=== PATIENT | female | born 1970 | race Caucasian/White ===

== ENCOUNTER 2017-07-13 17:56 | Emergency (ER) | payer OTHER ==
[2017-07-13] MEDS ORDERED: HYDROcodone/APAP 5-325MG 1 EACH TAB PO STA (18:03)
[2017-07-13 18:07] VITALS: BP 154/104; PULSE 115; RESP 20; TEMP 98
--- NOTE | 2017-07-13 18:12 | ED ---
General Adult HPI - General Stated complaint: RT WRIST INJURY FROM FALL Time Seen by Provider: 07/13/17 17:58 Source: patient, RN notes reviewed Mode of arrival: ambulatory Limitations: no limitations - History of Present Illness Initial comments: 47-year-old female presents emergency department with chief complaint of right wrist injury. Patient tripped and fell onto her right wrist. Now she has right wrist pain. Patient states that she does have range of motion of the fingers however it does cause her wrist hurts. He should not. There is no other injury. Patient denies any recent fever, chills, shortness of breath, chest pain, back pain, abdominal pain, nausea vomiting, numbness or tingling, dysuria or hematuria, constipation or diarrhea, headaches or visual changes, or any other current symptoms. - Related Data Home Medications Medication Instructions Recorded Confirmed Dicyclomine [Bentyl] 20 mg PO QID PRN 09/29/14 09/30/14 Ibuprofen [Motrin] 600 mg PO Q8HR PRN 09/29/14 09/29/14 Previous Rx's Medication Instructions Recorded Hydrocodone/Acetaminophen [[place] 1 each PO Q6HR PRN #10 tab 07/13/17 5-325] Allergies Allergy/AdvReac Type Severity Reaction Status Date / Time amoxicillin Allergy Rash/Hives Verified 07/13/17 18:02 Penicillins Allergy Rash/Hives Verified 07/13/17 18:02 Review of Systems ROS Statement: Those systems with pertinent positive or pertinent negative responses have been documented in the HPI. ROS Other: All systems not noted in ROS Statement are negative. Past Medical History Past Medical History: Hypertension Additional Past Medical History / Comment(s): pas hx. kidney stones, RUQ pain History of Any Multi-Drug Resistant Organisms: None Reported Past Surgical History: Cholecystectomy, Orthopedic Surgery, Tubal Ligation Additional Past Surgical History / Comment(s): wrist surg. Past Anesthesia/Blood Transfusion Reactions: Motion Sickness, Postoperative Nausea & Vomiting (PONV) Additional Past Anesthesia/Blood Transfusion Reaction / Comment(s): severe PONV Past Psychological History: No Psychological Hx Reported Smoking Status: Current some day smoker Past Alcohol Use History: None Reported Past Drug Use History: None Reported - Past Family History Mother Family Medical History: No Reported History General Exam - General Exam Comments Initial Comments: General: The patient is awake and alert, in no distress, and does not appear acutely ill. Neck: The neck is supple, there is no tenderness. Cardiovascular: There is a regular rate and rhythm. No murmur, rub or gallop is appreciated. Respiratory: Lungs are clear to auscultation, respirations are non-labored, breath sounds are equal. No wheezes, stridor, rales, or rhonchi. Musculoskeletal: Sensation intact with 2+ pulses. Right upper extremity. Patient's frontal motion of the right elbow. Patient has limited range of motion right hand due to pain in the right wrist patient does have swelling around the right wrist with tenderness patient of the radial aspect. Neurological: CN II-XII intact, There are no obvious motor or sensory deficits. Coordination appears grossly intact. Speech is normal. Skin: Skin is warm and dry and no rashes or lesions are noted. Psychiatric: Normal mood and affect. Limitations: no limitations Course Vital Signs 07/13/17 18:02 Temperature 98 F Pulse Rate 115 H Respiratory 20 Rate Blood Pressure 154/104 O2 Sat by Pulse 96 Oximetry Procedures - Orthopedic Splinting/Casting Injury #1 Side: right Upper Extremity Injury Location: wrist Upper Extremity Immobilizer: volar splint (short arm) Medical Decision Making - Medical Decision Making 47-year-old female presents for right wrist injury. At this time patient underwent an x-ray that does show a right wrist fracture. This time patient was placed in splint. We discussed follow-up with orthopedic we discussed return parameters all questions. Patient stated she understood and she is given plan. All questions have been answered. She will be discharged. - Radiology Data Radiology results: report reviewed, image reviewed Disposition Clinical Impression: Fracture of radius with ulna, right, closed Disposition: HOME SELF-CARE Condition: Stable Instructions: Wrist Fracture in Adults (ED) Additional Instructions: Please use medication as discussed. Please follow up with family doctor if symptoms have not improved over the next two days. Please return to the emergency room if your symptoms increase or worsen or for any other concerns. Prescriptions: Hydrocodone/Acetaminophen [[place] 5-325] 1 each PO Q6HR PRN #10 tab PRN Reason: Pain Referrals: Cheng Momin DO [Primary Care Provider] - 1-2 days Vishal Mcginnis MD [Medical Doctor] - 1-2 days Time of Disposition: 18:18
--- NOTE | 2017-07-13 18:17 | XR ---
EXAMINATION TYPE: XR wrist complete RT , 4 VIEWS DATE OF EXAM ORDERED: 07/13/2017 HISTORY: Pain. COMPARISON: None. FINDINGS: There is a mildly displaced, intra-articular fracture of the distal radius. There is an as sociated mildly displaced ulnar styloid fracture. There is mild posterior angulation. IMPRESSION: MILDLY DISPLACED CHOLECYSTITIS TYPE FRACTURE OF THE DISTAL RIGHT RADIUS AND ULNA. CODE A: INITIAL ENCOUNTER FOR CLOSED FRACTURE.
== END 2017-07-13 18:27 | disposition home or self-care (01) ==
LOC: EC 17:56
DX: S52.91XA Unspecified fracture of right forearm, initial encounter for closed fracture (principal); S52.201A Unspecified fracture of shaft of right ulna, initial encounter for closed fracture; F17.200 Nicotine dependence, unspecified, uncomplicated; Z98.890 Other specified postprocedural states; Z88.0 Allergy status to penicillin; W19.XXXA Unspecified fall, initial encounter
CPT/HCPCS: 29125; 99283

== ENCOUNTER 2020-11-16 15:03 | Inpatient (IN) | payer OTHER ==
[2020-11-16] MEDS ORDERED: NITROGLYCERIN SL TABS 0.4 MG TAB SUBLINGUAL STA (15:29)
[2020-11-16] MEDS ORDERED: ASPIRIN 81 MG PO STA (15:29)
[2020-11-16] MEDS ORDERED: SODIUM CHLORIDE 0.9% 500 ML 500 ML IV STA (15:29)
--- NOTE | 2020-11-16 15:34 | ED ---
Chest Pain HPI - General Chief Complaint: Chest Pain Stated Complaint: chest pain Time Seen by Provider: 11/16/20 15:13 Source: patient Mode of arrival: wheelchair Limitations: no limitations - History of Present Illness Initial Comments: Patient is a 50-year-old female with history of hypertension, presenting to the emergency Department with complaints of intermittent chest pain that started yesterday. Patient states it started yesterday afternoon, and she describes it as pressure in the middle of her chest with some mild radiation to the left lisa ast area. She states the pain has not gone away but has been decreasing in intensity at times. She denies any alleviating or aggravating factors. He denies any falls or trauma. She states currently the pain is about a 5/10, describes as pressure in the center of her chest. She states that she also feels a little short of breath, feels like her heart has been racing. She states she normally runs a little bit high and her heart rate, normally in the 100s but states it's been in the 120s. She denies history of heart disease, has not had a stress test. She isn't every day smoker, hypertension history. She denies history of blood clots but she states she did have Covid in May, she states she recovered fairly well. She has no further complaints at this time. Upon arrival to the ER, she has tachycardia at 114, and he 4% on room air. - Related Data Home Medications Medication Instructions Recorded Confirmed Ascorbic Acid [Vitamin C] 1,000 mg PO DAILY 11/16/20 11/16/20 Cholecalciferol [Vitamin D3 (25 25 mcg PO DAILY 11/16/20 11/16/20 Mcg = 1000 Iu)] Fioricet (Unknown Dose) 1 dose PO DIRECTED PRN 11/16/20 11/16/20 Lisinopril-Hctz 10-12.5 mg 1 tab PO DAILY 11/16/20 11/16/20 [Zestoretic 10-12.5] Multivitamins, Thera [Multivitamin 1 tab PO DAILY 11/16/20 11/16/20 (formulary)] Ubidecarenone [Co Q-10] 100 mg PO DAILY 11/16/20 11/16/20 Zinc 50 mg PO DAILY 11/16/20 11/16/20 diphenhydrAMINE [Benadryl] 25 mg PO Q8H PRN 11/16/20 11/16/20 Allergies Allergy/AdvReac Type Severity Reaction Status Date / Time amoxicillin Allergy Rash/Hives Verified 11/16/20 16:09 azithromycin Allergy Rash/Hives Verified 11/16/20 16:09 cephalexin [From Keflex] Allergy Rash/Hives Verified 11/16/20 16:09 Penicillins Allergy Rash/Hives Verified 11/16/20 16:09 Review of Systems ROS Statement: Those systems with pertinent positive or pertinent negative responses have been documented in the HPI. ROS Other: All systems not noted in ROS Statement are negative. EKG Findings - EKG Comments: EKG Findings:: Sinus tach with premature supraventricular complexes, cannot rule out inferior infarct, age undetermined, no signs of an acute ischemia process. Ventricular rate 117, LA interval 140, QT 344. Past Medical History Past Medical History: Hypertension Additional Past Medical History / Comment(s): pas hx. kidney stones, RUQ pain History of Any Multi-Drug Resistant Organisms: None Reported Past Surgical History: Orthopedic Surgery, Tubal Ligation Additional Past Surgical History / Comment(s): wrist surg. Past Anesthesia/Blood Transfusion Reactions: Motion Sickness, Postoperative Nausea & Vomiting (PONV) Additional Past Anesthesia/Blood Transfusion Reaction / Comment(s): severe PONV Past Psychological History: No Psychological Hx Reported Smoking Status: Current every day smoker Past Alcohol Use History: None Reported Past Drug Use History: None Reported - Past Family History Mother Family Medical History: No Reported History General Exam - General Exam Comments Initial Comments: GENERAL: Patient is well-developed and well-nourished. Patient is nontoxic and in no acute distress. HEAD: Atraumatic, normocephalic. EYES: Pupils equal round and reactive to light, extraocular movements intact, sclera anicteric, conjunctiva are normal. Eyelids were unremarkable. ENT: TMs normal, nares patent, oropharynx clear without exudates. Moist mucous membranes. NECK: Normal range of motion, supple without lymphadenopathy or JVD. LUNGS: Unlabored respirations. Breath sounds clear to auscultation bilaterally and equal. No wheezes rales or rhonchi. HEART: Tachycardia rate and rhythm without murmurs, rubs or gallops. ABDOMEN: Soft, nontender, normoactive bowel sounds. No guarding, no rebound. No masses appreciated. : Deferred MUSCULOSKELETAL: Normal extremities with adequate strength and normal range of motion, no pitting or edema. No clubbing or cyanosis. NEUROLOGICAL: Patient is alert and oriented x 3. Motor and sensory are also intact. Cranial nerves II through XII grossly intact. Symmetrical smile. Normal speech, normal gait. PSYCH: Normal mood, normal affect. SKIN: Warm, Dry, normal turgor, no rashes or lesions noted. Limitations: no limitations Course Vital Signs 11/16/20 11/16/20 11/16/20 15:08 15:37 15:55 Temperature 97.6 F Pulse Rate 114 H 116 H Pulse Rate [ 115 H Apical] Respiratory 20 18 Rate Blood Pressure 156/99 131/88 O2 Sat by Pulse 94 L 94 L Oximetry 11/16/20 11/16/20 17:10 18:31 Temperature 98 F Pulse Rate 109 H 100 Pulse Rate [ Apical] Respiratory 18 18 Rate Blood Pressure 147/89 122/73 O2 Sat by Pulse 94 L 95 [place] Patient is a 50-year-old female here with chest pain that started yesterday. She does admit to some mild radiation to the left breast area, intensity has been in varying. Patient is tachycardia upon arrival, 94% on room air. She has a history of hypertension, and every day smoker. No history of known heart disease. She did have Covid in May, recovered fairly well. No history of blood clots. Labs show normal white count, d-dimer is 0.47, troponin is normal, CK-MB is 0.6. Rapid Covid is negative. Given high probability of PE, we did do a CT angio of the chest, impression reads suboptimal study without central saddle PE. Cannot exclude smaller segmental and subsegmental PE on this exam. No suspicious focal consolidation. Patient continues to have intermittent chest pain, we did give full-strength aspirin and 1 nitro. She states it did seem to help initially. Her heart rate has been increasing up into the 160s. Patient will be admitted for serial troponins, cardiac and pulmonology consult. We will start high-dose heparin at this time. Patient is in agreement with this plan of care. Case discussed in detail with Dr. Gonzalez. Patient accepted by Dr. Kwon. Critical Care Time Critical Care Time: Yes Total Critical Care Time: 35 (Patient presented with chest pain, tachycardia, cold with a back in May. CT chest reveals suspected small PE. High-dose heparin was started. Patient was admitted.) Disposition Clinical Impression: Chest pain, Pulmonary embolism, Tachycardia Disposition: ADMITTED IP TO THIS HOSP Condition: Stable Decision Date: 11/16/20 Decision Time: 16:38
[2020-11-16 15:37] LABS: Basophils % (A) 0 %; Eosinophils # (A) 0.3 k/uL (0-0.7); Eosinophils % (A) 3 %; HCT 48.8 % (34.0-46.0); HGB 16.3 gm/dL (11.4-16.0); Lymphocytes # (A) 2.4 k/uL (1.0-4.8); Lymphocytes % (A) 24 %; MCH 32.3 pg (25.0-35.0); MCHC 33.4 g/dL (31.0-37.0); MCV 96.6 fL (80.0-100.0); Mean Platelet Volume 8.4; Monocytes # (A) 0.4 k/uL (0-1.0); Monocytes % (A) 4 %; Neutrophils # (A) 6.9 k/uL (1.3-7.7); Neutrophils % (A) 68 %; Platelet Count 310 k/uL (150-450); RBC 5.05 m/uL (3.80-5.40); RDW 14.5 % (11.5-15.5); WBC 10.1 k/uL (3.8-10.6)
[2020-11-16 15:50] LABS: ALT 34 U/L (4-34); AST 62 U/L (14-36); African American GFR (CKD) >90 (>60 ml/min/1.73 sqM); Albumin 4.6 g/dL (3.5-5.0); Alkaline Phosphatase 163 U/L (38-126); Anion Gap 9 mmol/L; Blood Urea Nitrogen 12 mg/dL (7-17); Calcium 9.9 mg/dL (8.4-10.2); Carbon Dioxide 26 mmol/L (22-30); Chloride 103 mmol/L (98-107); Glucose 91 mg/dL (74-99); Non-African American GFR(CKD) >90 (>60 ml/min/1.73 sqM); Sodium 138 mmol/L (137-145); Total Bilirubin 0.9 mg/dL (0.2-1.3); Total Protein 8.2 g/dL (6.3-8.2)
[2020-11-16 16:01] LABS: Creatine Kinase MB 0.6 ng/mL (0.0-2.4); Troponin I <0.012 ng/mL (0.000-0.034)
--- NOTE | 2020-11-16 16:18 | CT ---
EXAMINATION TYPE: CT chest angio for PE DATE OF EXAM: 11/16/2020 COMPARISON: None. HISTORY: Chest pain CT DLP: 852.3 mGycm Automated exposure control for dose reduction was used. CONTRAST: CT Chest for pulmonary embolism performed with with IV Contrast, patient injected with 100 mL of Isov ue 370. FINDINGS: Suboptimal due to large body habitus. LUNGS: Overall mosaic attenuation. No suspicious focal consolidation. Low lung volumes. No suspicious nodules or masses. MEDIASTINUM: There is more dense contrast in the aorta and pulmonary arteries without aneurysm or dis section. Heterogeneity in the pulmonary arteries without large saddle central pulmonary embolism . Sm aller segmental and subsegmental PE cannot be excluded on this study. There are no greater than 1 cm hilar or mediastinal lymph nodes. No cardiomegaly or pericardial effusion is seen. OTHER: Cholecystectomy clips. IMPRESSION: Suboptimal study without central saddle pulmonary embolism. Cannot exclude smaller segmen rika and subsegmental PE on this exam. Mosaic attenuation may reflect diffuse atelectatic change and/o r mild alveolar edema. No suspicious focal consolidation.
[2020-11-16 16:27] LABS: INR 0.9 (<1.2); Partial Thromboplastin Time 27.1 sec (22.0-30.0); Prothrombin Time 9.9 sec (9.0-12.0)
[2020-11-16] MEDS ORDERED: HEPARIN SODIUM 1,000 UN/ML (10ML VL) IV ONE (16:32)
[2020-11-16] MEDS ORDERED: HEPARIN SODIUM 1,000 UN/ML (10ML VL) IV PRN (16:32)
[2020-11-16] MEDS ORDERED: NITROGLYCERIN SL TABS 0.4 MG TAB SUBLINGUAL PRN (16:33)
[2020-11-16] MEDS: HEPARIN SOD,PORK IN 0.45% NACL 25,000 UNIT in 0.45% NACL 1 250ML.BAG IV SCH ×2 (16:58→22:00)
--- NOTE | 2020-11-16 18:16 | US ---
EXAMINATION TYPE: US venous doppler duplex LE BI DATE OF EXAM: 11/16/2020 5:50 PM COMPARISON: NONE CLINICAL HISTORY: dvt?. SIDE PERFORMED: Bilateral TECHNIQUE: The lower extremity deep venous system is examined utilizing real time linear array sonog brittny with graded compression, doppler sonography and color-flow sonography. VESSELS IMAGED: Common Femoral Vein Deep Femoral Vein Greater Saphenous Vein * Femoral Vein Popliteal Vein Small Saphenous Vein * Proximal Calf Veins (* superficial vessels) Difficult study due to patient body habitus Right Leg: Visualized portions appear negative for DVT, unable to visualize distal femoral vein for compression image Left Leg: Appears negative for DVT IMPRESSION: Exam is somewhat limited. No evident deep venous thrombosis within the limitations of the exam
--- NOTE | 2020-11-16 19:41 | P.HPIM ---
History of Present Illness H&P Date: 11/16/20 Chief Complaint: Chest pain History of presenting complaint: This is a pleasant 50-year-old patient of Dr. Momin. Patient yesterday noticed having intermittent precordial chest pressure. Present on and off the whole day. It then settled down. This morning became more intense. She was also short of breath breaking out in a sweat. The heart racing notice her heart rate tubular 125. No dizziness nor lightheadedness. The pain did not radiate anywhere. Not necessarily related to exertion. Decided to come in. No prior history of heart disease. Review of systems: GEN.: Tired EYES: None HEENT: None NECK: None RESPIRATORY: As above CARDIOVASCULAR: As above GASTROINTESTINAL: None GENITOURINARY: None MUSCULOSKELETAL: None LYMPHATICS: None HEMATOLOGICAL: None PSYCHIATRY: None NEUROLOGICAL: None Past medical history to include: Migraines, hypertension, obesity Social history: Smokes about half a bag a day. Son lives with her. 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 EYES: Pupils equal. Conjunctiva normal. HEENT: External appearance of nose and ears normal, oral cavity grossly normal. NECK: JVD not raised; masses not palpable. HEART: First and second heart sounds are normal; no edema. LUNGS: Respiratory rate increased; decreased breath sounds. ABDOMEN: Soft, nontender, liver spleen not palpable, no masses palpable. PSYCH: Alert and oriented x3; mood and affect normal. NEUROLOGICAL: Cranial nerves grossly intact; no facial asymmetry, power and sensation grossly intact. LYMPHATICS: No lymph nodes palpable in the axilla and neck INVESTIGATIONS, reviewed in the clinical context: WBC 10.1 hemoglobin 16.3 platelets 310 potassium bun 12 creatinine 0.73 Troponin I less than 0.0122 D-dimer 0.47 Coronavirus [PCL]-not detected EKG tracing personally reviewed by me-normal sinus rhythm CT chest and U for PE: Suboptimal study. No obvious PE reported. Ultrasound venous Doppler bilateral lower extremity: Somewhat limited exam. Negative for DVT Assessment and plan: -Anterior chest wall pain, possibly unstable angina and a patient's cardiac risk factors include obesity, smoker. Serial cardiac enzymes and place. Aspirin. IV heparin. Cardiology consulted -Morbid obesity BMI 56.7 Weight loss measures, follow-up with PCP -IV heparin monitoring -Essential hypertension Continue Zestoretic -Chronic nicotine dependence, cigarette smoker Nicotine patch Care was discussed with the patient. Cardiology consulted. Serial cardiac enzymes and place. Smoke cessation counseling: This was done with the patient. Nicotine patch is being given. More than 3 minutes was spent for this Past Medical History Past Medical History: Hypertension Additional Past Medical History / Comment(s): pas hx. kidney stones, RUQ pain History of Any Multi-Drug Resistant Organisms: None Reported Past Surgical History: Orthopedic Surgery, Tubal Ligation Additional Past Surgical History / Comment(s): wrist surg. Past Anesthesia/Blood Transfusion Reactions: Motion Sickness, Postoperative Nausea & Vomiting (PONV) Additional Past Anesthesia/Blood Transfusion Reaction / Comment(s): severe PONV Past Psychological History: No Psychological Hx Reported Smoking Status: Current every day smoker Past Alcohol Use History: None Reported Past Drug Use History: None Reported - Past Family History Mother Family Medical History: No Reported History Medications and Allergies Home Medications Medication Instructions Recorded Confirmed Type Ascorbic Acid [Vitamin C] 1,000 mg PO DAILY 11/16/20 11/16/20 History Cholecalciferol [Vitamin D3 (25 25 mcg PO DAILY 11/16/20 11/16/20 History Mcg = 1000 Iu)] Fioricet (Unknown Dose) 1 dose PO DIRECTED PRN 11/16/20 11/16/20 History Lisinopril-Hctz 10-12.5 mg 1 tab PO DAILY 11/16/20 11/16/20 History [Zestoretic 10-12.5] Multivitamins, Thera [Multivitamin 1 tab PO DAILY 11/16/20 11/16/20 History (formulary)] Ubidecarenone [Co Q-10] 100 mg PO DAILY 11/16/20 11/16/20 History Zinc 50 mg PO DAILY 11/16/20 11/16/20 History diphenhydrAMINE [Benadryl] 25 mg PO Q8H PRN 11/16/20 11/16/20 History Allergies Allergy/AdvReac Type Severity Reaction Status Date / Time amoxicillin Allergy Rash/Hives Verified 11/16/20 16:09 azithromycin Allergy Rash/Hives Verified 11/16/20 16:09 cephalexin [From Keflex] Allergy Rash/Hives Verified 11/16/20 16:09 Penicillins Allergy Rash/Hives Verified 11/16/20 16:09 Physical Exam Vitals: Vital Signs Temp Pulse Pulse Resp BP Pulse Ox 11/16/20 18:31 98 F 100 18 122/73 95 11/16/20 17:10 109 H 18 147/89 94 L 11/16/20 15:55 116 H 18 131/88 94 L 11/16/20 15:37 115 H 11/16/20 15:08 97.6 F 114 H 20 156/99 94 L Intake and Output 11/16/20 11/16/20 11/16/20 06:59 14:59 22:59 Other: Weight 145.15 kg Results CBC & Chem 7: 11/16/20 15:31 11/16/20 15:31 Labs: Abnormal Lab Results - Last 24 Hours (Table) 11/16/20 11/16/20 Range/Units 15:31 15:31 Hgb 16.3 H (11.4-16.0) gm/dL Hct 48.8 H (34.0-46.0) % AST 62 H (14-36) U/L Alkaline Phosphatase 163 H (38-126) U/L
[2020-11-16] MEDS: NICOTINE 14MG/24HR PATCH TRANSDERM SCH (23:03)
[2020-11-17 04:50] LABS: Basophils % (A) 0 %; Eosinophils # (A) 0.2 k/uL (0-0.7); Eosinophils % (A) 3 %; HCT 47.3 % (34.0-46.0); HGB 15.4 gm/dL (11.4-16.0); Lymphocytes # (A) 2.6 k/uL (1.0-4.8); Lymphocytes % (A) 32 %; MCH 32.1 pg (25.0-35.0); MCHC 32.5 g/dL (31.0-37.0); MCV 98.8 fL (80.0-100.0); Mean Platelet Volume 8.2; Monocytes # (A) 0.3 k/uL (0-1.0); Monocytes % (A) 4 %; Neutrophils # (A) 4.7 k/uL (1.3-7.7); Neutrophils % (A) 59 %; Platelet Count 319 k/uL (150-450); RBC 4.79 m/uL (3.80-5.40); RDW 14.6 % (11.5-15.5)
[2020-11-17 04:59] LABS: Cholesterol 196 mg/dL (<200); HDL Cholesterol 35 mg/dL (40-60); LDL Cholesterol,Calculated 113 mg/dL (0-99); Triglycerides 238 mg/dL (<150)
[2020-11-17 08:20] VITALS: RESP 16
[2020-11-17] MEDS: NICOTINE 14MG/24HR PATCH TRANSDERM SCH (08:30)
[2020-11-17] MEDS ORDERED: DOBUTamine DRIP for NUC MED 500 MG in DEXTROSE/WATER 1 250ML.BAG IV PRN (08:54)
[2020-11-17] MEDS ORDERED: MULTIVITAMINS, THERA 1 EACH TAB PO SCH (09:00)
[2020-11-17] MEDS ORDERED: CHOLECALCIFEROL 25 MCG (1000 IU) TABLET PO SCH (09:00)
[2020-11-17] MEDS ORDERED: LISINOPRIL-HCTZ 10-12.5 MG 1 EACH TAB PO SCH (09:00)
[2020-11-17] MEDS ORDERED: ASPIRIN 325 MG TAB PO SCH (09:00)
[2020-11-17] MEDS ORDERED: ASCORBIC ACID 500 MG TAB PO SCH (09:00)
--- NOTE | 2020-11-17 10:45 | P.CRDCN ---
History of Present Illness History of present illness: HISTORY OF PRESENTING ILLNESS This is a pleasant 50-year-old female past medical history significant for hypertension, chronic nicotine dependence and morbid obesity. We have been asked to see in consultation for chest pain. She states starting on Monday she noticed a pulling tight sensation in the midsternal region. The pain was exacerbated by movement of her arms and upper body. 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 Associated with some tachycardia. She states she had been checking her blood pressure and heart rate over the weekend and her blood pressure was normal however her heart rate was up in the 120s. She noticed some mild shortness of breath. She had no nausea, vomiting, diaphoresis or palpitations. DIAGNOSTICS EKG reveals sinus tachycardia heart rate of 117. Telemetry tracings indicate sinus tachycardia. CTA suboptimal study with no evidence of central saddle PE, cannot exclude smaller segmental or subsegmental PE. Lower extremity Doppler negative for DVT. Laboratory reviewed, CBC unremarkable, d-dimer 0.47, sodium 138, potassium not calculated, creatinine 0.73, magnesium 2.0, cardiac enzymes negative 3, proBNP 106, LDL 113 and HDL 35. Current cardiac medications include lisinopril/hydrochlorothiazide 10/0.5 mg daily. REVIEW OF SYSTEMS At the time of my exam: CONSTITUTIONAL: Denies fever or chills. CARDIOVASCULAR: Denies chest pain, shortness of breath, orthopnea, PND or palpitations. RESPIRATORY: Denies cough. GASTROINTESTINAL: Denies abdominal pain, diarrhea, constipation, nausea or vomiting. MUSCULOSKELETAL: Denies myalgias. NEUROLOGIC: Denies numbness, tingling, headacbe or weakness. ENDOCRINE: Denies fatigue, weight change, polydipsia or polyurina. GENITOURINARY: Denies burning, hematuria or urgency with micturation. HEMATOLOGIC: Denies history of anemia or bleeding. PHYSICAL EXAMINATION Blood pressure 158/98 heart rate 96 afebrile and maintaining oxygen saturation on room air. CONSTITUTIONAL: No apparent distress. Morbidly obese. HEENT: Head is normocephalic. Pupils are equal, round. Sclerae anicteric. Mucous membranes of the mouth are moist. No JVD. No carotid bruit. CHEST EXAMINATION: Lungs are clear to auscultation. No chest wall tenderness is noted on palpation or with deep breathing. HEART EXAMINATION: Regular rate and rhythm. S1, S2 heard. No murmurs, gallops or rub. ABDOMEN: Soft, nontender. Positive bowel sounds. EXTREMITIES: 2+ peripheral pulses, no lower extremity edema and no calf ten derness. NEUROLOGIC EXAMINATION: Patient is awake, alert and oriented x3. ASSESSMENT Chest pain, atypical Hypertension Sinus tachycardia Chronic nicotine dependence Morbid obesity, BMI 56 PLAN An acute coronary event has been ruled out. Pain is atypical for angina, possibly related to musculoskeletal strain. Obtain 2-D echocardiogram and Doppler study to assess cardiac structure and function. Perform dobutamine stress echocardiogram to assess for stress-induced cardiac ischemia. Thank you kindly for this consultation. Nurse Practitioner note has been reviewed, I agree with a documented findings and plan of care. Patient was seen and examined. Past Medical History Past Medical History: Hypertension Additional Past Medical History / Comment(s): pas hx. kidney stones, RUQ pain, MIGRANES History of Any Multi-Drug Resistant Organisms: None Reported Past Surgical History: Cholecystectomy, Orthopedic Surgery, Tubal Ligation Additional Past Surgical History / Comment(s): wrist surg. Past Anesthesia/Blood Transfusion Reactions: Motion Sickness, Postoperative Nausea & Vomiting (PONV) Additional Past Anesthesia/Blood Transfusion Reaction / Comment(s): severe PONV Past Psychological History: No Psychological Hx Reported Smoking Status: Current every day smoker Past Alcohol Use History: None Reported Past Drug Use History: None Reported - Past Family History Mother Family Medical History: No Reported History Medications and Allergies Home Medications Medication Instructions Recorded Confirmed Type Ascorbic Acid [Vitamin C] 1,000 mg PO DAILY 11/16/20 11/16/20 History Cholecalciferol [Vitamin D3 (25 25 mcg PO DAILY 11/16/20 11/16/20 History Mcg = 1000 Iu)] Fioricet (Unknown Dose) 1 dose PO DIRECTED PRN 11/16/20 11/16/20 History Lisinopril-Hctz 10-12.5 mg 1 tab PO DAILY 11/16/20 11/16/20 History [Zestoretic 10-12.5] Multivitamins, Thera [Multivitamin 1 tab PO DAILY 11/16/20 11/16/20 History (formulary)] Ubidecarenone [Co Q-10] 100 mg PO DAILY 11/16/20 11/16/20 History Zinc 50 mg PO DAILY 11/16/20 11/16/20 History diphenhydrAMINE [Benadryl] 25 mg PO Q8H PRN 11/16/20 11/16/20 History Allergies Allergy/AdvReac Type Severity Reaction Status Date / Time amoxicillin Allergy Rash/Hives Verified 11/16/20 16:09 azithromycin Allergy Rash/Hives Verified 11/16/20 16:09 cephalexin [From Keflex] Allergy Rash/Hives Verified 11/16/20 16:09 Penicillins Allergy Rash/Hives Verified 11/16/20 16:09 Physical Exam Vitals: Vital Signs Temp Pulse Pulse Pulse Resp BP BP 11/17/20 08:00 97.4 F L 96 16 158/98 11/17/20 07:52 11/17/20 04:00 96.5 F L 94 18 137/92 11/17/20 02:00 115 H 96 18 11/17/20 00:00 96.0 F L 96 18 115/55 11/16/20 21:12 96.4 F L 103 H 18 138/101 11/16/20 21:06 98.4 F 103 H 18 138/101 11/16/20 18:31 98 F 100 18 122/73 11/16/20 17:10 109 H 18 147/89 11/16/20 15:55 116 H 18 131/88 11/16/20 15:37 115 H 11/16/20 15:08 97.6 F 114 H 20 156/99 Pulse Ox 11/17/20 08:00 94 L 11/17/20 07:52 97 11/17/20 04:00 95 11/17/20 02:00 11/17/20 00:00 94 L 11/16/20 21:12 96 11/16/20 21:06 96 11/16/20 18:31 95 11/16/20 17:10 94 L 11/16/20 15:55 94 L 11/16/20 15:37 11/16/20 15:08 94 L Intake and Output 11/16/20 11/17/20 11/17/20 22:59 06:59 14:59 Intake Total 114.471 Output Total 210 Balance 114.471 -210 Intake: Intake, IV Titration 114.471 Amount Heparin Sod,Pork in 0.45% 114.471 NaCl 25,000 unit In 0.45 % NaCl 1 250ml.bag @ 15.9 UNITS/KG/HR 23.079 mls/ hr IV .[id number] [facility] Rx#: [id number] Output: Urine 210 Other: Voiding Method Bedside Commode Bedside Commode # Voids 1 Weight 145.15 kg 145.3 kg Results 11/17/20 04:34 11/16/20 15:31 Cardiac Enzymes 11/16/20 11/16/20 11/16/20 Range/Units 15:31 15:31 18:06 AST 62 H (14-36) U/L CK-MB (CK-2) 0.6 (0.0-2.4) ng/mL Troponin I <0.012 <0.012 (0.000-0.034) ng/mL 11/16/20 Range/Units 21:56 AST (14-36) U/L CK-MB (CK-2) (0.0-2.4) ng/mL Troponin I <0.012 (0.000-0.034) ng/mL Coagulation 11/16/20 11/16/20 11/17/20 Range/Units 15:31 21:56 04:34 PT 9.9 (9.0-12.0) sec APTT 27.1 85.8 H 61.4 H (22.0-30.0) sec Lipids 11/17/20 Range/Units 04:34 Triglycerides 238 H (<150) mg/dL Cholesterol 196 (<200) mg/dL HDL Cholesterol 35 L (40-60) mg/dL CBC 11/16/20 11/17/20 Range/Units 15:31 04:34 WBC 10.1 8.0 (3.8-10.6) k/uL RBC 5.05 4.79 (3.80-5.40) m/uL Hgb 16.3 H 15.4 (11.4-16.0) gm/dL Hct 48.8 H 47.3 H (34.0-46.0) % Plt Count 310 319 (150-450) k/uL Comprehensive Metabolic Panel 11/16/20 Range/Units 15:31 Sodium 138 (137-145) mmol/L Potassium (3.5-5.1) mmol/L Chloride 103 (98-107) mmol/L Carbon Dioxide 26 (22-30) mmol/L BUN 12 (7-17) mg/dL Creatinine 0.73 (0.52-1.04) mg/dL Glucose 91 (74-99) mg/dL Calcium 9.9 (8.4-10.2) mg/dL AST 62 H (14-36) U/L ALT 34 (4-34) U/L Alkaline Phosphatase 163 H (38-126) U/L Total Protein 8.2 (6.3-8.2) g/dL Albumin 4.6 (3.5-5.0) g/dL Current Medications Generic Name Dose Route Start Last Admin Trade Name Freq PRN Reason Stop Dose Admin Ascorbic Acid 1,000 mg 11/17/20 09:00 Ascorbic Acid 500 Mg Tab PO DAILY [facility] Aspirin 325 mg 11/17/20 09:00 Aspirin 325 Mg Tab PO DAILY [facility] Cholecalciferol 25 mcg 11/17/20 09:00 Cholecalciferol 25 Mcg (1000 Iu) Tablet PO DAILY [facility] Lisinopril/HCTZ 1 each 11/17/20 09:00 Lisinopril-Hctz 10-12.5 Mg 1 Each Tab PO DAILY [facility] Heparin Sodium (Porcine) 0 unit 11/16/20 16:32 Heparin Sodium 1,000 Un/Ml (10ml Vl) IV PER PROTOCOL PRN Low PTT Protocol Heparin Sodium/Sodium Chloride 250 mls @ 23.079 mls/hr 11/16/20 16:45 11/16/20 22:00 25,000 unit/ Sodium Chloride IV 13.9 units/kg/hr .[id number] JESSICA 20.176 mls/hr Administration Protocol 15.9 UNITS/KG/HR Multivitamins 1 each 11/17/20 09:00 Multivitamins, Thera 1 Each Tab PO DAILY [facility] Nicotine 1 patch 11/16/20 19:45 11/16/20 23:03 Nicotine 14mg/24hr Patch TRANSDERM 1 patch DAILY [facility] Administration Nitroglycerin 0.4 mg 11/16/20 16:33 Nitroglycerin Sl Tabs 0.4 Mg Tab SUBLINGUAL Q5M PRN Chest Pain Intake and Output 11/16/20 11/17/20 11/17/20 22:59 06:59 14:59 Intake Total 114.471 Output Total 210 Balance 114.471 -210 Intake: Intake, IV Titration 114.471 Amount Heparin Sod,Pork in 0.45% 114.471 NaCl 25,000 unit In 0.45 % NaCl 1 250ml.bag @ 15.9 UNITS/KG/HR 23.079 mls/ hr IV .[id number] [facility] Rx#: [id number] Output: Urine 210 Other: Voiding Method Bedside Commode Bedside Commode # Voids 1 Weight 145.15 kg 145.3 kg 11/17/20 04:34 11/16/20 15:31
--- NOTE | 2020-11-17 11:58 | ECHOF ---
Referral Reason:chest pain MEASUREMENTS -------- HEIGHT: 160.0 cm WEIGHT: 145.1 kg BP: RVIDd: 2.9 cm (< 3.3) IVSd: 1.2 cm (0.6 - 1.1) LVIDd: 5.0 cm (3.9 - 5.3) LVPWd: 1.4 cm (0.6 - 1.1) IVSs: 1.9 cm LVIDs: 3.2 cm LVPWs: 1.7 cm Ao Diam: 3.2 cm (2.0 - 3.7) AV Cusp: 2.2 cm (1.5 - 2.6) LA Diam: 2.9 cm (2.7 - 3.8) MV EXCURSION: 13.189 mm (> 18.000) MV EF SLOPE: 157 mm/s (70 - 150) EPSS: 0.8 cm MV E Abdirahman: 0.77 m/s MV DecT: 149 ms MV A Abdirahman: 0.87 m/s MV E/A Ratio: 0.89 RAP: 5.00 mmHg RVSP: 9.64 mmHg FINDINGS -------- This was a technically difficult study with suboptimal views. The left ventricular size is normal. There is mild concentric left ventricular hypertrophy. Overa ll left ventricular systolic function is low-normal with, an EF between 50 - 55 %. The RV was not well visualized. The left atrial size is normal. The right atrial size is normal. Lumason used The aortic valve is trileaflet and appears structurally normal. The mitral valve is normal. There is trace mitral regurgitation. The tricuspid valve appears structurally normal. Trace tricuspid regurgitation present. Right gayathri tricular systolic pressure is normal at < 35 mmHg. There is no pulmonic regurgitation present. The aortic root size is normal. IVC Not well visulized. There is no pericardial effusion. CONCLUSIONS -------- 1. The left ventricular size is normal. 2. There is mild concentric left ventricular hypertrophy. 3. Overall left ventricular systolic function is low-normal with, an EF between 50 - 55 %. 4. The RV was not well visualized. 5. There is trace mitral regurgitation. 6. Trace tricuspid regurgitation present. 7. There is no pericardial effusion. [employer]KER: Ana Maria Costello RDCS
--- NOTE | 2020-11-17 12:35 | ECHOS ---
STRESS ECHOCARDIOGRAM LUMASON: @@ Vial INDICATIONS: MEDICATIONS: BASELINE HEART RATE: 91 BASELINE BLOOD PRESSURE: 108/83 MAXIMUM HEART RATE: 156 MAXIMUM BLOOD PRESSURE: 131/100 85% MPHR: 146 100% MPHR: 172 METS: N/A MAXIMUM STAGE REACHED: N/A TOTAL EXERCISE TIME: N/A CLINICAL INFORMATION: Baseline EKG revealed normal sinus rhythm without significant ST-T changes. With dobutamine administration as per protocol, heart rate went from 90 to 152 beats per minute and the blood pressure changed from 108/83 to 155/80. There were rare isolated PVCs noted to begin with. No significant arrhythmia otherwise. There were no ST- segment changes to indicate ischemia. By EKG criteria, this is considered an unremarkable dobutamine stress test. Baseline echo images revealed normal wall motion and wall thickening of all segments. As per protocol with dobutamine administration, there was progressive increase in contractility noted of all segments. There is no evidence to suggest any stress- induced ischemia on this study. FINAL IMPRESSION: 1. By EKG criteria, this is an unremarkable dobutamine stress test. 2. Normal dobutamine stress echocardiogram without evidence of ischemia. MMODL / IJN: [id number] /
--- NOTE | 2020-11-17 14:21 | P.CNPUL ---
History of Present Illness Consult date: 11/17/20 Requesting physician: Philip Kwon Reason for consult: dyspnea, chest pain Chief complaint: Racing heart rate, chest pain, and mild shortness of breath. History of present illness: Pulmonary Consult Dated 11/17/2020. 50-year-old female, seen in the emergency room on 11/16/2020. The patient came in with complaints of racing heartbeat, chest pressure, and some mild shortness of breath. Apparently symptoms began the day before. The patient states that she was most concerned about the racing heartbeat. She tried a number different maneuvers to slow down the heart rate, but nothing really seems to help. In addition, she has some mild chest pressure, which is at the distal portion of her sternum, and seemed to radiate into the left breast area. In addition, she had some mild shortness of breath, which was the least significant symptom. The patient has a history of hypertension and migraine cephalgia. The patient does smoke about half a pack and has been smoking that way for the last 20 or so years. She apparently denies a prior history of pulmonary embolism, or significant heart disease, but apparently had coronavirus infection May but recovered very well. Currently, she is asymptomatic. She recently did have some heartburn. She had Dopplers of the lower semis which were negative. Her d-dimer was normal. Her CT angiogram did not show any central pulmonary emboli, a smaller subsegmental clots cannot be ruled out, likely related to the timing of the injection of dye. A stress echo was negative. And a EKG was showing evidence of sinus tachycardia with a heart rate of 117. White count 8.0, hemoglobin 15.4, and platelet count was normal. The patient's d-dimer was 0.47. Sodium 138, potassium 4.8, chlorides 103, CO2 26, anion gap 9, BUN and creatinine were normal. N-terminal proBNP was 106. Troponin was less than 0.012. TSH was normal. Coronavirus testing was negative. Review of Systems REVIEW OF SYSTEMS: CONSTITUTIONAL: [Negative.] NEUROLOGIC: [ Negative.] HEENT: [ Negative.] CARDIAC: Tachycardia, palpitations, and chest pressure PULMONARY: Mild shortness of breath. GI: Occasional heartburn. : [Negative.] RHEUMATOLOGIC: [ Negative.] IMMUNOLOGIC: [ Negative.] ENDOCRINE: [Negative. ] DERMATOLOGIC: [Negative.] Past Medical History Past Medical History: Hypertension Additional Past Medical History / Comment(s): pas hx. kidney stones, RUQ pain, MIGRANES History of Any Multi-Drug Resistant Organisms: None Reported Past Surgical History: Cholecystectomy, Orthopedic Surgery, Tubal Ligation Additional Past Surgical History / Comment(s): wrist surg. Past Anesthesia/Blood Transfusion Reactions: Motion Sickness, Postoperative Nausea & Vomiting (PONV) Additional Past Anesthesia/Blood Transfusion Reaction / Comment(s): severe PONV Past Psychological History: No Psychological Hx Reported Smoking Status: Current every day smoker Past Alcohol Use History: None Reported Past Drug Use History: None Reported - Past Family History Mother Family Medical History: No Reported History Medications and Allergies Home Medications Medication Instructions Recorded Confirmed Type Ascorbic Acid [Vitamin C] 1,000 mg PO DAILY 11/16/20 11/16/20 History Cholecalciferol [Vitamin D3 (25 25 mcg PO DAILY 11/16/20 11/16/20 History Mcg = 1000 Iu)] Fioricet (Unknown Dose) 1 dose PO DIRECTED PRN 11/16/20 11/16/20 History Lisinopril-Hctz 10-12.5 mg 1 tab PO DAILY 11/16/20 11/16/20 History [Zestoretic 10-12.5] Multivitamins, Thera [Multivitamin 1 tab PO DAILY 11/16/20 11/16/20 History (formulary)] Ubidecarenone [Co Q-10] 100 mg PO DAILY 11/16/20 11/16/20 History Zinc 50 mg PO DAILY 11/16/20 11/16/20 History diphenhydrAMINE [Benadryl] 25 mg PO Q8H PRN 11/16/20 11/16/20 History Allergies Allergy/AdvReac Type Severity Reaction Status Date / Time amoxicillin Allergy Rash/Hives Verified 11/16/20 16:09 azithromycin Allergy Rash/Hives Verified 11/16/20 16:09 cephalexin [From Keflex] Allergy Rash/Hives Verified 11/16/20 16:09 Penicillins Allergy Rash/Hives Verified 11/16/20 16:09 Physical Exam Osteopathic Statement: *. No significant issues noted on an osteopathic struct ural exam other than those noted in the History and Physical/Consult. Vitals: Vital Signs Temp Pulse Pulse Pulse Resp BP BP 11/17/20 12:00 97.8 F 98 16 128/95 11/17/20 08:00 97.4 F L 96 16 158/98 11/17/20 07:52 11/17/20 04:00 96.5 F L 94 18 137/92 11/17/20 02:00 115 H 96 18 11/17/20 00:00 96.0 F L 96 18 115/55 11/16/20 21:12 96.4 F L 103 H 18 138/101 11/16/20 21:06 98.4 F 103 H 18 138/101 11/16/20 18:31 98 F 100 18 122/73 11/16/20 17:10 109 H 18 147/89 11/16/20 15:55 116 H 18 131/88 11/16/20 15:37 115 H 11/16/20 15:08 97.6 F 114 H 20 156/99 Pulse Ox 11/17/20 12:00 95 11/17/20 08:00 94 L 11/17/20 07:52 97 11/17/20 04:00 95 11/17/20 02:00 11/17/20 00:00 94 L 11/16/20 21:12 96 11/16/20 21:06 96 11/16/20 18:31 95 11/16/20 17:10 94 L 11/16/20 15:55 94 L 11/16/20 15:37 11/16/20 15:08 94 L Intake and Output 11/16/20 11/17/20 11/17/20 22:59 06:59 14:59 Intake Total 114.471 480 Output Total 210 Balance 114.471 -210 480 Intake: Intake, IV Titration 114.471 Amount Heparin Sod,Pork in 0.45% 114.471 NaCl 25,000 unit In 0.45 % NaCl 1 250ml.bag @ 15.9 UNITS/KG/HR 23.079 mls/ hr IV .[id number] [facility] Rx#: [id number] Oral 480 Output: Urine 210 Other: Voiding Method Bedside Commode Bedside Commode Bedside Commode # Voids 1 3 Weight 145.15 kg 145.3 kg 145.3 kg No acute distress, oriented 3. Currently on room air with saturations 95%. HEENT examination is grossly unremarkable. Neck supple. Full range of motion. No adenopathy thyromegaly or neck vein distention. Cardiovascular examination reveals regular rhythm rate. S1-S2 normal. No S3 or S4. No discernible murmur noted. Heart rate 98 bpm. Lungs reveal clear breath sounds. Breath sounds are equal bilaterally. No adventitious lung sounds including wheezes rhonchi or crackles. Abdomen soft bowel sounds are heard. No masses or tenderness. Extremities are intact. No cyanosis clubbing or edema. Skin is without rash or lesion. Neurologic examination is brief but nonfocal. Results - Laboratory Findings CBC and BMP: 11/17/20 04:34 11/17/20 10:47 PT/INR, D-dimer PT 9.9 sec (9.0-12.0) 11/16/20 15:31 INR 0.9 (<1.2) 11/16/20 15:31 D-Dimer 0.47 mg/L FEU (<0.60) 11/16/20 15:31 Abnormal lab findings: Abnormal Labs 11/16/20 11/16/20 11/16/20 15:31 15:31 21:56 Hgb 16.3 H Hct 48.8 H APTT 85.8 H AST 62 H Alkaline Phosphatase 163 H Triglycerides LDL Cholesterol, Calc HDL Cholesterol 11/17/20 11/17/20 11/17/20 04:34 04:34 04:34 Hgb Hct 47.3 H APTT 61.4 H AST Alkaline Phosphatase Triglycerides 238 H LDL Cholesterol, Calc 113 H HDL Cholesterol 35 L - Diagnostic Findings Chest x-ray: image reviewed CT scan - chest: image reviewed U/S of Legs: image reviewed Assessment and Plan Assessment: No convincing evidence of pulmonary embolism at this time, based on the patient's CT angiogram, negative lower extremity Dopplers, and normal D-dimer test. Negative cardiac evaluation. Obesity. History of hypertension. History of migraine cephalgia. Ongoing tobacco use and nicotine addiction. Recent prior history of coronavirus infection, fully recovered. Plan: Plan dated 11/17/2020. The pulmonary standpoint, it's very unlikely that the patient had a pulmonary embolism. If she did have a PE, it would be rather small, and there is currently significant controversy as to whether or not those blood clot even need to be treated. The fact that her Dopplers were negative, her d-dimer was normal, and her CT angiogram was essentially normal, in my opinion, makes pulmonary embolism extremely unlikely. Apparently, the cardiac evaluation thus far has been negative. Additional recommendations and suggestions are forthcoming. Time with Patient: Greater than 30
[2020-11-17 16:30] VITALS: BP 146/90; PULSE 87; TEMP 97.2
--- NOTE | 2020-11-17 18:35 | P.DS ---
Providers Date of admission: 11/16/20 16:28 Expected date of discharge: 11/17/20 Attending physician: Philip Kwon Consults: 11/16/20 16:33 Consult Physician Urgent Consulting Provider: Juan Miguel Epperson Consult Reason/Comments: Chest pain, tachycardia, possible PE Do you want consulting provider notified?: Yes Consult Physician Urgent Consulting Provider: [facility] Consult Reason/Comments: chest pain, tachycardia, possible PE Do you want consulting provider notified?: Yes [facility] Chief Complaint: Chest pain History of presenting complaint: This is a pleasant 50-year-old patient of Dr. Momin. Patient yesterday noticed having intermittent precordial chest pressure. Present on and off the whole day. It then settled down. This morning became more intense. She was also short of breath breaking out in a sweat. The heart racing notice her heart rate - 125. No dizziness nor lightheadedness. The pain did not radiate anywhere. Not necessarily related to exertion. Decided to come in. No prior history of heart disease. Pulmonary embolism was ruled out. Doppler ultrasound lower extremity was negative. Dobutamine stress echocardiogram was negative for ischemia. 2-D echocardiogram was unremarkable for any wall motion abnormality. Patient was seen both by pulmonary and oncology clinic. Blood pressures running on the higher side hence current medication dose was increased to twice a day. Counseled about smoking. Weight loss measures were discussed. Discussion and discharge planning more than 35 minutes Consultation: Dr. Epperson from pulmonary Dr. Cathy Lawrence from cardiology Past medical history to include: Migraines, hypertension, obesity Social history: Smokes about half a bag a day. Son lives with her. 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 Conjunctiva normal. NECK: JVD not raised; masses not palpable. HEART: First and second heart sounds are normal; no edema. LUNGS: Respiratory rate increased; decreased breath sounds. ABDOMEN: Soft, nontender, liver spleen not palpable, no masses palpable. PSYCH: Alert and oriented x3; mood and affect normal. INVESTIGATIONS, reviewed in the clinical context: November 17: WBC 8 hemoglobin 15.4 LDL 113 TSH 1.6 Dobutamine stress echocardiogram: Negative for ischemia 2-D echocardiogram: EF 50-55% WBC 10.1 hemoglobin 16.3 platelets 310 potassium bun 12 creatinine 0.73 Troponin I less than 0.0122 D-dimer 0.47 Coronavirus [PCL]-not detected EKG tracing personally reviewed by me-normal sinus rhythm CT chest angiogram for PE: Suboptimal study. No obvious PE reported. Ultrasound venous Doppler bilateral lower extremity: Somewhat limited exam. Negative for DVT Assessment and plan: -Anterior chest wall pain, - patient's cardiac risk factors include obesity, smoker. Hypertension Negative dobutamine stress echocardiogram. Aspirin added. Counseled about risk factor modification. -Morbid obesity BMI 56.7 Weight loss measures, follow-up with PCP -IV heparin monitoring -Essential hypertension Increased dose of Zestoretic to twice daily -Chronic nicotine dependence, cigarette smoker Nicotine patch Disposition: Home Patient Condition at Discharge: Stable Plan - Discharge Summary Discharge Rx Participant: No New Discharge Prescriptions: New Nicotine 14Mg/24Hr Patch [Habitrol] 1 patch TRANSDERM DAILY #14 patch Aspirin 81 mg PO DAILY #30 chewable Continue Ascorbic Acid [Vitamin C] 1,000 mg PO DAILY Zinc 50 mg PO DAILY Cholecalciferol [Vitamin D3 (25 Mcg = 1000 Iu)] 25 mcg PO DAILY Fioricet (Unknown Dose) 1 dose PO DIRECTED PRN PRN Reason: Migraine Headache Ubidecarenone [Co Q-10] 100 mg PO DAILY Multivitamins, Thera [Multivitamin (formulary)] 1 tab PO DAILY Changed Lisinopril-Hctz 10-12.5 mg [Zestoretic 10-12.5] 1 tab PO BID #60 tab Discontinued diphenhydrAMINE [Benadryl] 25 mg PO Q8H PRN PRN Reason: Migraine Headache Discharge Medication List Ascorbic Acid [Vitamin C] 1,000 mg PO DAILY 11/16/20 [History] Cholecalciferol [Vitamin D3 (25 Mcg = 1000 Iu)] 25 mcg PO DAILY 11/16/20 [History] Fioricet (Unknown Dose) 1 dose PO DIRECTED PRN 11/16/20 [History] Multivitamins, Thera [Multivitamin (formulary)] 1 tab PO DAILY 11/16/20 [History] Ubidecarenone [Co Q-10] 100 mg PO DAILY 11/16/20 [History] Zinc 50 mg PO DAILY 11/16/20 [History] Aspirin 81 mg PO DAILY #30 chewable 11/17/20 [Rx] Lisinopril-Hctz 10-12.5 mg [Zestoretic 10-12.5] 1 tab PO BID #60 tab 11/17/20 [Rx] Nicotine 14Mg/24Hr Patch [Habitrol] 1 patch TRANSDERM DAILY #14 patch 11/17/20 [Rx] Follow up Appointment(s)/Referral(s): cardiology, [Other] - 1 Week Cheng Momin DO [Primary Care Provider] - 1-2 days Patient Instructions/Handouts: Chest Pain (DC), Tachycardia (GEN) Activity/Diet/Wound Care/Special Instructions: Pulmonary and cardio cleared.
== END 2020-11-17 18:25 | disposition home or self-care (01) | DRG 313 ==
LOC: EC 15:03 → 3SCARD 16:28
PROVIDERS: ADMIT Hospitalist; ATTEND Hospitalist
DX: R07.89 Other chest pain (principal); Z68.43 Body mass index [BMI] 50.0-59.9, adult; E66.01 Morbid (severe) obesity due to excess calories; Z20.822 Contact with and (suspected) exposure to COVID-19; I10 Essential (primary) hypertension; G43.909 Migraine, unspecified, not intractable, without status migrainosus; F17.210 Nicotine dependence, cigarettes, uncomplicated; Z71.6 Tobacco abuse counseling; Z86.16 Personal history of COVID-19; Z87.442 Personal history of urinary calculi; Z87.39 Personal history of other diseases of the musculoskeletal system and connective tissue; Z98.51 Tubal ligation status; Z98.890 Other specified postprocedural states; Z88.1 Allergy status to other antibiotic agents; Z88.0 Allergy status to penicillin
CPT/HCPCS: 36415; 71275; 80053; 80061; 82553; 83735; 83880; 84132; 84443; 84484; 85025; 85379; 85610; 85730; 87635; 93005; 93306; 93351; 93970; 94760; 99291

== ENCOUNTER 2021-05-18 15:33 | Emergency (ER) | payer OTHER ==
[2021-05-18 17:05] VITALS: BP 146/80; PULSE 104; RESP 18; TEMP 97.9
[2021-05-18] MEDS ORDERED: ACET/COD 300 MG/30 MG STARTER PACK 6 TAB BTL PO STA (18:50)
[2021-05-18] MEDS ORDERED: SULFAMETH-TMP DS STARTER PACK 2 TAB BTL PO STA (18:50)
[2021-05-18] MEDS ORDERED: CLINDAMYCIN 150 MG CAP PO STA (18:53)
--- NOTE | 2021-05-18 18:57 | ED ---
General Adult HPI - General Chief complaint: Skin/Abscess/Foreign Body Stated complaint: foot pain Time Seen by Provider: 05/18/21 18:19 Source: patient, RN notes reviewed Mode of arrival: ambulatory Limitations: no limitations - History of Present Illness Initial comments: Patient is a pleasant 51-year-old female presenting to the emergency department with concerns for lesions the left foot. Onset of symptoms was several days ago. Patient originally questioned if she dropped a cigarette on her foot. Patient has discomfort with touch and somewhat with movement. Patient has been keeping a Band-Aid over it. No drainage. No redness or fever. No history of similar symptoms previously. - Related Data Home Medications Medication Instructions Recorded Confirmed Ascorbic Acid [Vitamin C] 1,000 mg PO DAILY 11/16/20 11/16/20 Cholecalciferol [Vitamin D3 (25 25 mcg PO DAILY 11/16/20 11/16/20 Mcg = 1000 Iu)] Fioricet (Unknown Dose) 1 dose PO DIRECTED PRN 11/16/20 11/16/20 Multivitamins, Thera [Multivitamin 1 tab PO DAILY 11/16/20 11/16/20 (formulary)] Ubidecarenone [Co Q-10] 100 mg PO DAILY 11/16/20 11/16/20 Zinc 50 mg PO DAILY 11/16/20 11/16/20 Previous Rx's Medication Instructions Recorded Aspirin 81 mg PO DAILY #30 chewable 11/17/20 Lisinopril-Hctz 10-12.5 mg 1 tab PO BID #60 tab 11/17/20 [Zestoretic 10-12.5] Nicotine 14Mg/24Hr Patch [Habitrol] 1 patch TRANSDERM DAILY #14 patch 11/17/20 Clindamycin [Cleocin] 2 cap PO Q8H #60 cap 05/18/21 Lisinopril-Hctz 10-12.5 mg 1 tab PO BID #14 tab 05/18/21 [Zestoretic 10-12.5] Allergies Allergy/AdvReac Type Severity Reaction Status Date / Time amoxicillin Allergy Rash/Hives Verified 05/18/21 17:01 azithromycin Allergy Rash/Hives Verified 05/18/21 17:01 cephalexin [From Keflex] Allergy Rash/Hives Verified 05/18/21 17:01 Penicillins Allergy Rash/Hives Verified 05/18/21 17:01 strawberry Allergy Rash/Hives Verified 05/18/21 17:01 Review of Systems ROS Statement: Those systems with pertinent positive or pertinent negative responses have been documented in the HPI. ROS Other: All systems not noted in ROS Statement are negative. Constitutional: Denies: fever Eyes: Denies: eye pain ENT: Denies: ear pain Respiratory: Denies: cough Cardiovascular: Denies: chest pain Endocrine: Denies: fatigue Gastrointestinal: Denies: abdominal pain Genitourinary: Denies: dysuria Musculoskeletal: Denies: back pain Skin: Reports: as per HPI, lesions Neurological: Denies: headache Past Medical History Past Medical History: Hypertension Additional Past Medical History / Comment(s): pas hx. kidney stones, RUQ pain, MIGRANES History of Any Multi-Drug Resistant Organisms: None Reported Past Surgical History: Cholecystectomy, Orthopedic Surgery, Tubal Ligation Additional Past Surgical History / Comment(s): wrist surg. Past Anesthesia/Blood Transfusion Reactions: Motion Sickness, Postoperative Nausea & Vomiting (PONV) Additional Past Anesthesia/Blood Transfusion Reaction / Comment(s): severe PONV Past Psychological History: No Psychological Hx Reported Smoking Status: Current every day smoker Past Alcohol Use History: None Reported Past Drug Use History: None Reported - Past Family History Mother Family Medical History: No Reported History General Exam Limitations: no limitations General appearance: alert, in no apparent distress Head exam: Present: normocephalic Eye exam: Present: normal appearance Neck exam: Present: normal inspection Respiratory exam: Present: normal lung sounds bilaterally Cardiovascular Exam: Present: regular rate, normal rhythm Extremities exam: Present: other (Left dorsal distal foot lesion) Neurological exam: Present: alert Psychiatric exam: Present: normal affect, normal mood Skin exam: Present: other (Small, less than 8mm lesion left dorsal distal foot between the first and second metatarsals. Mild erythema and raised. Small pustule) Course Vital Signs 05/18/21 17:01 Temperature 97.9 F Pulse Rate 104 H Respiratory 18 Rate Blood Pressure 146/80 O2 Sat by Pulse 98 Oximetry Procedures - Incision & Drainage Consent Obtained: verbal consent Site: foot I&D Cleaning Method: Betadine Needle Aspiration Performed?: Yes I&D Drainage Obtained: Pus Culture Obtained?: Yes Patient Tolerated Procedure: well, no complications Disposition Clinical Impression: Pustule Disposition: HOME SELF-CARE Condition: Stable Instructions (If sedation given, give patient instructions): Abscess (ED) Additional Instructions: Please follow-up with primary care physician in the next couple days for recheck. Return for increased pain, size of lesion, swelling, redness, fevers, worsening symptoms or other concerns. Have primary care physician check culture results. Refill for your blood pressure medication has been written for a few days, have your primary care physician also rewrite this. Prescriptions: Clindamycin [Cleocin] 2 cap PO Q8H #60 cap Lisinopril-Hctz 10-12.5 mg [Zestoretic 10-12.5] 1 tab PO BID #14 tab Is patient prescribed a controlled substance at d/c from ED?: No Referrals: Cheng Momin DO [Primary Care Provider] - 1-2 days Time of Disposition: 18:56
== END 2021-05-18 19:14 | disposition home or self-care (01) ==
LOC: EC 15:33
DX: L08.9 Local infection of the skin and subcutaneous tissue, unspecified (principal); I10 Essential (primary) hypertension; F17.200 Nicotine dependence, unspecified, uncomplicated; Z79.82 Long term (current) use of aspirin; Z88.0 Allergy status to penicillin; Z88.1 Allergy status to other antibiotic agents; Z87.442 Personal history of urinary calculi; Z90.49 Acquired absence of other specified parts of digestive tract; Z98.51 Tubal ligation status
CPT/HCPCS: 10060; 87070; 87205; 99283

== ENCOUNTER 2022-01-14 09:06 | Emergency (ER) | payer OTHER ==
[2022-01-14 09:13] VITALS: RESP 20; TEMP 98
[2022-01-14] MEDS ORDERED: KETOROLAC 15 MG/ML 1 ML VIAL IM STA (09:19)
--- NOTE | 2022-01-14 09:46 | ED ---
Lower Extremity Injury HPI - General Chief Complaint: Extremity Injury, Lower Stated Complaint: Left foot pain,IHS Time Seen by Provider: 01/14/22 09:14 Source: patient Mode of arrival: wheelchair Limitations: no limitations - History of Present Illness Initial Comments: Patient is a 51-year-old female presenting with chief complaint of left foot pain. Patient states that yesterday she hit her foot against a hospital bed at work. She states that throughout today the pain increased. Pain is mainly located at the fifth digit and near the base of the fifth digit. She admits to pain with ambulation, redness, swelling. She has been taking Motrin at home for pain relief. She denies any numbness, tingling, weakness, loss of range of motion. - Related Data Home Medications Medication Instructions Recorded Confirmed Ascorbic Acid [Vitamin C] 1,000 mg PO DAILY 11/16/20 11/16/20 Cholecalciferol [Vitamin D3 (25 25 mcg PO DAILY 11/16/20 11/16/20 Mcg = 1000 Iu)] Fioricet (Unknown Dose) 1 dose PO DIRECTED PRN 11/16/20 11/16/20 Multivitamins, Thera [Multivitamin 1 tab PO DAILY 11/16/20 11/16/20 (formulary)] Ubidecarenone [Co Q-10] 100 mg PO DAILY 11/16/20 11/16/20 Zinc 50 mg PO DAILY 11/16/20 11/16/20 Previous Rx's Medication Instructions Recorded Aspirin 81 mg PO DAILY #30 chewable 11/17/20 Lisinopril-Hctz 10-12.5 mg 1 tab PO BID #60 tab 11/17/20 [Zestoretic 10-12.5] Nicotine 14Mg/24Hr Patch [Habitrol] 1 patch TRANSDERM DAILY #14 patch 11/17/20 Clindamycin [Cleocin] 2 cap PO Q8H #60 cap 05/18/21 Lisinopril-Hctz 10-12.5 mg 1 tab PO BID #14 tab 05/18/21 [Zestoretic 10-12.5] Allergies Allergy/AdvReac Type Severity Reaction Status Date / Time amoxicillin Allergy Rash/Hives Verified 01/14/22 09:13 azithromycin Allergy Rash/Hives Verified 01/14/22 09:13 cephalexin [From Keflex] Allergy Rash/Hives Verified 01/14/22 09:13 Penicillins Allergy Rash/Hives Verified 01/14/22 09:13 strawberry Allergy Rash/Hives Verified 01/14/22 09:13 Review of Systems ROS Statement: Those systems with pertinent positive or pertinent negative responses have been documented in the HPI. ROS Other: All systems not noted in ROS Statement are negative. Past Medical History Past Medical History: Hypertension Additional Past Medical History / Comment(s): pas hx. kidney stones, RUQ pain, MIGRANES History of Any Multi-Drug Resistant Organisms: None Reported Past Surgical History: Cholecystectomy, Orthopedic Surgery, Tubal Ligation Additional Past Surgical History / Comment(s): wrist surg. Past Anesthesia/Blood Transfusion Reactions: Motion Sickness, Postoperative Nausea & Vomiting (PONV) Additional Past Anesthesia/Blood Transfusion Reaction / Comment(s): severe PONV Past Psychological History: No Psychological Hx Reported Smoking Status: Current every day smoker Past Alcohol Use History: None Reported Past Drug Use History: None Reported - Past Family History Mother Family Medical History: No Reported History General Exam Limitations: no limitations General appearance: alert, in no apparent distress Head exam: Present: atraumatic, normocephalic, normal inspection Eye exam: Present: normal appearance, EOMI. Absent: scleral icterus, periorbital swelling Neck exam: Present: normal inspection Left Foot/Toe exam: Present: tenderness (Fifth toe and surrounding area), swelling (Fifth toe and surrounding area), erythema (Fifth toe and surrounding area). Absent: full ROM (Limited secondary to pain) Neurovascular tendon exam: Absent: motor deficit, sensory deficit Neurological exam: Present: alert, oriented X3, CN II-XII intact Psychiatric exam: Present: normal affect, normal mood Skin exam: Present: warm, dry, intact, normal color. Absent: rash Course Vital Signs 01/14/22 01/14/22 09:11 10:41 Temperature 98 F Pulse Rate 93 110 H Respiratory 20 20 Rate Blood Pressure 168/92 153/118 O2 Sat by Pulse 96 95 Oximetry Medical Decision Making - Medical Decision Making Patient is a 51-year-old female complaining of left foot pain. Patient injured at work yesterday after eating it against a hospital bed. She is complaining of pain near the base of the fifth toe. On examination there is redness and swelling, and is tender to palpation and there is limited range of motion second shakira to pain. X-ray confirms acute fracture through the fifth digit proximal phalanx shaft without significant displacement. The toe was ninfa taped and patient was provided with a postop walking shoe. She is provided with a note for work for modified activity. Utilize Motrin and Tylenol as needed. Rest, ice, elevate. Report back to ER if any new or worsening symptoms. Follow-up with PCP on Monday, follow up with orthopedics if needed. Discussed return parameters and answered all questions. Patient conveyed verbal understanding and agreed to the plan. I discussed this case with my attending Dr. Velazquez. Disposition Clinical Impression: Fracture of proximal phalanx of lesser toe of left foot Disposition: HOME SELF-CARE Condition: Good Instructions (If sedation given, give patient instructions): Toe Fracture (ED) Additional Instructions: Follow-up with PCP on Monday. Follow-up with orthopedics if needed. Take Motrin and Tylenol as needed for pain control. Rest, ice, elevate for pain control. Report back to ER if any new or worsening symptoms. Is patient prescribed a controlled substance at d/c from ED?: No Referrals: Cheng Momin DO [Primary Care Provider] - 1-2 days Bridgette Leonard DO [Doctor of Osteopathic Medicine] - 1-2 days Time of Disposition: 10:25
--- NOTE | 2022-01-14 09:57 | XR ---
EXAMINATION TYPE: XR foot complete LT DATE OF EXAM: 01/14/2022 9:41 AM INDICATION: Patient age:Female; 51 years old; Reason for study: pain at base of 5th toe; COMPARISON: None TECHNIQUE: The left foot was examined in the AP, oblique, and lateral projections. FINDINGS: Acute fracture through the shaft of the fifth digit proximal phalanx. No additional fractures. No sig nificant is present. Mild soft tissue swelling. IMPRESSION: Acute fracture through the fifth digit proximal phalanx shaft without significant displacement.
[2022-01-14 10:42] VITALS: BP 153/118; PULSE 110
== END 2022-01-14 10:43 | disposition home or self-care (01) ==
LOC: EC 09:06
DX: S92.515A Nondisplaced fracture of proximal phalanx of left lesser toe(s), initial encounter for closed fracture (principal); I10 Essential (primary) hypertension; F17.200 Nicotine dependence, unspecified, uncomplicated; Z91.018 Allergy to other foods; Z88.0 Allergy status to penicillin; Z88.1 Allergy status to other antibiotic agents; W22.09XA Striking against other stationary object, initial encounter
CPT/HCPCS: 73630; 99284; 96372; J1885

== ENCOUNTER 2022-12-19 06:09 | Inpatient (IN) | payer OTHER ==
[2022-12-19] MEDS ORDERED: IPRATROPIUM-ALBUTEROL 3 ML NEB INHALATION STA (06:27)
--- NOTE | 2022-12-19 06:44 | ED ---
SOB HPI - General Chief Complaint: Shortness of Breath Stated Complaint: SOB Time Seen by Provider: 12/19/22 06:17 Source: patient, RN notes reviewed Mode of arrival: wheelchair Limitations: no limitations - History of Present Illness Initial Comments: This is a 52-year-old female who presents to the emergency department for shortness of breath. States that she's had problems with long Covid over the last couple of years, causing residual shortness of breath. However, she has had severe increasing shortness of breath over the last 3 days. Unsure if this is worse with laying down, as she states that she does not often lay flat and has not done so in several years. Reports associated coughing. Denies any associated chest pain. Denies any fevers or sick contacts. She last had Covid about a year ago. She has noticed increasing swelling to the right lower extremity. She states that she always has swelling to the left lower extremity. Denies any pain in the extremities. She does not wear oxygen at home. Denies any fevers, chills, sore throat, chest pain, palpitations, abdominal pain, nausea, vomiting, diarrhea, back pain, or headaches. MD Complaint: shortness of breath, cough Onset/Timin -: days(s) - Related Data Home Medications Medication Instructions Recorded Confirmed Ascorbic Acid [Vitamin C] 1,000 mg PO W/SUPPER 11/16/20 12/19/22 Cholecalciferol [Vitamin D3 (25 25 mcg PO W/SUPPER 11/16/20 12/19/22 Mcg = 1000 Iu)] Multivitamins, Thera [Multivitamin 1 tab PO W/SUPPER 11/16/20 12/19/22 (formulary)] Zinc 50 mg PO W/SUPPER 11/16/20 12/19/22 Aspirin 81 mg PO W/SUPPER 12/19/22 12/19/22 Elderberry Fruit [Elderberry] 350 mg PO W/SUPPER 12/19/22 12/19/22 L.acidoph,Paracasei, B.lactis 1 cap PO W/SUPPER 12/19/22 12/19/22 [Probiotic] Turmeric Root Extract [Turmeric] 500 mg PO W/SUPPER 12/19/22 12/19/22 Allergies Allergy/AdvReac Type Severity Reaction Status Date / Time amoxicillin Allergy Rash/Hives Verified 12/19/22 09:21 azithromycin Allergy Rash/Hives Verified 12/19/22 09:21 cephalexin [From Keflex] Allergy Rash/Hives Verified 12/19/22 09:21 peanut Allergy Unknown Verified 12/19/22 09:21 Penicillins Allergy Rash/Hives Verified 12/19/22 09:21 strawberry Allergy Rash/Hives Verified 12/19/22 09:21 Sulfa (Sulfonamide Allergy Rash/Hives Verified 12/19/22 09:21 Antibiotics) nitroglycerin AdvReac Rapid Verified 12/19/22 09:21 Heart Rate Review of Systems ROS Statement: Those systems with pertinent positive or pertinent negative responses have been documented in the HPI. ROS Other: All systems not noted in ROS Statement are negative. Past Medical History Past Medical History: Hypertension Additional Past Medical History / Comment(s): pas hx. kidney stones, RUQ pain, MIGRANES, covid X3 History of Any Multi-Drug Resistant Organisms: None Reported Past Surgical History: Cholecystectomy, Orthopedic Surgery, Tubal Ligation Additional Past Surgical History / Comment(s): wrist surg. Past Anesthesia/Blood Transfusion Reactions: Motion Sickness, Postoperative Nausea & Vomiting (PONV) Additional Past Anesthesia/Blood Transfusion Reaction / Comment(s): severe PONV Past Psychological History: No Psychological Hx Reported Smoking Status: Current some day smoker Past Alcohol Use History: None Reported Past Drug Use History: None Reported - Past Family History Mother Family Medical History: No Reported History General Exam Limitations: no limitations General appearance: alert, other (respiratory distress) Head exam: Present: atraumatic, normocephalic, normal inspection Respiratory exam: Present: respiratory distress, wheezes, rhonchi, accessory muscle use, decreased breath sounds, prolonged expiratory Cardiovascular Exam: Present: normal rhythm, tachycardia Extremities exam: Present: other (2+ pitting edema to the bilateral LEs.) Neurological exam: Present: alert, oriented X3, CN II-XII intact Psychiatric exam: Present: normal affect, normal mood Skin exam: Present: warm, dry, intact, normal color. Absent: rash Course Vital Signs 12/19/22 12/19/22 12/19/22 06:13 06:44 06:52 Temperature 97.7 F Pulse Rate 125 H 105 H 101 H Respiratory 30 H Rate Blood Pressure 169/126 O2 Sat by Pulse 87 L Oximetry 12/19/22 12/19/22 12/19/22 08:52 09:00 09:48 Temperature 97.7 F Pulse Rate 148 H 93 93 Respiratory 22 13 22 Rate Blood Pressure 187/109 167/94 O2 Sat by Pulse 90 L 90 L 94 L Oximetry 12/19/22 10:00 Temperature Pulse Rate 90 Respiratory 12 Rate Blood Pressure 167/94 O2 Sat by Pulse 92 L Oximetry Medical Decision Making - Medical Decision Making This is a 52-year-old female who presents to the emergency department for shortness of breath. Was pt. sent in by a medical professional or institution? @ -No Did you speak to anyone other than the patient for history? @ -No Did you review nursing and triage notes? @ -Yes, and I agree, it is accurate with regards to the patient's symptoms. Were old charts reviewed? @ -No Differential Diagnosis? @ -Differential Dyspnea: Coronary syndrome, arrhythmia, tamponade, asthma, COPD, pulmonary embolism, pneumonia, pneumothorax, pulmonary effusion, anaphylaxis, diabetic ketoacidosis, flailed chest, pulmonary contusion, diaphragmatic rupture, anemia, neuromuscular, this is not meant to be an all-inclusive list. EKG interpreted by me (3pts min.)? @ -EKG interpreted by me demonstrating the following: Sinus tachycardia. Ventricular rate 111 beats per minute, NH interval 162 ms, QRS duration 89 ms, QTC 410 ms. X-rays interpreted by me (1pt min.)? @ -Chest x-ray obtained, my interpretation identifies no localized consolidations or infiltrates. CT interpreted by me (1pt min.)? @ -Computed tomography angiogram of the chest obtained. My interpretation identifies bilateral groundglass opacities. U/S interpreted by me (1pt. min.)? @ -Not obtained What testing was considered but not performed? (CT, X-rays, U/S, labs)? Why? @ -None What meds were considered but not given? Why? @ -None Did you discuss the management of the patient with other professionals? @ -Yes, Daphney Edmonds with [facility], who accepts the patient for admission. Did you reconcile home meds? @ -No Was smoking cessation discussed for >3mins.? @ -No Was critical care preformed (if so, how long)? @ -No Were there social determinants of health that impacted care today? How? (Homelessness, low income, unemployed, alcoholism, drug addiction, transportation, low edu. Level, literacy, decrease access to med. care, assisted, rehab)? @ -No Was there de-escalation of care discussed even if they declined? (Discuss DNR or withdrawal of care, Hospice)? @ -No What co-morbidities impacted this encounter? (DM, HTN, Smoking, COPD, CAD, Cancer, CVA, Hep., AIDS, mental health diagnosis, sleep apnea, morbid obesity)? @ -Morbid obesity, HTN, Hx of PE Was patient admitted / discharged? @ -Admitted. On arrival, the patient had an oxygen saturation of 87% on room air with a respiratory rate of 30 and heart rate of 125 beats per minute. She was subsequently placed on 3 L via nasal cannula. Duoneb breathing treatment administered, which she states was somewhat helpful. COVID, influenza, and RSV testing were negative. Chest x-ray revealed no localized consolidations or infiltrates. It did reveal low lung volumes with a hazy appearance suggestive of atelectasis versus pulmonary edema and advised correlation with BNP. BNP is 352, which is not suggestive of CHF. D-dimer was elevated at 1.52 and a CTA of the chest was subsequently obtained. Lab work was otherwise nonactionable. CTA could not rule out segmental and subsegmental pulmonary embolus, however there was nothing grossly evident. There were also bilateral groundglass infiltrates suspected to be related to an acute inflammatory response. The cause of her hypoxia is not entirely clear. Patient was started on Levaquin for possible pneumonia. Levaquin was chosen due to allergies to both penicillins and cephalosporins. Patient admitted to medicine for hypoxia. She continued to remain on 3 L of oxygen via nasal cannula. CRP and pro-calcitonin ordered with results pending at the time of admission. Consult placed for pulmonology. Undiagnosed new problem with uncertain prognosis? @ -None Drug Therapy requiring intensive monitoring for toxicity (Heparin, Nitro, Insuli n, Cardizem)? @ -None Were any procedures done? @ -None Diagnosis/symptom? @ -Hypoxia Acute, or Chronic, or Acute on Chronic? @ -Acute Uncomplicated (without systemic symptoms) or Complicated (systemic symptoms)? @ -Complicated Side effects of treatment? @ -None Exacerbation, Progression, or Severe Exacerbation] @ -Not applicable Poses a threat to life or bodily function? @ -No This case was discussed in detail with the attending ED physician, Dr. Gonzalez. Presentation, findings, and treatment plan discussed in detail as well. - Lab Data Result diagrams: 12/19/22 06:36 12/19/22 06:36 Lab Results 12/19/22 12/19/22 12/19/22 Range/Units 06:36 06:36 06:36 WBC 6.7 (3.8-10.6) k/uL RBC 5.34 (3.80-5.40) m/uL Hgb 16.3 H (11.4-16.0) gm/dL Hct 51.0 H (34.0-46.0) % MCV 95.5 (80.0-100.0) fL MCH 30.5 (25.0-35.0) pg MCHC 32.0 (31.0-37.0) g/dL RDW 16.9 H (11.5-15.5) % Plt Count 235 (150-450) k/uL MPV 8.5 Neutrophils % 72 % Lymphocytes % 19 % Monocytes % 4 % Eosinophils % 3 % Basophils % 1 % Neutrophils # 4.9 (1.3-7.7) k/uL Lymphocytes # 1.3 (1.0-4.8) k/uL Monocytes # 0.3 (0-1.0) k/uL Eosinophils # 0.2 (0-0.7) k/uL Basophils # 0.0 (0-0.2) k/uL Hypochromasia Slight Anisocytosis Slight PT 9.9 (9.0-12.0) sec INR 0.9 (<1.2) APTT 26.1 (22.0-30.0) sec D-Dimer 1.52 H (<0.60) mg/L FEU Sodium 140 (137-145) mmol/L Potassium 3.8 (3.5-5.1) mmol/L Chloride 100 (98-107) mmol/L Carbon Dioxide 32 H (22-30) mmol/L Anion Gap 8 mmol/L BUN 8 (7-17) mg/dL Creatinine 0.70 (0.52-1.04) mg/dL Est GFR (CKD-EPI)AfAm >90 (>60 ml/min/1.73 sqM) Est GFR (CKD-EPI)NonAf >90 (>60 ml/min/1.73 sqM) Glucose 124 H (74-99) mg/dL Plasma Lactic Acid Shyam (0.7-2.0) mmol/L Calcium 8.9 (8.4-10.2) mg/dL Total Bilirubin 0.5 (0.2-1.3) mg/dL AST 26 (14-36) U/L ALT 24 (4-34) U/L Alkaline Phosphatase 173 H (38-126) U/L Troponin I (0.000-0.034) ng/mL C-Reactive Protein (<1.0) mg/dL NT-Pro-B Natriuret Pep pg/mL Total Protein 7.4 (6.3-8.2) g/dL Albumin 4.1 (3.5-5.0) g/dL Influenza Type A (PCR) (Not Detectd) Influenza Type B (PCR) (Not Detectd) RSV (PCR) (Not Detectd) SARS-CoV-2 (PCR) (Not Detectd) 12/19/22 12/19/22 12/19/22 Range/Units 06:36 06:36 06:36 WBC (3.8-10.6) k/uL RBC (3.80-5.40) m/uL Hgb (11.4-16.0) gm/dL Hct (34.0-46.0) % MCV (80.0-100.0) fL MCH (25.0-35.0) pg MCHC (31.0-37.0) g/dL RDW (11.5-15.5) % Plt Count (150-450) k/uL MPV Neutrophils % % Lymphocytes % % Monocytes % % Eosinophils % % Basophils % % Neutrophils # (1.3-7.7) k/uL Lymphocytes # (1.0-4.8) k/uL Monocytes # (0-1.0) k/uL Eosinophils # (0-0.7) k/uL Basophils # (0-0.2) k/uL Hypochromasia Anisocytosis PT (9.0-12.0) sec INR (<1.2) APTT (22.0-30.0) sec D-Dimer (<0.60) mg/L FEU Sodium (137-145) mmol/L Potassium (3.5-5.1) mmol/L Chloride (98-107) mmol/L Carbon Dioxide (22-30) mmol/L Anion Gap mmol/L BUN (7-17) mg/dL Creatinine (0.52-1.04) mg/dL Est GFR (CKD-EPI)AfAm (>60 ml/min/1.73 sqM) Est GFR (CKD-EPI)NonAf (>60 ml/min/1.73 sqM) Glucose (74-99) mg/dL Plasma Lactic Acid Shyam 1.0 (0.7-2.0) mmol/L Calcium (8.4-10.2) mg/dL Total Bilirubin (0.2-1.3) mg/dL AST (14-36) U/L ALT (4-34) U/L Alkaline Phosphatase (38-126) U/L Troponin I <0.012 (0.000-0.034) ng/mL C-Reactive Protein (<1.0) mg/dL NT-Pro-B Natriuret Pep 352 pg/mL Total Protein (6.3-8.2) g/dL Albumin (3.5-5.0) g/dL Influenza Type A (PCR) (Not Detectd) Influenza Type B (PCR) (Not Detectd) RSV (PCR) (Not Detectd) SARS-CoV-2 (PCR) (Not Detectd) 12/19/22 12/19/22 Range/Units 06:36 06:36 WBC (3.8-10.6) k/uL RBC (3.80-5.40) m/uL Hgb (11.4-16.0) gm/dL Hct (34.0-46.0) % MCV (80.0-100.0) fL MCH (25.0-35.0) pg MCHC (31.0-37.0) g/dL RDW (11.5-15.5) % Plt Count (150-450) k/uL MPV Neutrophils % % Lymphocytes % % Monocytes % % Eosinophils % % Basophils % % Neutrophils # (1.3-7.7) k/uL Lymphocytes # (1.0-4.8) k/uL Monocytes # (0-1.0) k/uL Eosinophils # (0-0.7) k/uL Basophils # (0-0.2) k/uL Hypochromasia Anisocytosis PT (9.0-12.0) sec INR (<1.2) APTT (22.0-30.0) sec D-Dimer (<0.60) mg/L FEU Sodium (137-145) mmol/L Potassium (3.5-5.1) mmol/L Chloride (98-107) mmol/L Carbon Dioxide (22-30) mmol/L Anion Gap mmol/L BUN (7-17) mg/dL Creatinine (0.52-1.04) mg/dL Est GFR (CKD-EPI)AfAm (>60 ml/min/1.73 sqM) Est GFR (CKD-EPI)NonAf (>60 ml/min/1.73 sqM) Glucose (74-99) mg/dL Plasma Lactic Acid Shyam (0.7-2.0) mmol/L Calcium (8.4-10.2) mg/dL Total Bilirubin (0.2-1.3) mg/dL AST (14-36) U/L ALT (4-34) U/L Alkaline Phosphatase (38-126) U/L Troponin I (0.000-0.034) ng/mL C-Reactive Protein 5.4 H (<1.0) mg/dL NT-Pro-B Natriuret Pep pg/mL Total Protein (6.3-8.2) g/dL Albumin (3.5-5.0) g/dL Influenza Type A (PCR) Not Detected (Not Detectd) Influenza Type B (PCR) Not Detected (Not Detectd) RSV (PCR) Not Detected (Not Detectd) SARS-CoV-2 (PCR) Not Detected (Not Detectd) - Radiology Data Radiology results: report reviewed, image reviewed Disposition Clinical Impression: Hypoxia Disposition: ADMITTED IP TO THIS HOSP
[2022-12-19 07:03] LABS: Anisocytosis Slight; Basophils % (A) 1 %; Eosinophils # (A) 0.2 k/uL (0-0.7); Eosinophils % (A) 3 %; HGB 16.3 gm/dL (11.4-16.0); Hypochromasia Slight; Lymphocytes # (A) 1.3 k/uL (1.0-4.8); Lymphocytes % (A) 19 %; MCH 30.5 pg (25.0-35.0); MCV 95.5 fL (80.0-100.0); Mean Platelet Volume 8.5; Monocytes # (A) 0.3 k/uL (0-1.0); Monocytes % (A) 4 %; Neutrophils # (A) 4.9 k/uL (1.3-7.7); Neutrophils % (A) 72 %; Platelet Count 235 k/uL (150-450); RBC 5.34 m/uL (3.80-5.40); RDW 16.9 % (11.5-15.5); WBC 6.7 k/uL (3.8-10.6)
--- NOTE | 2022-12-19 07:04 | XR ---
EXAMINATION TYPE: XR chest 2V DATE OF EXAM: 12/19/2022 6:59 AM COMPARISON: Chest radiographs from 06/13/2011 TECHNIQUE: XR chest 2V Frontal and lateral views of the chest. CLINICAL INDICATION:Female, 52 years old with history of difficulty breathing; FINDINGS: Lungs/Pleura: There is no evidence of pleural effusion, focal consolidation, or pneumothorax. Pulmonary vascularity: Unremarkable. Heart/mediastinum: Cardiomediastinal silhouette is prominent in size. Musculoskeletal: No acute osseous pathology. IMPRESSION: Low lung volumes with a generalized hazy appearance which could represent atelectasis versus pulmonar y edema correlate with serum BNP.
[2022-12-19 07:21] LABS: ALT 24 U/L (4-34); AST 26 U/L (14-36); African American GFR (CKD) >90 (>60 ml/min/1.73 sqM); Albumin 4.1 g/dL (3.5-5.0); Alkaline Phosphatase 173 U/L (38-126); Anion Gap 8 mmol/L; Blood Urea Nitrogen 8 mg/dL (7-17); Calcium 8.9 mg/dL (8.4-10.2); Carbon Dioxide 32 mmol/L (22-30); Chloride 100 mmol/L (98-107); Glucose 124 mg/dL (74-99); Non-African American GFR(CKD) >90 (>60 ml/min/1.73 sqM); Potassium 3.8 mmol/L (3.5-5.1); Sodium 140 mmol/L (137-145); Total Bilirubin 0.5 mg/dL (0.2-1.3); Total Protein 7.4 g/dL (6.3-8.2)
[2022-12-19 07:22] LABS: INR 0.9 (<1.2); Partial Thromboplastin Time 26.1 sec (22.0-30.0); Prothrombin Time 9.9 sec (9.0-12.0)
--- NOTE | 2022-12-19 08:35 | CT ---
EXAMINATION TYPE: CT chest angio for PE DATE OF EXAM: 12/19/2022 COMPARISON: 11/16/2020 HISTORY: JAYDON, tachycardic, elevated d-dimer CT DLP: 951.8 mGycm CONTRAST: CT chest with contrast and 3D reconstruction with MIP imaging is performed with IV Contrast, patient injected with 100 mL of Isovue 370. Contrast-enhanced CT of the chest was performed through the course of the pulmonary arteries with darrian g and mediastinal window settings submitted. 3D reconstruction with MIP imaging was also performed. PULMONARY ARTERIES: There is heterogeneity within the pulmonary arteries bilaterally and I cannot exc lude small pulmonary segmental and subsegmental pulmonary embolism. No evidence for large saddle comp onent. LUNGS: Noted are scattered groundglass infiltrates bilaterally may reflect acute inflammatory process . No evidence for atelectasis. No pulmonary nodule or mass is detected. No pleural effusion. MEDIASTINUM: Thoracic aorta is of normal caliber. The heart is mildly enlarged. No evidence for med iastinal mass. No mediastinal lymph nodes greater than 1cm. HILAR STRUCTURES: No evidence for mass. No hilar lymph nodes greater than 1 cm. UPPER ABDOMEN: No significant abnormality is seen. Left thyroid nodularity redemonstrated. IMPRESSION: 1. There is heterogeneity within the pulmonary arteries bilaterally and I cannot exclude small pulmo nary segmental and subsegmental pulmonary embolism. No evidence for large saddle component. 2. Noted are scattered groundglass infiltrates bilaterally may reflect acute inflammatory process.
[2022-12-19] MEDS ORDERED: FUROSEMIDE 10 MG/ML 4 ML VIAL IV STA (08:57)
[2022-12-19] MEDS ORDERED: ACETAMINOPHEN TAB 325 MG TAB PO PRN (09:01)
[2022-12-19] MEDS ORDERED: HYDROcodone/APAP 5-325MG 1 EACH TAB PO PRN (09:01)
[2022-12-19] MEDS ORDERED: NALOXONE 0.4 MG/ML 1 ML VIAL IV PRN (09:01)
[2022-12-19] MEDS ORDERED: ONDANSETRON 4 MG/2 ML VIAL IVP PRN (09:01)
[2022-12-19] MEDS ORDERED: PNEUMONIA PROTOCOL UTILIZED 1 EACH MISC PO PRN (09:04)
[2022-12-19] MEDS ORDERED: LEVOFLOXACIN 750MG-D5W PMX 750 MG in DEXTROSE/WATER 1 150ML.BAG IVPB STA (09:04)
[2022-12-19 10:09] LABS: VBG PH 7.36 (7.31-7.41)
[2022-12-19] MEDS ORDERED: IPRATROPIUM-ALBUTEROL 3 ML NEB INHALATION PRN (12:34)
[2022-12-19] MEDS ORDERED: DEXTROSE 50% SYRINGE 50 ML IVP PRN ×2 (12:38)
--- NOTE | 2022-12-19 13:37 | HP ---
HISTORY AND PHYSICAL CHIEF COMPLAINT: Shortness of breath. HISTORY OF PRESENT ILLNESS: This 52-year-old woman with a past history of multiple medical problems was admitted with shortness of breath since Monday. The patient was taken to [facility]. CT angio of the chest did not show any definite pulmonary embolism, bilateral ground- glass opacity with possibly pneumonia, possibly fluid overload was suspected. The patient also smoking, cutting down to half pack a day at this time. The patient also had multiple episodes of COVID infection in the prior years despite taking vaccine according to her. Lung COVID is also a possibility. Dr. Mathur is following the patient closely. There is no history any fever, rigors, or chills at this time. The patient is started on Levaquin. PAST MEDICAL HISTORY: Reviewed, includes COVID infections. Rest of the chart is also reviewed. HOME MEDICATIONS: Reviewed and zinc; rest of medication noted. ALLERGIES: Reviewed. Multiple allergies include cephalexin. Rest of the allergies noted. FAMILY HISTORY: No history of heart disease or strokes in the family. SOCIAL HISTORY: Smoking as mentioned earlier. REVIEW OF SYSTEMS: Fourteen-point review of systems negative except as mentioned earlier. PHYSICAL EXAMINATION: VITAL SIGNS: Pulse 93, blood pressure 160/95, respiratory rate 22. HEENT: Conjunctivae normal. NECK: No jugular venous distention. CARDIOVASCULAR: S1, S2. RESPIRATORY: Bilaterally scattered rhonchi with expiratory wheezing and crackles. ABDOMEN: Soft, nontender. LEGS: No edema. NERVOUS SYSTEM: No focal deficits. SKIN: No ulcer, rash, bleeding. JOINTS: No active deforming arthropathy. LABS: D-dimer is 1.52. ASSESSMENT: 1. Bilateral pneumonia with possible chronic obstructive pulmonary disease with acute exacerbation. 2. History of multiple episodes of COVID infection. 3. Hypertension. 4. History of kidney stones. 5. Cholecystectomy. 6. Obesity with a BMI of 59.4. RECOMMENDATIONS: This is a 52-year-old woman, who presented with multiple complex medical issues. We will monitor the patient closely. Continue the current medication. Initiate intensive bronchodilator treatment, empiric antibiotics. Obtain the cultures, and I would also recommend DVT prophylaxis, Infectious Disease and Pulmonary consultations, mycoplasma and Legionella antibody testing. Resume the home medications once they are confirmed. The current COVID and viral testing is negative. Prognosis guarded. See orders for details. Further recommendations discussed with the patient at length. MMODL / IJN: [id number] /
--- NOTE | 2022-12-19 13:44 | P.CNPUL ---
History of Present Illness Consult date: 12/19/22 Reason for consult: dyspnea History of present illness: 52-year-old female patient, a chronic smoker, morbidly obese with a body mass index of 59.4, presenting to the hospital because of worsening shortness of breath. She states that since she had a cold with infections in the past, the patient has become more short of breath than her usual. The last Covid 19 infection was back in 2021. She is expressing increased shortness of breath and over the past 1 week her breathing got worse. She has since developed significant amount of edema lower extremity is bilaterally. No fever. No chills. No chest pain. No calf pain or tenderness. The patient has typical features of obstructive sleep apnea including loud snoring and witnessed apneas and sleep fragmentation and chronic hypersomnolence sleepiness. 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 For all diseases, she came into the emergency. She was hemodynamically stable. She was given blood work that showed edematous count of 6.7 with a hemoglobin of 16.3 and a platelet count of 235. BUN is at 80 with a creatinine of 0.7 and a sodium level is at 140 with a glucose of 124. Troponin was negative. Lactic acid level was 1.0. ProBNP level is at 352. The vital screening including influenza A and influenza B, RSV and Covid 19 testing were all negative. The patient was hospitalized and currently she is on oxygen at 50 L/m nasal cannula. She is afebrile. Review of Systems Constitutional: Reports daytime sleepiness, Reports fatigue, Reports weakness, Reports weight gain Eyes: denies as per HPI, denies blurred vision, denies bulging eye, denies decreased vision, denies diplopia, denies discharge, denies dry eye, denies irritation, denies itching, denies pain, denies photophobia, denies loss of peripheral vision, denies loss of vision, denies tunnel vision/blind spots Ears: deny: decreased hearing, ear discharge, earache, tinnitus Ears, nose, mouth and throat: Reports as per HPI Breasts: absent: as per HPI, change in shape, gynecomastia, masses, nipple discharge, pain, skin changes, swelling Cardiovascular: Reports as per HPI, Reports decreased exercise tolerance, Reports dyspnea on exertion, Reports leg edema, Reports shortness of breath Respiratory: Reports dyspnea, Reports sleep apnea, Reports snoring Gastrointestinal: Reports as per HPI Genitourinary: Reports as per HPI Menstruation: Reports as per HPI Musculoskeletal: Reports as per HPI Musculoskeletal: bilateral: ankle swelling, absent: ankle pain, ankle stiffness Integumentary: Reports as per HPI Neurological: Reports as per HPI Psychiatric: Reports as per HPI Endocrine: Reports as per HPI, Reports fatigue, Reports flushing Past Medical History Past Medical History: Hypertension Additional Past Medical History / Comment(s): pas hx. kidney stones, RUQ pain, MIGRANES, covid X3 infection and the last infection was in 2021 and this was associated with questionable PE and she was given ASA.Morbid obesity. Chronic leg edema, hypertension. History of Any Multi-Drug Resistant Organisms: None Reported Past Surgical History: Cholecystectomy, Orthopedic Surgery, Tubal Ligation Additional Past Surgical History / Comment(s): wrist surg. Past Anesthesia/Blood Transfusion Reactions: Motion Sickness, Postoperative Nausea & Vomiting (PONV) Additional Past Anesthesia/Blood Transfusion Reaction / Comment(s): severe PONV Past Psychological History: No Psychological Hx Reported Smoking Status: Current some day smoker (1.5 PPD and she is cutting down on her smoking) Past Alcohol Use History: None Reported Past Drug Use History: None Reported - Past Family History Mother Family Medical History: No Reported History Medications and Allergies Home Medications Medication Instructions Recorded Confirmed Type Ascorbic Acid [Vitamin C] 1,000 mg PO W/SUPPER 11/16/20 12/19/22 History Cholecalciferol [Vitamin D3 (25 25 mcg PO W/SUPPER 11/16/20 12/19/22 History Mcg = 1000 Iu)] Multivitamins, Thera [Multivitamin 1 tab PO W/SUPPER 11/16/20 12/19/22 History (formulary)] Zinc 50 mg PO W/SUPPER 11/16/20 12/19/22 History Aspirin 81 mg PO W/SUPPER 12/19/22 12/19/22 History Elderberry Fruit [Elderberry] 350 mg PO W/SUPPER 12/19/22 12/19/22 History L.acidoph,Paracasei, B.lactis 1 cap PO W/SUPPER 12/19/22 12/19/22 History [Probiotic] Turmeric Root Extract [Turmeric] 500 mg PO W/SUPPER 12/19/22 12/19/22 History Allergies Allergy/AdvReac Type Severity Reaction Status Date / Time amoxicillin Allergy Rash/Hives Verified 12/19/22 09:21 azithromycin Allergy Rash/Hives Verified 12/19/22 09:21 cephalexin [From Keflex] Allergy Rash/Hives Verified 12/19/22 09:21 peanut Allergy Unknown Verified 12/19/22 09:21 Penicillins Allergy Rash/Hives Verified 12/19/22 09:21 strawberry Allergy Rash/Hives Verified 12/19/22 09:21 Sulfa (Sulfonamide Allergy Rash/Hives Verified 12/19/22 09:21 Antibiotics) nitroglycerin AdvReac Rapid Verified 12/19/22 09:21 Heart Rate Physical Exam Vitals: Vital Signs Temp Pulse Resp BP Pulse Ox 12/19/22 10:00 90 12 167/94 92 L 12/19/22 09:48 97.7 F 93 22 167/94 94 L 12/19/22 09:00 93 13 187/109 90 L 12/19/22 08:52 148 H 22 90 L 12/19/22 06:52 101 H 12/19/22 06:44 105 H 12/19/22 06:13 97.7 F 125 H 30 H 169/126 87 L Intake and Output 12/18/22 12/19/22 12/19/22 22:59 06:59 14:59 Other: Weight 147.418 kg No acute distress, oriented 3. Currently on room air with saturations 95% and she is on 2 liters 02 HEENT examination is grossly unremarkable. Neck supple. Full range of motion. No adenopathy thyromegaly or neck vein distention. Cardiovascular examination reveals regular rhythm rate. S1-S2 normal. No S3 or S4. No discernible murmur noted. Heart rate 98 bpm. Lungs reveal clear breath sounds. Breath sounds are equal bilaterally. No adventitious lung sounds including wheezes rhonchi or crackles. Abdomen soft bowel sounds are heard. No masses or tenderness. Extremities are intact. No cyanosis clubbing or edema. Skin is without rash or lesion. Neurologic examination is brief but nonfocal. Results - Laboratory Findings CBC and BMP: 12/19/22 06:36 12/19/22 06:36 ABG WBC 6.7 k/uL (3.8-10.6) 12/19/22 06:36 RBC 5.34 m/uL (3.80-5.40) 12/19/22 06:36 Hgb 16.3 gm/dL (11.4-16.0) H 12/19/22 06:36 Hct 51.0 % (34.0-46.0) H 12/19/22 06:36 MCV 95.5 fL (80.0-100.0) 12/19/22 06:36 MCH 30.5 pg (25.0-35.0) 12/19/22 06:36 MCHC 32.0 g/dL (31.0-37.0) 12/19/22 06:36 RDW 16.9 % (11.5-15.5) H 12/19/22 06:36 Plt Count 235 k/uL (150-450) 12/19/22 06:36 MPV 8.5 12/19/22 06:36 Neutrophils % 72 % 12/19/22 06:36 Lymphocytes % 19 % 12/19/22 06:36 Monocytes % 4 % 12/19/22 06:36 Eosinophils % 3 % 12/19/22 06:36 Basophils % 1 % 12/19/22 06:36 Neutrophils # 4.9 k/uL (1.3-7.7) 12/19/22 06:36 Lymphocytes # 1.3 k/uL (1.0-4.8) 12/19/22 06:36 Monocytes # 0.3 k/uL (0-1.0) 12/19/22 06:36 Eosinophils # 0.2 k/uL (0-0.7) 12/19/22 06:36 Basophils # 0.0 k/uL (0-0.2) 12/19/22 06:36 Hypochromasia Slight 12/19/22 06:36 Anisocytosis Slight 12/19/22 06:36 PT 9.9 sec (9.0-12.0) 12/19/22 06:36 INR 0.9 (<1.2) 12/19/22 06:36 APTT 26.1 sec (22.0-30.0) 12/19/22 06:36 D-Dimer 1.52 mg/L FEU (<0.60) H 12/19/22 06:36 VBG pH 7.36 (7.31-7.41) 12/19/22 09:23 VBG pCO2 57 mmHg (37-51) H 12/19/22 09:23 VBG HCO3 32 mmol/L (24-28) H 12/19/22 09:23 Sodium 140 mmol/L (137-145) 12/19/22 06:36 Potassium 3.8 mmol/L (3.5-5.1) 12/19/22 06:36 Chloride 100 mmol/L (98-107) 12/19/22 06:36 Carbon Dioxide 32 mmol/L (22-30) H 12/19/22 06:36 Anion Gap 8 mmol/L 12/19/22 06:36 BUN 8 mg/dL (7-17) 12/19/22 06:36 Creatinine 0.70 mg/dL (0.52-1.04) 12/19/22 06:36 Est GFR (CKD-EPI)AfAm >90 (>60 ml/min/1.73 sqM) 12/19/22 06:36 Est GFR (CKD-EPI)NonAf >90 (>60 ml/min/1.73 sqM) 12/19/22 06:36 Glucose 124 mg/dL (74-99) H 12/19/22 06:36 Plasma Lactic Acid Shyam 1.0 mmol/L (0.7-2.0) 12/19/22 06:36 Calcium 8.9 mg/dL (8.4-10.2) 12/19/22 06:36 Total Bilirubin 0.5 mg/dL (0.2-1.3) 12/19/22 06:36 AST 26 U/L (14-36) 12/19/22 06:36 ALT 24 U/L (4-34) 12/19/22 06:36 Alkaline Phosphatase 173 U/L (38-126) H 12/19/22 06:36 Troponin I <0.012 ng/mL (0.000-0.034) 12/19/22 06:36 NT-Pro-B Natriuret Pep 352 pg/mL 12/19/22 06:36 Total Protein 7.4 g/dL (6.3-8.2) 12/19/22 06:36 Albumin 4.1 g/dL (3.5-5.0) 12/19/22 06:36 Influenza Type A (PCR) Not Detected (Not Detectd) 12/19/22 06:36 Influenza Type B (PCR) Not Detected (Not Detectd) 12/19/22 06:36 RSV (PCR) Not Detected (Not Detectd) 12/19/22 06:36 SARS-CoV-2 (PCR) Not Detected (Not Detectd) 12/19/22 06:36 PT/INR, D-dimer PT 9.9 sec (9.0-12.0) 12/19/22 06:36 INR 0.9 (<1.2) 12/19/22 06:36 D-Dimer 1.52 mg/L FEU (<0.60) H 12/19/22 06:36 Abnormal lab findings: Abnormal Labs 12/19/22 12/19/22 12/19/22 06:36 06:36 06:36 Hgb 16.3 H Hct 51.0 H RDW 16.9 H D-Dimer 1.52 H VBG pCO2 VBG HCO3 Carbon Dioxide 32 H Glucose 124 H Alkaline Phosphatase 173 H 12/19/22 09:23 Hgb Hct RDW D-Dimer VBG pCO2 57 H VBG HCO3 32 H Carbon Dioxide Glucose Alkaline Phosphatase - Diagnostic Findings Chest x-ray: image reviewed CT scan - chest: image reviewed Assessment and Plan Plan: Acute hypoxic respiratory failure, currently on O2 at 3 L nasal cannula, likely on the basis of fluid overload/right-sided heart failure. Progressive dyspnea, multifactorial. The patient has signs of massive fluid overload with extensive edema lower extremities. Her presentation is also consistent with right-sided heart failure, rule out cor pulmonale especially with her morbid obesity and undiagnosed features of obstructive sleep apnea. She may be also getting a component of obesity hypoventilation syndrome. Chronic lower extremity edema with interval worsening second 2 massive fluid overload Morbid obesity with a BMI of 59.4 Hypertension Previous history of Covid 19 infection 3, last infection was in 2021 and the patient a questionable pulmonary embolism at that point and she was not committed to long-term anticoagulants. 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 Outpatient sleep study with possibly the need for a CPAP/BiPAP unit at the later stage
[2022-12-19] MEDS: IPRATROPIUM-ALBUTEROL 3 ML NEB INHALATION SCH ×2 (14:38→21:14)
--- NOTE | 2022-12-19 15:34 | US ---
EXAMINATION TYPE: US venous doppler duplex LE BI DATE OF EXAM: 12/19/2022 3:22 PM COMPARISON: NONE CLINICAL INDICATION: Female, 52 years old with history of swelling legs; Bilateral lower leg redness and swelling. SOB. Elevated DDimer. SIDE PERFORMED: Bilateral TECHNIQUE: The lower extremity deep venous system is examined utilizing real time linear array sonog brittny with graded compression, doppler sonography and color-flow sonography. VESSELS IMAGED: Common Femoral Vein Deep Femoral Vein Greater Saphenous Vein * Femoral Vein Popliteal Vein Small Saphenous Vein * Proximal Calf Veins (* superficial vessels) Suboptimal due to patient body habitus Right Leg: Negative for DVT Left Leg: Negative for DVT IMPRESSION: Grayscale, color doppler, spectral doppler imaging performed of the deep veins of the lo wer extremities. There is normal flow, compressibility, vascular waveforms.
[2022-12-19] MEDS: methylPREDNISolone SOD SUCCI 125 MG/2 ML VIAL IV SCH ×3 (15:50→23:33)
[2022-12-19 16:34] LABS: Glucose,Whole Blood 132 mg/dL (70-110)
[2022-12-19] MEDS: INSULIN ASPART (NovoLOG) 100 UNIT/ML VIAL SQ SCH ×2 (18:26→20:10)
[2022-12-19] MEDS: LACTOBACILLUS ACIDOPHILUS/PECT 1 EACH CAPSULE PO SCH (18:27)
[2022-12-19] MEDS: ASCORBIC ACID 500 MG TAB PO SCH (18:27)
[2022-12-19] MEDS: ZINC SULFATE 220 MG CAP PO SCH (18:27)
[2022-12-19] MEDS: MULTIVITAMINS, THERA 1 EACH TAB PO SCH (18:27)
[2022-12-19] MEDS: ASPIRIN 81 MG PO SCH (18:27)
[2022-12-19] MEDS: CHOLECALCIFEROL 25 MCG (1000 IU) TABLET PO SCH (18:28)
[2022-12-19] MEDS: FUROSEMIDE 10 MG/ML 4 ML VIAL IV SCH ×2 (18:29→23:30)
[2022-12-19 20:04] LABS: Glucose,Whole Blood 131 mg/dL (70-110)
[2022-12-19] MEDS: HEPARIN SODIUM,PORCINE/PF 5,000 UNIT/0.5 ML SYRINGE SQ SCH (20:28)
[2022-12-19] MEDS: BUDESONIDE 1 MG/2 ML NEBU INHALATION SCH (21:14)
[2022-12-19] MEDS: FORMOTEROL FUMARATE 20 MCG/2 ML NEBU INHALATION SCH (21:14)
--- NOTE | 2022-12-19 22:34 | P.CONS ---
History of Present Illness - Reason for Consult Consult date: 12/19/22 Pneumonia Requesting physician: De Jackson - Chief Complaint Increasing shortness of breath and cough x few days - History of Present Illness Patient is a 52-year-old female with a past medical history significant for morbid obesity COVID-19 infection hypertension and apparently history of PE for the patient has been treated with aspirin presenting to the ER for evaluation of increasing shortness of breath patient mention last Monday she was out for her granddaughter's graduation and they get soaked in the rain after which she did have developed some respiratory symptoms mostly with the initial URI and then cough which has been moderate in intensity but not bringing up any sputum patient did have some chills denies high-grade fever denies having any pleuritic chest pain however did mention unable to take a deep breath some nausea but no vomiting no abdominal pain or diarrhea patient on presentation to the hospital was afebrile and no fever have been ordered subsequently patient was tachycardic hypoxic with O2 sats of 87% on room air patient did have a normal white count kidney function has been normal liver enzymes are normal influenza RSV and COVID testing was negative patient did have a chest x-ray followed by CT angiogram of the chest which shows a small segmental PE there was a question of scattered groundglass infiltrate bilaterally concern for acute inflammatory process patient did have multiple antibiotic allergies she was started on Levaquin infectious disease was consulted for further management of antibiotic therapy Review of Systems Positive point and negatives has been mentioned in the HPI, complete review of systems was performed and all other systems are negative Past Medical History Past Medical History: Hypertension Additional Past Medical History / Comment(s): pas hx. kidney stones, RUQ pain, MIGRANES, covid X3 infection and the last infection was in 2021 and this was associated with questionable PE and she was given ASA.Morbid obesity. Chronic leg edema, hypertension. History of Any Multi-Drug Resistant Organisms: None Reported Past Surgical History: Cholecystectomy, Orthopedic Surgery, Tubal Ligation Additional Past Surgical History / Comment(s): wrist surg. Past Anesthesia/Blood Transfusion Reactions: Motion Sickness, Postoperative Nausea & Vomiting (PONV) Additional Past Anesthesia/Blood Transfusion Reaction / Comm: severe PONV Past Psychological History: No Psychological Hx Reported Smoking Status: Current some day smoker (1.5 PPD and she is cutting down on her smoking) Past Alcohol Use History: None Reported Past Drug Use History: None Reported - Past Family History Mother Family Medical History: No Reported History Medications and Allergies Home Medications Medication Instructions Recorded Confirmed Type Ascorbic Acid [Vitamin C] 1,000 mg PO W/SUPPER 11/16/20 12/19/22 History Cholecalciferol [Vitamin D3 (25 25 mcg PO W/SUPPER 11/16/20 12/19/22 History Mcg = 1000 Iu)] Multivitamins, Thera [Multivitamin 1 tab PO W/SUPPER 11/16/20 12/19/22 History (formulary)] Zinc 50 mg PO W/SUPPER 11/16/20 12/19/22 History Aspirin 81 mg PO W/SUPPER 12/19/22 12/19/22 History Elderberry Fruit [Elderberry] 350 mg PO W/SUPPER 12/19/22 12/19/22 History L.acidoph,Paracasei, B.lactis 1 cap PO W/SUPPER 12/19/22 12/19/22 History [Probiotic] Turmeric Root Extract [Turmeric] 500 mg PO W/SUPPER 12/19/22 12/19/22 History Acetaminophen Tab [Tylenol] 650 mg PO Q6HR PRN tab 12/21/22 Rx Albuterol Inhaler [Ventolin Hfa 1 puff INHALATION QID #8 gm 12/21/22 Rx Inhaler] Furosemide [Lasix] 40 mg PO BID@0900,1600 #60 tab 12/21/22 Rx Ipratropium-Albuterol Nebulize 3 ml INHALATION RT-QID 30 Days 12/21/22 Rx [Duoneb 0.5 mg-3 mg/3 ml Soln] #120 each Ipratropium-Albuterol Nebulize 3 ml INHALATION RT-QID PRN each 12/21/22 Rx [Duoneb 0.5 mg-3 mg/3 ml Soln] Levofloxacin [Levaquin] 750 mg PO DAILY 5 Days #5 tab 12/21/22 Rx predniSONE 10 mg PO DIRECTED #30 tab 12/21/22 Rx Allergies Allergy/AdvReac Type Severity Reaction Status Date / Time amoxicillin Allergy Rash/Hives Verified 12/19/22 09:21 azithromycin Allergy Rash/Hives Verified 12/19/22 09:21 cephalexin [From Keflex] Allergy Rash/Hives Verified 12/19/22 09:21 peanut Allergy Unknown Verified 12/19/22 09:21 Penicillins Allergy Rash/Hives Verified 12/19/22 09:21 strawberry Allergy Rash/Hives Verified 12/19/22 09:21 Sulfa (Sulfonamide Allergy Rash/Hives Verified 12/19/22 09:21 Antibiotics) nitroglycerin AdvReac Rapid Verified 12/19/22 09:21 Heart Rate Physical Exam Vitals: Vital Signs Temp Pulse Resp BP Pulse Ox 12/19/22 10:00 90 12 167/94 92 L 12/19/22 09:48 97.7 F 93 22 167/94 94 L 12/19/22 09:00 93 13 187/109 90 L 12/19/22 08:52 148 H 22 90 L 12/19/22 06:52 101 H 12/19/22 06:44 105 H 12/19/22 06:13 97.7 F 125 H 30 H 169/126 87 L Intake and Output 12/18/22 12/19/22 12/19/22 22:59 06:59 14:59 Other: Weight 147.418 kg GENERAL DESCRIPTION: Middle-aged female lying in bed, no distress. No tachypnea or accessory muscle of respiration use. HEENT: Shows Pallor , no scleral icterus. Oral mucous membrane is dry. NECK: Trachea central, no thyromegaly. LUNGS: Unlabored breathing. Coarse breath sounds bilaterally HEART: S1, S2, regular rate and rhythm. No loud murmur ABDOMEN: Soft, no tenderness , guarding or rigidity, no organomegaly EXTREMITIES: No edema of feet. SKIN: No rash, no masses palpable. NEUROLOGICAL: The patient is awake, alert, oriented x3, mood and affect normal. Results CBC & Chem 7: 12/20/22 08:12 12/20/22 08:12 Labs: Abnormal Lab Results - Last 24 Hours (Table) 12/19/22 12/19/22 12/19/22 Range/Units 06:36 06:36 06:36 Hgb 16.3 H (11.4-16.0) gm/dL Hct 51.0 H (34.0-46.0) % RDW 16.9 H (11.5-15.5) % D-Dimer 1.52 H (<0.60) mg/L FEU VBG pCO2 (37-51) mmHg VBG HCO3 (24-28) mmol/L Carbon Dioxide 32 H (22-30) mmol/L Glucose 124 H (74-99) mg/dL Alkaline Phosphatase 173 H (38-126) U/L 12/19/22 Range/Units 09:23 Hgb (11.4-16.0) gm/dL Hct (34.0-46.0) % RDW (11.5-15.5) % D-Dimer (<0.60) mg/L FEU VBG pCO2 57 H (37-51) mmHg VBG HCO3 32 H (24-28) mmol/L Carbon Dioxide (22-30) mmol/L Glucose (74-99) mg/dL Alkaline Phosphatase (38-126) U/L Assessment and Plan (1) Allergy to multiple antibiotics Status: Acute Code(s): Z88.1 - ALLERGY STATUS TO OTHER ANTIBIOTIC AGENTS SNOMED Code(s): 437888529 (2) Pneumonia Status: Acute Code(s): J18.9 - PNEUMONIA, UNSPECIFIED ORGANISM SNOMED Code(s): 112078954 Plan: 1patient was in the hospital with increasing shortness of breath which is multifactorial in this patient concern for possible segmental PE on the CT angiogram also shows groundglass opacity concerning for possible pneumonia as the patient did have some URI symptoms followed by cough and some chills however no high-grade fever or elevated white count was noticed. 2patient with multiple antibiotic allergies that would limit the number of antibiotics safe to use. 3we will check a CRP and a procalcitonin level to try to obtain a sputum for Gram stain culture and check urine for Legionella antigen 4-continue with the Levaquin while waiting for the work-up to be completed We will follow on clinical condition and cultures to further adjust medication if needed Thank you for this consultation we will follow the patient along with you Time with Patient: Greater than 30
[2022-12-20 06:12] LABS: Glucose,Whole Blood 176 mg/dL (70-110)
[2022-12-20] MEDS: methylPREDNISolone SOD SUCCI 125 MG/2 ML VIAL IV SCH ×3 (06:25→16:10)
[2022-12-20] MEDS: INSULIN ASPART (NovoLOG) 100 UNIT/ML VIAL SQ SCH ×4 (06:26→20:20)
[2022-12-20] MEDS: PANTOPRAZOLE 40 MG TABLET PO SCH (06:27)
[2022-12-20] MEDS: IPRATROPIUM-ALBUTEROL 3 ML NEB INHALATION SCH ×4 (08:46→20:42)
[2022-12-20] MEDS: FORMOTEROL FUMARATE 20 MCG/2 ML NEBU INHALATION SCH ×2 (08:46→20:41)
[2022-12-20] MEDS: BUDESONIDE 1 MG/2 ML NEBU INHALATION SCH ×2 (08:46→20:41)
[2022-12-20] MEDS: HEPARIN SODIUM,PORCINE/PF 5,000 UNIT/0.5 ML SYRINGE SQ SCH ×2 (08:49→20:20)
[2022-12-20] MEDS: LEVOFLOXACIN 750 MG TAB PO SCH (08:49)
[2022-12-20] MEDS: FUROSEMIDE 10 MG/ML 4 ML VIAL IV SCH ×2 (08:49→16:10)
[2022-12-20 08:50] LABS: Anisocytosis Slight; Basophils % (A) 0 %; Eosinophils % (A) 1 %; HCT 51.9 % (34.0-46.0); HGB 16.2 gm/dL (11.4-16.0); Hypochromasia Slight; Lymphocytes # (A) 0.5 k/uL (1.0-4.8); Lymphocytes % (A) 8 %; MCH 29.9 pg (25.0-35.0); MCHC 31.1 g/dL (31.0-37.0); Mean Platelet Volume 8.6; Monocytes # (A) 0.1 k/uL (0-1.0); Monocytes % (A) 2 %; Neutrophils # (A) 6.2 k/uL (1.3-7.7); Neutrophils % (A) 90 %; Platelet Count 239 k/uL (150-450); RBC 5.41 m/uL (3.80-5.40); RDW 16.5 % (11.5-15.5); WBC 6.9 k/uL (3.8-10.6)
[2022-12-20 09:20] LABS: African American GFR (CKD) >90 (>60 ml/min/1.73 sqM); Anion Gap 8 mmol/L; Blood Urea Nitrogen 10 mg/dL (7-17); Calcium 9.3 mg/dL (8.4-10.2); Carbon Dioxide 32 mmol/L (22-30); Chloride 100 mmol/L (98-107); Glucose 166 mg/dL (74-99); Non-African American GFR(CKD) >90 (>60 ml/min/1.73 sqM); Potassium 4.4 mmol/L (3.5-5.1); Sodium 140 mmol/L (137-145)
[2022-12-20 11:49] LABS: Glucose,Whole Blood 147 mg/dL (70-110)
--- NOTE | 2022-12-20 12:14 | P.PN ---
Subjective Progress Note Date: 12/20/22 52-year-old female patient, a chronic smoker, morbidly obese with a body mass index of 59.4, presenting to the hospital because of worsening shortness of breath. She states that since she had a cold with infections in the past, the patient has become more short of breath than her usual. The last Covid 19 infection was back in 2021. She is expressing increased shortness of breath and over the past 1 week her breathing got worse. She has since developed significant amount of edema lower extremity is bilaterally. No fever. No chills. No chest pain. No calf pain or tenderness. The patient has typical features of obstructive sleep apnea including loud snoring and witnessed apneas and sleep fragmentation and chronic hypersomnolence sleepiness. 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 For all diseases, she came into the emergency. She was hemodynamically stable. She was given blood work that showed edematous count of 6.7 with a hemoglobin of 16.3 and a platelet count of 235. BUN is at 80 with a creatinine of 0.7 and a sodium level is at 140 with a glucose of 124. Troponin was negative. Lactic acid level was 1.0. ProBNP level is at 352. The vital screening including influenza A and influenza B, RSV and Covid 19 testing were all negative. The patient was hospitalized and currently she is on oxygen at 15 L/m nasal cannula. She is afebrile. On today's evaluation of 12/20/2022, the patient is on enough to the diuretics. She reports improvement in lower extremity edema. She is diuresing well. She is less short of breath. She has been weaned down to 3 L of oxygen by nasal cannula. The patient is a negative fluid balance. echoes at 6.9 with a hemoglobin of 16.2. BUN is at 10 with a creatinine of 0.4. Bicarb is at 32. Doppler of the lower extremity has been negative. Awaiting repeat echocardiogram. Objective - Vital Signs Vital signs: Vital Signs Temp 97.8 F 12/20/22 08:00 Pulse 96 12/20/22 09:12 Resp 18 12/20/22 08:00 BP 148/85 12/20/22 08:00 Pulse Ox 92 L 12/20/22 08:00 FiO2 Intake & Output 12/19/22 12/20/22 12/20/22 18:59 06:59 18:59 Intake Total 658 240 Output Total 800 700 Balance -142 -700 240 Weight 147.418 kg 155 kg Intake: Oral 658 240 Output: Urine 800 700 Other: Voiding Method Toilet Toilet # Voids 2 - Exam No acute distress, oriented 3. Currently on room air with saturations 95% and she is on 2 liters 02 HEENT examination is grossly unremarkable. Neck supple. Full range of motion. No adenopathy thyromegaly or neck vein distention. Cardiovascular examination reveals regular rhythm rate. S1-S2 normal. No S3 or S4. No discernible murmur noted. Heart rate 98 bpm. Lungs reveal clear breath sounds. Breath sounds are equal bilaterally. No adventitious lung sounds including wheezes rhonchi or crackles. Abdomen soft bowel sounds are heard. No masses or tenderness. Extremities are intact. No cyanosis clubbing or edema. Skin is without rash or lesion. Neurologic examination is brief but nonfocal. - Labs CBC & Chem 7: 12/20/22 08:12 12/20/22 08:12 Labs: Abnormal Lab Results - Last 24 Hours (Table) 12/19/22 12/19/22 12/19/22 Range/Units 06:36 16:32 20:03 RBC (3.80-5.40) m/uL Hgb (11.4-16.0) gm/dL Hct (34.0-46.0) % RDW (11.5-15.5) % Lymphocytes # (1.0-4.8) k/uL Carbon Dioxide (22-30) mmol/L Creatinine (0.52-1.04) mg/dL Glucose (74-99) mg/dL POC Glucose (mg/dL) 132 H 131 H (70-110) mg/dL C-Reactive Protein 5.4 H (<1.0) mg/dL 12/20/22 12/20/22 12/20/22 Range/Units 06:09 08:12 08:12 RBC 5.41 H (3.80-5.40) m/uL Hgb 16.2 H (11.4-16.0) gm/dL Hct 51.9 H (34.0-46.0) % RDW 16.5 H (11.5-15.5) % Lymphocytes # 0.5 L (1.0-4.8) k/uL Carbon Dioxide 32 H (22-30) mmol/L Creatinine 0.46 L (0.52-1.04) mg/dL Glucose 166 H (74-99) mg/dL POC Glucose (mg/dL) 176 H (70-110) mg/dL C-Reactive Protein (<1.0) mg/dL Assessment and Plan Plan: Acute hypoxic respiratory failure, currently on O2 at 3 L nasal cannula, likely on the basis of fluid overload/right-sided heart failure. Progressive dyspnea, multifactorial. The patient has signs of massive fluid overload with extensive edema lower extremities. Her presentation is also consistent with right-sided heart failure, rule out cor pulmonale especially with her morbid obesity and undiagnosed features of obstructive sleep apnea. She may be also getting a component of obesity hypoventilation syndrome. Chronic lower extremity edema with interval worsening second 2 massive fluid overload Morbid obesity with a BMI of 59.4 Hypertension Previous history of Covid 19 infection 3, last infection was in 2021 and the patient a questionable pulmonary embolism at that point and she was not committed to long-term anticoagulants. 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 Outpatient sleep study with possibly the need for a CPAP/BiPAP unit at the later stage
--- NOTE | 2022-12-20 12:31 | CA ---
Transthoracic Echo Report Name: Candice Huston Age: 52 Gender: F : 1970 Exam Date: 12/19/2022 13:33 Exam Location: [facility] Ht (in): 62 Wt (lb): 325 Ordering Physician: Jaimee Mathur MD Attending/Referring Phys: Foundation Coordinator Kristen Macdonald RDCS Procedure CPT: Indications: sob Cardiac Hx: Technical Quality: Technically difficult study Contrast 1: Lumason Total Dose (mL): 3 Contrast 2: Total Dose (mL): MEASUREMENTS (Male / Female) Normal Values 2D ECHO LV Diastolic Diameter PLAX 5.7 cm 4.2 - 5.9 / 3.9 - 5.3 cm LV Systolic Diameter PLAX 2.7 cm IVS Diastolic Thickness 1.6 cm 0.6 - 1.0 / 0.6 - 0.9 cm LVPW Diastolic Thickness 1.5 cm 0.6 - 1.0 / 0.6 - 0.9 cm LV Relative Wall Thickness 0.5 RV Internal Dim ED PLAX 3.0 cm LA Systolic Diameter LX 3.1 cm 3.0 - 4.0 / 2.7 - 3.8 cm M-MODE Aortic Root Diameter MM 3.3 cm MV E Point Septal Separation 0.8 cm AV Cusp Separation MM 1.9 cm DOPPLER AV Peak Velocity 147.3 cm/s AV Peak Gradient 8.7 mmHg MV Area PHT 3.1 cm??? Mitral E Point Velocity 71.0 cm/s Mitral A Point Velocity 42.8 cm/s Mitral E to A Ratio 1.7 MV Deceleration Time 246.5 ms TR Peak Velocity 288.0 cm/s TR Peak Gradient 33.2 mmHg Right Ventricular Systolic Press 38.2 mmHg FINDINGS Left Ventricle Left ventricular ejection fraction is estimated at 50-55 %. Mild left ventricular dilatation. Moderate concentric left ventricular hypertrophy. Right Ventricle Mild to moderately dilated right ventricle. Mild pulmonary hypertension. Right Atrium Normal right atrial size. Left Atrium Normal left atrial size. Mitral Valve Mitral valve not well visualized. No mitral stenosis, regurgitation or prolapse. Aortic Valve Aortic valve not well visualized. No aortic valve stenosis or regurgitation. Tricuspid Valve Structurally normal tricuspid valve. Mild tricuspid regurgitation. Pulmonic Valve Pulmonic valve not well visualized. Pericardium Normal pericardium. No pericardial effusion. Aorta Normal size aortic root and proximal ascending aorta. CONCLUSIONS Technically difficult study Left ventricular ejection fraction 50-55% Mild to moderately dilated right ventricle RVSP 38 Mild tricuspid regurgitation No pericardial effusion Previewed by: Dr. Nahum Trotter DO (Electronically Signed) Final Date: 20 December 2022 12:30
[2022-12-20] MEDS: ASPIRIN 81 MG PO SCH (16:10)
[2022-12-20] MEDS: ASCORBIC ACID 500 MG TAB PO SCH (16:10)
[2022-12-20] MEDS: CHOLECALCIFEROL 25 MCG (1000 IU) TABLET PO SCH (16:10)
[2022-12-20] MEDS: LACTOBACILLUS ACIDOPHILUS/PECT 1 EACH CAPSULE PO SCH (16:10)
[2022-12-20] MEDS: ZINC SULFATE 220 MG CAP PO SCH (16:10)
[2022-12-20] MEDS: MULTIVITAMINS, THERA 1 EACH TAB PO SCH (16:11)
[2022-12-20 17:13] LABS: Glucose,Whole Blood 188 mg/dL (70-110)
--- NOTE | 2022-12-20 19:24 | PN ---
PROGRESS NOTE DATE OF SERVICE: 12/20/2022 SUBJECTIVE: This is a 52-year-old woman, who was admitted with bilateral pneumonia, also had history of multiple COVID infections. 2D echo showed ejection fraction 50% to 55%. The patient is feeling slightly better. The patient predominantly had combination of COPD and CHF. OBJECTIVE: VITAL SIGNS: Pulse is 102, blood pressure 141/86, respirations 18. HEENT: Conjunctivae normal. NECK: No jugular venous distention. CARDIOVASCULAR: S1, S2. RESPIRATIONS: A few scattered rhonchi. ABDOMEN: Soft, obese. LEGS: Bilateral leg edema. NERVOUS SYSTEM: Nonfocal. LABORATORY DATA: Noted. ASSESSMENT: 1. Bilateral pneumonia with possible chronic obstructive pulmonary disease with acute exacerbation. 2. Congestive heart failure acute exacerbation. Acute on chronic diastolic dysfunction. 3. History of multiple episodes of COVID infections. 4. Hypertension. 5. History of kidney stones. 6. Cholecystectomy. 7. Obesity with BMI of 59.4. RECOMMENDATIONS: Recommend to continue current management and symptomatic treatment. Continue with steroids. Continue with Lasix. Closely follow with Cardiology and Pulmonology. Guarded prognosis. Further recommendations to follow. MMODL / IJN: [id number] /
[2022-12-20 20:05] LABS: Glucose,Whole Blood 163 mg/dL (70-110)
--- NOTE | 2022-12-20 22:05 | P.PN ---
Subjective Progress Note Date: 12/20/22 Principal diagnosis: Pneumonia Patient is a 52-year-old female with a past medical history significant for morbid obesity COVID-19 infection hypertension and apparently h istory of PE for the patient has been treated with aspirin presenting to the ER for evaluation of increasing shortness of breath , patient did have a CT of the chest concerning for possible PE and pneumonia. On today's evaluation and that is 12/20/2022, the patient denies having any fever or any chills, the patient is breathing more comfortably patient cough has decreased in intensity is mostly dry in nature no nausea no vomiting no abdominal pain no diarrhea Objective - Vital Signs Vital signs: Vital Signs Temp 98.2 F 12/20/22 12:00 Pulse 102 H 12/20/22 12:00 Resp 18 12/20/22 12:57 BP 141/86 12/20/22 12:00 Pulse Ox 92 L 12/20/22 12:00 FiO2 Intake & Output 12/19/22 12/20/22 12/20/22 18:59 06:59 18:59 Intake Total 658 440 Output Total 800 700 Balance -142 -700 440 Weight 147.418 kg 155 kg Intake: Oral 658 440 Output: Urine 800 700 Other: Voiding Method Toilet Toilet # Voids 2 2 - Exam GENERAL DESCRIPTION: Middle-age female up in bed in no distress RESPIRATORY SYSTEM: Unlabored breathing , occasional wheeze HEART: S1 S2 regular rate and rhythm , ABDOMEN: Soft , no tenderness EXTREMITIES: No edema feet - Labs CBC & Chem 7: 12/20/22 08:12 12/20/22 08:12 Labs: Abnormal Lab Results - Last 24 Hours (Table) 12/19/22 12/19/22 12/20/22 Range/Units 16:32 20:03 06:09 RBC (3.80-5.40) m/uL Hgb (11.4-16.0) gm/dL Hct (34.0-46.0) % RDW (11.5-15.5) % Lymphocytes # (1.0-4.8) k/uL Carbon Dioxide (22-30) mmol/L Creatinine (0.52-1.04) mg/dL Glucose (74-99) mg/dL POC Glucose (mg/dL) 132 H 131 H 176 H (70-110) mg/dL 12/20/22 12/20/22 12/20/22 Range/Units 08:12 08:12 11:47 RBC 5.41 H (3.80-5.40) m/uL Hgb 16.2 H (11.4-16.0) gm/dL Hct 51.9 H (34.0-46.0) % RDW 16.5 H (11.5-15.5) % Lymphocytes # 0.5 L (1.0-4.8) k/uL Carbon Dioxide 32 H (22-30) mmol/L Creatinine 0.46 L (0.52-1.04) mg/dL Glucose 166 H (74-99) mg/dL POC Glucose (mg/dL) 147 H (70-110) mg/dL Assessment and Plan (1) Pneumonia Current Visit: Yes Status: Acute Code(s): J18.9 - PNEUMONIA, UNSPECIFIED ORGANISM SNOMED Code(s): 792745635 (2) Allergy to multiple antibiotics Current Visit: Yes Status: Acute Code(s): Z88.1 - ALLERGY STATUS TO OTHER ANTIBIOTIC AGENTS SNOMED Code(s): 054591923 Plan: 1patient was in the hospital with increasing shortness of breath which is multifactorial in this patient concern for possible segmental PE on the CT angiogram also shows groundglass opacity concerning for possible pneumonia as the patient did have some URI symptoms followed by cough and some chills however no high-grade fever or elevated white count was noticed. 2patient with multiple antibiotic allergies that would limit the number of ant ibiotics safe to use. 3patient did have elevated CRP and procalcitonin level is currently pending, to try to obtain a sputum for Gram stain culture and check urine for Legionella antigen 4-patient continue with the Levaquin in view of clinical improvement and monitor clinical course closely Time with Patient: Less than 30
[2022-12-21] MEDS ORDERED: methylPREDNISolone SOD SUCCI 125 MG/2 ML VIAL ONE
[2022-12-21] MEDS ORDERED: FUROSEMIDE 10 MG/ML 4 ML VIAL ONE
[2022-12-21 05:54] LABS: Mycoplasma IgG Antibody (EIA) 2.98 INDEX (<=0.90); Mycoplasma IgM Antibody 0.24 INDEX (<=0.90)
[2022-12-21 06:00] LABS: Glucose,Whole Blood 146 mg/dL (70-110)
[2022-12-21] MEDS: INSULIN ASPART (NovoLOG) 100 UNIT/ML VIAL SQ SCH ×2 (06:06→12:36)
[2022-12-21] MEDS: PANTOPRAZOLE 40 MG TABLET PO SCH (06:08)
[2022-12-21] MEDS: FORMOTEROL FUMARATE 20 MCG/2 ML NEBU INHALATION SCH (08:35)
[2022-12-21] MEDS: BUDESONIDE 1 MG/2 ML NEBU INHALATION SCH (08:35)
[2022-12-21] MEDS: IPRATROPIUM-ALBUTEROL 3 ML NEB INHALATION SCH ×2 (08:35→11:41)
[2022-12-21] MEDS: methylPREDNISolone SOD SUCCI 125 MG/2 ML VIAL IV SCH (09:02)
[2022-12-21] MEDS: FUROSEMIDE 10 MG/ML 4 ML VIAL IV SCH ×2 (09:02→09:04)
[2022-12-21] MEDS: LEVOFLOXACIN 750 MG TAB PO SCH (09:04)
[2022-12-21] MEDS: HEPARIN SODIUM,PORCINE/PF 5,000 UNIT/0.5 ML SYRINGE SQ SCH (09:04)
[2022-12-21 09:15] VITALS: BP 133/68; RESP 18; TEMP 97.7
[2022-12-21] MEDS ORDERED: FUROSEMIDE 40 MG TAB PO SCH (10:15)
--- NOTE | 2022-12-21 11:04 | P.PN ---
Subjective Progress Note Date: 12/21/22 52-year-old female patient, a chronic smoker, morbidly obese with a body mass index of 59.4, presenting to the hospital because of worsening shortness of breath. She states that since she had a cold with infections in the past, the patient has become more short of breath than her usual. The last Covid 19 infection was back in 2021. She is expressing increased shortness of breath and over the past 1 week her breathing got worse. She has since developed significant amount of edema lower extremity is bilaterally. No fever. No chills. No chest pain. No calf pain or tenderness. The patient has typical features of obstructive sleep apnea including loud snoring and witnessed apneas and sleep fragmentation and chronic hypersomnolence sleepiness. 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 For all diseases, she came into the emergency. She was hemodynamically stable. She was given blood work that showed edematous count of 6.7 with a hemoglobin of 16.3 and a platelet count of 235. BUN is at 80 with a creatinine of 0.7 and a sodium level is at 140 with a glucose of 124. Troponin was negative. Lactic acid level was 1.0. ProBNP level is at 352. The vital screening including influenza A and influenza B, RSV and Covid 19 testing were all negative. The patient was hospitalized and currently she is on oxygen at 15 L/m nasal cannula. She is afebrile. On today's evaluation of 12/20/2022, the patient is on enough to the diuretics. She reports improvement in lower extremity edema. She is diuresing well. She is less short of breath. She has been weaned down to 3 L of oxygen by nasal cannula. The patient is a negative fluid balance. echoes at 6.9 with a hemoglobin of 16.2. BUN is at 10 with a creatinine of 0.4. Bicarb is at 32. Doppler of the lower extremity has been negative. Awaiting repeat echocardiogram. On 12/21/2022, I'm seeing the patient for a follow-up. The patient is doing much better. She is pumped up and she wants to quit smoking. She is currently on oral Lasix 40 mg twice a day. She has diuresed adequately. She feels much better. She is on room air oxygen. She'll be started also on a prednisone burst taper. Echo of the heart showed a preserved LV function, mild pulmonary hypertension based on the most recent echo findings. No valvular heart disease. She will need a sleep evaluation at the later stage. Objective - Vital Signs Vital signs: Vital Signs Temp 97.7 F 12/21/22 09:00 Pulse 96 12/21/22 09:03 Resp 18 12/21/22 09:00 BP 133/68 12/21/22 09:00 Pulse Ox 94 L 12/21/22 09:00 FiO2 21 12/20/22 20:44 Intake & Output 12/20/22 12/21/22 12/21/22 18:59 06:59 18:59 Intake Total 680 180 Output Total 500 2700 Balance 180 -2700 180 Weight 153.8 kg Intake: Oral 680 180 Output: Urine 500 2700 Other: Voiding Method Toilet Toilet # Voids 2 - Exam No acute distress, oriented 3. Currently on room air with saturations 95% and she is on room air oxygen HEENT examination is grossly unremarkable. Neck supple. Full range of motion. No adenopathy thyromegaly or neck vein distention. Cardiovascular examination reveals regular rhythm rate. S1-S2 normal. No S3 or S4. No discernible murmur noted. Lungs reveal clear breath sounds. Breath sounds are equal bilaterally. No adventitious lung sounds including wheezes rhonchi or crackles. Abdomen soft bowel sounds are heard. No masses or tenderness. Extremities are intact. No cyanosis clubbing or edema. Skin is without rash or lesion. Neurologic examination is brief but nonfocal. - Labs CBC & Chem 7: 12/20/22 08:12 12/20/22 08:12 Labs: Abnormal Lab Results - Last 24 Hours (Table) 12/19/22 12/20/22 12/20/22 Range/Units 12:39 11:47 17:07 POC Glucose (mg/dL) 147 H 188 H (70-110) mg/dL Mycoplasma pneumon IgG 2.98 H (<=0.90) INDEX 12/20/22 12/21/22 Range/Units 19:57 05:47 POC Glucose (mg/dL) 163 H 146 H (70-110) mg/dL Mycoplasma pneumon IgG (<=0.90) INDEX Microbiology - Last 24 Hours (Table) 12/19/22 09:50 Blood Culture - Preliminary Blood 12/19/22 09:35 Blood Culture - Preliminary Blood Assessment and Plan Plan: Acute hypoxic respiratory failure, currently on on room air oxygen and the patient is calm and comfortable. Progressive dyspnea, multifactorial. The patient has signs of massive fluid overload with extensive edema lower extremities. Her presentation is also consistent with right-sided heart failure, rule out cor pulmonale especially with her morbid obesity and undiagnosed features of obstructive sleep apnea. She may be also getting a component of obesity hypoventilation syndrome. The patient is clinically improved and his shortness of breath is also improved and currently she is on oral Lasix Chronic lower extremity edema , improved, Doppler of the lower extremity was negative, echo shows a preserved LV function. Morbid obesity with a BMI of 59.4 Hypertension Previous history of Covid 19 infection 3, last infection was in 2021 and the patient a questionable pulmonary embolism at that point and she was not committed to long-term anticoagulants. 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 Outpatient sleep study with possibly the need for a CPAP/BiPAP unit at the later stage Possible discharge today no smoking and smoking cessation counseling was done.
[2022-12-21 11:31] LABS: Glucose,Whole Blood 122 mg/dL (70-110)
[2022-12-21 11:46] VITALS: PULSE 92
[2022-12-21] MEDS ORDERED: predniSONE 20 MG TAB PO SCH (12:00)
--- NOTE | 2022-12-21 12:00 | P.CRDCN ---
History of Present Illness Consult date: 12/21/22 Consult reason: congestive heart failure History of present illness: HISTORY OF PRESENTING ILLNESS This is a 52-year-old female patient with past medical history significant for hypertension, chronic nicotine dependence and morbid obesity. We have been asked to see in consultation for congestive heart failure. Patient was seen in the past in [address] Vidales but no further follow-up. Patient states that at home she was unable to get her pulse ox of 72% and she was having difficulty breathing. She states her breathing is trouble started on Monday after she was out in the rain with her granddaughter. On she thought she had a sinus congestion and started taking some medications for that. She took Monday and off work but then ended up working on Monday and Monday and by the Monday evening had worsening shortness of breath along with dark yellow sputum production. Patient is active smoker of one and half packs per day currently down to 5 cigarettes per day. She states she is Suffering from long-term Covid and has had ongoing troubles or shortness of breath. Patient has been admitted to the cardiac stepdown unit on 12/19 and treated for COPD exacerbation EKG reveals sinus tachycardia heart rate of 111. CTA cannot exclude small pulmonary segmental and subsegmental pulmonary embolism. No evidence of large saddle component. Scattered groundglass infiltrates bilaterally may reflect acute inflammatory process. Echocardiogram performed 12/19/2022 revealed technically difficult study. Left ventricular EF 50-55%. Mild to moderately dilated right ventricle. RVSP 38. Mild tricuspid regurgitation. No pericardial effusion. WBC 6.9, hemoglobin 16.2, platelet count 239. D-dimer 1.52. INR 0.9. Sodium 140, potassium 4.4, BUN 10 and creatinine 0.46. Alkaline phosphatase 173 otherwise liver function tests are normal. Troponin negative 1. C-reactive protein 5.4. ProBNP 352. Albumin 4.1. Influenza A, influenza B, RSV, Covid 19 not detected. Legionella negative. Mycoplasma pneumonia IgG high at 2.98 but IgM is 0.24. Current cardiac medications: Aspirin 81 mg daily, Lasix 40 mg twice daily. REVIEW OF SYSTEMS At the time of my exam: CONSTITUTIONAL: Denies fever or chills. CARDIOVASCULAR: Denies chest pain, shortness of breath, orthopnea, PND or palpitations. RESPIRATORY: Reports shortness of breath, reports cough with sputum production. GASTROINTESTINAL: Denies abdominal pain, diarrhea, constipation, nausea or vomiting. MUSCULOSKELETAL: Denies myalgias. NEUROLOGIC: Denies numbness, tingling, headacbe or weakness. ENDOCRINE: Denies fatigue, weight change, polydipsia or polyurina. GENITOURINARY: Denies burning, hematuria or urgency with micturation. HEMATOLOGIC: Denies history of anemia or bleeding. PHYSICAL EXAMINATION Vital signs reviewed CONSTITUTIONAL: No apparent distress. Morbidly obese. HEENT: Head is normocephalic. Pupils are equal, round. Sclerae anicteric. Mucous membranes of the mouth are moist. No JVD. No carotid bruit. CHEST EXAMINATION: Lungs are clear to auscultation. No chest wall tenderness is noted on palpation or with deep breathing. HEART EXAMINATION: Regular rate and rhythm. S1, S2 heard. No murmurs, gallops or rub. ABDOMEN: Soft, nontender. Positive bowel sounds. EXTREMITIES: 2+ peripheral pulses, no lower extremity edema and no calf tenderness. NEUROLOGIC EXAMINATION: Patient is awake, alert and oriented x3. 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 Cardiology will sign off and follow on an as-needed basis. Please reconsult for any new concerns. Patient may follow-up in the office in 3-[address] Hunt Thank you kindly for this consultation. Nurse Practitioner note has been reviewed, I agree with a documented findings and plan of care. Patient was seen and examined. Past Medical History Past Medical History: Hypertension Additional Past Medical History / Comment(s): pas hx. kidney stones, RUQ pain, MIGRANES, covid X3 infection and the last infection was in 2021 and this was associated with questionable PE and she was given ASA.Morbid obesity. Chronic leg edema, hypertension. History of Any Multi-Drug Resistant Organisms: None Reported Past Surgical History: Cholecystectomy, Orthopedic Surgery, Tubal Ligation Additional Past Surgical History / Comment(s): wrist surg. Past Anesthesia/Blood Transfusion Reactions: Motion Sickness, Postoperative Nausea & Vomiting (PONV) Additional Past Anesthesia/Blood Transfusion Reaction / Comment(s): severe PONV Past Psychological History: No Psychological Hx Reported Smoking Status: Current some day smoker (1.5 PPD and she is cutting down on her smoking) Past Alcohol Use History: None Reported Past Drug Use History: None Reported - Past Family History Mother Family Medical History: No Reported History Medications and Allergies Home Medications Medication Instructions Recorded Confirmed Type Ascorbic Acid [Vitamin C] 1,000 mg PO W/SUPPER 11/16/20 12/19/22 History Cholecalciferol [Vitamin D3 (25 25 mcg PO W/SUPPER 11/16/20 12/19/22 History Mcg = 1000 Iu)] Multivitamins, Thera [Multivitamin 1 tab PO W/SUPPER 11/16/20 12/19/22 History (formulary)] Zinc 50 mg PO W/SUPPER 11/16/20 12/19/22 History Aspirin 81 mg PO W/SUPPER 12/19/22 12/19/22 History Elderberry Fruit [Elderberry] 350 mg PO W/SUPPER 12/19/22 12/19/22 History L.acidoph,Paracasei, B.lactis 1 cap PO W/SUPPER 12/19/22 12/19/22 History [Probiotic] Turmeric Root Extract [Turmeric] 500 mg PO W/SUPPER 12/19/22 12/19/22 History Acetaminophen Tab [Tylenol] 650 mg PO Q6HR PRN tab 12/21/22 Rx Albuterol Inhaler [Ventolin Hfa 1 puff INHALATION QID #8 gm 12/21/22 Rx Inhaler] Furosemide [Lasix] 40 mg PO BID@0900,1600 #60 tab 12/21/22 Rx Ipratropium-Albuterol Nebulize 3 ml INHALATION RT-QID 30 Days 12/21/22 Rx [Duoneb 0.5 mg-3 mg/3 ml Soln] #120 each Ipratropium-Albuterol Nebulize 3 ml INHALATION RT-QID PRN each 12/21/22 Rx [Duoneb 0.5 mg-3 mg/3 ml Soln] Levofloxacin [Levaquin] 750 mg PO DAILY 5 Days #5 tab 12/21/22 Rx predniSONE 10 mg PO DIRECTED #30 tab 12/21/22 Rx Allergies Allergy/AdvReac Type Severity Reaction Status Date / Time amoxicillin Allergy Rash/Hives Verified 12/19/22 09:21 azithromycin Allergy Rash/Hives Verified 12/19/22 09:21 cephalexin [From Keflex] Allergy Rash/Hives Verified 12/19/22 09:21 peanut Allergy Unknown Verified 12/19/22 09:21 Penicillins Allergy Rash/Hives Verified 12/19/22 09:21 strawberry Allergy Rash/Hives Verified 12/19/22 09:21 Sulfa (Sulfonamide Allergy Rash/Hives Verified 12/19/22 09:21 Antibiotics) nitroglycerin AdvReac Rapid Verified 12/19/22 09:21 Heart Rate Physical Exam Vitals: Vital Signs Temp Pulse Pulse Pulse Resp BP Pulse Ox 12/21/22 04:00 98.1 F 87 16 132/86 92 L 12/21/22 03:40 93 12/21/22 03:30 90 12/21/22 00:00 98.1 F 95 14 122/81 92 L 12/20/22 21:03 100 12/20/22 20:55 104 H 12/20/22 20:54 104 H 12/20/22 20:44 96 92 L 12/20/22 20:00 98.6 F 98 14 142/87 92 L 12/20/22 15:19 104 H 12/20/22 15:18 98.4 F 99 18 127/88 93 L 12/20/22 15:07 100 12/20/22 12:57 18 12/20/22 12:00 98.2 F 102 H 18 141/86 92 L 12/20/22 11:42 96 12/20/22 11:32 92 12/20/22 09:12 96 12/20/22 09:02 96 12/20/22 09:00 96 12/20/22 08:46 92 12/20/22 08:00 97.8 F 95 18 148/85 92 L FiO2 12/21/22 04:00 12/21/22 03:40 12/21/22 03:30 12/21/22 00:00 12/20/22 21:03 12/20/22 20:55 12/20/22 20:54 12/20/22 20:44 21 12/20/22 20:00 12/20/22 15:19 12/20/22 15:18 12/20/22 15:07 12/20/22 12:57 12/20/22 12:00 12/20/22 11:42 12/20/22 11:32 12/20/22 09:12 12/20/22 09:02 12/20/22 09:00 12/20/22 08:46 12/20/22 08:00 Intake and Output 12/20/22 12/21/22 12/21/22 22:59 06:59 14:59 Intake Total 240 Output Total 500 2700 Balance -260 -2700 Intake: Oral 240 Output: Urine 500 2700 Other: Voiding Method Toilet Toilet Weight 153.8 kg Results 12/20/22 08:12 12/20/22 08:12 CBC 12/20/22 Range/Units 08:12 WBC 6.9 (3.8-10.6) k/uL RBC 5.41 H (3.80-5.40) m/uL Hgb 16.2 H (11.4-16.0) gm/dL Hct 51.9 H (34.0-46.0) % Plt Count 239 (150-450) k/uL Comprehensive Metabolic Panel 12/20/22 Range/Units 08:12 Sodium 140 (137-145) mmol/L Potassium 4.4 (3.5-5.1) mmol/L Chloride 100 (98-107) mmol/L Carbon Dioxide 32 H (22-30) mmol/L BUN 10 (7-17) mg/dL Creatinine 0.46 L (0.52-1.04) mg/dL Glucose 166 H (74-99) mg/dL Calcium 9.3 (8.4-10.2) mg/dL Current Medications Generic Name Dose Route Start Last Admin Trade Name Freq PRN Reason Stop Dose Admin Acetaminophen 650 mg 12/19/22 09:01 12/20/22 08:52 Acetaminophen Tab 325 Mg Tab PO 650 mg Q6HR PRN Administration Mild Pain or Fever > 100.5 Hydrocodone Bitart/Acetaminophen 1 each 12/19/22 09:01 Hydrocodone/Apap 5-325mg 1 Each Tab PO Q4HR PRN Moderate Pain (Scale 4 to 6) Albuterol/Ipratropium 3 ml 12/19/22 16:00 12/20/22 20:42 Ipratropium-Albuterol 3 Ml Neb INHALATION 3 ml RT-QID JESSICA Administration Albuterol/Ipratropium 3 ml 12/19/22 12:34 12/21/22 03:30 Ipratropium-Albuterol 3 Ml Neb INHALATION 3 ml RT-QID PRN Administration Shortness Of Breath Or Wheezing Ascorbic Acid 1,000 mg 12/19/22 17:30 12/20/22 16:10 Ascorbic Acid 500 Mg Tab PO 1,000 mg W/SUPPER EJSSICA Administration Aspirin 81 mg 12/19/22 17:30 12/20/22 16:10 Aspirin 81 Mg PO 81 mg W/SUPPER JESSICA Administration Budesonide 1 mg 12/19/22 20:00 12/20/22 20:41 Budesonide 1 Mg/2 Ml Nebu INHALATION 1 mg RT-BID JESSICA Administration Cholecalciferol 25 mcg 12/19/22 17:30 12/20/22 16:10 Cholecalciferol 25 Mcg (1000 Iu) Tablet PO 25 mcg W/SUPPER JESSICA Administration Dextrose/Water 25 ml 12/19/22 12:38 Dextrose 50% Syringe 50 Ml IVP PER PROTOCOL PRN Hypoglycemia Protocol Dextrose/Water 50 ml 12/19/22 12:38 Dextrose 50% Syringe 50 Ml IVP PER PROTOCOL PRN Hypoglycemia Protocol Formoterol Fumarate 20 mcg 12/19/22 20:00 12/20/22 20:41 Formoterol Fumarate 20 Mcg/2 Ml Nebu INHALATION 20 mcg RT-BID JESSICA Administration Furosemide 40 mg 12/19/22 16:00 12/20/22 16:10 Furosemide 10 Mg/Ml 4 Ml Vial IV 40 mg Q8HR JESSICA Administration Heparin Sodium (Porcine) 5,000 unit 12/19/22 21:00 12/20/22 20:20 Heparin Sodium,Porcine/Pf 5,000 Unit/0.5 Ml Syringe SQ 5,000 unit Q12HR JESSICA Administration Insulin Aspart 0 unit 12/19/22 17:30 12/21/22 06:06 Insulin Aspart (Novolog) 100 Unit/Ml Vial SQ Not Given ACHS [facility] Protocol Lactobacillus Acidophilus 1 each 12/19/22 17:30 12/20/22 16:10 Lactobacillus Acidophilus/Pect 1 Each Capsule PO 1 each W/SUPPER JESSICA Administration Levofloxacin 750 mg 12/20/22 09:00 12/20/22 08:49 Levofloxacin 750 Mg Tab PO 12/23/22 09:01 750 mg DAILY JESSICA Administration Protocol Methylprednisolone Sodium Succinate 60 mg 12/19/22 12:45 12/20/22 16:10 Methylprednisolone Sod Succi 125 Mg/2 Ml Vial IV 60 mg Q6HR JESSICA Administration Miscellaneous Information 1 each 12/19/22 09:04 Pneumonia Protocol Utilized 1 Each Misc PO ONCE PRN Per Protocol Multivitamins 1 each 12/19/22 17:30 12/20/22 16:11 Multivitamins, Thera 1 Each Tab PO 1 each W/SUPPER JESSICA Administration Naloxone HCl 0.2 mg 12/19/22 09:01 Naloxone 0.4 Mg/Ml 1 Ml Vial IV Q2M PRN Opioid Reversal Ondansetron HCl 4 mg 12/19/22 09:01 Ondansetron 4 Mg/2 Ml Vial IVP Q8HR PRN Nausea And Vomiting Pantoprazole Sodium 40 mg 12/20/22 07:30 12/21/22 06:08 Pantoprazole 40 Mg Tablet PO 40 mg [id number] JESSICA Administration Zinc Sulfate 220 mg 12/19/22 17:30 12/20/22 16:10 Zinc Sulfate 220 Mg Cap PO 220 mg W/SUPPER JESSICA Administration Intake and Output 12/20/22 12/21/22 12/21/22 22:59 06:59 14:59 Intake Total 240 Output Total 500 2700 Balance -260 -2700 Intake: Oral 240 Output: Urine 500 2700 Other: Voiding Method Toilet Toilet Weight 153.8 kg 12/20/22 08:12 12/20/22 08:12
--- NOTE | 2022-12-22 14:39 | P.DS ---
Providers Date of admission: 12/19/22 09:03 Expected date of discharge: 12/21/22 Attending physician: De Jackson Consults: 12/19/22 09:01 Consult Physician Urgent Consulting Provider: Jaimee Mathur Consult Reason/Comments: Hypoxia Do you want consulting provider notified?: Yes 12/19/22 12:40 Consult Physician Routine Consulting Provider: Viv Munroe Consult Reason/Comments: pneumonia Do you want consulting provider notified?: Yes 12/20/22 14:27 Consult Physician Routine Consulting Provider: Nahum Trotter Consult Reason/Comments: CHF Do you want consulting provider notified?: Yes Primary care physician: Cheng Momin Hospital Course: Final diagnosis Bilateral pneumonia with possible chronic obstructive pulmonary disease, acute exacerbation Congestive heart failure acute exacerbation with acute on chronic diastolic dysfunction History of multiple episodes of Covid infections previously and has been vaccinated Hypertension History of kidney stones Morbid obesity with a BMI of 62.0 Continued ongoing nicotine dependence Discharge disposition Patient is being discharged in a stable condition with guarded prognosis to home. Patient will follow-up with Dr. Momin in the outpatient setting upon discharge. Patient is to continue with Levaquin along with a prednisone taper and Lasix along with close outpatient follow-up with cardiology and pulmonary as scheduled. Total time taken is greater than 35 minutes. Hospital course This is a 52-year-old female who was recently admitted with increasing shortness of breath with concerns of CHF and COPD exacerbation. Patient was maintained on IV steroids along with IV Lasix showing some improvement in her respiratory status and has been weaned off oxygen and currently maintaining above 90% on room air. Patient will need outpatient further testing with pulmonary and recommend follow-up with cardiology. Patient will continue on oral Lasix and recommend repeat labs. Please refer to consultation notes for further HPI. Strongly encouraged tobacco cessation as well. Currently no reports of chest pain, shortness of breath, or palpitations. Patient is afebrile. No reports of nausea or vomiting and patient is tolerating diet. Patient will be discharged home today. Physical exam: Gen: This is a 52-year-old female who is awake, alert and oriented 3, well- developed, well-nourished, morbidly obese HEENT: Head is atraumatic, normocephalic. Pupils equal, round. Sclerae is anicteric. NECK: Supple. No JVD. No lymphadenopathy. No thyromegaly. LUNGS: Diminished breath sounds bilaterally with some scattered rhonchi. No intercostal retractions. HEART: Regular rate and rhythm. No murmur. ABDOMEN: Soft. Obese Bowel sounds are present. No masses. No tenderness. EXTREMITIES: No pedal edema. No calf tenderness. NEUROLOGICAL: Patient is awake, alert and oriented x3. Cranial nerves 2 through 12 are grossly intact. Please refer to medication reconciliation sheet for a list of medications. The impression and plan of care has been dictated by Daphney Edmonds, Nurse Practitioner as directed. Dr. Manuel MD I have performed a history and examination and MDM of this patient, discussed the same with the dictator, and agree with the dictator's assessment and plan as written ,documented as a scribe. Based on total visit time, I have performed more than 50% of the visit. Patient Condition at Discharge: Stable Plan - Discharge Summary New Discharge Prescriptions: New Ipratropium-Albuterol Nebulize [Duoneb 0.5 mg-3 mg/3 ml Soln] 3 ml INHALATION RT-QID PRN each PRN Reason: Shortness Of Breath Or Wheezing Levofloxacin [Levaquin] 750 mg PO DAILY 5 Days #5 tab Acetaminophen Tab [Tylenol] 650 mg PO Q6HR PRN tab PRN Reason: Mild Pain Or Fever > 100.5 Ipratropium-Albuterol Nebulize [Duoneb 0.5 mg-3 mg/3 ml Soln] 3 ml INHALATION RT-QID 30 Days #120 each Furosemide [Lasix] 40 mg PO BID@0900,1600 #60 tab predniSONE 10 mg PO DIRECTED #30 tab Albuterol Inhaler [Ventolin Hfa Inhaler] 1 puff INHALATION QID #8 gm Continue Ascorbic Acid [Vitamin C] 1,000 mg PO W/SUPPER Zinc 50 mg PO W/SUPPER Cholecalciferol [Vitamin D3 (25 Mcg = 1000 Iu)] 25 mcg PO W/SUPPER Aspirin 81 mg PO W/SUPPER Turmeric Root Extract [Turmeric] 500 mg PO W/SUPPER Multivitamins, Thera [Multivitamin (formulary)] 1 tab PO W/SUPPER L.acidoph,Paracasei, B.lactis [Probiotic] 1 cap PO W/SUPPER Elderberry Fruit [Elderberry] 350 mg PO W/SUPPER Discharge Medication List Ascorbic Acid [Vitamin C] 1,000 mg PO W/SUPPER 11/16/20 [History] Cholecalciferol [Vitamin D3 (25 Mcg = 1000 Iu)] 25 mcg PO W/SUPPER 11/16/20 [ History] Multivitamins, Thera [Multivitamin (formulary)] 1 tab PO W/SUPPER 11/16/20 [History] Zinc 50 mg PO W/SUPPER 11/16/20 [History] Aspirin 81 mg PO W/SUPPER 12/19/22 [History] Elderberry Fruit [Elderberry] 350 mg PO W/SUPPER 12/19/22 [History] L.acidoph,Paracasei, B.lactis [Probiotic] 1 cap PO W/SUPPER 12/19/22 [History] Turmeric Root Extract [Turmeric] 500 mg PO W/SUPPER 12/19/22 [History] Acetaminophen Tab [Tylenol] 650 mg PO Q6HR PRN tab 12/21/22 [Rx] Albuterol Inhaler [Ventolin Hfa Inhaler] 1 puff INHALATION QID #8 gm 12/21/22 [Rx] Furosemide [Lasix] 40 mg PO BID@0900,1600 #60 tab 12/21/22 [Rx] Ipratropium-Albuterol Nebulize [Duoneb 0.5 mg-3 mg/3 ml Soln] 3 ml INHALATION RT-QID 30 Days #120 each 12/21/22 [Rx] Ipratropium-Albuterol Nebulize [Duoneb 0.5 mg-3 mg/3 ml Soln] 3 ml INHALATION RT-QID PRN each 12/21/22 [Rx] Levofloxacin [Levaquin] 750 mg PO DAILY 5 Days #5 tab 12/21/22 [Rx] predniSONE 10 mg PO DIRECTED #30 tab 12/21/22 [Rx] Follow up Appointment(s)/Referral(s): Cheng Momin DO [Primary Care Provider] - 1-2 days (Pt to make appointment.) Nahum Trotter DO [STAFF PHYSICIAN] - 1 Week (Pt to schedule appointment.) Jaimee Mathur MD [STAFF PHYSICIAN] - 01/16/23 8:30 am Patient Instructions/Handouts: Reactive Airways Disease (DC) Activity/Diet/Wound Care/Special Instructions: Activity Limited until follow-up Follow-up with primary care provider at discharge Follow-up with pulmonary outpatient Follow-up cardiology outpatient Continue taking prednisone taper until finished along with oral antibiotics until finished Continue with breathing inhalational treatments as well as as needed inhalers with you at all times Discharge Disposition: HOME SELF-CARE
--- NOTE | 2022-12-22 14:46 | CDI ---
Documentation Clarification Form Date: 12/22/2022 02:37:11 PM From: Katerina Curtis Admit Date: 12/19/2022 09:03:00 AM Patient Name: Candice Huston Visit Number: [id number] Discharge Date: 12/21/2022 01:33:00 PM ATTENTION: The Clinical Documentation Specialists (CDI) and [facility] Coding Staff appreciate your assistance in clarifying documentation. Please respond to the clarification below the line at the bottom and electronically sign. The CDI & [facility] Coding staff will review the response and follow-up if needed. Please note: Queries are made part of the Legal Health Record. If you have any questions, please contact the author of this message via ITS. Dr. De Jackson Conflicting documentation has been found in the medical record. As attending physician, please provide clarification. Manuel Progress note- 12/20 CHF with acute exacerbation - acute on chronic diastolic dysfunction [facility] Cardiology Note 12/21- no clinical sign of heart failure on examination, CAT scan is negative and normal BNP History/Risk Factors: 52 year old female with a history of long COVID over the last couple years causing residual SOB. This has been increasing over the last 3 days. Patient has a history of HTN, HAZEL, morbid obesity, and cigarette smoking. 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
--- NOTE | 2022-12-22 14:47 | CDI ---
Documentation Clarification Form Date: 12/22/2022 02:02:54 PM From: Katerina Curtis Admit Date: 12/19/2022 09:03:00 AM Patient Name: Candice Huston Visit Number: [id number] Discharge Date: 12/21/2022 01:33:00 PM ATTENTION: The Clinical Documentation Specialists (CDI) and [facility] Coding Staff appreciate your assistance in clarifying documentation. Please respond to the clarification below the line at the bottom and electronically sign. The CDI & [facility] Coding staff will review the response and follow-up if needed. Please note: Queries are made part of the Legal Health Record. If you have any questions, please contact the author of this message via ITS. Dr. De Jackson The patients principal diagnosis the diagnosis that was chiefly responsible for the admission - has not been clearly identified and clarification is requested. The patient presented with the following, shortness of breath and increasing swelling to the right lower extremity. History/Risk factors: 52 year old female with a history of long COVID over the last couple years causing residual SOB. This has been increasing over the last 3 days. Patient has a history of HTN, HAZEL, morbid obesity, and cigarette smoking. H&P 12/19, bilateral pneumonia with possible COPD with acute exacerbation Cardio Consult 12/19 Progressive dyspnea, massive fluid overload, consistent with right sided heart failure, rule out cor pulmonale. 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 Clinical Indicators: hx of long covid, SOB, right leg swelling, hypoxia, fluid overload, URI symptoms followed by cough and chills, no fever or elevated WBC Lab findings: d dimer 1.52, PH7.36, pCO2 57, HC)3 32, carbon dioxide 32, glucose 124, mycoplasma pneumon IgG 2.98, WBC 6.7 BNP 352 Radiology findings: ECHO: left ventricular ejection fraction 50-55 % Chest xray: generalized hazy appearance, could represent atelectasis vs pulmonary edema CTA chest: cannot exclude small pulmonary segmental and sub segmental pulmonary embolism, noted scattered ground glass infiltrates bilaterally, may reflect inflammatory process Venous Doppler, negative for right and left leg DVT Vital Signs: T 97.7, Pulse 125, RR 30 BP 169/126, O2 87 placed on 3L ncasal cannula Treatment: Lasix 40 g every 8 hours, prednisone, started on Levaquin 12/19 and 12/20, 3L O2 nasal cannula, intensive bronchodilator treatment Consults: cardiology and pulmonology In your professional opinion, can you please clarify which diagnosis, after study, was the reason chiefly responsible for the admission? [ ] Pneumonia [ ] Acute COPD Exacerbation [ ] Small pulmonary segmental and subsegmental pulmonary embolism [ ] Acute on chronic Diastolic congestive heart failure [ ] Other, please specify [ ] Unable to determine Acute COPD Exacerbation MTDD
--- NOTE | 2022-12-28 13:12 | P.PN ---
Subjective Progress Note Date: 12/21/22 Principal diagnosis: Pneumonia Patient is a 52-year-old female with a past medical history significant for morbid obesity COVID-19 infection hypertension and apparently h istory of PE for the patient has been treated with aspirin presenting to the ER for evaluation of increasing shortness of breath , patient did have a CT of the chest concerning for possible PE and pneumonia. On today's evaluation and that is 12/21/2022, the patient remains to be febrile, the patient is breathing comfortably on room air, the patient cough has decreased in intensity is mostly dry in nature no nausea no vomiting no abdominal pain no diarrhea Objective - Vital Signs Vital signs: Vital Signs Temp 97.7 F 12/21/22 09:00 Pulse 92 12/21/22 11:52 Resp 18 12/21/22 09:00 BP 133/68 12/21/22 09:00 Pulse Ox 94 L 12/21/22 09:00 FiO2 21 12/20/22 20:44 Intake & Output 12/20/22 12/21/22 12/21/22 18:59 06:59 18:59 Intake Total 680 180 Output Total 500 2700 Balance 180 -2700 180 Weight 153.8 kg Intake: Oral 680 180 Output: Urine 500 2700 Other: Voiding Method Toilet Toilet Toilet # Voids 2 - Exam GENERAL DESCRIPTION: Middle-age female up in bed in no distress RESPIRATORY SYSTEM: Unlabored breathing , occasional wheeze HEART: S1 S2 regular rate and rhythm , ABDOMEN: Soft , no tenderness EXTREMITIES: No edema feet - Labs CBC & Chem 7: 12/20/22 08:12 12/20/22 08:12 Labs: Abnormal Lab Results - Last 24 Hours (Table) 12/19/22 12/20/22 12/20/22 Range/Units 12:39 17:07 19:57 POC Glucose (mg/dL) 188 H 163 H (70-110) mg/dL Mycoplasma pneumon IgG 2.98 H (<=0.90) INDEX 12/21/22 12/21/22 Range/Units 05:47 11:29 POC Glucose (mg/dL) 146 H 122 H (70-110) mg/dL Mycoplasma pneumon IgG (<=0.90) INDEX Microbiology - Last 24 Hours (Table) 12/19/22 09:50 Blood Culture - Preliminary Blood 12/19/22 09:35 Blood Culture - Preliminary Blood Assessment and Plan (1) Pneumonia Status: Acute Code(s): J18.9 - PNEUMONIA, UNSPECIFIED ORGANISM SNOMED Code(s): 519956322 (2) Allergy to multiple antibiotics Status: Acute Code(s): Z88.1 - ALLERGY STATUS TO OTHER ANTIBIOTIC AGENTS SNOMED Code(s): 295751601 Plan: 1patient was in the hospital with increasing shortness of breath which is multifactorial in this patient concern for possible segmental PE on the CT angiogram also shows groundglass opacity concerning for possible pneumonia as the patient did have some URI symptoms followed by cough and some chills however no high-grade fever or elevated white count was noticed. 2patient with multiple antibiotic allergies that would limit the number of antibiotics safe to use. 3patient did have elevated CRP and procalcitonin level is still pending, urine for Legionella antigen is negative 4-patient seemed to have shown clinical improvement with Levaquin and continue to finish a course of therapy Time with Patient: Less than 30
== END 2022-12-21 13:33 | disposition home or self-care (01) | DRG 190 ==
LOC: EC 06:09 → 3SCARD 09:03
PROVIDERS: ADMIT Hospitalist; ATTEND Hospitalist
DX: J44.0 Chronic obstructive pulmonary disease with (acute) lower respiratory infection (principal); I26.93 Single subsegmental thrombotic pulmonary embolism without acute cor pulmonale; J18.9 Pneumonia, unspecified organism; I50.33 Acute on chronic diastolic (congestive) heart failure; J96.01 Acute respiratory failure with hypoxia; Z68.44 Body mass index [BMI] 60.0-69.9, adult; J44.1 Chronic obstructive pulmonary disease with (acute) exacerbation; E66.01 Morbid (severe) obesity due to excess calories; I27.20 Pulmonary hypertension, unspecified; U09.9 Post COVID-19 condition, unspecified; I11.0 Hypertensive heart disease with heart failure; G47.33 Obstructive sleep apnea (adult) (pediatric); G47.10 Hypersomnia, unspecified; F17.210 Nicotine dependence, cigarettes, uncomplicated; Z20.822 Contact with and (suspected) exposure to COVID-19; Z71.3 Dietary counseling and surveillance; Z88.1 Allergy status to other antibiotic agents; Z88.0 Allergy status to penicillin; Z88.2 Allergy status to sulfonamides; Z88.8 Allergy status to other drugs, medicaments and biological substances; Z86.711 Personal history of pulmonary embolism; Z79.899 Other long term (current) drug therapy; Z79.82 Long term (current) use of aspirin; Z71.6 Tobacco abuse counseling
CPT/HCPCS: 36415; 71046; 71275; 80048; 80053; 82803; 83036; 83605; 83880; 84484; 85025; 85379; 85610; 85730; 86140; 86738; 87040; 87449; 87636; 93005; 93306; 93970; 94640; 94760; 96365; 99285

== ENCOUNTER 2023-06-30 18:26 | Emergency (ER) | payer OTHER ==
[2023-06-30 18:34] VITALS: RESP 20; TEMP 99.1
--- NOTE | 2023-06-30 19:04 | XR ---
EXAMINATION TYPE: XR chest 2V DATE OF EXAM: 06/30/2023 6:44 PM CLINICAL INDICATION:Female, 53 years old with history of sob cough; COMPARISON: Chest radiographs from 12/19/2022. TECHNIQUE: XR chest 2V Frontal and lateral views of the chest. FINDINGS: Lungs/Pleura: There is no evidence of pleural effusion, focal consolidation, or pneumothorax. Pulmonary vascularity: Pulmonary vascular congestion. Heart/mediastinum: Cardiomediastinal silhouette is enlarged and stable. Musculoskeletal: No acute osseous pathology. Other findings: None IMPRESSION: Cardiomegaly and mild pulmonary vascular congestion. Correlate with BNP for congestive heart failure.
--- NOTE | 2023-06-30 19:23 | ED ---
General Adult HPI - General Chief complaint: Upper Respiratory Infection Stated complaint: FLU exposure Time Seen by Provider: 06/30/23 19:21 Source: patient Mode of arrival: ambulatory Limitations: no limitations - History of Present Illness Initial comments: 53-year-old female presenting with chief complaint of shortness of breath. Patient has been exposed to influenza A through her job at the [facility]. Patient has history long-haul Covid and states that her oxygen saturation normally lies between 85 and 91% on room air. She admits to cough congestion fever or chills and body aches ongoing for the last 4 days. She states that today her shortness of breath worsened. Denies chest pain, palpitations, nausea, vomiting, diarrhea, abdominal pain, numbness, tingling. - Related Data Home Medications Medication Instructions Recorded Confirmed Ascorbic Acid [Vitamin C] 1,000 mg PO W/SUPPER 11/16/20 12/19/22 Cholecalciferol [Vitamin D3 (25 25 mcg PO W/SUPPER 11/16/20 12/19/22 Mcg = 1000 Iu)] Multivitamins, Thera [Multivitamin 1 tab PO W/SUPPER 11/16/20 12/19/22 (formulary)] Zinc 50 mg PO W/SUPPER 11/16/20 12/19/22 Aspirin 81 mg PO W/SUPPER 12/19/22 12/19/22 Elderberry Fruit [Elderberry] 350 mg PO W/SUPPER 12/19/22 12/19/22 L.acidoph,Paracasei, B.lactis 1 cap PO W/SUPPER 12/19/22 12/19/22 [Probiotic] Turmeric Root Extract [Turmeric] 500 mg PO W/SUPPER 12/19/22 12/19/22 Previous Rx's Medication Instructions Recorded Acetaminophen Tab [Tylenol] 650 mg PO Q6HR PRN tab 12/21/22 Albuterol Inhaler [Ventolin Hfa 1 puff INHALATION QID #8 gm 12/21/22 Inhaler] Furosemide [Lasix] 40 mg PO BID@0900,1600 #60 tab 12/21/22 Ipratropium-Albuterol Nebulize 3 ml INHALATION RT-QID 30 Days 12/21/22 [Duoneb 0.5 mg-3 mg/3 ml Soln] #120 each Ipratropium-Albuterol Nebulize 3 ml INHALATION RT-QID PRN each 12/21/22 [Duoneb 0.5 mg-3 mg/3 ml Soln] Levofloxacin [Levaquin] 750 mg PO DAILY 5 Days #5 tab 12/21/22 predniSONE 10 mg PO DIRECTED #30 tab 12/21/22 Albuterol Nebulized [Ventolin 2.5 mg INHALATION Q4H PRN 8 Days 06/30/23 Nebulized] #150 ml Ondansetron Odt [Zofran Odt] 4 mg PO Q8HR PRN #20 tab 06/30/23 predniSONE [Deltasone] 60 mg PO DAILY 5 Days #15 tab 06/30/23 Allergies Allergy/AdvReac Type Severity Reaction Status Date / Time amoxicillin Allergy Rash/Hives Verified 12/19/22 09:21 azithromycin Allergy Rash/Hives Verified 12/19/22 09:21 cephalexin [From Keflex] Allergy Rash/Hives Verified 12/19/22 09:21 peanut Allergy Unknown Verified 12/19/22 09:21 Penicillins Allergy Rash/Hives Verified 12/19/22 09:21 strawberry Allergy Rash/Hives Verified 12/19/22 09:21 Sulfa (Sulfonamide Allergy Rash/Hives Verified 12/19/22 09:21 Antibiotics) nitroglycerin AdvReac Rapid Verified 12/19/22 09:21 Heart Rate Review of Systems ROS Statement: Those systems with pertinent positive or pertinent negative responses have been documented in the HPI. ROS Other: All systems not noted in ROS Statement are negative. Past Medical History Past Medical History: Hypertension Additional Past Medical History / Comment(s): pas hx. kidney stones, RUQ pain, MIGRANES, covid X3 infection and the last infection was in 2021 and this was associated with questionable PE and she was given ASA.Morbid obesity. Chronic leg edema, hypertension. History of Any Multi-Drug Resistant Organisms: None Reported Past Surgical History: Cholecystectomy, Orthopedic Surgery, Tubal Ligation Additional Past Surgical History / Comment(s): wrist surg. Past Anesthesia/Blood Transfusion Reactions: Motion Sickness, Postoperative Nausea & Vomiting (PONV) Additional Past Anesthesia/Blood Transfusion Reaction / Comment(s): severe PONV Past Psychological History: No Psychological Hx Reported Smoking Status: Current some day smoker Past Alcohol Use History: None Reported Past Drug Use History: None Reported - Past Family History Mother Family Medical History: No Reported History General Exam - General Exam Comments Initial Comments: Visual Physical Exam Vital signs reviewed General: Well-appearing, nontoxic, no acute distress. Head: Normocephalic, atraumatic Eyes: PERRLA, EOMI ENT: Airway patent Chest: Nonlabored breathing Skin: No visual rash, normal skin tone Neuro: Alert and oriented 3 Musculoskeletal: No gross abnormalities Limitations: no limitations General appearance: alert, in no apparent distress Head exam: Present: atraumatic, normocephalic Eye exam: Present: normal appearance Neck exam: Present: normal inspection Respiratory exam: Present: wheezes. Absent: respiratory distress, rales, rhonchi, stridor Cardiovascular Exam: Present: regular rate, normal rhythm, normal heart sounds. Absent: systolic murmur, diastolic murmur, rubs, gallop, clicks Neurological exam: Present: alert, oriented X3 Psychiatric exam: Present: normal affect, normal mood Skin exam: Present: warm, dry Course Vital Signs 06/30/23 06/30/23 06/30/23 18:29 20:55 21:14 Temperature 99.1 F Pulse Rate 108 H 95 96 Respiratory 20 Rate Blood Pressure 158/97 O2 Sat by Pulse 90 L Oximetry 06/30/23 21:43 Temperature Pulse Rate 102 H Respiratory 20 Rate Blood Pressure 143/95 O2 Sat by Pulse 95 Oximetry Medical Decision Making - Medical Decision Making Was pt. sent in by a medical professional or institution (Dr. PA, MENTAL HEALTH CONSULTANT, urgent care, hospital, or penitentiary...) When possible be specific @ -No Did you speak to anyone other than the patient for history (EMS, parent, family, police, friend...)? What history was obtained from this source @ -No Did you review nursing and triage notes (agree or disagree)? Why? @ -I reviewed and agree with nursing and triage notes Were old charts reviewed (outside hosp., previous admission, EMS record, old EKG, old radiological studies, urgent care reports/EKG's, penitentiary records)? Report findings @ -No old charts were reviewed Differential Diagnosis (chest pain, altered mental status, abdominal pain women, abdominal pain men, vaginal bleeding, weakness, fever, dyspnea, syncope, headache, dizziness, GI bleed, back pain, seizure, CVA, palpatations, mental health, musculoskeletal)? @ -Differential includes influenza, Covid, RSV, pneumonia, bronchitis, asthma, COPD, CHF, GA, this is not an all inclusive list EKG interpreted by me (3pts min.). @ -Sinus tachycardia with occasional supraventricular premature complexes. Ventricular rate 108. MI interval 158. QRS 104. QT 352. QTC 415. X-rays interpreted by me (1pt min.). @ -Chest x-ray shows no evidence for focal consolidation. There is cardiomegaly and mild pulmonary vascular congestion, this was seen on her pre vious chest x-rays as well. CT interpreted by me (1pt min.). @ -None done U/S interpreted by me (1pt. min.). @ -None done What testing was considered but not performed or refused? (CT, X-rays, U/S, labs)? Why? @ -None What meds were considered but not given or refused? Why? @ -None Did you discuss the management of the patient with other professionals (professionals i.e. , PA, MENTAL HEALTH CONSULTANT, lab, RT, psych nurse, licensed master social worker, paint spraying machine operator helper, teacher, residential care officer, outsole caser)? Give summary @ -No Was smoking cessation discussed for >3mins.? @ -No Was critical care preformed (if so, how long)? @ -No Were there social determinants of health that impacted care today? How? (Homelessness, low income, unemployed, alcoholism, drug addiction, transportation, low edu. Level, literacy, decrease access to med. care, [facility], rehab)? @ -No Was there de-escalation of care discussed even if they declined (Discuss DNR or withdrawal of care, Hospice)? DNR status @ -No What co-morbidities impacted this encounter? (DM, HTN, Smoking, COPD, CAD, Cancer, CVA, ARF, Chemo, Hep., AIDS, mental health diagnosis, sleep apnea, morbid obesity)? @ -None Was patient admitted / discharged? Hospital course, mention meds given and route, prescriptions, significant lab abnormalities, going to OR and other pertinent info. @ -53-year-old female presenting with URI like symptoms and shortness of breath. Patient has local Covid, states that her oxygen saturation normally lies between 85 and 91%. On physical exam there are wheezes heard on auscultation. Patient is given Solu-Medrol and DuoNeb. No leukocytosis or anemia. She is positive for influenza A. Chest x-ray shows no evidence for focal consolidation, there is some cardiomegaly and pulmonary vascular congestion, however the patient's BNP is 112 which does not correlate with CHF. Her troponin is negative. EKG shows sinus tachycardia. On reassessment patient reports improvement in her symptoms. She is educated on today's findings and treatment plan. She will be treated with prednisone, albuterol, and Zofran at home, prescriptions are sent pharmacy. Follow-up with PCP. Report back to ER with any new or worsening symptoms. Discussed return parameters and answered all questions. Patient conveyed verbal understanding and agreed to the plan. I discussed this case in detail with my attending Dr. Fitzpatrick Undiagnosed new problem with uncertain prognosis? @ -No Drug Therapy requiring intensive monitoring for toxicity (Heparin, Nitro, Insulin, Cardizem)? @ -No Were any procedures done? @ -No Diagnosis/symptom? @ -Influenza A Acute, or Chronic, or Acute on Chronic? @ -Acute Uncomplicated (without systemic symptoms) or Complicated (systemic symptoms)? @ -Complicated Side effects of treatment? @ -No Exacerbation, Progression, or Severe Exacerbation? @ -No Poses a threat to life or bodily function? How? (Chest pain, USA, GA, pneumonia, PE, COPD, DKA, ARF, appy, cholecystitis, CVA, Diverticulitis, Homicidal, Suicidal, threat to staff... and all critical care pts) @ -low likelihood - Lab Data Result diagrams: 06/30/23 19:38 06/30/23 19:32 Lab Results 06/30/23 06/30/23 06/30/23 Range/Units 18:34 19:32 19:38 WBC 4.5 (3.8-10.6) k/uL RBC 4.94 (3.80-5.40) m/uL Hgb 15.2 (11.4-16.0) gm/dL Hct 48.0 H (34.0-46.0) % MCV 97.0 (80.0-100.0) fL MCH 30.8 (25.0-35.0) pg MCHC 31.7 (31.0-37.0) g/dL RDW 15.5 (11.5-15.5) % Plt Count 169 (150-450) k/uL MPV 9.5 Neutrophils % 66 % Lymphocytes % 25 % Monocytes % 6 % Eosinophils % 1 % Basophils % 0 % Neutrophils # 3.0 (1.3-7.7) k/uL Lymphocytes # 1.1 (1.0-4.8) k/uL Monocytes # 0.3 (0-1.0) k/uL Eosinophils # 0.0 (0-0.7) k/uL Basophils # 0.0 (0-0.2) k/uL Hypochromasia Slight Sodium 138 (137-145) mmol/L Potassium 4.1 (3.5-5.1) mmol/L Chloride 101 (98-107) mmol/L Carbon Dioxide 27 (22-30) mmol/L Anion Gap 10 mmol/L BUN 9 (7-17) mg/dL Creatinine 0.48 L (0.52-1.04) mg/dL Est GFR (CKD-EPI)AfAm >90 (>60 ml/min/1.73 sqM) Est GFR (CKD-EPI)NonAf >90 (>60 ml/min/1.73 sqM) Glucose 124 H (74-99) mg/dL Calcium 8.8 (8.4-10.2) mg/dL Total Bilirubin 0.6 (0.2-1.3) mg/dL AST 48 H (14-36) U/L ALT 32 (4-34) U/L Alkaline Phosphatase 151 H (38-126) U/L Troponin I (0.000-0.034) ng/mL NT-Pro-B Natriuret Pep 112 pg/mL Total Protein 7.2 (6.3-8.2) g/dL Albumin 3.9 (3.5-5.0) g/dL Influenza Type A (PCR) Detected A (Not Detectd) Influenza Type B (PCR) Not Detected (Not Detectd) RSV (PCR) Not Detected (Not Detectd) SARS-CoV-2 (PCR) Not Detected (Not Detectd) 06/30/23 Range/Units 19:38 WBC (3.8-10.6) k/uL RBC (3.80-5.40) m/uL Hgb (11.4-16.0) gm/dL Hct (34.0-46.0) % MCV (80.0-100.0) fL MCH (25.0-35.0) pg MCHC (31.0-37.0) g/dL RDW (11.5-15.5) % Plt Count (150-450) k/uL MPV Neutrophils % % Lymphocytes % % Monocytes % % Eosinophils % % Basophils % % Neutrophils # (1.3-7.7) k/uL Lymphocytes # (1.0-4.8) k/uL Monocytes # (0-1.0) k/uL Eosinophils # (0-0.7) k/uL Basophils # (0-0.2) k/uL Hypochromasia Sodium (137-145) mmol/L Potassium (3.5-5.1) mmol/L Chloride (98-107) mmol/L Carbon Dioxide (22-30) mmol/L Anion Gap mmol/L BUN (7-17) mg/dL Creatinine (0.52-1.04) mg/dL Est GFR (CKD-EPI)AfAm (>60 ml/min/1.73 sqM) Est GFR (CKD-EPI)NonAf (>60 ml/min/1.73 sqM) Glucose (74-99) mg/dL Calcium (8.4-10.2) mg/dL Total Bilirubin (0.2-1.3) mg/dL AST (14-36) U/L ALT (4-34) U/L Alkaline Phosphatase (38-126) U/L Troponin I <0.012 (0.000-0.034) ng/mL NT-Pro-B Natriuret Pep pg/mL Total Protein (6.3-8.2) g/dL Albumin (3.5-5.0) g/dL Influenza Type A (PCR) (Not Detectd) Influenza Type B (PCR) (Not Detectd) RSV (PCR) (Not Detectd) SARS-CoV-2 (PCR) (Not Detectd) Disposition Clinical Impression: Influenza Disposition: HOME SELF-CARE Condition: Good Instructions (If sedation given, give patient instructions): Influenza (ED) Additional Instructions: Follow-up with PCP. Report back to ER with any new or worsening symptoms. Take medication as prescribed. Alternate Motrin and Tylenol as needed for fever and pain control. Prescriptions: predniSONE [Deltasone] 60 mg PO DAILY 5 Days #15 tab Albuterol Nebulized [Ventolin Nebulized] 2.5 mg INHALATION Q4H PRN 8 Days #150 ml PRN Reason: Shortness Of Breath Ondansetron Odt [Zofran Odt] 4 mg PO Q8HR PRN #20 tab PRN Reason: Nausea Is patient prescribed a controlled substance at d/c from ED?: No Referrals: Jaimee Mathur MD [Primary Care Provider] - 1-2 days Time of Disposition: 21:34
[2023-06-30] MEDS ORDERED: IPRATROPIUM-ALBUTEROL 3 ML NEB INHALATION STA ×2 (20:20→20:21)
[2023-06-30] MEDS ORDERED: methylPREDNISolone SOD SUCCI 125 MG/2 ML VIAL IV ONE (20:20)
[2023-06-30 20:45] LABS: Basophils % (A) 0 %; Eosinophils % (A) 1 %; HGB 15.2 gm/dL (11.4-16.0); Hypochromasia Slight; Lymphocytes # (A) 1.1 k/uL (1.0-4.8); Lymphocytes % (A) 25 %; MCH 30.8 pg (25.0-35.0); MCHC 31.7 g/dL (31.0-37.0); Mean Platelet Volume 9.5; Monocytes # (A) 0.3 k/uL (0-1.0); Monocytes % (A) 6 %; Neutrophils % (A) 66 %; Platelet Count 169 k/uL (150-450); RBC 4.94 m/uL (3.80-5.40); RDW 15.5 % (11.5-15.5); WBC 4.5 k/uL (3.8-10.6)
[2023-06-30 20:55] LABS: ALT 32 U/L (4-34); African American GFR (CKD) >90 (>60 ml/min/1.73 sqM); Albumin 3.9 g/dL (3.5-5.0); Anion Gap 10 mmol/L; Blood Urea Nitrogen 9 mg/dL (7-17); Calcium 8.8 mg/dL (8.4-10.2); Carbon Dioxide 27 mmol/L (22-30); Chloride 101 mmol/L (98-107); Glucose 124 mg/dL (74-99); Non-African American GFR(CKD) >90 (>60 ml/min/1.73 sqM); Sodium 138 mmol/L (137-145); Total Bilirubin 0.6 mg/dL (0.2-1.3); Total Protein 7.2 g/dL (6.3-8.2)
[2023-06-30 21:03] LABS: NT-Pro-B-Type Natriuretic Pept 112 pg/mL
[2023-06-30 21:12] LABS: AST 48 U/L (14-36); Alkaline Phosphatase 151 U/L (38-126); Potassium 4.1 mmol/L (3.5-5.1)
[2023-06-30 21:56] VITALS: BP 143/95; PULSE 102
== END 2023-06-30 21:47 | disposition home or self-care (01) ==
LOC: EC 18:26
DX: J10.1 Influenza due to other identified influenza virus with other respiratory manifestations (principal); R00.0 Tachycardia, unspecified; I11.9 Hypertensive heart disease without heart failure; E66.01 Morbid (severe) obesity due to excess calories; F17.200 Nicotine dependence, unspecified, uncomplicated; Z20.822 Contact with and (suspected) exposure to COVID-19; Z88.0 Allergy status to penicillin; Z88.1 Allergy status to other antibiotic agents; Z88.2 Allergy status to sulfonamides; Z88.8 Allergy status to other drugs, medicaments and biological substances; Z91.010 Allergy to peanuts; Z91.018 Allergy to other foods; Z79.82 Long term (current) use of aspirin; Z68.44 Body mass index [BMI] 60.0-69.9, adult; Z86.16 Personal history of COVID-19
CPT/HCPCS: 36415; 94640; 93005; 83880; 80053; 84484; 85025; 87636; 71046; 99285; 96374; J2930

== ENCOUNTER 2023-12-08 07:23 | Observation (INO) | payer OTHER ==
--- NOTE | 2023-12-08 07:47 | ED ---
General Adult HPI - General Chief complaint: Recheck/Abnormal Lab/Rx Stated complaint: L Leg Infection Time Seen by Provider: 12/08/23 07:25 Source: patient, RN notes reviewed, old records reviewed Mode of arrival: ambulatory Limitations: no limitations - History of Present Illness Initial comments: This is a 53-year-old female who presents to the emergency department complaining of infection on the left leg. Patient states it has been ongoing for a few months and she has been taking care of herself but now is getting red past her knee and up in the posterior thigh. Patient states is also very painful to touch. Patient states she has issues with hypoxia and has in the past when she had COVID had pulmonary embolisms. Patient states she is not on any blood thinners. Patient denies any chest pain difficulty breathing. Patient denies abdominal pain patient has nausea, diarrhea. - Related Data Home Medications Medication Instructions Recorded Confirmed Ascorbic Acid [Vitamin C] 1,000 mg PO W/SUPPER 11/16/20 12/08/23 Cholecalciferol [Vitamin D3 (25 25 mcg PO W/SUPPER 11/16/20 12/08/23 Mcg = 1000 Iu)] Multivitamins, Thera [Multivitamin 1 tab PO W/SUPPER 11/16/20 12/08/23 (formulary)] Zinc 50 mg PO W/SUPPER 11/16/20 12/08/23 Aspirin 81 mg PO W/SUPPER 12/19/22 12/08/23 Elderberry Fruit [Elderberry] 350 mg PO W/SUPPER 12/19/22 12/08/23 L.acidoph,Paracasei, B.lactis 1 cap PO W/SUPPER 12/19/22 12/08/23 [Probiotic] Turmeric Root Extract [Turmeric] 500 mg PO W/SUPPER 12/19/22 12/08/23 Albuterol Nebulized [Ventolin 2.5 mg INHALATION RT-Q4H PRN 12/08/23 12/08/23 Nebulized] Previous Rx's Medication Instructions Recorded Acetaminophen Tab [Tylenol] 650 mg PO Q6HR PRN tab 12/21/22 Albuterol Inhaler [Ventolin Hfa 1 puff INHALATION QID #8 gm 12/21/22 Inhaler] Furosemide [Lasix] 40 mg PO BID@0900,1600 #60 tab 12/21/22 Allergies Allergy/AdvReac Type Severity Reaction Status Date / Time amoxicillin Allergy Rash/Hives Verified 12/08/23 08:56 azithromycin Allergy Rash/Hives Verified 12/08/23 08:56 cephalexin [From Keflex] Allergy Rash/Hives Verified 12/08/23 08:56 peanut Allergy Unknown Verified 12/08/23 08:56 Penicillins Allergy Rash/Hives Verified 12/08/23 08:56 strawberry Allergy Rash/Hives Verified 12/08/23 08:56 Sulfa (Sulfonamide Allergy Skin Verified 12/08/23 08:56 Antibiotics) peeling nitroglycerin AdvReac Rapid Verified 12/08/23 08:56 Heart Rate Review of Systems ROS Statement: Those systems with pertinent positive or pertinent negative responses have been documented in the HPI. ROS Other: All systems not noted in ROS Statement are negative. Past Medical History Past Medical History: Hypertension Additional Past Medical History / Comment(s): pas hx. kidney stones, RUQ pain, MIGRANES, covid X3 infection and the last infection was in 2021 and this was associated with questionable PE and she was given ASA.Morbid obesity. Chronic leg edema, hypertension. History of Any Multi-Drug Resistant Organisms: None Reported Past Surgical History: Cholecystectomy, Orthopedic Surgery, Tubal Ligation Additional Past Surgical History / Comment(s): wrist surg. Past Anesthesia/Blood Transfusion Reactions: Motion Sickness, Postoperative Nausea & Vomiting (PONV) Additional Past Anesthesia/Blood Transfusion Reaction / Comment(s): severe PONV Past Psychological History: No Psychological Hx Reported Smoking Status: Current every day smoker Past Alcohol Use History: None Reported Past Drug Use History: None Reported - Past Family History Mother Family Medical History: No Reported History General Exam - General Exam Comments Initial Comments: GENERAL: Patient is well-developed and well-nourished. Patient is nontoxic and well- hydrated and is in mild distress. ENT: Neck is soft and supple. No significant lymphadenopathy is noted. Oropharynx is clear. Moist mucous membranes. Neck has full range of motion without eliciting any pain. EYES: The sclera were anicteric and conjunctiva were pink and moist. Extraocular movements were intact and pupils were equal round and reactive to light. Eyelids were unremarkable. PULMONARY: Unlabored respirations. Good breath sounds bilaterally. No audible rales rhonchi or wheezing was noted. CARDIOVASCULAR: There is a regular rate and rhythm without any murmurs gallops or rubs. ABDOMEN: Soft and nontender with normal bowel sounds. SKIN: There is an anterior santillan wound with erythema around the whole lower leg and up in the posterior thigh all those areas are tender to palpation. NEUROLOGIC: Patient is alert and oriented x3. Cranial nerves II through XII are grossly intact. Motor and sensory are also intact. Normal speech, volume and content. Symmetrical smile. MUSCULOSKELETAL: Normal extremities with adequate strength and full range of motion. LYMPHATICS: No significant lymphadenopathy is noted PSYCHIATRIC: Normal psychiatric evaluation. Limitations: no limitations Course Vital Signs 12/08/23 12/08/23 12/08/23 07:25 07:39 10:15 Temperature 98.2 F Pulse Rate 113 H 88 82 Respiratory 24 18 20 Rate Blood Pressure 164/88 173/103 170/102 O2 Sat by Pulse 94 L Oximetry Medical Decision Making - Medical Decision Making EKG is interpreted by myself. EKG shows sinus tachycardia at 111 bpm with an occasional PAC at a rate of 111 bpm MN 156 QRS is 100 QT interval 351 QTc is 417. Patient's EKG shows no ST segment ovation or depression. Was pt. sent in by a medical professional or institution (, PA, DIRECTOR PAYER, urgent care, hospital, or care home...) When possible be specific @ -[No] Did you speak to anyone other than the patient for history (EMS, parent, family, police, friend...)? What history was obtained from this source @ -[No] Did you review nursing and triage notes (agree or disagree)? Why? @ -[I reviewed and agree with nursing and triage notes] Were old charts reviewed (outside hosp., previous admission, EMS record, old EKG, old radiological studies, urgent care reports/EKG's, care home records)? Report findings @ -[No old charts were reviewed] Differential Diagnosis (chest pain, altered mental status, abdominal pain women, abdominal pain men, vaginal bleeding, weakness, fever, dyspnea, syncope, head ache, dizziness, GI bleed, back pain, seizure, CVA, palpatations, mental health, musculoskeletal)? @ -Cellulitis, DVT, chronic cellulitis, this is not an all-inclusive list EKG interpreted by me (3pts min.). @ -[As above] X-rays interpreted by me (1pt min.). @ -[None done] CT interpreted by me (1pt min.). @ -[None done] U/S interpreted by me (1pt. min.). @ -Ultrasound was attempted but was unsuccessful due to the patient's morbid obesity What testing was considered but not performed or refused? (CT, X-rays, U/S, labs)? Why? @ -[None] What meds were considered but not given or refused? Why? @ -[None] Did you discuss the management of the patient with other professionals (professionals i.e. DrRosibel, PA, DIRECTOR PAYER, lab, RT, psych nurse, social science analyst, supervisor drilling and shooting, teacher, customs and immigration officer, shoe parts caser)? Give summary @ -I spoke with Dr. Orozco he agreed the patient will be admitted. Was smoking cessation discussed for >3mins.? @ -[No] Was critical care preformed (if so, how long)? @ -No Were there social determinants of health that impacted care today? How? (Homelessness, low income, unemployed, alcoholism, drug addiction, transportation, low edu. Level, literacy, decrease access to med. care, shelter, rehab)? @ -No Was there de-escalation of care discussed even if they declined (Discuss DNR or withdrawal of care, Hospice)? DNR status @ -No What co-morbidities impacted this encounter? (DM, HTN, Smoking, COPD, CAD, Cancer, CVA, ARF, Chemo, Hep., AIDS, mental health diagnosis, sleep apnea, morbid obesity)? @ -None Was patient admitted / discharged? Hospital course, mention meds given and route, prescriptions, significant lab abnormalities, going to OR and other pertinent info. @ -Patient's ultrasound was nondiagnostic. I spoke with Dr. Orozco he agreed to admit the patient I will be treating the patient for cellulitis Undiagnosed new problem with uncertain prognosis? @ -No Drug Therapy requiring intensive monitoring for toxicity (Heparin, Nitro, Insulin, Cardizem)? @ -No Were any procedures done? @ -No Diagnosis/symptom? @ -Leg cellulitis Acute, or Chronic, or Acute on Chronic? @ -Acute Uncomplicated (without systemic symptoms) or Complicated (systemic symptoms)? @ -Complicated Side effects of treatment? @ -No Exacerbation, Progression, or Severe Exacerbation? @ -No Poses a threat to life or bodily function? How? (Chest pain, USA, VT, pneumonia, PE, COPD, DKA, ARF, appy, cholecystitis, CVA, Diverticulitis, Homicidal, Suicidal, threat to staff... and all critical care pts) @ -Yes this can lead to sepsis and endorgan dysfunction - Lab Data Result diagrams: 12/08/23 09:07 12/08/23 09:07 Lab Results 12/08/23 12/08/23 12/08/23 Range/Units 09:07 09:07 09:07 WBC 9.8 (3.8-10.6) k/uL RBC 5.16 (3.80-5.40) m/uL Hgb 15.1 (11.4-16.0) gm/dL Hct 49.0 H (34.0-46.0) % MCV 94.9 (80.0-100.0) fL MCH 29.2 (25.0-35.0) pg MCHC 30.8 L (31.0-37.0) g/dL RDW 16.6 H (11.5-15.5) % Plt Count 244 (150-450) k/uL MPV 8.8 Neutrophils % 75 % Lymphocytes % 17 % Monocytes % 4 % Eosinophils % 2 % Basophils % 0 % Neutrophils # 7.3 (1.3-7.7) k/uL Lymphocytes # 1.7 (1.0-4.8) k/uL Monocytes # 0.4 (0-1.0) k/uL Eosinophils # 0.2 (0-0.7) k/uL Basophils # 0.0 (0-0.2) k/uL Hypochromasia Slight Anisocytosis Slight PT 9.9 L (10.0-12.5) sec INR 0.9 (<1.2) APTT 23.7 (22.0-30.0) sec Sodium 138 (137-145) mmol/L Potassium 4.6 (3.5-5.1) mmol/L Chloride 103 (98-107) mmol/L Carbon Dioxide 30 (22-30) mmol/L Anion Gap 5 mmol/L BUN 12 (7-17) mg/dL Creatinine 0.47 L (0.52-1.04) mg/dL Est GFR (CKD-EPI)AfAm >90 (>60 ml/min/1.73 sqM) Est GFR (CKD-EPI)NonAf >90 (>60 ml/min/1.73 sqM) Glucose 125 H (74-99) mg/dL Plasma Lactic Acid Shyam (0.7-2.0) mmol/L Calcium 9.1 (8.4-10.2) mg/dL Total Bilirubin 1.2 (0.2-1.3) mg/dL AST 50 H (14-36) U/L ALT 30 (4-34) U/L Alkaline Phosphatase 186 H (38-126) U/L Total Protein 7.3 (6.3-8.2) g/dL Albumin 4.0 (3.5-5.0) g/dL 12/08/23 Range/Units 09:07 WBC (3.8-10.6) k/uL RBC (3.80-5.40) m/uL Hgb (11.4-16.0) gm/dL Hct (34.0-46.0) % MCV (80.0-100.0) fL MCH (25.0-35.0) pg MCHC (31.0-37.0) g/dL RDW (11.5-15.5) % Plt Count (150-450) k/uL MPV Neutrophils % % Lymphocytes % % Monocytes % % Eosinophils % % Basophils % % Neutrophils # (1.3-7.7) k/uL Lymphocytes # (1.0-4.8) k/uL Monocytes # (0-1.0) k/uL Eosinophils # (0-0.7) k/uL Basophils # (0-0.2) k/uL Hypochromasia Anisocytosis PT (10.0-12.5) sec INR (<1.2) APTT (22.0-30.0) sec Sodium (137-145) mmol/L Potassium (3.5-5.1) mmol/L Chloride (98-107) mmol/L Carbon Dioxide (22-30) mmol/L Anion Gap mmol/L BUN (7-17) mg/dL Creatinine (0.52-1.04) mg/dL Est GFR (CKD-EPI)AfAm (>60 ml/min/1.73 sqM) Est GFR (CKD-EPI)NonAf (>60 ml/min/1.73 sqM) Glucose (74-99) mg/dL Plasma Lactic Acid Shyam 1.2 (0.7-2.0) mmol/L Calcium (8.4-10.2) mg/dL Total Bilirubin (0.2-1.3) mg/dL AST (14-36) U/L ALT (4-34) U/L Alkaline Phosphatase (38-126) U/L Total Protein (6.3-8.2) g/dL Albumin (3.5-5.0) g/dL Disposition Clinical Impression: Cellulitis, leg Disposition: ADMITTED IP TO THIS HOSP Referrals: Jaimee Mathur MD [Family Provider] - 1-2 days Time of Disposition: 11:00
[2023-12-08 09:26] LABS: Anisocytosis Slight; Basophils % (A) 0 %; Eosinophils # (A) 0.2 k/uL (0-0.7); Eosinophils % (A) 2 %; HGB 15.1 gm/dL (11.4-16.0); Hypochromasia Slight; Lymphocytes # (A) 1.7 k/uL (1.0-4.8); Lymphocytes % (A) 17 %; MCH 29.2 pg (25.0-35.0); MCHC 30.8 g/dL (31.0-37.0); MCV 94.9 fL (80.0-100.0); Mean Platelet Volume 8.8; Monocytes # (A) 0.4 k/uL (0-1.0); Monocytes % (A) 4 %; Neutrophils # (A) 7.3 k/uL (1.3-7.7); Neutrophils % (A) 75 %; Platelet Count 244 k/uL (150-450); RBC 5.16 m/uL (3.80-5.40); RDW 16.6 % (11.5-15.5); WBC 9.8 k/uL (3.8-10.6)
[2023-12-08 09:37] LABS: ALT 30 U/L (4-34); African American GFR (CKD) >90 (>60 ml/min/1.73 sqM); Anion Gap 5 mmol/L; Blood Urea Nitrogen 12 mg/dL (7-17); Calcium 9.1 mg/dL (8.4-10.2); Carbon Dioxide 30 mmol/L (22-30); Chloride 103 mmol/L (98-107); Glucose 125 mg/dL (74-99); Non-African American GFR(CKD) >90 (>60 ml/min/1.73 sqM); Sodium 138 mmol/L (137-145)
[2023-12-08 09:40] LABS: INR 0.9 (<1.2); Partial Thromboplastin Time 23.7 sec (22.0-30.0); Prothrombin Time 9.9 sec (10.0-12.5)
--- NOTE | 2023-12-08 09:43 | US ---
EXAMINATION TYPE: US venous doppler duplex LE LT DATE OF EXAM: 12/08/2023 9:31 AM COMPARISON: NONE CLINICAL INDICATION: Female, 53 years old with history of Swollen leg; Had PE's during Covid, no h/o dvt in legs, 5'3 360lbs SIDE PERFORMED: Left TECHNIQUE: The lower extremity deep venous system is examined utilizing real time linear array sonog brittny with graded compression, doppler sonography and color-flow sonography. VESSELS IMAGED: Common Femoral Vein Deep Femoral Vein Greater Saphenous Vein * Femoral Vein Popliteal Vein Small Saphenous Vein * Proximal Calf Veins (* superficial vessels) Left Leg: Non Diagnostic test due to extensive swelling and morbid obesity of patient IMPRESSION: Non Diagnostic test due to extensive swelling and morbid obesity of patient
[2023-12-08 09:53] LABS: AST 50 U/L (14-36); Alkaline Phosphatase 186 U/L (38-126); Potassium 4.6 mmol/L (3.5-5.1); Total Bilirubin 1.2 mg/dL (0.2-1.3); Total Protein 7.3 g/dL (6.3-8.2)
[2023-12-08] MEDS: PIPERACILLIN-TAZOBACTAM 3.375 GM in SODIUM CHLORIDE 0.9% 100 ML IVPB STA (10:10)
[2023-12-08] MEDS: SODIUM CHLORIDE 0.9% 500 ML 500 ML IV SCH (10:18)
[2023-12-08] MEDS ORDERED: ALBUTEROL NEBULIZED 2.5 MG/3 ML INHALATION PRN (12:54)
[2023-12-08] MEDS ORDERED: ACETAMINOPHEN TAB 325 MG TAB PO PRN (12:54)
[2023-12-08] MEDS: HYDROcodone/APAP 5-325MG 1 EACH TAB PO PRN (13:22)
--- NOTE | 2023-12-08 14:22 | P.HPIM ---
History of Present Illness H&P Date: 12/08/23 Patient is a 53-year-old female with history of morbid obesity, lower extremity edema, nicotine dependence, diastolic heart failure presenting with left lower extremity swelling and redness. She claims that she has been having lower extremity edema for multiple months, started noticing redness about 1 week ago on the left lower extremity. Normally uses topical antiseptic solutions as well as wraps her wounds before going to work. She started noticing increased pain and edema and has difficulty walking. Also has subjective fevers and chills. Denies any chest pain, shortness of breath, abdominal pain, urinary or bowel complaints. In the ED, temperature was 98.2, pulse 113, blood pressure 164/88, saturating at 94% on room air, respiratory rate 24. WBC 9.8, hemoglobin 15.1, platelet 244, sodium 138, potassium 4.6, creatinine 0.47, glucose 125, lactate 1.2, total bili 1.2, AST 50, ALT 30, ALP 07/06/1985. EKG independently interpreted, shows sinus tachycardia. Lower extremity Doppler on the left was nondiagnostic due to extensive swelling morbid obesity. Patient being admitted for cellulitis, started on IV Zosyn. Pertinent positives and negatives as discussed in HPI, a complete review of systems was performed and all other systems are negative. Patient seen and examined at bedside. Vital signs reviewed General: nontoxic, no distress, appears at stated age, morbidly obese Derm: warm, dry, left lower extremity edematous, erythematous, superficial ulcerations with clear discharge Head: atraumatic, normocephalic, symmetric Eyes: EOMI, no lid lag, anicteric sclera, pupils equal round reactive to light ENT: Nose and ears atraumatic Neck: No thyromegaly, supple Mouth: no lip lesion, mucus membranes moist Cardiovascular: S1S2 reg, no murmur, 2+ edema Lungs: clear to auscultation bilateral, no rhonchi, no rales, no wheeze, no accessory muscle use Abdominal: soft, nontender to palpation, no guarding, no appreciable organomegaly Ext: no gross muscle atrophy, muscle strength muscle strength 5 out of 5 in all 4 extremities, no contractures Neuro: CN II-XII grossly intact Psych: Alert, oriented, appropriate affect Assessment/Plan: Active: Sepsis secondary to left lower extremity cellulitis Lower extremity edema, chronic Chronic diastolic heart failure, not in exacerbation -Past cultures positive for Staph aureus, pansensitive -Continue IV Zosyn 3.375 g every 8 hours -Blood cultures pending -Wound care consult -Pain control with oral Tylenol as needed, oral [place] as needed, monitor for sedation -Continue Lasix 40 twice daily oral, home dose Morbid obesity -Outpatient structured weight loss program Likely undiagnosed obesity hypoventilation syndrome/obstructive sleep apnea -Needs outpatient follow-up Nicotine dependence -Counseled regarding smoking cessation The patient is admitted with an anticipated less than 2 midnight stay as observa tion status for evaluation of lower extremity cellulitis. Surrogate decision-maker: Mother CODE STATUS: Full code DVT prophylaxis: Lovenox Anticipated discharge date: Pending clinical course Anticipated discharge place: Pending clinical course A total of 55 minutes was spent on the care of this complex patient more than 50% of the time was spent in counseling and care coordination. Past Medical History Past Medical History: Hypertension Additional Past Medical History / Comment(s): pas hx. kidney stones, RUQ pain, MIGRANES, covid X3 infection and the last infection was in 2021 and this was associated with questionable PE and she was given ASA.Morbid obesity. Chronic leg edema, hypertension. History of Any Multi-Drug Resistant Organisms: None Reported Past Surgical History: Cholecystectomy, Orthopedic Surgery, Tubal Ligation Additional Past Surgical History / Comment(s): wrist surg. Past Anesthesia/Blood Transfusion Reactions: Motion Sickness, Postoperative Nausea & Vomiting (PONV) Additional Past Anesthesia/Blood Transfusion Reaction / Comment(s): severe PONV Past Psychological History: No Psychological Hx Reported Smoking Status: Current every day smoker Past Alcohol Use History: None Reported Past Drug Use History: None Reported - Past Family History Mother Family Medical History: No Reported History Medications and Allergies Home Medications Medication Instructions Recorded Confirmed Type Ascorbic Acid [Vitamin C] 1,000 mg PO W/SUPPER 11/16/20 12/08/23 History Cholecalciferol [Vitamin D3 (25 25 mcg PO W/SUPPER 11/16/20 12/08/23 History Mcg = 1000 Iu)] Multivitamins, Thera [Multivitamin 1 tab PO W/SUPPER 11/16/20 12/08/23 History (formulary)] Zinc 50 mg PO W/SUPPER 11/16/20 12/08/23 History Aspirin 81 mg PO W/SUPPER 12/19/22 12/08/23 History Elderberry Fruit [Elderberry] 350 mg PO W/SUPPER 12/19/22 12/08/23 History L.acidoph,Paracasei, B.lactis 1 cap PO W/SUPPER 12/19/22 12/08/23 History [Probiotic] Turmeric Root Extract [Turmeric] 500 mg PO W/SUPPER 12/19/22 12/08/23 History Acetaminophen Tab [Tylenol] 650 mg PO Q6HR PRN tab 12/21/22 12/08/23 Rx Albuterol Inhaler [Ventolin Hfa 1 puff INHALATION QID #8 gm 12/21/22 12/08/23 Rx Inhaler] Furosemide [Lasix] 40 mg PO BID@0900,1600 #60 tab 12/21/22 12/08/23 Rx Albuterol Nebulized [Ventolin 2.5 mg INHALATION RT-Q4H PRN 12/08/23 12/08/23 History Nebulized] Allergies Allergy/AdvReac Type Severity Reaction Status Date / Time amoxicillin Allergy Rash/Hives Verified 12/08/23 08:56 azithromycin Allergy Rash/Hives Verified 12/08/23 08:56 cephalexin [From Keflex] Allergy Rash/Hives Verified 12/08/23 08:56 peanut Allergy Unknown Verified 12/08/23 08:56 Penicillins Allergy Rash/Hives Verified 12/08/23 08:56 strawberry Allergy Rash/Hives Verified 12/08/23 08:56 Sulfa (Sulfonamide Allergy Skin Verified 12/08/23 08:56 Antibiotics) peeling nitroglycerin AdvReac Rapid Verified 12/08/23 08:56 Heart Rate Physical Exam Vitals: Vital Signs Temp Pulse Resp BP Pulse Ox 12/08/23 13:25 105 H 18 154/108 12/08/23 10:15 82 20 170/102 12/08/23 07:39 88 18 173/103 12/08/23 07:25 98.2 F 113 H 24 164/88 94 L Intake and Output 12/07/23 12/08/23 12/08/23 22:59 06:59 14:59 Other: Weight 163.293 kg Results CBC & Chem 7: 12/08/23 09:07 12/08/23 09:00 Labs: Abnormal Lab Results - Last 24 Hours (Table) 12/08/23 12/08/23 12/08/23 Range/Units 09:00 09:07 09:07 Hct 49.0 H (34.0-46.0) % MCHC 30.8 L (31.0-37.0) g/dL RDW 16.6 H (11.5-15.5) % PT 9.9 L (10.0-12.5) sec Creatinine 0.47 L (0.52-1.04) mg/dL Glucose 125 H (74-99) mg/dL AST 50 H (14-36) U/L Alkaline Phosphatase 186 H (38-126) U/L
[2023-12-08] MEDS: ALBUTEROL NEBULIZED 2.5 MG/3 ML INHALATION SCH (15:06)
[2023-12-08] MEDS: PIPERACILLIN-TAZOBACTAM 3.375 GM in SODIUM CHLORIDE 0.9% 100 ML IVPB SCH (15:46)
[2023-12-08] MEDS: FUROSEMIDE 40 MG TAB PO SCH (15:48)
[2023-12-08] MEDS: ASCORBIC ACID 500 MG TAB PO SCH (17:15)
[2023-12-08] MEDS: ASPIRIN 81 MG PO SCH (17:15)
[2023-12-08] MEDS: CHOLECALCIFEROL 25 MCG (1000 IU) TABLET PO SCH (17:15)
[2023-12-08] MEDS: LACTOBACILLUS ACIDOPHILUS/PECT 1 EACH CAPSULE PO SCH (17:15)
[2023-12-08] MEDS: MULTIVITAMINS, THERA 1 EACH TAB PO SCH (17:15)
[2023-12-09] MEDS: ENOXAPARIN 40 MG/0.4 ML SYRINGE SQ SCH (08:03)
[2023-12-09 14:18] VITALS: BP 145/94; TEMP 98.4
--- NOTE | 2023-12-09 14:32 | P.DS ---
Providers Date of admission: 12/08/23 11:04 Expected date of discharge: 12/09/23 Attending physician: Radames Orozco MD Primary care physician: Physician Nonstaff Hospital Course: Discharge Diagnosis: Sepsis secondary to left lower extremity cellulitis Lower extremity edema, chronic Chronic diastolic heart failure, not in exacerbation Morbid obesity Likely undiagnosed obesity hypoventilation syndrome/obstructive sleep apnea Nicotine dependence Hospital Course: 53-year-old female with history of morbid obesity, lower extremity edema, nicotine dependence, diastolic heart failure presenting with left lower extremity swelling and redness. In the ED, temperature was 98.2, pulse 113, blood pressure 164/88, saturating at 94% on room air, respiratory rate 24. WBC 9.8, hemoglobin 15.1, platelet 244, sodium 138, potassium 4.6, creatinine 0.47, glucose 125, lactate 1.2, total bili 1.2, AST 50, ALT 30, ALP 07/06/1985. EKG independently interpreted, shows sinus tachycardia. Lower extremity Doppler on the left was nondiagnostic due to extensive swelling morbid obesity. Patient being admitted for cellulitis, started on IV Zosyn. Patient apparently has allergies to amoxicillin, and cephalexin. She also has allergies to sulfa. Started on doxycycline. Stable for discharge home. No wound care available over the weekend. Wound care center information in discharge. Patient seen and examined at bedside. Vital signs reviewed and stable. General: nontoxic, no distress, appears at stated age, morbidly obese Derm: warm, dry, left lower extremity edematous, less erythematous, superficial ulcerations with clear discharge Head: atraumatic, normocephalic, symmetric Eyes: EOMI, no lid lag, anicteric sclera, pupils equal round reactive to light ENT: Nose and ears atraumatic Neck: No thyromegaly, supple Mouth: no lip lesion, mucus membranes moist Cardiovascular: S1S2 reg, no murmur, 2+ edema Lungs: clear to auscultation bilateral, no rhonchi, no rales, no wheeze, no accessory muscle use Abdominal: soft, nontender to palpation, no guarding, no appreciable organomegaly Ext: no gross muscle atrophy, muscle strength muscle strength 5 out of 5 in all 4 extremities, no contractures Neuro: CN II-XII grossly intact Psych: Alert, oriented, appropriate affect A total of 33 minutes of time were spent preparing this complex discharge summary. Patient was discharged on 12/09/2023 at 1429. Patient Condition at Discharge: Stable Plan - Discharge Summary Discharge Rx Participant: No New Discharge Prescriptions: New Doxycycline [Vibramycin] 100 mg PO BID 7 Days #14 capsule Continue Ascorbic Acid [Vitamin C] 1,000 mg PO W/SUPPER Zinc 50 mg PO W/SUPPER Cholecalciferol [Vitamin D3 (25 Mcg = 1000 Iu)] 25 mcg PO W/SUPPER Aspirin 81 mg PO W/SUPPER Turmeric Root Extract [Turmeric] 500 mg PO W/SUPPER Acetaminophen Tab [Tylenol] 650 mg PO Q6HR PRN tab PRN Reason: Mild Pain Or Fever > 100.5 Multivitamins, Thera [Multivitamin (formulary)] 1 tab PO W/SUPPER L.acidoph,Paracasei, B.lactis [Probiotic] 1 cap PO W/SUPPER Elderberry Fruit [Elderberry] 350 mg PO W/SUPPER Furosemide [Lasix] 40 mg PO BID@0900,1600 #60 tab Albuterol Inhaler [Ventolin Hfa Inhaler] 1 puff INHALATION QID #8 gm Albuterol Nebulized [Ventolin Nebulized] 2.5 mg INHALATION RT-Q4H PRN PRN Reason: Shortness Of Breath Discharge Medication List Ascorbic Acid [Vitamin C] 1,000 mg PO W/SUPPER 11/16/20 [History] Cholecalciferol [Vitamin D3 (25 Mcg = 1000 Iu)] 25 mcg PO W/SUPPER 11/16/20 [History] Multivitamins, Thera [Multivitamin (formulary)] 1 tab PO W/SUPPER 11/16/20 [History] Zinc 50 mg PO W/SUPPER 11/16/20 [History] Aspirin 81 mg PO W/SUPPER 12/19/22 [History] Elderberry Fruit [Elderberry] 350 mg PO W/SUPPER 12/19/22 [History] L.acidoph,Paracasei, B.lactis [Probiotic] 1 cap PO W/SUPPER 12/19/22 [History] Turmeric Root Extract [Turmeric] 500 mg PO W/SUPPER 12/19/22 [History] Acetaminophen Tab [Tylenol] 650 mg PO Q6HR PRN tab 12/21/22 [Rx] Albuterol Inhaler [Ventolin Hfa Inhaler] 1 puff INHALATION QID #8 gm 12/21/22 [Rx] Furosemide [Lasix] 40 mg PO BID@0900,1600 #60 tab 12/21/22 [Rx] Albuterol Nebulized [Ventolin Nebulized] 2.5 mg INHALATION RT-Q4H PRN 12/08/23 [History] Doxycycline [Vibramycin] 100 mg PO BID 7 Days #14 capsule 12/09/23 [Rx] Follow up Appointment(s)/Referral(s): [facility] [NON-STAFF] - 1 Week Jaimee Mathur MD [Family Provider] - 1-2 days Patient Instructions/Handouts: Cellulitis (GEN) Activity/Diet/Wound Care/Special Instructions: Please see your PCP. Discharge Disposition: HOME SELF-CARE
[2023-12-09 15:02] VITALS: RESP 24
[2023-12-09 15:22] VITALS: PULSE 86
--- NOTE | 2023-12-13 08:02 | P.PN ---
Progress Note - Text Progress Note Date: 12/13/23 Was notified by pharmacy that pt's blood culture is positive. Attempts made at contacting patient and a voicemail message was left Will make further attempts at contacting patient throughout the day.
== END 2023-12-09 15:27 | disposition home or self-care (01) ==
LOC: EC 07:23 → 6NMEDSUR 11:04
PROVIDERS: ADMIT Student in an Organized Health Care Education/Training Program; ATTEND Student in an Organized Health Care Education/Training Program
DX: A41.9 Sepsis, unspecified organism (principal); R65.20 Severe sepsis without septic shock; L03.116 Cellulitis of left lower limb; I50.32 Chronic diastolic (congestive) heart failure; E66.01 Morbid (severe) obesity due to excess calories; F17.210 Nicotine dependence, cigarettes, uncomplicated; G47.33 Obstructive sleep apnea (adult) (pediatric); I11.0 Hypertensive heart disease with heart failure
CPT/HCPCS: 96365; 96366 ×2; 96372; 99285; 36415; 94640 ×4; 94760; 93005; 80053; 83605; 85025; 85610; 85730; 87040; 93971; G0378 ×2; J2543 ×2; J1650

== ENCOUNTER 2023-12-13 09:46 | Inpatient (IN) | payer OTHER ==
[2023-12-13] MEDS ORDERED: NALOXONE 0.4 MG/ML 1 ML VIAL IV PRN (11:04)
[2023-12-13] MEDS ORDERED: MORPHINE SULFATE 4 MG/ML SYRINGE IV PRN (11:04)
--- NOTE | 2023-12-13 11:04 | ED ---
General Adult HPI - General Chief complaint: Recheck/Abnormal Lab/Rx Stated complaint: sore/infection L leg Time Seen by Provider: 12/13/23 10:07 Source: patient, RN/MD, RN notes reviewed Mode of arrival: ambulatory Limitations: no limitations - History of Present Illness Initial comments: Patient is a 53-year-old female present to the emergency department with concern for cellulitis of her left leg. Patient was admitted to the hospital several days ago. Patient was called today for positive blood cultures. I did discuss the case with practitioner Shaw who is concern for Shigella from cellulitis. Patient has continued discomfort and redness of her leg extending from her left anterior santillan up to the medial thigh. There is discomfort associated with this. No fever. Patient has chronic leg wound left anterior santillan for - Related Data Home Medications Medication Instructions Recorded Confirmed Ascorbic Acid [Vitamin C] 1,000 mg PO W/SUPPER 11/16/20 12/08/23 Cholecalciferol [Vitamin D3 (25 25 mcg PO W/SUPPER 11/16/20 12/08/23 Mcg = 1000 Iu)] Multivitamins, Thera [Multivitamin 1 tab PO W/SUPPER 11/16/20 12/08/23 (formulary)] Zinc 50 mg PO W/SUPPER 11/16/20 12/08/23 Aspirin 81 mg PO W/SUPPER 12/19/22 12/08/23 Elderberry Fruit [Elderberry] 350 mg PO W/SUPPER 12/19/22 12/08/23 L.acidoph,Paracasei, B.lactis 1 cap PO W/SUPPER 12/19/22 12/08/23 [Probiotic] Turmeric Root Extract [Turmeric] 500 mg PO W/SUPPER 12/19/22 12/08/23 Albuterol Nebulized [Ventolin 2.5 mg INHALATION RT-Q4H PRN 12/08/23 12/08/23 Nebulized] Previous Rx's Medication Instructions Recorded Acetaminophen Tab [Tylenol] 650 mg PO Q6HR PRN tab 12/21/22 Albuterol Inhaler [Ventolin Hfa 1 puff INHALATION QID #8 gm 12/21/22 Inhaler] Furosemide [Lasix] 40 mg PO BID@0900,1600 #60 tab 12/21/22 Doxycycline [Vibramycin] 100 mg PO BID 7 Days #14 capsule 12/09/23 Allergies Allergy/AdvReac Type Severity Reaction Status Date / Time amoxicillin Allergy Rash/Hives Verified 12/13/23 09:59 azithromycin Allergy Rash/Hives Verified 12/13/23 09:59 cephalexin [From Keflex] Allergy Rash/Hives Verified 12/13/23 09:59 peanut Allergy Unknown Verified 12/13/23 09:59 Penicillins Allergy Rash/Hives Verified 12/13/23 09:59 strawberry Allergy Rash/Hives Verified 12/13/23 09:59 Sulfa (Sulfonamide Allergy Skin Verified 12/13/23 09:59 Antibiotics) peeling nitroglycerin AdvReac Rapid Verified 12/13/23 09:59 Heart Rate Review of Systems ROS Statement: Those systems with pertinent positive or pertinent negative responses have been documented in the HPI. ROS Other: All systems not noted in ROS Statement are negative. Constitutional: Denies: fever Eyes: Denies: eye pain ENT: Denies: ear pain Respiratory: Denies: cough Cardiovascular: Denies: chest pain Endocrine: Denies: fatigue Gastrointestinal: Denies: abdominal pain Skin: Reports: as per HPI Past Medical History Past Medical History: Hypertension Additional Past Medical History / Comment(s): pas hx. kidney stones, RUQ pain, MIGRANES, covid X3 infection and the last infection was in 2021 and this was associated with questionable PE and she was given ASA.Morbid obesity. Chronic leg edema, hypertension. History of Any Multi-Drug Resistant Organisms: None Reported Past Surgical History: Cholecystectomy, Orthopedic Surgery, Tubal Ligation Additional Past Surgical History / Comment(s): wrist surg. Past Anesthesia/Blood Transfusion Reactions: Motion Sickness, Postoperative Nausea & Vomiting (PONV) Additional Past Anesthesia/Blood Transfusion Reaction / Comment(s): severe PONV Past Psychological History: No Psychological Hx Reported Smoking Status: Current every day smoker Past Alcohol Use History: None Reported Past Drug Use History: None Reported - Past Family History Mother Family Medical History: No Reported History General Exam Limitations: no limitations General appearance: alert, in no apparent distress Head exam: Present: normocephalic Eye exam: Present: normal appearance Neck exam: Present: normal inspection Respiratory exam: Present: normal lung sounds bilaterally Cardiovascular Exam: Present: regular rate, normal rhythm GI/Abdominal exam: Present: soft. Absent: tenderness Extremities exam: Present: pedal edema, other (Left anterior santillan wound with yellowish discharge. There is erythema extending medial to the mid to proximal thigh. Positive tenderness). Absent: calf tenderness Neurological exam: Present: alert Psychiatric exam: Present: normal affect, normal mood Skin exam: Present: erythema Course Vital Signs 12/13/23 09:54 Temperature 98.9 F Pulse Rate 104 H Respiratory 18 Rate Blood Pressure 143/82 O2 Sat by Pulse 90 L Oximetry Medical Decision Making - Medical Decision Making Was pt. sent in by a medical professional or institution (, PA, LAB INTERN, urgent care, hospital, or penitentiary...) When possible be specific @ -Patient was sent in by [facility] Did you speak to anyone other than the patient for history (EMS, parent, family, police, friend...)? What history was obtained from this source @ -Did discuss the case with Shaw practitioner with [facility] who would like patient admitted with IV Levaquin Did you review nursing and triage notes (agree or disagree)? Why? @ -I reviewed and agree with nursing and triage notes Were old charts reviewed (outside hosp., previous admission, EMS record, old EK G, old radiological studies, urgent care reports/EKG's, penitentiary records)? Report findings @ -Previous culture reviewed Differential Diagnosis (chest pain, altered mental status, abdominal pain women, abdominal pain men, vaginal bleeding, weakness, fever, dyspnea, syncope, headache, dizziness, GI bleed, back pain, seizure, CVA, palpatations, mental health, musculoskeletal)? @ -Differential Fever: Pneumonia, viral URI, endocarditis, myocarditis, pericarditis, otitis, sinusitis, peritonsillar Abscess, retropharyngeal Abscess, epiglottitis, peritonitis, appendicitis, Monie cystitis, diverticulitis, hepatitis, colitis, UTI, PID, TOA, pyelonephritis, prostatitis, epididymitis, meningitis, encephalitis, pulmonary embolism, CVA, thyroid storm, pancreatitis, adrenal crisis, cavernous sinus thrombosis, this is not meant to be an all-inclusive list. EKG interpreted by me (3pts min.). @ -As above X-rays interpreted by me (1pt min.). @ -None done CT interpreted by me (1pt min.). @ -None done U/S interpreted by me (1pt. min.). @ -None done What testing was considered but not performed or refused? (CT, X-rays, U/S, labs)? Why? @ -None What meds were considered but not given or refused? Why? @ -None Did you discuss the management of the patient with other professionals (professionals i.e. , PA, LAB INTERN, lab, RT, psych nurse, social insurance analyst, flight radio officer, teacher, collection officer, binder caser)? Give summary @ -Case again discussed with practitioner Shaw who will admit covering the recent admission Was smoking cessation discussed for >3mins.? @ -No Was critical care preformed (if so, how long)? @ -No Were there social determinants of health that impacted care today? How? (Homelessness, low income, unemployed, alcoholism, drug addiction, transportation, low edu. Level, literacy, decrease access to med. care, senior living, rehab)? @ -No Was there de-escalation of care discussed even if they declined (Discuss DNR or withdrawal of care, Hospice)? DNR status @ -No What co-morbidities impacted this encounter? (DM, HTN, Smoking, COPD, CAD, Cancer, CVA, ARF, Chemo, Hep., AIDS, mental health diagnosis, sleep apnea, morbid obesity)? @ -Chronic leg wound, recent cellulitis Was patient admitted / discharged? Hospital course, mention meds given and route, prescriptions, significant lab abnormalities, going to OR and other pertinent info. @ -Patient updated on plan. Patient will be readmitted to the hospital with IV Levaquin with concern for bacteremia and Undiagnosed new problem with uncertain prognosis? @ -No Drug Therapy requiring intensive monitoring for toxicity (Heparin, Nitro, Insulin, Cardizem)? @ -No Were any procedures done? @ -No Diagnosis/symptom? @ -Cellulitis, Bactrim Acute, or Chronic, or Acute on Chronic? @ -Acute, acute Uncomplicated (without systemic symptoms) or Complicated (systemic symptoms)? @ -Default Side effects of treatment? @ -No Exacerbation, Progression, or Severe Exacerbation? @ -No Poses a threat to life or bodily function? How? (Chest pain, USA, VT, pneumonia, PE, COPD, DKA, ARF, appy, cholecystitis, CVA, Diverticulitis, Homicidal, Suicidal, threat to staff... and all critical care pts) @ -No Disposition Clinical Impression: Cellulitis, leg, Bacteremia Disposition: ADMITTED IP TO THIS HOSP Condition: Serious Is patient prescribed a controlled substance at d/c from ED?: No Referrals: None,Stated [Primary Care Provider] - 1-2 days Time of Disposition: 11:04
[2023-12-13] MEDS: SODIUM CHLORIDE 0.9% 1,000 ML IV STA (11:10)
[2023-12-13] MEDS: LEVOFLOXACIN 750MG-D5W PMX 750 MG in DEXTROSE/WATER 1 150ML.BAG IVPB SCH (11:12)
[2023-12-13 11:25] LABS: Anisocytosis Slight; Basophils # (A) 0.1 k/uL (0-0.2); Basophils % (A) 1 %; Eosinophils # (A) 0.2 k/uL (0-0.7); Eosinophils % (A) 3 %; HCT 54.1 % (34.0-46.0); HGB 16.5 gm/dL (11.4-16.0); Hypochromasia Moderate; Lymphocytes # (A) 1.4 k/uL (1.0-4.8); Lymphocytes % (A) 21 %; MCH 29.2 pg (25.0-35.0); MCHC 30.5 g/dL (31.0-37.0); MCV 95.9 fL (80.0-100.0); Mean Platelet Volume 8.7; Monocytes # (A) 0.3 k/uL (0-1.0); Monocytes % (A) 4 %; Neutrophils # (A) 4.7 k/uL (1.3-7.7); Neutrophils % (A) 71 %; Platelet Count 262 k/uL (150-450); RBC 5.64 m/uL (3.80-5.40); RDW 16.4 % (11.5-15.5); WBC 6.7 k/uL (3.8-10.6)
[2023-12-13 11:41] LABS: ALT 22 U/L (4-34); AST 24 U/L (14-36); African American GFR (CKD) >90 (>60 ml/min/1.73 sqM); Albumin 4.2 g/dL (3.5-5.0); Alkaline Phosphatase 202 U/L (38-126); Anion Gap 3 mmol/L; Blood Urea Nitrogen 10 mg/dL (7-17); Calcium 9.5 mg/dL (8.4-10.2); Carbon Dioxide 37 mmol/L (22-30); Chloride 101 mmol/L (98-107); Glucose 100 mg/dL (74-99); Non-African American GFR(CKD) >90 (>60 ml/min/1.73 sqM); Potassium 4.3 mmol/L (3.5-5.1); Sodium 141 mmol/L (137-145); Total Bilirubin 0.8 mg/dL (0.2-1.3); Total Protein 7.6 g/dL (6.3-8.2)
[2023-12-13] MEDS ORDERED: ALBUTEROL NEBULIZED 2.5 MG/3 ML INHALATION PRN (13:23)
[2023-12-13] MEDS ORDERED: VANCOMYCIN IV PER PHARMACY 1 EACH MISC MISCELLANE PRN (13:59)
--- NOTE | 2023-12-13 14:01 | P.DS ---
Providers Date of admission: 12/13/23 11:06 Attending physician: Maurilio Ibarra MD Consults: 12/13/23 11:04 Consult Physician Urgent Consulting Provider: Viv Munroe Consult Reason/Comments: Bacteremia, cellulitis Do you want consulting provider notified?: Yes Primary care physician: Stated None Hospital Course: Patient is a 53-year-old female with a past medical history of morbid obesity, bilateral lower extremity edema, nicotine dependence, diastolic heart failure, COVID-19 complication with interstitial lung disease who was recently admitted to the hospital and treated for left lower extremity cellulitis. She was discharged home. She was told to return back to the ED because she had gram- negative bacilli positive blood cultures. Patient states that after she was discharged she was taking doxycycline for the cellulitis. She states that today she noticed that her cellulitis was worsening and the wounds on her left lower extremity were weeping. Patient otherwise denying any fever or chills. ROS: 10 ROS reviewed and are negative except as noted in HPI Physical exam General: [Alert and oriented, well nourished, no acute distress]. Eye: [PERRL, EOMI, normal conjunctiva]. HENT: [Normocephalic, clear tympanic membranes, normal hearing, moist oral mucosa, no scleral icterus, no sinus tenderness]. Neck: [Supple, non-tender, no carotid bruits, no JVD, no lymphadenopathy]. Lungs: [Clear to auscultation and percussion, non-labored respiration]. Heart: [Normal rate, regular rhythm, no murmur, gallop or edema]. Abdomen: [Soft, non-tender, non-distended, normal bowel sounds, no masses, morbidly obese]. Musculoskeletal: [Normal range of motion and strength, no tenderness, bilateral lower extremity edema that is nonpitting]. Skin: [Multiple wounds in the left lower extremity that is weeping]. Neurologic: [Awake, alert, and oriented X3, CN II-XII intact]. Psychiatric: [Cooperative, appropriate mood and affect]. Assessment and plan Gram-negative bacilli Patient denying any dysuria I suspect the source is from her left lower extremity cellulitis Patient started on IV Levaquin Consult infectious disease Follow-up on repeat blood cultures Left lower extremity cellulitis with weeping wounds likely due to lymphedema History of Staph aureus Will start IV vancomycin Resume IV Levaquin ID consult Wound care consult Obtain wound culture Resume Lasix 40 mg p.o. twice daily Tramadol 50 mg p.o. every 6 hours as needed for pain Morbid obesity Encourage weight loss Suspect HAZEL Patient will need outpatient sleep study Nicotine dependence Patient counseled on smoking cessation CODE STATUS: Full code DVT prophylaxis: Lovenox Patient Condition at Discharge: Serious Plan - Discharge Summary New Discharge Prescriptions: No Action Ascorbic Acid [Vitamin C] 1,000 mg PO W/SUPPER Zinc 50 mg PO W/SUPPER Cholecalciferol [Vitamin D3 (25 Mcg = 1000 Iu)] 25 mcg PO W/SUPPER Aspirin 81 mg PO W/SUPPER Turmeric Root Extract [Turmeric] 500 mg PO W/SUPPER Acetaminophen Tab [Tylenol] 650 mg PO Q6HR PRN tab PRN Reason: Mild Pain Or Fever > 100.5 Albuterol Inhaler [Ventolin Hfa Inhaler] 2 puff INHALATION RT-QID PRN PRN Reason: Shortness Of Breath Multivitamins, Thera [Multivitamin (formulary)] 1 tab PO W/SUPPER L.acidoph,Paracasei, B.lactis [Probiotic] 1 cap PO W/SUPPER Elderberry Fruit [Elderberry] 350 mg PO W/SUPPER Furosemide [Lasix] 40 mg PO BID@0900,1600 #60 tab Albuterol Nebulized [Ventolin Nebulized] 2.5 mg INHALATION RT-Q4H PRN PRN Reason: Shortness Of Breath Doxycycline [Vibramycin] 100 mg PO BID 7 Days #14 capsule Discharge Medication List Ascorbic Acid [Vitamin C] 1,000 mg PO W/SUPPER 11/16/20 [History] Cholecalciferol [Vitamin D3 (25 Mcg = 1000 Iu)] 25 mcg PO W/SUPPER 11/16/20 [History] Multivitamins, Thera [Multivitamin (formulary)] 1 tab PO W/SUPPER 11/16/20 [History] Zinc 50 mg PO W/SUPPER 11/16/20 [History] Aspirin 81 mg PO W/SUPPER 12/19/22 [History] Elderberry Fruit [Elderberry] 350 mg PO W/SUPPER 12/19/22 [History] L.acidoph,Paracasei, B.lactis [Probiotic] 1 cap PO W/SUPPER 12/19/22 [History] Turmeric Root Extract [Turmeric] 500 mg PO W/SUPPER 12/19/22 [History] Acetaminophen Tab [Tylenol] 650 mg PO Q6HR PRN tab 12/21/22 [Rx] Furosemide [Lasix] 40 mg PO BID@0900,1600 #60 tab 12/21/22 [Rx] Albuterol Nebulized [Ventolin Nebulized] 2.5 mg INHALATION RT-Q4H PRN 12/08/23 [History] Doxycycline [Vibramycin] 100 mg PO BID 7 Days #14 capsule 12/09/23 [Rx] Albuterol Inhaler [Ventolin Hfa Inhaler] 2 puff INHALATION RT-QID PRN 12/13/23 [History] Follow up Appointment(s)/Referral(s): None,Stated [Primary Care Provider] - 1-2 days
--- NOTE | 2023-12-13 15:05 | P.HPIM ---
History of Present Illness H&P Date: 12/13/23 Chief Complaint: postive blood culture Patient is a 53-year-old female with a past medical history of morbid obesity, bilateral lower extremity edema, nicotine dependence, diastolic heart failure, COVID-19 complication with interstitial lung disease who was recently admitted to the hospital and treated for left lower extremity cellulitis. She was discharged home. She was told to return back to the ED because she had gram- negative bacilli positive blood cultures. Patient states that after she was discharged she was taking doxycycline for the cellulitis. She states that today she noticed that her cellulitis was worsening and the wounds on her left lower extremity were weeping. Patient otherwise denying any fever or chills. ROS: 10 ROS reviewed and are negative except as noted in HPI Physical exam General: [Alert and oriented, well nourished, no acute distress]. Eye: [PERRL, EOMI, normal conjunctiva]. HENT: [Normocephalic, clear tympanic membranes, normal hearing, moist oral mucosa, no scleral icterus, no sinus tenderness]. Neck: [Supple, non-tender, no carotid bruits, no JVD, no lymphadenopathy]. Lungs: [Clear to auscultation and percussion, non-labored respiration]. Heart: [Normal rate, regular rhythm, no murmur, gallop or edema]. Abdomen: [Soft, non-tender, non-distended, normal bowel sounds, no masses, morbidly obese]. Musculoskeletal: [Normal range of motion and strength, no tenderness, bilateral lower extremity edema that is nonpitting]. Skin: [Multiple wounds in the left lower extremity that is weeping]. Neurologic: [Awake, alert, and oriented X3, CN II-XII intact]. Psychiatric: [Cooperative, appropriate mood and affect]. Assessment and plan Gram-negative bacilli Patient denying any dysuria I suspect the source is from her left lower extremity cellulitis Patient started on IV Levaquin Consult infectious disease Follow-up on repeat blood cultures Left lower extremity cellulitis with weeping wounds likely due to lymphedema History of Staph aureus Will start IV vancomycin Resume IV Levaquin ID consult Wound care consult Obtain wound culture Resume Lasix 40 mg p.o. twice daily Tramadol 50 mg p.o. every 6 hours as needed for pain Morbid obesity Encourage weight loss Suspect HAZEL Patient will need outpatient sleep study Nicotine dependence Patient counseled on smoking cessation CODE STATUS: Full code DVT prophylaxis: Lovenox Past Medical History Past Medical History: Hypertension Additional Past Medical History / Comment(s): pas hx. kidney stones, RUQ pain, MIGRANES, covid X3 infection and the last infection was in 2021 and this was associated with questionable PE and she was given ASA.Morbid obesity. Chronic leg edema, hypertension. History of Any Multi-Drug Resistant Organisms: None Reported Past Surgical History: Cholecystectomy, Orthopedic Surgery, Tubal Ligation Additional Past Surgical History / Comment(s): wrist surg. Past Anesthesia/Blood Transfusion Reactions: Motion Sickness, Postoperative Nausea & Vomiting (PONV) Additional Past Anesthesia/Blood Transfusion Reaction / Comment(s): severe PONV Past Psychological History: No Psychological Hx Reported Smoking Status: Current every day smoker Past Alcohol Use History: None Reported Past Drug Use History: None Reported - Past Family History Mother Family Medical History: No Reported History Medications and Allergies Home Medications Medication Instructions Recorded Confirmed Type Ascorbic Acid [Vitamin C] 1,000 mg PO W/SUPPER 11/16/20 12/13/23 History Cholecalciferol [Vitamin D3 (25 25 mcg PO W/SUPPER 11/16/20 12/13/23 History Mcg = 1000 Iu)] Multivitamins, Thera [Multivitamin 1 tab PO W/SUPPER 11/16/20 12/13/23 History (formulary)] Zinc 50 mg PO W/SUPPER 11/16/20 12/13/23 History Aspirin 81 mg PO W/SUPPER 12/19/22 12/13/23 History Elderberry Fruit [Elderberry] 350 mg PO W/SUPPER 12/19/22 12/13/23 History L.acidoph,Paracasei, B.lactis 1 cap PO W/SUPPER 12/19/22 12/13/23 History [Probiotic] Turmeric Root Extract [Turmeric] 500 mg PO W/SUPPER 12/19/22 12/13/23 History Acetaminophen Tab [Tylenol] 650 mg PO Q6HR PRN tab 12/21/22 12/13/23 Rx Furosemide [Lasix] 40 mg PO BID@0900,1600 #60 tab 12/21/22 12/13/23 Rx Albuterol Nebulized [Ventolin 2.5 mg INHALATION RT-Q4H PRN 12/08/23 12/13/23 History Nebulized] Doxycycline [Vibramycin] 100 mg PO BID 7 Days #14 capsule 12/09/23 12/13/23 Rx Albuterol Inhaler [Ventolin Hfa 2 puff INHALATION RT-QID PRN 12/13/23 12/13/23 History Inhaler] Allergies Allergy/AdvReac Type Severity Reaction Status Date / Time amoxicillin Allergy Rash/Hives Verified 12/13/23 12:28 azithromycin Allergy Rash/Hives Verified 12/13/23 12:28 cephalexin [From Keflex] Allergy Rash/Hives Verified 12/13/23 12:28 Penicillins Allergy Rash/Hives Verified 12/13/23 12:28 strawberry Allergy Rash/Hives Verified 12/13/23 12:28 Sulfa (Sulfonamide Allergy Skin Verified 12/13/23 12:28 Antibiotics) peeling nitroglycerin AdvReac Rapid Verified 12/13/23 12:28 Heart Rate peanut AdvReac headache Verified 12/13/23 12:28 Physical Exam Osteopathic Statement: *. No significant issues noted on an osteopathic structural exam other than those noted in the History and Physical/Consult. Vitals: Vital Signs Temp Pulse Resp BP Pulse Ox 12/13/23 14:07 98.6 F 96 22 136/80 91 L 12/13/23 09:54 98.9 F 104 H 18 143/82 90 L Intake and Output 12/13/23 12/13/23 12/13/23 06:59 14:59 22:59 Other: Weight 163.293 kg Results CBC & Chem 7: 12/13/23 10:48 12/13/23 10:48 Labs: Abnormal Lab Results - Last 24 Hours (Table) 12/13/23 12/13/23 Range/Units 10:48 10:48 RBC 5.64 H (3.80-5.40) m/uL Hgb 16.5 H (11.4-16.0) gm/dL Hct 54.1 H (34.0-46.0) % MCHC 30.5 L (31.0-37.0) g/dL RDW 16.4 H (11.5-15.5) % Carbon Dioxide 37 H (22-30) mmol/L Creatinine 0.49 L (0.52-1.04) mg/dL Glucose 100 H (74-99) mg/dL Alkaline Phosphatase 202 H (38-126) U/L
[2023-12-13] MEDS: traMADol 50 MG TAB PO PRN (15:15)
[2023-12-13] MEDS: SODIUM CHLORIDE 0.9% 1,000 ML IV SCH (15:19)
[2023-12-13] MEDS: VANCOMYCIN 2,250 MG in SODIUM CHLORIDE 0.9% 500 ML 500 ML IVPB SCH (15:27)
[2023-12-13] MEDS: FUROSEMIDE 40 MG TAB PO SCH (16:18)
--- NOTE | 2023-12-13 16:45 | P.CONS ---
History of Present Illness - Reason for Consult Consult date: 12/13/23 - History of Present Illness Patient is a 53-year-old female with a past medical history significant for hypertension COVID-19 infection history of kidney stones, morbid obesity chronic leg edema and PE patient present to the hospital for evaluation of left lower extremity swelling and redness that seem to have been progressively getting worse patient apparently was evaluated and treated for left lower extremity cellulitis on 12/08/2023 and 12/09/2023 and has been treated with oral doxycycline and subsequently discharged home the next day patient blood culture done on 12/08/2023 did come back positive for gram-negative bacilli with the patient was advised to come back to the hospital patient complaining of some chills at home but denies high-grade fever and no fever have been reported on presentation to the hospital. Denies any headache or urinary symptoms denies any chest pain had COVID of some shortness of breath no significant cough or sputum production significant swelling in his left lower extremity describing the pain to be mostly sharp moderate intensity without radiation and did not have any drainage patient of his recent hospital did have white count of 6.7 creatinine is 0.49 patient was started on Levaquin because of her multiple antibiotic allergy infectious disease was consulted for further management of antibiotics Past Medical History Past Medical History: Hypertension Additional Past Medical History / Comment(s): pas hx. kidney stones, RUQ pain, MIGRANES, covid X3 infection and the last infection was in 2021 and this was associated with questionable PE and she was given ASA.Morbid obesity. Chronic leg edema, hypertension. History of Any Multi-Drug Resistant Organisms: None Reported Past Surgical History: Cholecystectomy, Orthopedic Surgery, Tubal Ligation Additional Past Surgical History / Comment(s): wrist surg. Past Anesthesia/Blood Transfusion Reactions: Motion Sickness, Postoperative Nausea & Vomiting (PONV) Additional Past Anesthesia/Blood Transfusion Reaction / Comm: severe PONV Past Psychological History: No Psychological Hx Reported Smoking Status: Current every day smoker Past Alcohol Use History: None Reported Past Drug Use History: None Reported - Past Family History Mother Family Medical History: No Reported History Medications and Allergies Home Medications Medication Instructions Recorded Confirmed Type Ascorbic Acid [Vitamin C] 1,000 mg PO W/SUPPER 11/16/20 12/13/23 History Cholecalciferol [Vitamin D3 (25 25 mcg PO W/SUPPER 11/16/20 12/13/23 History Mcg = 1000 Iu)] Multivitamins, Thera [Multivitamin 1 tab PO W/SUPPER 11/16/20 12/13/23 History (formulary)] Zinc 50 mg PO W/SUPPER 11/16/20 12/13/23 History Aspirin 81 mg PO W/SUPPER 12/19/22 12/13/23 History Elderberry Fruit [Elderberry] 350 mg PO W/SUPPER 12/19/22 12/13/23 History L.acidoph,Paracasei, B.lactis 1 cap PO W/SUPPER 12/19/22 12/13/23 History [Probiotic] Turmeric Root Extract [Turmeric] 500 mg PO W/SUPPER 12/19/22 12/13/23 History Acetaminophen Tab [Tylenol] 650 mg PO Q6HR PRN tab 12/21/22 12/13/23 Rx Furosemide [Lasix] 40 mg PO BID@0900,1600 #60 tab 12/21/22 12/13/23 Rx Albuterol Nebulized [Ventolin 2.5 mg INHALATION RT-Q4H PRN 12/08/23 12/13/23 History Nebulized] Doxycycline [Vibramycin] 100 mg PO BID 7 Days #14 capsule 12/09/23 12/13/23 Rx Albuterol Inhaler [Ventolin Hfa 2 puff INHALATION RT-QID PRN 12/13/23 12/13/23 History Inhaler] Allergies Allergy/AdvReac Type Severity Reaction Status Date / Time amoxicillin Allergy Rash/Hives Verified 12/13/23 12:28 azithromycin Allergy Rash/Hives Verified 12/13/23 12:28 cephalexin [From Keflex] Allergy Rash/Hives Verified 12/13/23 12:28 Penicillins Allergy Rash/Hives Verified 12/13/23 12:28 strawberry Allergy Rash/Hives Verified 12/13/23 12:28 Sulfa (Sulfonamide Allergy Skin Verified 12/13/23 12:28 Antibiotics) peeling nitroglycerin AdvReac Rapid Verified 12/13/23 12:28 Heart Rate peanut AdvReac headache Verified 12/13/23 12:28 Physical Exam Vitals: Vital Signs Temp Pulse Resp BP Pulse Ox 12/13/23 15:09 171/94 12/13/23 14:07 98.6 F 96 22 136/80 91 L 12/13/23 09:54 98.9 F 104 H 18 143/82 90 L Intake and Output 12/13/23 12/13/23 12/13/23 06:59 14:59 22:59 Other: Weight 163.293 kg Results CBC & Chem 7: 12/13/23 10:48 12/13/23 10:48 Labs: Abnormal Lab Results - Last 24 Hours (Table) 12/13/23 12/13/23 Range/Units 10:48 10:48 RBC 5.64 H (3.80-5.40) m/uL Hgb 16.5 H (11.4-16.0) gm/dL Hct 54.1 H (34.0-46.0) % MCHC 30.5 L (31.0-37.0) g/dL RDW 16.4 H (11.5-15.5) % Carbon Dioxide 37 H (22-30) mmol/L Creatinine 0.49 L (0.52-1.04) mg/dL Glucose 100 H (74-99) mg/dL Alkaline Phosphatase 202 H (38-126) U/L Assessment and Plan Plan: 1patient presented to hospital with increasing swelling redness to left lower extremity has been diagnosed with a cellulitis failing outpatient oral antibiotic therapy. 2patient with gram-negative bacteremia source likely left leg cellulitis is currently do not have any urinary symptoms or abdominal pain to be suspicion for abdominal or urinary source. 3blood culture repeated document clearance of her bacteremia with currently waiting for the ID sensitivity of the initial blood cultures 4patient with multiple antibiotic ALLERGIES that would limit the number of an tibiotic safe to use. 5discontinue Levaquin. 6will start the patient on Azactam 2 g great hour following day for the sensitivity and ID on the gram-negative bacilli. We will follow on clinical condition and cultures to further adjust medication if needed Thank you for this consultation we will follow the patient along with you Dictation was produced using [employer] dictation software. please excuse any grammatical, word or spelling errors. Time with Patient: Greater than 30
[2023-12-13] MEDS: ASCORBIC ACID 500 MG TAB PO SCH (17:30)
[2023-12-13] MEDS ORDERED: NON FORMULARY DRUG (Turmeric Root Extract [Turmeric] 500 MG Tablet) PO SCH (17:30)
[2023-12-13] MEDS: ASPIRIN 81 MG PO SCH (17:30)
[2023-12-13] MEDS: CHOLECALCIFEROL 25 MCG (1000 IU) TABLET PO SCH (17:30)
[2023-12-13] MEDS ORDERED: NON FORMULARY DRUG (Elderberry Fruit [Elderberry] 350 MG Capsule) PO SCH (17:30)
[2023-12-13] MEDS: ZINC SULFATE 220 MG CAP PO SCH (17:31)
[2023-12-13] MEDS: LACTOBACILLUS ACIDOPHILUS/PECT 1 EACH CAPSULE PO SCH (17:31)
[2023-12-13] MEDS: MULTIVITAMINS, THERA 1 EACH TAB PO SCH (17:31)
[2023-12-13] MEDS: AZTREONAM 2 GM in SODIUM CHLORIDE 0.9% 100 ML IVPB SCH (18:30)
[2023-12-13] MEDS: FAMOTIDINE 20 MG TAB PO SCH (20:47)
[2023-12-14] MEDS: AZTREONAM 2 GM in SODIUM CHLORIDE 0.9% 100 ML IVPB SCH (02:49)
[2023-12-14] MEDS: ALBUTEROL NEBULIZED 2.5 MG/3 ML INHALATION PRN (02:56)
[2023-12-14 07:41] LABS: Anisocytosis Slight; Basophils # (A) 0.1 k/uL (0-0.2); Basophils % (A) 1 %; Eosinophils # (A) 0.2 k/uL (0-0.7); Eosinophils % (A) 3 %; HCT 52.1 % (34.0-46.0); HGB 16.2 gm/dL (11.4-16.0); Hypochromasia Slight; Lymphocytes # (A) 0.9 k/uL (1.0-4.8); Lymphocytes % (A) 13 %; MCH 29.7 pg (25.0-35.0); MCHC 31.2 g/dL (31.0-37.0); MCV 95.3 fL (80.0-100.0); Mean Platelet Volume 8.5; Monocytes # (A) 0.4 k/uL (0-1.0); Monocytes % (A) 5 %; Neutrophils # (A) 5.5 k/uL (1.3-7.7); Neutrophils % (A) 78 %; Platelet Count 224 k/uL (150-450); RBC 5.47 m/uL (3.80-5.40); RDW 16.5 % (11.5-15.5)
[2023-12-14 07:56] LABS: African American GFR (CKD) >90 (>60 ml/min/1.73 sqM); Anion Gap 6 mmol/L; Blood Urea Nitrogen 13 mg/dL (7-17); Calcium 9.1 mg/dL (8.4-10.2); Carbon Dioxide 28 mmol/L (22-30); Chloride 103 mmol/L (98-107); Non-African American GFR(CKD) >90 (>60 ml/min/1.73 sqM); Sodium 137 mmol/L (137-145)
[2023-12-14 08:12] LABS: Glucose 129 mg/dL (74-99); Potassium 4.6 mmol/L (3.5-5.1)
[2023-12-14] MEDS: ENOXAPARIN 40 MG/0.4 ML SYRINGE SQ SCH (08:29)
[2023-12-14] MEDS: ACETAMINOPHEN TAB 325 MG TAB PO PRN (08:35)
--- NOTE | 2023-12-14 12:07 | P.CONS ---
History of Present Illness - Reason for Consult Consult date: 12/14/23 wound care - History of Present Illness This is a 53-year-old patient with past medical history significant for hypertension and venous insufficiency. Patient has chronic lower extremity edema. Her bilateral lower extremities often opens up with open weeping ulcerations. At this time patient has open ulcerations to the left lower extremity anterior aspect. Patient states that has been there for few months now. Review Of Systems: Constitutional: No fever, no chills, no night sweats. No weight change. No weakness, fatigue or lethargy. No daytime sleepiness. Integumentary:reports wounds, no lesions. No rash or pruritus. No unusual bruising. No change in hair or nails. Physical exam: General Appearance: Alert, cooperative, no distress, appears stated age. Skin: See HPI all other Skin color, texture, tugor normal, no rashes or lesions. Neurologic: Alert oriented x3 Assessment: 1. Nonhealing ulceration with fat layer exposure right lower extremity 2. Chronic venous hypertension with inflammation and ulceration left lower extremity 3. Chronic venous hypertension with inflammation right lower extremity 4. Morbid obesity Plan: 1. Apply honey gel, dry gauze rolled gauze secure with paper tape. Wrap with Mack wrap for compression. Change Monday. Elevate legs 3 times a day above the level of the heart for 30 minutes. Avoid sitting with legs dependent. Patient would benefit from advanced wound care and wound care setting. We have happy to see her upon discharge. Thank you for the consultation any questions please contact the wound care center DNP note has been reviewed and discussed with Dr. Fernandez and the impression and plan of care has been directed as dictated. Past Medical History Past Medical History: Hypertension Additional Past Medical History / Comment(s): pas hx. kidney stones, RUQ pain, MIGRANES, covid X3 infection and the last infection was in 2021 and this was associated with questionable PE and she was given ASA.Morbid obesity. Chronic leg edema, hypertension. History of Any Multi-Drug Resistant Organisms: None Reported Past Surgical History: Cholecystectomy, Orthopedic Surgery, Tubal Ligation Additional Past Surgical History / Comment(s): wrist surg. Past Anesthesia/Blood Transfusion Reactions: Motion Sickness, Postoperative Nausea & Vomiting (PONV) Additional Past Anesthesia/Blood Transfusion Reaction / Comm: severe PONV Past Psychological History: No Psychological Hx Reported Smoking Status: Current every day smoker Past Alcohol Use History: None Reported Past Drug Use History: None Reported - Past Family History Mother Family Medical History: No Reported History Medications and Allergies Home Medications Medication Instructions Recorded Confirmed Type Ascorbic Acid [Vitamin C] 1,000 mg PO W/SUPPER 11/16/20 12/13/23 History Cholecalciferol [Vitamin D3 (25 25 mcg PO W/SUPPER 11/16/20 12/13/23 History Mcg = 1000 Iu)] Multivitamins, Thera [Multivitamin 1 tab PO W/SUPPER 11/16/20 12/13/23 History (formulary)] Zinc 50 mg PO W/SUPPER 11/16/20 12/13/23 History Aspirin 81 mg PO W/SUPPER 12/19/22 12/13/23 History Elderberry Fruit [Elderberry] 350 mg PO W/SUPPER 12/19/22 12/13/23 History L.acidoph,Paracasei, B.lactis 1 cap PO W/SUPPER 12/19/22 12/13/23 History [Probiotic] Turmeric Root Extract [Turmeric] 500 mg PO W/SUPPER 12/19/22 12/13/23 History Acetaminophen Tab [Tylenol] 650 mg PO Q6HR PRN tab 12/21/22 12/13/23 Rx Furosemide [Lasix] 40 mg PO BID@0900,1600 #60 tab 12/21/22 12/13/23 Rx Albuterol Nebulized [Ventolin 2.5 mg INHALATION RT-Q4H PRN 12/08/23 12/13/23 History Nebulized] Doxycycline [Vibramycin] 100 mg PO BID 7 Days #14 capsule 12/09/23 12/13/23 Rx Albuterol Inhaler [Ventolin Hfa 2 puff INHALATION RT-QID PRN 12/13/23 12/13/23 History Inhaler] Allergies Allergy/AdvReac Type Severity Reaction Status Date / Time amoxicillin Allergy Rash/Hives Verified 12/13/23 12:28 azithromycin Allergy Rash/Hives Verified 12/13/23 12:28 cephalexin [From Keflex] Allergy Rash/Hives Verified 12/13/23 12:28 Penicillins Allergy Rash/Hives Verified 12/13/23 12:28 strawberry Allergy Rash/Hives Verified 12/13/23 12:28 Sulfa (Sulfonamide Allergy Skin Verified 12/13/23 12:28 Antibiotics) peeling nitroglycerin AdvReac Rapid Verified 12/13/23 12:28 Heart Rate peanut AdvReac headache Verified 12/13/23 12:28 Physical Exam Vitals: Vital Signs Temp Pulse Pulse Resp BP BP Pulse Ox 12/14/23 09:44 87 12/14/23 09:36 94 L 12/14/23 09:33 90 12/14/23 07:49 97.8 F 105 H 20 160/93 93 L 12/14/23 03:02 71 18 12/14/23 02:56 74 18 12/14/23 01:46 98.2 F 93 16 124/78 91 L 12/13/23 23:33 94 18 12/13/23 21:59 97.5 F L 94 18 142/103 96 12/13/23 21:43 71 22 151/100 91 L 12/13/23 20:51 98.2 F 80 22 154/106 92 L 12/13/23 19:19 90 L 12/13/23 18:24 98.1 F 50 L 150/84 84 L 12/13/23 15:09 171/94 12/13/23 14:07 98.6 F 96 22 136/80 91 L Intake and Output 12/13/23 12/14/23 12/14/23 22:59 06:59 14:59 Intake Total 240 Balance 240 Intake: Oral 240 Other: Voiding Method Toilet # Voids 3 Weight 163.293 kg Results CBC & Chem 7: 12/14/23 07:07 12/14/23 07:07 Labs: Abnormal Lab Results - Last 24 Hours (Table) 12/14/23 12/14/23 Range/Units 07:07 07:07 RBC 5.47 H (3.80-5.40) m/uL Hgb 16.2 H (11.4-16.0) gm/dL Hct 52.1 H (34.0-46.0) % RDW 16.5 H (11.5-15.5) % Lymphocytes # 0.9 L (1.0-4.8) k/uL Glucose 129 H (74-99) mg/dL Microbiology - Last 24 Hours (Table) 12/13/23 11:56 Gram Stain - Preliminary Leg - Left Assessment and Plan (1) 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 lower leg with fat layer exposed Current Visit: Yes Status: Acute Code(s): L97.822 - NON-PRS CHRONIC ULCER OTH PRT L LOW LEG W FAT LAYER EXPOSED SNOMED Code(s): 36504752895469302 (2) Chronic venous hypertension (idiopathic) with ulcer and inflammation of left lower extremity Current Visit: Yes Status: Acute Code(s): I87.332 - CHRONIC VENOUS HTN W ULCER AND INFLAMMATION OF L LOW EXTREM SNOMED Code(s): 550923600799910 (3) Chronic venous hypertension (idiopathic) with inflammation of right lower extremity Current Visit: Yes Status: Acute Code(s): I87.321 - CHRONIC VENOUS HYPERTENSION W INFLAMMATION OF R LOW EXTREM SNOMED Code(s): 137102620 (4) Morbid obesity Current Visit: Yes Status: Acute Code(s): E66.01 - MORBID (SEVERE) OBESITY DUE TO EXCESS CALORIES SNOMED Code(s): 074489641
--- NOTE | 2023-12-14 17:18 | P.PN ---
Subjective Progress Note Date: 12/14/23 Hospital course: Patient is a pleasant 83-year-old female with a past medical history of hypertension, chronic diastolic heart failure, morbid obesity with bilateral lower extremity edema/lymphedema, nicotine dependence, and interstitial lung disease. She presented to the hospital on 12/13/2023 after being notified of positive blood culture results status post recent hospitalization for left lower extremity cellulitis. Upon arrival to our facility patient underwent evaluation in the emergency department. Vital signs upon arrival show blood pressure 143/82, heart rate 104, respiratory rate 18, temp 98.9 F, and SpO2 of 90% on room air. Labs completed and reviewed. CBC showing polycythemia with hemoglobin of 16.5 likely secondary to underlying COPD and continued nicotine dependence. BMP showing hypercarbia with bicarb of 37 otherwise normal finding s. Blood glucose 100. Lactic acid 1.3. Liver profile showing elevated alkaline phosphatase of 202 otherwise normal findings. Preliminary blood cultures obtained on 12/08/23 during previous hospitalization showing positive for gram-negative bacilli. Repeat blood cultures obtained upon admission along with wound culture of left lower extremity. Patient started on IV antibiotics with Levaquin and admitted under our services with consultation to infectious disease. Infectious disease changing antibiotic management to aztreonam and vancomycin pending further culture results. Physical exam: Vital signs reviewed and stable. General: Nontoxic, no distress and appears stated age. Obese Derm: Skin warm and dry, normal coloration for ethnicity. Head: Atraumatic, normocephalic and symmetric. Eyes: EOMs intact, no lid lag, and anicteric sclera Mouth: no lip lesions, mucus membranes moist Cardiovascular: regular rate and rhythm with normal S1S2, no murmur, positive posterior tibial pulses bilaterally, and cap refill < 2 seconds. Lungs: Respirations even, regular, and unlabored on room air. Lungs CTA bilaterally, no rhonchi, no rales, no wheezing, and no accessory muscle usage. Abdominal: soft, nontender to palpation, no guarding, no appreciable organomegaly Ext: ROM intact. No gross muscle atrophy, no contractures. Bilateral lower extremity lymphedema with left lower extremity scaling and erythema. Neuro: Speech clear, face symmetrical and CN II-XII grossly intact with no noted focal neuro deficits Psych: Alert and oriented to person, place, time, and situation. Appropriate and pleasant affect. Assessment and Plan of Care: Gram-negative bacteremia Left lower extremity cellulitis bilateral lower extremity lymphedema Blood cultures positive for gram-negative bacilli, preliminary results with final culture and sensitivity report pending. Wound cultures pending, will follow-up on results once available. Infectious disease following, reviewed documentation in chart. Patient to continue IV antibiotics with vancomycin 2250 mg every 8 hours and aztreonam 2 g every 8 hours. We will monitor renal function and vancomycin trough closely to monitor for any signs of vancomycin induced renal toxicity. Wound care consulted Tramadol 50 mg p.o. every 6 hours as needed for pain. Hypertension Chronic diastolic heart failure Continue daily medication regimen with aspirin 81 mg daily and Lasix 40 mg twice daily, Interstitial lung disease, COPD. Not in acute exacerbation. Nicotine dependence -Suspect underlying obstructive sleep apnea, recommend patient follow-up outpatient with two needle machine operator for PFTs and sleep study. -Continue Ventolin inhaler 2 puffs 4 times daily as needed for wheezing/shortness of breath. -Counseled on smoking cessation and order placed for nicotine patch 14 mg daily. Morbid obesity with BMI of 63.8 kg/m -Recommend outpatient structured weight management program. Data and Imaging reviewed: Preliminary Blood culture results positive for gram-negative bacilli, final culture and sensitivity report pending. Wound cultures pending. Morning labs completed and reviewed. CBC showing polycythemia with elevated h emoglobin of 16.2. BMP unremarkable. Blood glucose 129. Vital signs reviewed. Blood pressure 160/93, heart rate 105, respiratory rate 20, temp 97.8 F, and SpO2 of 93% on room air. CODE STATUS: Full code DVT prophylaxis: Lovenox Anticipated discharge date: Pending clinical course Anticipated discharge place: Home Patient was seen independently by Nurse Pracitioner. This document was prepared using [employer] dictation software. Please allow for errors in wind farm electrical systems designer, while rare they do occur. I reviewed the documentation as provided by the MILLICENT above, who is the original author of this note. I agree with the documented assessment and plan, with the following changes: none. Objective - Vital Signs Vital signs: Vital Signs Temp 97.8 F 12/14/23 07:49 Pulse 105 H 12/14/23 07:49 Resp 20 12/14/23 07:49 BP 160/93 12/14/23 07:49 Pulse Ox 93 L 12/14/23 07:49 FiO2 Intake & Output 0612/14/23 12/14/23 18:59 06:59 18:59 Intake Total 240 Balance 240 Weight 163.293 kg 163.293 kg Intake: Oral 240 Other: Voiding Method Toilet # Voids 3 - Labs CBC & Chem 7: 12/14/23 07:07 12/14/23 07:07 Labs: Abnormal Lab Results - Last 24 Hours (Table) 12/13/23 12/13/23 12/14/23 Range/Units 10:48 10:48 07:07 RBC 5.64 H 5.47 H (3.80-5.40) m/uL Hgb 16.5 H 16.2 H (11.4-16.0) gm/dL Hct 54.1 H 52.1 H (34.0-46.0) % MCHC 30.5 L (31.0-37.0) g/dL RDW 16.4 H 16.5 H (11.5-15.5) % Lymphocytes # 0.9 L (1.0-4.8) k/uL Carbon Dioxide 37 H (22-30) mmol/L Creatinine 0.49 L (0.52-1.04) mg/dL Glucose 100 H (74-99) mg/dL Alkaline Phosphatase 202 H (38-126) U/L 12/14/23 Range/Units 07:07 RBC (3.80-5.40) m/uL Hgb (11.4-16.0) gm/dL Hct (34.0-46.0) % MCHC (31.0-37.0) g/dL RDW (11.5-15.5) % Lymphocytes # (1.0-4.8) k/uL Carbon Dioxide (22-30) mmol/L Creatinine (0.52-1.04) mg/dL Glucose 129 H (74-99) mg/dL Alkaline Phosphatase (38-126) U/L Microbiology - Last 24 Hours (Table) 12/13/23 11:56 Gram Stain - Preliminary Leg - Left
[2023-12-14] MEDS: NICOTINE 14MG/24HR PATCH TRANSDERM SCH (17:32)
[2023-12-14] MEDS: KETOROLAC 15 MG/ML 1 ML VIAL IVP STA (18:29)
[2023-12-14] MEDS: HYDROcodone/APAP 7.5-325MG 1 EACH TAB PO PRN (23:07)
[2023-12-15] MEDS: VANCOMYCIN TROUGH DUE 1 EACH MISC MISCELLANE ONE (06:04)
[2023-12-15 07:20] LABS: Glucose,Whole Blood 125 mg/dL (70-110)
--- NOTE | 2023-12-15 14:46 | P.PN ---
Subjective Progress Note Date: 12/15/23 Hospital course: Patient is a pleasant 83-year-old female with a past medical history of hypertension, chronic diastolic heart failure, morbid obesity with bilateral lower extremity edema/lymphedema, nicotine dependence, and interstitial lung disease. She presented to the hospital on 12/13/2023 after being notified of positive blood culture results status post recent hospitalization for left lower extremity cellulitis. Upon arrival to our facility patient underwent evaluation in the emergency department. Vital signs upon arrival show blood pressure 143/82, heart rate 104, respiratory rate 18, temp 98.9 F, and SpO2 of 90% on room air. Labs completed and reviewed. CBC showing polycythemia with hemoglobin of 16.5 likely secondary to underlying COPD and continued nicotine dependence. BMP showing hypercarbia with bicarb of 37 otherwise normal finding s. Blood glucose 100. Lactic acid 1.3. Liver profile showing elevated alkaline phosphatase of 202 otherwise normal findings. Preliminary blood cultures obtained on 12/08/23 during previous hospitalization showing positive for gram-negative bacilli. Repeat blood cultures obtained upon admission along with wound culture of left lower extremity. Patient started on IV antibiotics with Levaquin and admitted under our services with consultation to infectious disease. Infectious disease changing antibiotic management to aztreonam and vancomycin pending further culture results. Physical exam: Patient was seen and fully evaluated at bedside this morning. Patient slightly agitated and expresses frustration over hospital stay. Patient does not have medical insurance and it is unclear as to how outpatient IV antibiotics will be obtained at this time. Vital signs reviewed and stable. General: Nontoxic, no distress and appears stated age. Obese Derm: Skin warm and dry, normal coloration for ethnicity. Head: Atraumatic, normocephalic and symmetric. Eyes: EOMs intact, no lid lag, and anicteric sclera Mouth: no lip lesions, mucus membranes moist Cardiovascular: regular rate and rhythm with normal S1S2, no murmur, positive posterior tibial pulses bilaterally, and cap refill < 2 seconds. Lungs: Respirations even, regular, and unlabored on room air. Lungs CTA bilaterally, no rhonchi, no rales, no wheezing, and no accessory muscle usage. Abdominal: soft, nontender to palpation, no guarding, no appreciable organomega ly Ext: ROM intact. No gross muscle atrophy, no contractures. Bilateral lower extremity lymphedema with left lower extremity scaling and erythema. Neuro: Speech clear, face symmetrical and CN II-XII grossly intact with no noted focal neuro deficits Psych: Alert and oriented to person, place, time, and situation. Appropriate and pleasant affect. Assessment and Plan of Care: Gram-positive bacteremia Left lower extremity cellulitis bilateral lower extremity lymphedema Blood cultures initially called positive for gram-negative bacilli, however on 12/14/2023 lab notified pharmacist with [employer] correction showing gram-positive bacilli. Final Cultures and sensitivity report pending. Wound cultures showing preliminary results of gram-negative bacilli, will follow-up on final culture and sensitivity report once available. Infectious disease following, reviewed documentation in chart. Patient to continue IV antibiotics with vancomycin 2250 mg every 12 hours and aztreonam 2 g every 8 hours. We will monitor renal function and vancomycin trough closely to monitor for any signs of vancomycin induced renal toxicity. Wound care consulted, discussed plan of care with wound care PRESSURISED CONTAINER FILLER at bedside. Tramadol 50 mg p.o. every 6 hours as needed for pain. Hypertension Chronic diastolic heart failure Continue daily medication regimen with aspirin 81 mg daily and Lasix 40 mg twice daily, Interstitial lung disease, COPD. Not in acute exacerbation. Nicotine dependence -Suspect underlying obstructive sleep apnea, recommend patient follow-up outpatient with bag presser for PFTs and sleep study. -Continue Ventolin inhaler 2 puffs 4 times daily as needed for wheezing/shortness of breath. -Counseled on smoking cessation and order placed for nicotine patch 14 mg daily. Morbid obesity with BMI of 63.8 kg/m -Recommend outpatient structured weight management program. Data and Imaging reviewed: Blood cultures initially called positive for gram-negative bacilli, however on 12/14/2023 lab notified pharmacist with [employer] correction showing gram-positive bacilli. Final Cultures and sensitivity report pending. Wound cultures showing preliminary results of gram-negative bacilli, will follow-up on final culture and sensitivity report once available. Morning labs completed and reviewed. Vancomycin trough therapeutic at 21.6. M agnesium normal findings at 2.0. Vital signs reviewed. Blood pressure 131/79, heart rate 93, respiratory rate 20, temp 98.3 F, and SpO2 of 93% on room air. CODE STATUS: Full code DVT prophylaxis: Lovenox Anticipated discharge date: Pending clinical course Anticipated discharge place: Home Patient was seen independently by Nurse Pracitioner. This document was prepared using [employer] dictation software. Please allow for errors in optical fabricator, while rare they do occur. I reviewed the documentation as provided by the MILLICENT above, who is the original author of this note. I agree with the documented assessment and plan, with the following changes: none Objective - Vital Signs Vital signs: Vital Signs Temp 98.2 F 12/15/23 07:23 Pulse 98 12/15/23 07:23 Resp 24 12/15/23 07:23 BP 183/77 12/15/23 07:23 Pulse Ox 98 12/15/23 08:15 FiO2 Intake & Output 12/14/23 12/15/23 12/15/23 18:59 06:59 18:59 Intake Total 1200 240 Balance 1200 240 Intake: Intake, IV Titration 1200 Amount Aztreonam 2 gm In Sodium 200 Chloride 0.9% 100 ml @ 33 .3 mls/hr IVPB Q8H [facility] Rx #:[id number] Vancomycin 2,250 mg In 1000 Sodium Chloride 0.9% 500 ml 500 ml @ 167 mls/hr IVPB Q8H [facility] Rx#: [id number] Oral 240 Other: Voiding Method Toilet # Voids 2 - Labs CBC & Chem 7: 12/14/23 07:07 12/14/23 07:07 Labs: Abnormal Lab Results - Last 24 Hours (Table) 12/15/23 Range/Units 07:19 POC Glucose (mg/dL) 125 H (70-110) mg/dL Microbiology - Last 24 Hours (Table) 12/13/23 11:56 Gram Stain - Preliminary Leg - Left Wound Culture - Preliminary Gram Neg Bacilli 12/13/23 10:48 Blood Culture - Preliminary Blood 12/13/23 10:48 Blood Culture - Preliminary Blood
--- NOTE | 2023-12-15 19:42 | CA ---
Transthoracic Echo Report Name: Candice Huston Age: 53 Gender: F : 1970 Exam Date: 12/15/2023 17:42 Exam Location: [facility] Ht (in): 63 Wt (lb): 360 Ordering Physician: Maurilio Ibarra MD Attending/Referring Phys: Thaw Shed Heater Tender Maria Del Carmen Metzger RDCS Procedure CPT: Indications: bacteremia Cardiac Hx: Technical Quality: Technically difficult study, Poor Contrast 1: Definity Total Dose (mL): 2 Contrast 2: Total Dose (mL): MEASUREMENTS (Male / Female) Normal Values 2D ECHO LV Diastolic Diameter PLAX 5.6 cm 4.2 - 5.9 / 3.9 - 5.3 cm LV Systolic Diameter PLAX 3.6 cm IVS Diastolic Thickness 1.2 cm 0.6 - 1.0 / 0.6 - 0.9 cm LVPW Diastolic Thickness 1.4 cm 0.6 - 1.0 / 0.6 - 0.9 cm LV Relative Wall Thickness 0.5 RV Internal Dim ED PLAX 2.5 cm LA Systolic Diameter LX 5.0 cm 3.0 - 4.0 / 2.7 - 3.8 cm M-MODE Aortic Root Diameter MM 2.8 cm LA Systolic Diameter MM 4.4 cm LA Ao Ratio MM 1.6 AV Cusp Separation MM 1.9 cm DOPPLER Mitral E Point Velocity 92.9 cm/s Mitral A Point Velocity 76.8 cm/s Mitral E to A Ratio 1.2 MV Deceleration Time 213.4 ms MV E' Velocity 7.6 cm/s Mitral E to MV E' Ratio 12.2 TR Peak Velocity 274.2 cm/s TR Peak Gradient 30.1 mmHg FINDINGS Left Ventricle Left ventricular ejection fraction is estimated at 55-60%. Mildly increased septal wall thickness. Moderately increased posterior wall thickness. Mildly increased left ventricular diastolic diameter. Left ventricular cavity size normal. No obvious regional wall motion abnormalities. Right Ventricle Mild right ventricular dilatation. Mild pulmonary hypertension. Right ventricular systolic pressure estimated at 38 mmHg. Right Atrium Mild right atrial dilatation. Left Atrium Moderate left atrial dilatation. Mitral Valve Mitral valve not well visualized. Trace to mild mitral regurgitation. Aortic Valve Trileaflet aortic valve. No aortic valve stenosis or regurgitation. No vegetations seen (suggest transesophageal echo if suspicion high). Tricuspid Valve Structurally normal tricuspid valve. Mild tricuspid regurgitation. Pulmonic Valve Structurally normal pulmonic valve. Trace pulmonic regurgitation. No pulmonic stenosis. Pericardium No pericardial or pleural effusion. Aorta Normal size aortic root and proximal ascending aorta. CONCLUSIONS Technically difficult study, Poor. Left ventricular ejection fraction is estimated at 55-60%. No obvious regional wall motion abnormalities. Right ventricular systolic pressure estimated at 38 mmHg. No vegetations seen (suggest transesophageal echo if suspicion high). Previewed by: Dr Luis Felipe Love (Electronically Signed) Final Date: 15 December 2023 19:41
[2023-12-15] MEDS: VANCOMYCIN 2,250 MG in SODIUM CHLORIDE 0.9% 500 ML 500 ML IVPB SCH (22:18)
[2023-12-16 07:49] LABS: Anisocytosis Slight; HGB 15.2 gm/dL (11.4-16.0); Hypochromasia Marked; MCH 29.5 pg (25.0-35.0); MCHC 30.4 g/dL (31.0-37.0); MCV 97.1 fL (80.0-100.0); Macrocytosis Slight; Mean Platelet Volume 7.9; Platelet Count 230 k/uL (150-450); RBC 5.15 m/uL (3.80-5.40); RDW 16.3 % (11.5-15.5); WBC 6.7 k/uL (3.8-10.6)
[2023-12-16 08:10] LABS: African American GFR (CKD) >90 (>60 ml/min/1.73 sqM); Anion Gap 3 mmol/L; Blood Urea Nitrogen 13 mg/dL (7-17); Calcium 8.9 mg/dL (8.4-10.2); Carbon Dioxide 34 mmol/L (22-30); Chloride 102 mmol/L (98-107); Glucose 143 mg/dL (74-99); Non-African American GFR(CKD) >90 (>60 ml/min/1.73 sqM); Potassium 4.4 mmol/L (3.5-5.1); Sodium 139 mmol/L (137-145)
--- NOTE | 2023-12-16 12:40 | P.PN ---
Subjective Progress Note Date: 12/16/23 Hospital Course: Patient is a pleasant 83-year-old female with a past medical history of hyperte nsion, chronic diastolic heart failure, morbid obesity with bilateral lower extremity edema/lymphedema, nicotine dependence, and interstitial lung disease. She presented to the hospital on 12/13/2023 after being notified of positive blood culture results status post recent hospitalization for left lower extremity cellulitis. Upon arrival to our facility patient underwent evaluation in the emergency department. Vital signs upon arrival show blood pressure 143/82, heart rate 104, respiratory rate 18, temp 98.9 F, and SpO2 of 90% on room air. Labs completed and reviewed. CBC showing polycythemia with hemoglobin of 16.5 likely secondary to underlying COPD and continued nicotine dependence. BMP showing hypercarbia with bicarb of 37 otherwise normal findings. Blood glucose 100. Lactic acid 1.3. Liver profile showing elevated alkaline phosphatase of 202 otherwise normal findings. Preliminary blood cultures obtained on 12/08/23 during previous hospitalization showing positive for gram-negative bacilli. Repeat blood cultures obtained upon admission along with wound culture of left lower extremity. Patient started on IV antibiotics with Levaquin and admitted under our services with consultation to infectious disease. Infectious disease changing antibiotic management to aztreonam and vancomycin pending further culture results. Vancomycin discontinued, started on daptomycin. Blood cultures was positive for Propionibacterium acnes, possible skin contamination. Further ID recommendations pending. Wound care also following. Subjective: Seen and examined at bedside. No acute events overnight. Complaining of lower extremity pain. Pertinent positives and negatives as discussed above, a complete review of systems was performed and all other systems are negative. Vitals Signs Reviewed. General: Nontoxic, no distress and appears stated age. Obese Derm: Skin warm and dry, normal coloration for ethnicity. Head: Atraumatic, normocephalic and symmetric. Eyes: EOMs intact, no lid lag, and anicteric sclera Mouth: no lip lesions, mucus membranes moist Cardiovascular: regular rate and rhythm with normal S1S2, no murmur, positive posterior tibial pulses bilaterally, and cap refill < 2 seconds. Lungs: Respirations even, regular, and unlabored on room air. Lungs CTA bilaterally, no rhonchi, no rales, no wheezing, and no accessory muscle usage. Abdominal: soft, nontender to palpation, no guarding, no appreciable organomegaly Ext: ROM intact. No gross muscle atrophy, no contractures. Bilateral lower extremity lymphedema with left lower extremity scaling and erythema. Neuro: Speech clear, face symmetrical and CN II-XII grossly intact with no noted focal neuro deficits Psych: Alert and oriented to person, place, time, and situation. Appropriate and pleasant affect. Data Reviewed Today: Pertinent Labs: Hemoglobin 15.2, WBC 6.7, creatinine 0.56, magnesium 2 Imaging: No new imaging Assessment and Plan: Gram-positive bacteremia, noted to be Propionibacterium acnes Left lower extremity cellulitis bilateral lower extremity lymphedema Patient currently on IV daptomycin 600 mg every 24 hours, and aztreonam 2 g every 8 hours, consider de-escalating antibiotic therapy. ID following -Wound care following Tramadol 50 mg p.o. every 6 hours as needed for pain., [place] as needed, monitor for sedation Hypertension Chronic diastolic heart failure Continue daily medication regimen with aspirin 81 mg daily and Lasix 40 mg twice daily, Interstitial lung disease, COPD. Not in acute exacerbation. Nicotine dependence -Suspect underlying obstructive sleep apnea, recommend patient follow-up outpatient with farm helper for PFTs and sleep study. -Continue Ventolin inhaler 2 puffs 4 times daily as needed for wheezing/shortness of breath. -Counseled on smoking cessation and order placed for nicotine patch 14 mg daily. Morbid obesity with BMI of 63.8 kg/m -Recommend outpatient structured weight management program. DVT ppx: Lovenox Code status: Full code Anticipated discharge place: Pending clinical course Anticipated discharge time: Pending clinical course Objective - Vital Signs Vital signs: Vital Signs Temp 98.3 F 12/16/23 11:45 Pulse 90 12/16/23 11:45 Resp 18 12/16/23 11:45 BP 133/87 12/16/23 11:45 Pulse Ox 93 L 12/16/23 11:45 FiO2 Intake & Output 12/15/23 12/16/23 12/16/23 18:59 06:59 18:59 Intake Total 600 540 Balance 600 540 Intake: Intake, IV Titration 600 Amount Aztreonam 2 gm In Sodium 100 Chloride 0.9% 100 ml @ 33 .3 mls/hr IVPB Q8H [facility] TO [facility] Rx #:[id number] Vancomycin 2,250 mg In 500 Sodium Chloride 0.9% 500 ml 500 ml @ 167 mls/hr IVPB Q12H [facility]END[facility] TO [facility] Rx#: [id number] Oral 540 Other: Voiding Method Toilet Toilet # Voids 3 - Labs CBC & Chem 7: 12/16/23 07:30 12/16/23 07:30 Labs: Abnormal Lab Results - Last 24 Hours (Table) 12/16/23 12/16/23 Range/Units 07:30 07:30 Hct 50.0 H (34.0-46.0) % MCHC 30.4 L (31.0-37.0) g/dL RDW 16.3 H (11.5-15.5) % Carbon Dioxide 34 H (22-30) mmol/L Glucose 143 H (74-99) mg/dL Microbiology - Last 24 Hours (Table) 12/13/23 11:56 Anaerobic Culture - Final Leg - Left 12/13/23 10:48 Blood Culture - Preliminary Blood 12/13/23 10:48 Blood Culture - Preliminary Blood 12/13/23 11:56 Gram Stain - Preliminary Leg - Left Wound Culture - Preliminary Proteus mirabilis Presumptive Staph aureus
[2023-12-16] MEDS: ERTAPENEM 1 GM in SODIUM CHLORIDE 0.9% 50 ML IVPB STA (14:12)
--- NOTE | 2023-12-16 16:35 | P.PN ---
Subjective Progress Note Date: 12/16/23 Principal diagnosis: Reason for follow-up is left lower extremity cellulitis and positive blood culture Patient is a 53-year-old female with a past medical history signi ficant for hypertension COVID-19 infection history of kidney stones, morbid obesity chronic leg edema and PE, initially evaluated in the ER for the left lower extremity cellulitis discharged on doxycycline call back because of positive blood culture was initially reported as gram-negative bacilli [place] bsequently has been switched over to gram-positive bacilli. On today's evaluation that is 12/16/2023,the patient denies any fever or any chills, patient is breathing comfortably on room air, the patient denies chest pain shortness of breath and no significant cough, patient denies abdominal pain, no nausea vomiting or diarrhea. Patient left lower extremity swelling redness has decreased and complaining of significant pain no drainage. Patient white count 6.7, creatinine 0.56 culture growing Proteus presumptive Staph aureus with sensitivities pending Objective - Vital Signs Vital signs: Vital Signs Temp 98.3 F 12/16/23 11:45 Pulse 90 12/16/23 11:45 Resp 18 12/16/23 11:45 BP 133/87 12/16/23 11:45 Pulse Ox 93 L 12/16/23 11:45 FiO2 Intake & Output 12/15/23 12/16/23 12/16/23 18:59 06:59 18:59 Intake Total 600 540 Balance 600 540 Intake: Intake, IV Titration 600 Amount Aztreonam 2 gm In Sodium 100 Chloride 0.9% 100 ml @ 33 .3 mls/hr IVPB Q8H [facility] Rx #:[id number] Vancomycin 2,250 mg In 500 Sodium Chloride 0.9% 500 ml 500 ml @ 167 mls/hr IVPB Q12H [facility] Rx#: [id number] Oral 540 Other: Voiding Method Toilet Toilet # Voids 3 - Exam GENERAL DESCRIPTION: Middle-aged female lying in bed in no distress RESPIRATORY SYSTEM: Unlabored breathing , decreased breath sounds at bases HEART: S1 S2 regular rate and rhythm , ABDOMEN: Soft , no tenderness EXTREMITIES: Left lower extremity swelling pulses redness has decreased no drainage - Labs CBC & Chem 7: 12/16/23 07:30 12/16/23 07:30 Labs: Abnormal Lab Results - Last 24 Hours (Table) 12/16/23 12/16/23 Range/Units 07:30 07:30 Hct 50.0 H (34.0-46.0) % MCHC 30.4 L (31.0-37.0) g/dL RDW 16.3 H (11.5-15.5) % Carbon Dioxide 34 H (22-30) mmol/L Glucose 143 H (74-99) mg/dL Microbiology - Last 24 Hours (Table) 12/13/23 11:56 Anaerobic Culture - Final Leg - Left 12/13/23 10:48 Blood Culture - Preliminary Blood 12/13/23 10:48 Blood Culture - Preliminary Blood 12/13/23 11:56 Gram Stain - Preliminary Leg - Left Wound Culture - Preliminary Proteus mirabilis Presumptive Staph aureus Assessment and Plan (1) Left leg cellulitis Current Visit: Yes Status: Acute Code(s): L03.116 - CELLULITIS OF LEFT LOWER LIMB SNOMED Code(s): 05591863554213725 (2) Positive blood culture Current Visit: Yes Status: Acute Code(s): R78.81 - BACTEREMIA SNOMED Code(s): 492469818 (3) Allergy to multiple antibiotics Current Visit: No Status: Acute Code(s): Z88.1 - ALLERGY STATUS TO OTHER ANTIBIOTIC AGENTS SNOMED Code(s): 631645585 Plan: 1patient presented to hospital with increasing swelling redness to left lower extremity has been diagnosed with a cellulitis failing outpatient oral antibiotic therapy. 2patient with gram-negative bacteremia source likely left leg cellulitis is currently do not have any urinary symptoms or abdominal pain to be suspicion for abdominal or urinary source. 3blood culture repeated so far negative, initial blood cultures of switched over to gram-positive bacilli with question of contamination, local culture currently growing Proteus as well as Staph aureus with sensitivities pending 4patient with multiple antibiotic ALLERGIES that would limit the number of antibiotic safe to use. 5 patient to continue with the daptomycin will give her dose of Invanz, currently waiting for sensitivities on the Staph aureus if finalized as MSSA plan will be 1 week course of Invanz 1 g daily if it is finalized as MRSA that she will need both daptomycin and Invanz on discharge this has been explained to the nursing staff as well as discussed with the admitting physician Dictation was produced using [employer] dictation software. please excuse any grammatical, word or spelling errors. Time with Patient: Less than 30
[2023-12-16] MEDS ORDERED: ALPRAZolam 1 MG TAB PO PRN (16:49)
[2023-12-17 01:28] VITALS: RESP 18
--- NOTE | 2023-12-17 11:32 | P.PN ---
Subjective Progress Note Date: 12/17/23 Hospital Course: Patient is a pleasant 83-year-old female with a past medical history of hypert ension, chronic diastolic heart failure, morbid obesity with bilateral lower extremity edema/lymphedema, nicotine dependence, and interstitial lung disease. She presented to the hospital on 12/13/2023 after being notified of positive blood culture results status post recent hospitalization for left lower extremity cellulitis. Upon arrival to our facility patient underwent evaluation in the emergency department. Vital signs upon arrival show blood pressure 143/82, heart rate 104, respiratory rate 18, temp 98.9 F, and SpO2 of 90% on room air. Labs completed and reviewed. CBC showing polycythemia with hemoglobin of 16.5 likely secondary to underlying COPD and continued nicotine dependence. BMP showing hypercarbia with bicarb of 37 otherwise normal findings. Blood glucose 100. Lactic acid 1.3. Liver profile showing elevated alkaline phosphatase of 202 otherwise normal findings. Preliminary blood cultures obtained on 12/08/23 during previous hospitalization showing positive for gram-negative bacilli. Repeat blood cultures obtained upon admission along with wound culture of left lower extremity. Patient started on IV antibiotics with Levaquin and admitted under our services with consultation to infectious disease. Infectious disease changing antibiotic management to aztreonam and vancomycin pending further culture results. Vancomycin discontinued, started on daptomycin. Blood cultures was positive for Propionibacterium acnes, possible skin contamination. Further ID recommendations pending. Wound care also following. Wound cultures growing MSSA and Proteus. Patient has multiple different allergies limiting antibiotic choice. Subjective: Seen and examined at bedside. No acute events overnight. Pertinent positives and negatives as discussed above, a complete review of systems was performed and all other systems are negative. Vitals Signs Reviewed. General: Nontoxic, no distress and appears stated age. Obese Derm: Skin warm and dry, normal coloration for ethnicity. Head: Atraumatic, normocephalic and symmetric. Eyes: EOMs intact, no lid lag, and anicteric sclera Mouth: no lip lesions, mucus membranes moist Cardiovascular: regular rate and rhythm with normal S1S2, no murmur, positive posterior tibial pulses bilaterally, and cap refill < 2 seconds. Lungs: Respirations even, regular, and unlabored on room air. Lungs CTA bilaterally, no rhonchi, no rales, no wheezing, and no accessory muscle usage. Abdominal: soft, nontender to palpation, no guarding, no appreciable organomegaly Ext: ROM intact. No gross muscle atrophy, no contractures. Bilateral lower extremity lymphedema with left lower extremity scaling and erythema. Neuro: Speech clear, face symmetrical and CN II-XII grossly intact with no noted focal neuro deficits Psych: Alert and oriented to person, place, time, and situation. Appropriate and pleasant affect. Data Reviewed Today: Pertinent Labs: No new labs Imaging: No new imaging Assessment and Plan: Gram-positive bacteremia, noted to be Propionibacterium acnes Left lower extremity cellulitis bilateral lower extremity lymphedema -Patient currently on IV daptomycin 600 mg every 24 hours, and aztreonam 2 g every 8 hours, consider de-escalating antibiotic therapy. -ID following -Wound care following -Tylenol as needed, [place] as needed, monitor for sedation Hypertension Chronic diastolic heart failure Continue daily medication regimen with aspirin 81 mg daily and Lasix 40 mg p.o. twice daily, Interstitial lung disease, COPD. Not in acute exacerbation. Nicotine dependence -Suspect underlying obstructive sleep apnea, recommend patient follow-up outpatient with complaint adjuster for PFTs and sleep study. -Continue Ventolin inhaler 2 puffs 4 times daily as needed for wheezing/shortness of breath. -Counseled on smoking cessation and order placed for nicotine patch 14 mg daily. Morbid obesity with BMI of 63.8 kg/m -Recommend outpatient structured weight management program. DVT ppx: Lovenox Code status: Full code Anticipated discharge place: Pending clinical course Anticipated discharge time: Pending clinical course Objective - Vital Signs Vital signs: Vital Signs Temp 97.7 F 12/17/23 07:12 Pulse 93 12/17/23 07:12 Resp 18 12/17/23 07:12 BP 107/68 12/17/23 07:12 Pulse Ox 93 L 12/17/23 07:12 FiO2 Intake & Output 12/16/23 12/17/23 12/17/23 18:59 06:59 18:59 Intake Total 480 Balance 480 Intake: Oral 480 Other: Voiding Method Toilet Toilet # Voids 4 2 1 - Labs CBC & Chem 7: 12/16/23 07:30 12/16/23 07:30 Labs: Microbiology - Last 24 Hours (Table) 12/13/23 10:48 Blood Culture - Preliminary Blood 12/13/23 10:48 Blood Culture - Preliminary Blood 12/13/23 11:56 Gram Stain - Final Leg - Left Wound Culture - Final Proteus mirabilis Staphylococcus aureus
[2023-12-17 12:21] VITALS: BP 150/81; PULSE 91; TEMP 98.2
--- NOTE | 2023-12-17 13:04 | P.DS ---
Providers Date of admission: 12/13/23 11:06 Expected date of discharge: 12/17/23 Attending physician: Maurilio Ibarra MD Consults: 12/13/23 11:04 Consult Physician Urgent Consulting Provider: Viv Munroe Consult Reason/Comments: Bacteremia, cellulitis Do you want consulting provider notified?: Yes Primary care physician: Stated None Hospital Course: Discharge Diagnosis: Left lower extremity cellulitis bilateral lower extremity lymphedema Hypertension Chronic diastolic heart failure, not in exacerbation Interstitial lung disease, COPD. Not in acute exacerbation. Nicotine dependence Morbid obesity with BMI of 63.8 kg/m Hospital Course: Patient is a pleasant 83-year-old female with a past medical history of hypertension, chronic diastolic heart failure, morbid obesity with bilateral lower extremity edema/lymphedema, nicotine dependence, and interstitial lung disease. She presented to the hospital on 12/13/2023 after being notified of positive blood culture results status post recent hospitalization for left lower extremity cellulitis. Upon arrival to our facility patient underwent evaluation in the emergency department. Vital signs upon arrival show blood pressure 143/82, heart rate 104, respiratory rate 18, temp 98.9 F, and SpO2 of 90% on room air. Labs completed and reviewed. CBC showing polycythemia with hemoglobin of 16.5 likely secondary to underlying COPD and continued nicotine dependence. BMP showing hypercarbia with bicarb of 37 otherwise normal findings. Blood glucose 100. Lactic acid 1.3. Liver profile showing elevated alkaline phosphatase of 202 otherwise normal findings. Preliminary blood cultures obtained on 12/08/23 during previous hospitalization showing positive for gram-negative bacilli. Repeat blood cultures obtained upon admission along with wound culture of left lower extremity. Patient started on IV antibiotics with Levaquin and admitted under our services with consultation to infectious disease. Infectious disease changing antibiotic management to aztreonam and vancomycin pending further culture results. Vancomycin discontinued, started on daptomycin. Blood cultures was positive for Propionibacterium acnes, possible skin contamination. Wound care also following. Wound cultures growing MSSA and Proteus. Patient being discharged on oral doxycycline and levofloxacin. Patient seen and examined at bedside. Vital signs reviewed and stable. General: Nontoxic, no distress and appears stated age. Obese Derm: Skin warm and dry, normal coloration for ethnicity. Head: Atraumatic, normocephalic and symmetric. Eyes: EOMs intact, no lid lag, and anicteric sclera Mouth: no lip lesions, mucus membranes moist Cardiovascular: regular rate and rhythm with normal S1S2, no murmur, positive posterior tibial pulses bilaterally, and cap refill < 2 seconds. Lungs: Respirations even, regular, and unlabored on room air. Lungs CTA bilaterally, no rhonchi, no rales, no wheezing, and no accessory muscle usage. Abdominal: soft, nontender to palpation, no guarding, no appreciable organomegaly Ext: ROM intact. No gross muscle atrophy, no contractures. Bilateral lower extremity lymphedema with left lower extremity scaling and erythema. Neuro: Speech clear, face symmetrical and CN II-XII grossly intact with no noted focal neuro deficits Psych: Alert and oriented to person, place, time, and situation. Appropriate and pleasant affect. A total of 33 minutes of time were spent preparing this complex discharge summary. Patient was discharged on 12/17/2023 at 1302. Patient Condition at Discharge: Stable Plan - Discharge Summary Discharge Rx Participant: No New Discharge Prescriptions: New Doxycycline [Vibramycin] 100 mg PO BID 10 Days #20 capsule Levofloxacin [Levaquin] 750 mg PO DAILY 1 Days #10 tab Continue Ascorbic Acid [Vitamin C] 1,000 mg PO W/SUPPER Zinc 50 mg PO W/SUPPER Cholecalciferol [Vitamin D3 (25 Mcg = 1000 Iu)] 25 mcg PO W/SUPPER Aspirin 81 mg PO W/SUPPER Turmeric Root Extract [Turmeric] 500 mg PO W/SUPPER Acetaminophen Tab [Tylenol] 650 mg PO Q6HR PRN tab PRN Reason: Mild Pain Or Fever > 100.5 Albuterol Inhaler [Ventolin Hfa Inhaler] 2 puff INHALATION RT-QID PRN PRN Reason: Shortness Of Breath Multivitamins, Thera [Multivitamin (formulary)] 1 tab PO W/SUPPER L.acidoph,Paracasei, B.lactis [Probiotic] 1 cap PO W/SUPPER Elderberry Fruit [Elderberry] 350 mg PO W/SUPPER Furosemide [Lasix] 40 mg PO BID@0900,1600 #60 tab Albuterol Nebulized [Ventolin Nebulized] 2.5 mg INHALATION RT-Q4H PRN PRN Reason: Shortness Of Breath Discontinued Doxycycline [Vibramycin] 100 mg PO BID 7 Days #14 capsule Discharge Medication List Ascorbic Acid [Vitamin C] 1,000 mg PO W/SUPPER 11/16/20 [History] Cholecalciferol [Vitamin D3 (25 Mcg = 1000 Iu)] 25 mcg PO W/SUPPER 11/16/20 [History] Multivitamins, Thera [Multivitamin (formulary)] 1 tab PO W/SUPPER 11/16/20 [History] Zinc 50 mg PO W/SUPPER 11/16/20 [History] Aspirin 81 mg PO W/SUPPER 12/19/22 [History] Elderberry Fruit [Elderberry] 350 mg PO W/SUPPER 12/19/22 [History] L.acidoph,Paracasei, B.lactis [Probiotic] 1 cap PO W/SUPPER 12/19/22 [History] Turmeric Root Extract [Turmeric] 500 mg PO W/SUPPER 12/19/22 [History] Acetaminophen Tab [Tylenol] 650 mg PO Q6HR PRN tab 12/21/22 [Rx] Furosemide [Lasix] 40 mg PO BID@0900,1600 #60 tab 12/21/22 [Rx] Albuterol Nebulized [Ventolin Nebulized] 2.5 mg INHALATION RT-Q4H PRN 12/08/23 [History] Albuterol Inhaler [Ventolin Hfa Inhaler] 2 puff INHALATION RT-QID PRN 12/13/23 [History] Doxycycline [Vibramycin] 100 mg PO BID 10 Days #20 capsule 12/17/23 [Rx] Levofloxacin [Levaquin] 750 mg PO DAILY 1 Days #10 tab 12/17/23 [Rx] Follow up Appointment(s)/Referral(s): [facility], [NON-STAFF] - 1 Week (will stop to see you at home on Monday) None,Stated [Primary Care Provider] - 1-2 days (Patient encouraged to find a primary physician and follow-up with them) [facility] [NON-STAFF] - 2 Weeks Patient Instructions/Handouts: Cellulitis (ED) Activity/Diet/Wound Care/Special Instructions: Please see your PCP and wound care. Discharge Disposition: HOME SELF-CARE
--- NOTE | 2023-12-17 14:19 | P.PN ---
Subjective Progress Note Date: 12/17/23 Principal diagnosis: Reason for follow-up is left lower extremity cellulitis and positive blood culture Patient is a 53-year-old female with a past medical history signi ficant for hypertension COVID-19 infection history of kidney stones, morbid obesity chronic leg edema and PE, initially evaluated in the ER for the left lower extremity cellulitis discharged on doxycycline call back because of positive blood culture was initially reported as gram-negative bacilli [place] bsequently has been switched over to gram-positive bacilli. On today's evaluation that is 12/17/2023,the patient remains to be afebrile, patient is on room air not requiring supplemental oxygen and denies any shortness of breath no chest pain or cough.Patient denies having any nausea or vomiting, no abdominal pain and no diarrhea has been reported denies any worsening pain to the left lower extremity no other improvement. No new labs has been repeated today culture finalized with MSSA and Proteus mirabilis Objective - Vital Signs Vital signs: Vital Signs Temp 98.2 F 12/17/23 11:37 Pulse 91 12/17/23 11:37 Resp 18 12/17/23 11:37 BP 150/81 12/17/23 11:37 Pulse Ox 91 L 12/17/23 11:37 FiO2 Intake & Output 12/16/23 12/17/23 12/17/23 18:59 06:59 18:59 Intake Total 480 Balance 480 Intake: Oral 480 Other: Voiding Method Toilet Toilet Toilet # Voids 4 2 1 - Exam GENERAL DESCRIPTION: Middle-aged female lying in bed in no distress RESPIRATORY SYSTEM: Unlabored breathing , decreased breath sounds at bases HEART: S1 S2 regular rate and rhythm , ABDOMEN: Soft , no tenderness EXTREMITIES: Left lower extremity currently dressed in Mack wrap - Labs CBC & Chem 7: 12/16/23 07:30 12/16/23 07:30 Labs: Microbiology - Last 24 Hours (Table) 12/13/23 10:48 Blood Culture - Preliminary Blood 12/13/23 10:48 Blood Culture - Preliminary Blood 12/13/23 11:56 Gram Stain - Final Leg - Left Wound Culture - Final Proteus mirabilis Staphylococcus aureus Assessment and Plan (1) Left leg cellulitis Current Visit: Yes Status: Acute Code(s): L03.116 - CELLULITIS OF LEFT LOWER LIMB SNOMED Code(s): 06940141509253157 (2) Positive blood culture Current Visit: Yes Status: Acute Code(s): R78.81 - BACTEREMIA SNOMED Code(s): 525691470 (3) Allergy to multiple antibiotics Current Visit: No Status: Acute Code(s): Z88.1 - ALLERGY STATUS TO OTHER ANTIBIOTIC AGENTS SNOMED Code(s): 957266328 Plan: 1patient presented to hospital with increasing swelling redness to left lower extremity has been diagnosed with a cellulitis failing outpatient oral antibiotic therapy. 2patient with gram-negative bacteremia source likely left leg cellulitis is currently do not have any urinary symptoms or abdominal pain to be suspicion for abdominal or urinary source. 3blood culture repeated so far negative, initial blood cultures of switched o yo to gram-positive bacilli with question of contamination, local culture currently growing Proteus as well as Staph aureus with sensitivities pending 4patient with multiple antibiotic ALLERGIES that would limit the number of antibiotic safe to use. 5 patient culture has been finalized with Proteus and MSSA we will recommend finishing therapy with oral Levaquin and doxycycline x 10 days midline to be discontinued and no need for antibiotic on discharge discussed with the admitting physician Dictation was produced using [employer] dictation software. please excuse any grammatical, word or spelling errors. Time with Patient: Less than 30
--- NOTE | 2023-12-19 07:46 | P.PN ---
Subjective Progress Note Date: 12/15/23 Principal diagnosis: Reason for follow-up is left lower extremity cellulitis and positive blood culture Patient is a 53-year-old female with a past medical history signi ficant for hypertension COVID-19 infection history of kidney stones, morbid obesity chronic leg edema and PE, initially evaluated in the ER for the left lower extremity cellulitis discharged on doxycycline call back because of positive blood culture was initially reported as gram-negative bacilli [place] bsequently has been switched over to gram-positive bacilli. On today's evaluation that is 12/15/2023, Patient is afebrile this morning and denies any chills, patient mention breathing comfortably and is currently on room air, patient denies any chest pain occasional cough patient denies any abdominal pain no diarrhea no nausea no vomiting denies any worsening pain to the left lower extremity. Vanco trough is 21.6 culture growing presumptive Staph aureus blood culture repeat has been negative Objective - Vital Signs Vital signs: Vital Signs Temp 98.2 F 12/15/23 19:46 Pulse 88 12/15/23 19:51 Resp 19 12/15/23 19:46 BP 134/70 12/15/23 19:46 Pulse Ox 95 12/15/23 19:46 FiO2 Intake & Output 12/15/23 12/15/23 12/16/23 06:59 18:59 06:59 Intake Total 240 600 Balance 240 600 Intake: Intake, IV Titration 600 Amount Aztreonam 2 gm In Sodium 100 Chloride 0.9% 100 ml @ 33 .3 mls/hr IVPB Q8H JESSICA Rx #:[id number] Vancomycin 2,250 mg In 500 Sodium Chloride 0.9% 500 ml 500 ml @ 167 mls/hr IVPB Q12H JESSICA Rx#: [id number] Oral 240 Other: Voiding Method Toilet # Voids 2 - Exam GENERAL DESCRIPTION: Middle-aged female lying in bed in no distress RESPIRATORY SYSTEM: Unlabored breathing , decreased breath sounds at bases HEART: S1 S2 regular rate and rhythm , ABDOMEN: Soft , no tenderness EXTREMITIES: Left lower extremity swelling redness no drainage Exam completed help of MANAGER CARDIOVASCULAR - Labs CBC & Chem 7: 12/16/23 07:30 12/16/23 07:30 Labs: Abnormal Lab Results - Last 24 Hours (Table) 12/15/23 Range/Units 07:19 POC Glucose (mg/dL) 125 H (70-110) mg/dL Microbiology - Last 24 Hours (Table) 12/13/23 10:48 Blood Culture - Preliminary Blood 12/13/23 10:48 Blood Culture - Preliminary Blood 12/13/23 11:56 Gram Stain - Preliminary Leg - Left Wound Culture - Preliminary Proteus mirabilis Presumptive Staph aureus Assessment and Plan (1) Left leg cellulitis Current Visit: Yes Status: Acute Code(s): L03.116 - CELLULITIS OF LEFT LOWER LIMB SNOMED Code(s): 18041369196281431 (2) Positive blood culture Current Visit: Yes Status: Acute Code(s): R78.81 - BACTEREMIA SNOMED Code(s): 012180606 (3) Allergy to multiple antibiotics Current Visit: No Status: Acute Code(s): Z88.1 - ALLERGY STATUS TO OTHER ANTIBIOTIC AGENTS SNOMED Code(s): 610313121 Plan: This is a telehealth visit 1patient presented to hospital with increasing swelling redness to left lower extremity has been diagnosed with a cellulitis failing outpatient oral antibiotic therapy. 2patient with gram-negative bacteremia source likely left leg cellulitis is currently do not have any urinary symptoms or abdominal pain to be suspicion for abdominal or urinary source. 3blood culture repeated so far negative, initial blood cultures of switched over to gram-positive bacilli with question of contamination 4patient with multiple antibiotic ALLERGIES that would limit the number of antibiotic safe to use. 5 patient did have local culture currently growing gram-negative as well as gram-positive, patient to continue with daptomycin and Azactam while waiting for the culture to finalize Dictation was produced using [employer] dictation software. please excuse any grammatical, word or spelling errors. Time with Patient: Less than 30
--- NOTE | 2023-12-19 07:47 | P.PN ---
Subjective Progress Note Date: 12/14/23 Principal diagnosis: Reason for follow-up is left lower extremity cellulitis and positive blood culture Patient is a 53-year-old female with a past medical history signi ficant for hypertension COVID-19 infection history of kidney stones, morbid obesity chronic leg edema and PE, initially evaluated in the ER for the left lower extremity cellulitis discharged on doxycycline call back because of positive blood culture was initially reported as gram-negative bacilli [place] bsequently has been switched over to gram-positive bacilli. On today's evaluation that is 12/14/2023, patient has been afebrile, patient is breathing comfortably and is currently on room air, patient denies having any significant cough no chest pain shortness of breath, patient denies nausea vomiting or diarrhea and no abdominal pain still complaining of pain to the left lower extremity but no worsening redness slightly decreased. Patient white count 7.0, creatinine 0.57 Objective - Vital Signs Vital signs: Vital Signs Temp 97.8 F 12/14/23 07:49 Pulse 105 H 12/14/23 07:49 Resp 20 12/14/23 07:49 BP 160/93 12/14/23 07:49 Pulse Ox 93 L 12/14/23 07:49 FiO2 Intake & Output 12/13/23 12/14/23 12/14/23 18:59 06:59 18:59 Intake Total 240 Balance 240 Weight 163.293 kg 163.293 kg Intake: Oral 240 Other: Voiding Method Toilet # Voids 3 - Exam GENERAL DESCRIPTION: Middle-aged female lying in bed in no distress RESPIRATORY SYSTEM: Unlabored breathing , decreased breath sounds at bases HEART: S1 S2 regular rate and rhythm , ABDOMEN: Soft , no tenderness EXTREMITIES: Left lower extremity swelling redness no drainage Exam completed help of CERTIFIED HEALTH EDUCATION SPECIALIST - Labs CBC & Chem 7: 12/16/23 07:30 12/16/23 07:30 Labs: Abnormal Lab Results - Last 24 Hours (Table) 12/13/23 12/13/23 12/14/23 Range/Units 10:48 10:48 07:07 RBC 5.64 H 5.47 H (3.80-5.40) m/uL Hgb 16.5 H 16.2 H (11.4-16.0) gm/dL Hct 54.1 H 52.1 H (34.0-46.0) % MCHC 30.5 L (31.0-37.0) g/dL RDW 16.4 H 16.5 H (11.5-15.5) % Lymphocytes # 0.9 L (1.0-4.8) k/uL Carbon Dioxide 37 H (22-30) mmol/L Creatinine 0.49 L (0.52-1.04) mg/dL Glucose 100 H (74-99) mg/dL Alkaline Phosphatase 202 H (38-126) U/L 12/14/23 Range/Units 07:07 RBC (3.80-5.40) m/uL Hgb (11.4-16.0) gm/dL Hct (34.0-46.0) % MCHC (31.0-37.0) g/dL RDW (11.5-15.5) % Lymphocytes # (1.0-4.8) k/uL Carbon Dioxide (22-30) mmol/L Creatinine (0.52-1.04) mg/dL Glucose 129 H (74-99) mg/dL Alkaline Phosphatase (38-126) U/L Microbiology - Last 24 Hours (Table) 12/13/23 11:56 Gram Stain - Preliminary Leg - Left Assessment and Plan (1) Left leg cellulitis Current Visit: Yes Status: Acute Code(s): L03.116 - CELLULITIS OF LEFT LOWER LIMB SNOMED Code(s): 43596613967821818 (2) Positive blood culture Current Visit: Yes Status: Acute Code(s): R78.81 - BACTEREMIA SNOMED Code(s): 578799128 (3) Allergy to multiple antibiotics Current Visit: No Status: Acute Code(s): Z88.1 - ALLERGY STATUS TO OTHER ANTIBIOTIC AGENTS SNOMED Code(s): 789106329 Plan: This is a telehealth visit 1patient presented to hospital with increasing swelling redness to left lower extremity has been diagnosed with a cellulitis failing outpatient oral antibiotic therapy. 2patient with gram-negative bacteremia source likely left leg cellulitis is currently do not have any urinary symptoms or abdominal pain to be suspicion for abdominal or urinary source. 3blood culture repeated document clearance of her bacteremia, initial blood cultures of switched over to gram-positive bacilli with question of contamination 4patient with multiple antibiotic ALLERGIES that would limit the number of antibiotic safe to use. 5 patient to continue with daptomycin and Azactam 2 g great hour while waiting for the culture to finalize Dictation was produced using [employer] dictation software. please excuse any grammatical, word or spelling errors.
== END 2023-12-17 15:52 | disposition home or self-care (01) | DRG 593 ==
LOC: EC 09:46 → OBSVTOIN 11:06 → 6NMEDSUR 11:06 → 5NMEDONC 17:28
PROVIDERS: ADMIT Internal Medicine; ATTEND Internal Medicine
DX: L97.822 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 lower leg with fat layer exposed (principal); I50.32 Chronic diastolic (congestive) heart failure; L03.116 Cellulitis of left lower limb; I87.313 Chronic venous hypertension (idiopathic) with ulcer of bilateral lower extremity; J84.9 Interstitial pulmonary disease, unspecified; R78.81 Bacteremia; Z68.44 Body mass index [BMI] 60.0-69.9, adult; L03.115 Cellulitis of right lower limb; L97.812 Non-pressure chronic ulcer of other part of right lower leg with fat layer exposed; E66.01 Morbid (severe) obesity due to excess calories; B96.4 Proteus (mirabilis) (morganii) as the cause of diseases classified elsewhere; D75.1 Secondary polycythemia; G43.909 Migraine, unspecified, not intractable, without status migrainosus; B95.61 Methicillin susceptible Staphylococcus aureus infection as the cause of diseases classified elsewhere; F17.200 Nicotine dependence, unspecified, uncomplicated; I11.0 Hypertensive heart disease with heart failure; Z79.82 Long term (current) use of aspirin; Z79.899 Other long term (current) drug therapy; Z86.16 Personal history of COVID-19; Z87.442 Personal history of urinary calculi; Z88.1 Allergy status to other antibiotic agents; Z88.0 Allergy status to penicillin; Z88.2 Allergy status to sulfonamides; Z28.311 Partially vaccinated for COVID-19; Z28.21 Immunization not carried out because of patient refusal
CPT/HCPCS: 36410; 36415; 76937; 80048; 80053; 80202; 83605; 83735; 85025; 85027; 87040; 87070; 87075; 87077; 87186; 87205; 93306; 94640; 94760; 96361; 96365; 96366; 96367; 99285

== ENCOUNTER 2024-07-04 00:33 | Inpatient (IN) | payer OTHER ==
--- NOTE | 2024-07-04 00:56 | ED ---
General Adult HPI - General Chief complaint: Extremity Injury, Lower Stated complaint: Infection Time Seen by Provider: 07/04/24 00:52 Source: patient, EMS, RN notes reviewed, old records reviewed Mode of arrival: EMS Limitations: no limitations - History of Present Illness Initial comments: 54-year-old female presented to the ER via EMS for evaluation of left lower leg infection. Patient reports for the past 2 days she has noticed proximally spreading erythema and swelling to left foot and calf. Erythema, tenderness and warmth have traveled to inner thigh. Area is extremely tender to touch. Patient admits to history of cellulitis. Patient states she has 2 wounds on left calf that are draining. No known injuries or traumas. She does report low-grade fevers at home. No history of MRSA. Upon discussion with the patient she appears to be having conversational dyspnea. Patient does admit to a history of pulmonary embolism but is not currently on a blood thinner. She admits to shortness of breath but states she is "always short of breath". She does not wear oxygen at home as her machine is currently broken and she is having insurance issues. She does states she is supposed to wear oxygen and follows up with Dr. Mathur. Patient states she did not have insurance until the first of the year. Patient denies any chest pain, cough, congestion, abdominal pain or other complaints. - Related Data Home Medications Medication Instructions Recorded Confirmed Ascorbic Acid [Vitamin C] 1,000 mg PO W/SUPPER 11/16/20 12/13/23 Cholecalciferol [Vitamin D3 (25 25 mcg PO W/SUPPER 11/16/20 12/13/23 Mcg = 1000 Iu)] Multivitamins, Thera [Multivitamin 1 tab PO W/SUPPER 11/16/20 12/13/23 (formulary)] Zinc 50 mg PO W/SUPPER 11/16/20 12/13/23 Aspirin 81 mg PO W/SUPPER 12/19/22 12/13/23 Elderberry Fruit [Elderberry] 350 mg PO W/SUPPER 12/19/22 12/13/23 L.acidoph,Paracasei, B.lactis 1 cap PO W/SUPPER 12/19/22 12/13/23 [Probiotic] Turmeric Root Extract [Turmeric] 500 mg PO W/SUPPER 12/19/22 12/13/23 Albuterol Nebulized [Ventolin 2.5 mg INHALATION RT-Q4H PRN 12/08/23 12/13/23 Nebulized] Albuterol Inhaler [Ventolin Hfa 2 puff INHALATION RT-QID PRN 12/13/23 12/13/23 Inhaler] Previous Rx's Medication Instructions Recorded Acetaminophen Tab [Tylenol] 650 mg PO Q6HR PRN tab 12/21/22 Furosemide [Lasix] 40 mg PO BID@0900,1600 #60 tab 12/21/22 Doxycycline [Vibramycin] 100 mg PO BID 10 Days #20 capsule 12/17/23 Levofloxacin [Levaquin] 750 mg PO DAILY 1 Days #10 tab 12/17/23 Allergies Allergy/AdvReac Type Severity Reaction Status Date / Time amoxicillin Allergy Rash/Hives Verified 12/13/23 12:28 azithromycin Allergy Rash/Hives Verified 12/13/23 12:28 cephalexin [From Keflex] Allergy Rash/Hives Verified 12/13/23 12:28 Penicillins Allergy Rash/Hives Verified 12/13/23 12:28 strawberry Allergy Rash/Hives Verified 12/13/23 12:28 Sulfa (Sulfonamide Allergy Skin Verified 12/13/23 12:28 Antibiotics) peeling nitroglycerin AdvReac Rapid Verified 12/13/23 12:28 Heart Rate peanut AdvReac headache Verified 12/13/23 12:28 Review of Systems ROS Statement: Those systems with pertinent positive or pertinent negative responses have been documented in the HPI. ROS Other: All systems not noted in ROS Statement are negative. Past Medical History Past Medical History: Hypertension Additional Past Medical History / Comment(s): pas hx. kidney stones, RUQ pain, MIGRANES, covid X3 infection and the last infection was in 2021 and this was associated with questionable PE and she was given ASA.Morbid obesity. Chronic leg edema, hypertension. History of Any Multi-Drug Resistant Organisms: None Reported Past Surgical History: Cholecystectomy, Orthopedic Surgery, Tubal Ligation Additional Past Surgical History / Comment(s): wrist surg. Past Anesthesia/Blood Transfusion Reactions: Motion Sickness, Postoperative Nausea & Vomiting (PONV) Additional Past Anesthesia/Blood Transfusion Reaction / Comment(s): severe PONV Past Psychological History: No Psychological Hx Reported Smoking Status: Current every day smoker Past Alcohol Use History: None Reported Past Drug Use History: None Reported - Past Family History Mother Family Medical History: No Reported History General Exam Limitations: no limitations General appearance: alert, in no apparent distress, other (Patient having conversational dyspnea. Patient on 2 L nasal cannula oxygen oxygen saturation 90%) Respiratory exam: Present: normal lung sounds bilaterally. Absent: respiratory distress, wheezes, rales, rhonchi, stridor Cardiovascular Exam: Present: normal rhythm, tachycardia, normal heart sounds Extremities exam: Present: other (Erythema tenderness and warmth to left foot, calf spreading proximately through inner thigh. There is 2 wounds with drainage noted on calf.) Neurological exam: Present: alert, oriented X3, CN II-XII intact Skin exam: Present: warm, dry, intact, normal color. Absent: rash Course Vital Signs 07/04/24 00:37 Temperature 99.0 F Pulse Rate 128 H Respiratory 24 Rate Blood Pressure 167/87 O2 Sat by Pulse 92 L Oximetry - Reevaluation(s) Reevaluation #1: Patient met sepsis criteria at 1:45 [place] body weight 52 kg. Antibiotics ordered at 3:18 Medical Decision Making - Medical Decision Making Was pt. sent in by a medical professional or institution (, PA, BIRD CAGE ASSEMBLER, urgent care, hospital, or longterm...) When possible be specific @ -No Did you speak to anyone other than the patient for history (EMS, parent, family, police, friend...)? What history was obtained from this source @ -No Did you review nursing and triage notes (agree or disagree)? Why? @ -I reviewed and agree with nursing and triage notes Were old charts reviewed (outside hosp., previous admission, EMS record, old EKG, old radiological studies, urgent care reports/EKG's, longterm records)? Report findings @ -No old charts were reviewed Differential Diagnosis (chest pain, altered mental status, abdominal pain women, abdominal pain men, vaginal bleeding, weakness, fever, dyspnea, syncope, headache, dizziness, GI bleed, back pain, seizure, CVA, palpatations, mental health, musculoskeletal)? @ -Differential Musculoskeletal;Muscular strain, contusion, ligament sprain, fracture, arthritis, septic arthritis, bursitis, cellulitis, muscle spasm, nerve compression, DVT, arterial occlusion, herpes zoster, electrolyte abnormality, tumor.... This is not meant to be in all inclusive list EKG interpreted by me (3pts min.). @ -As above X-rays interpreted by me (1pt min.). @ -CXR interpreted by me negative for focal consolidation, pleural effusion or pneumothorax. CT interpreted by me (1pt min.). @ -CTA chest negative for acute evidence of DVT. Imaging is suboptimal given contrast timing. U/S interpreted by me (1pt. min.). @ -None done What testing was considered but not performed or refused? (CT, X-rays, U/S, labs)? Why? @ -None What meds were considered but not given or refused? Why? @ -None Did you discuss the management of the patient with other professionals (professionals i.e. , PA, BIRD CAGE ASSEMBLER, lab, RT, psych nurse, home health care social worker, scullion chief, teacher, chief communications officer, residential case manager)? Give summary @ -Yes, case discussed with Dr. Khan, [facility] physician, for admission. Was smoking cessation discussed for >3mins.? @ -No Was critical care preformed (if so, how long)? @ -No Were there social determinants of health that impacted care today? How? (Homelessness, low income, unemployed, alcoholism, drug addiction, transportation, low edu. Level, literacy, decrease access to med. care, correction, rehab)? @ -Yes, patient has been uninsured until 07 03 24. Was there de-escalation of care discussed even if they declined (Discuss DNR or withdrawal of care, Hospice)? DNR status @ -No What co-morbidities impacted this encounter? (DM, HTN, Smoking, COPD, CAD, Cancer, CVA, ARF, Chemo, Hep., AIDS, mental health diagnosis, sleep apnea, morbid obesity)? @ -Obese,History of pulmonary embolism, hypertension, lymphedema, HF Was patient admitted / discharged? Hospital course, mention meds given and route, prescriptions, significant lab abnormalities, going to OR and other pertinent info. @ -Admitted. 54-year-old female presented to the ER via EMS for evaluation of left lower extremity infection/edema. History and physical exam completed. Vitals upon arrival remarkable for temperature 99.0, heart rate 128, respiratory 24, blood pressure 167/87, oxygen saturation 92% on room air. Exam remarkable for significant edema and warmth to left foot and calf. There is approximately spreading erythema to inner aspect of thigh. Tenderness to touch. Patient is neurovascularly intact. There are calcifications to the lateral aspect of calf as well with 2 draining wounds. Given patient having conversational dyspnea with a history of pulmonary embolisms not currently on blood thinners infectious and cardiac workup obtained. CBC showed a leukocytosis of 12.4 with a left shift. Lactic 1.5. Sodium 137, potassium 4.4, chloride 92, carbon dioxide 31. Troponin undetectable. D-dimer elevated at 1.51 for which CTA chest was obtained and negative for acute evidence of pulmonary embolism. Studies is suboptimal given contrast timing. Viral swabs negative. Patient met sepsis criteria at 0145 and was started on IV vancomycin at 0318. Patient's ideal body weight 52 kg. Given patient's history of heart failure patient did not receive 30 mL/kg IV fluid bolus. Patient given 500 mL bolus and started on normal saline at 75 cc/h. Patient also received p.o. Tylenol and IV Ativan for symptom control in the ER. Blood and wound drainage cultures obtained. Admission considered and discussed with Dr. Khan for IV antibiotics for treatment of cellulitis. ID on consult. Patient is agreeable for admission. Patient admitted in stable condition. Case discussed with the attending by Dr. Rivera. Undiagnosed new problem with uncertain prognosis? @ -No Drug Therapy requiring intensive monitoring for toxicity (Heparin, Nitro, Insulin, Cardizem)? @ -No Were any procedures done? @ -No Diagnosis/symptom? @ -Sepsis/cellulitis Acute, or Chronic, or Acute on Chronic? @ -Acute Uncomplicated (without systemic symptoms) or Complicated (systemic symptoms)? @ -Complicated Side effects of treatment? @ -No Exacerbation, Progression, or Severe Exacerbation? @ -No Poses a threat to life or bodily function? How? (Chest pain, [place], [place], pneumonia, PE, COPD, DKA, ARF, appy, cholecystitis, CVA, Diverticulitis, Homicidal, Suicidal, threat to staff... and all critical care pts) @ -Yes, cellulitis can lead to endorgan dysfunction. - Lab Data Result diagrams: 07/04/24 01:31 07/04/24 01:31 Lab Results 07/04/24 07/04/24 07/04/24 Range/Units 01:17 01:31 01:31 WBC 12.4 H (3.8-10.6) k/uL RBC 5.11 (3.80-5.40) m/uL Hgb 14.6 (11.4-16.0) gm/dL Hct 47.7 H (34.0-46.0) % MCV 93.3 (80.0-100.0) fL MCH 28.6 (25.0-35.0) pg MCHC 30.7 L (31.0-37.0) g/dL RDW 16.3 H (11.5-15.5) % Plt Count 191 (150-450) k/uL MPV 9.6 Neutrophils % 83 % Lymphocytes % 9 % Monocytes % 5 % Eosinophils % 1 % Basophils % 1 % Neutrophils # 10.3 H (1.3-7.7) k/uL Lymphocytes # 1.1 (1.0-4.8) k/uL Monocytes # 0.6 (0-1.0) k/uL Eosinophils # 0.1 (0-0.7) k/uL Basophils # 0.1 (0-0.2) k/uL Hypochromasia Marked Anisocytosis Slight PT (10.0-12.5) sec INR (<1.2) APTT (22.0-30.0) sec D-Dimer (<0.60) mg/L FEU Sodium 137 (137-145) mmol/L Potassium 4.4 (3.5-5.1) mmol/L Chloride 96 L (98-107) mmol/L Carbon Dioxide 31 H (22-30) mmol/L Anion Gap 10 mmol/L BUN 13 (7-17) mg/dL Creatinine 0.57 (0.52-1.04) mg/dL Est GFR (CKD-EPI)AfAm >90 (>60 ml/min/1.73 sqM) Est GFR (CKD-EPI)NonAf >90 (>60 ml/min/1.73 sqM) Glucose 145 H (74-99) mg/dL Plasma Lactic Acid Shyam (0.7-2.0) mmol/L Calcium 9.2 (8.4-10.2) mg/dL Total Bilirubin 1.0 (0.2-1.3) mg/dL AST 47 H (14-36) U/L ALT 32 (4-34) U/L Alkaline Phosphatase 233 H (38-126) U/L Troponin I (0.000-0.034) ng/mL Total Protein 7.4 (6.3-8.2) g/dL Albumin 3.9 (3.5-5.0) g/dL Influenza Type A (PCR) Not Detected (Not Detectd) Influenza Type B (PCR) Not Detected (Not Detectd) RSV (PCR) Not Detected (Not Detectd) SARS-CoV-2 (PCR) Not Detected (Not Detectd) 07/04/24 07/04/24 07/04/24 Range/Units 01:31 01:31 01:31 WBC (3.8-10.6) k/uL RBC (3.80-5.40) m/uL Hgb (11.4-16.0) gm/dL Hct (34.0-46.0) % MCV (80.0-100.0) fL MCH (25.0-35.0) pg MCHC (31.0-37.0) g/dL RDW (11.5-15.5) % Plt Count (150-450) k/uL MPV Neutrophils % % Lymphocytes % % Monocytes % % Eosinophils % % Basophils % % Neutrophils # (1.3-7.7) k/uL Lymphocytes # (1.0-4.8) k/uL Monocytes # (0-1.0) k/uL Eosinophils # (0-0.7) k/uL Basophils # (0-0.2) k/uL Hypochromasia Anisocytosis PT 10.4 (10.0-12.5) sec INR 0.9 (<1.2) APTT 23.5 (22.0-30.0) sec D-Dimer 1.51 H (<0.60) mg/L FEU Sodium (137-145) mmol/L Potassium (3.5-5.1) mmol/L Chloride (98-107) mmol/L Carbon Dioxide (22-30) mmol/L Anion Gap mmol/L BUN (7-17) mg/dL Creatinine (0.52-1.04) mg/dL Est GFR (CKD-EPI)AfAm (>60 ml/min/1.73 sqM) Est GFR (CKD-EPI)NonAf (>60 ml/min/1.73 sqM) Glucose (74-99) mg/dL Plasma Lactic Acid Shyam 1.5 (0.7-2.0) mmol/L Calcium (8.4-10.2) mg/dL Total Bilirubin (0.2-1.3) mg/dL AST (14-36) U/L ALT (4-34) U/L Alkaline Phosphatase (38-126) U/L Troponin I <0.012 (0.000-0.034) ng/mL Total Protein (6.3-8.2) g/dL Albumin (3.5-5.0) g/dL Influenza Type A (PCR) (Not Detectd) Influenza Type B (PCR) (Not Detectd) RSV (PCR) (Not Detectd) SARS-CoV-2 (PCR) (Not Detectd) - EKG Data -: EKG Interpreted by Me EKG Comments: EKG taken at 1: 31 showing sinus tachycardia with occasional PACs. No acute ST segment or T wave abnormalities. Ventricular rate 106, NV interval 158, QRS duration 96, QT/QTc 363/425. - Radiology Data Radiology results: report reviewed, image reviewed Disposition Clinical Impression: Sepsis, Cellulitis Disposition: ADMITTED IP TO THIS HOSP Condition: Stable Referrals: None,Stated [Primary Care Provider] - 1-2 days Time of Disposition: 03:31
[2024-07-04] MEDS: ACETAMINOPHEN TAB 325 MG TAB PO STA (01:12)
[2024-07-04 01:49] LABS: Anisocytosis Slight; Basophils # (A) 0.1 k/uL (0-0.2); Basophils % (A) 1 %; Eosinophils # (A) 0.1 k/uL (0-0.7); Eosinophils % (A) 1 %; HCT 47.7 % (34.0-46.0); HGB 14.6 gm/dL (11.4-16.0); Hypochromasia Marked; Lymphocytes # (A) 1.1 k/uL (1.0-4.8); Lymphocytes % (A) 9 %; MCH 28.6 pg (25.0-35.0); MCHC 30.7 g/dL (31.0-37.0); MCV 93.3 fL (80.0-100.0); Mean Platelet Volume 9.6; Monocytes # (A) 0.6 k/uL (0-1.0); Monocytes % (A) 5 %; Neutrophils # (A) 10.3 k/uL (1.3-7.7); Neutrophils % (A) 83 %; Platelet Count 191 k/uL (150-450); RBC 5.11 m/uL (3.80-5.40); RDW 16.3 % (11.5-15.5); WBC 12.4 k/uL (3.8-10.6)
[2024-07-04 02:16] LABS: ALT 32 U/L (4-34); African American GFR (CKD) >90 (>60 ml/min/1.73 sqM); Albumin 3.9 g/dL (3.5-5.0); Anion Gap 10 mmol/L; Blood Urea Nitrogen 13 mg/dL (7-17); Calcium 9.2 mg/dL (8.4-10.2); Carbon Dioxide 31 mmol/L (22-30); Chloride 96 mmol/L (98-107); Glucose 145 mg/dL (74-99); Non-African American GFR(CKD) >90 (>60 ml/min/1.73 sqM); Sodium 137 mmol/L (137-145); Total Protein 7.4 g/dL (6.3-8.2)
[2024-07-04 02:22] LABS: INR 0.9 (<1.2); Partial Thromboplastin Time 23.5 sec (22.0-30.0); Prothrombin Time 10.4 sec (10.0-12.5)
[2024-07-04 02:25] LABS: AST 47 U/L (14-36); Alkaline Phosphatase 233 U/L (38-126); Potassium 4.4 mmol/L (3.5-5.1)
[2024-07-04] MEDS: LORazepam 2 MG/ML INJ IV STA (02:33)
[2024-07-04] MEDS ORDERED: VANCOMYCIN IV PER PHARMACY 1 EACH MISC MISCELLANE PRN (03:18)
[2024-07-04] MEDS ORDERED: NALOXONE 0.4 MG/ML 1 ML VIAL IV PRN (03:25)
--- NOTE | 2024-07-04 03:26 | CT ---
EXAM: CT Angiography Chest With Intravenous Contrast CLINICAL HISTORY: ITS.REASON CT Reason: elevated dimer/sob/hx PE no thinners TECHNIQUE: Axial computed tomographic angiography images of the chest with intravenous contrast. CTDI is 40 mGy and DLP is 1303.2 mGy-cm. This CT exam was performed using one or more of the following dose reduction techniques: automated exposure control, adjustment of the mA and/or kV according to patient size, and/or use of iterative reconstruction technique. MIP reconstructed images were created and reviewed. COMPARISON: No relevant prior studies available. FINDINGS: LUNGS: No focal consolidation, pleural effusion, or pneumothorax. Atelectasis at the lung bases. HEART: Cardiomegaly. VASCULATURE: No large or central pulmonary embolism. Evaluation is limited due to suboptimal contrast bolus timing. Consider repeat exam. THYROID: Within normal limits. MEDIASTINUM + LYMPH NODES: Within normal limits. SUPERIOR ABDOMEN: Hepatic steatosis. MUSCULOSKELETAL: Degenerative changes. IMPRESSION: No large or central pulmonary embolism. Evaluation is limited due to suboptimal contrast bolus timing. Consider repeat exam.
[2024-07-04] MEDS: SODIUM CHLORIDE 0.9% 1,000 ML IV STA ×2 (04:06)
[2024-07-04] MEDS: SODIUM CHLORIDE 0.9% 500 ML 500 ML IV STA (04:06)
--- NOTE | 2024-07-04 04:06 | P.HPIM ---
History of Present Illness H&P Date: 07/04/24 Patient is a 54-year-old female with a PMH of ILD, chronic hypoxic respiratory failure on nasal cannula oxygen at home, chronic bilateral lower extremity lymphedema, and tobacco abuse who presents to the emergency room with complaints of leg swelling, discharge, and pain. Patient reports that her symptoms started 2 days ago when she initially noticed some discharge at her distal left anterior leg close to the ankle. She then also reported quickly worsening redness and swelling of her entire left leg. The patient also reports that over the past several months, she has been unable to use her previously prescribed oxygen as her machine broke and that she has been having difficulties with her insurance. She reports that as a result she has been feeling more short of breath than usual. She reports a prior history of cellulitis of her lower extremities. She denies experiencing fever, chills, chest pain, nausea, vomiting, abdominal pain, diarrhea. In the emergency room a chest CTA was unremarkable, and revealed no large or central pulmonary embolism, albeit a poor study. EKG revealed sinus tachycardia with APCs with no ST/T wave changes noted as reviewed by me at 106 bpm. Laborat ory evaluation revealed WBC count 12.4, chloride 96, CO2 31, glucose 145, troponin less than 0.012. ED documentation reviewed and case discussed with ED provider. Review of systems: Pertinent positives and negatives as discussed in HPI, a complete review of systems was performed and all other systems are negative. Physical examination: Vital signs reviewed General: non toxic, no distress, appears older than stated age, morbidly obese Head: atraumatic, normocephalic, symmetric Eyes: EOMI, no lid lag, anicteric sclera, pupils equal round reactive to light ENT: Nose and ears atraumatic Neck: No cervical lymphadenopathy, trachea midline, supple Mouth: no lip lesion, mucus membranes moist Cardiovascular: S1S2 reg, no murmur, positive dorsalis pedis pulse bilateral, significant bilateral lower extremity nonpitting edema with left distal lower extremity anterior mildly purulent discharge with venous stasis changes noted with erythema with extension up to proximal thigh Lungs: CTA bilateral, no rhonchi, no rales, no accessory muscle use Abdominal: soft, nontender to palpation, no guarding Ext: muscle strength 5 out of 5 in all 4 extremities grossly, no gross muscle atrophy, no contractures, Neuro: CN II-XI grossly intact, no gross focal neuro deficits Psych: Alert, oriented, appropriate affect Assessment: Left lower extremity cellulitis in setting of chronic lymphedema Chronic conditions: ILD, chronic hypoxic respiratory failure Imaging: In the emergency room a chest CTA was unremarkable, and revealed no large or central pulmonary embolism, albeit a poor study. EKG revealed sinus tachycardia with APCs with no ST/T wave changes noted as reviewed by me at 106 bpm. Data Review: Laboratory evaluation revealed WBC count 12.4, chloride 96, CO2 31, glucose 145, troponin less than 0.012. Plan: Continue with vancomycin per pharmacy dosing Consult infectious disease and vascular surgery Follow-up wound cultures Continue with IV fluids normal saline 75 mL/h Continue supplemental oxygen Resume home medications once reconciled DVT prophylaxis: Lovenox subcu The patient is admitted with an anticipated greater than than 2 midnight stay for evaluation of cellulitis CODE STATUS: Full Code Discussed with: Patient Anticipated discharge place: Home Past Medical History Past Medical History: Hypertension Additional Past Medical History / Comment(s): pas hx. kidney stones, RUQ pain, MIGRANES, covid X3 infection and the last infection was in 2021 and this was associated with questionable PE and she was given ASA.Morbid obesity. Chronic leg edema, hypertension. History of Any Multi-Drug Resistant Organisms: None Reported Past Surgical History: Cholecystectomy, Orthopedic Surgery, Tubal Ligation Additional Past Surgical History / Comment(s): wrist surg. Past Anesthesia/Blood Transfusion Reactions: Motion Sickness, Postoperative Nausea & Vomiting (PONV) Additional Past Anesthesia/Blood Transfusion Reaction / Comment(s): severe PONV Past Psychological History: No Psychological Hx Reported Smoking Status: Current every day smoker Past Alcohol Use History: None Reported Past Drug Use History: None Reported - Past Family History Mother Family Medical History: Hypertension Medications and Allergies Home Medications Medication Instructions Recorded Confirmed Type Ascorbic Acid [Vitamin C] 1,000 mg PO W/SUPPER 11/16/20 12/13/23 History Cholecalciferol [Vitamin D3 (25 25 mcg PO W/SUPPER 11/16/20 12/13/23 History Mcg = 1000 Iu)] Multivitamins, Thera [Multivitamin 1 tab PO W/SUPPER 11/16/20 12/13/23 History (formulary)] Zinc 50 mg PO W/SUPPER 11/16/20 12/13/23 History Aspirin 81 mg PO W/SUPPER 12/19/22 12/13/23 History Elderberry Fruit [Elderberry] 350 mg PO W/SUPPER 12/19/22 12/13/23 History L.acidoph,Paracasei, B.lactis 1 cap PO W/SUPPER 12/19/22 12/13/23 History [Probiotic] Turmeric Root Extract [Turmeric] 500 mg PO W/SUPPER 12/19/22 12/13/23 History Acetaminophen Tab [Tylenol] 650 mg PO Q6HR PRN tab 12/21/22 12/13/23 Rx Furosemide [Lasix] 40 mg PO BID@0900,1600 #60 tab 12/21/22 12/13/23 Rx Albuterol Nebulized [Ventolin 2.5 mg INHALATION RT-Q4H PRN 12/08/23 12/13/23 History Nebulized] Albuterol Inhaler [Ventolin Hfa 2 puff INHALATION RT-QID PRN 12/13/23 12/13/23 History Inhaler] Doxycycline [Vibramycin] 100 mg PO BID 10 Days #20 capsule 12/17/23 Rx Levofloxacin [Levaquin] 750 mg PO DAILY 1 Days #10 tab 12/17/23 Rx Allergies Allergy/AdvReac Type Severity Reaction Status Date / Time amoxicillin Allergy Rash/Hives Verified 12/13/23 12:28 azithromycin Allergy Rash/Hives Verified 12/13/23 12:28 cephalexin [From Keflex] Allergy Rash/Hives Verified 12/13/23 12:28 Penicillins Allergy Rash/Hives Verified 12/13/23 12:28 strawberry Allergy Rash/Hives Verified 12/13/23 12:28 Sulfa (Sulfonamide Allergy Skin Verified 12/13/23 12:28 Antibiotics) peeling nitroglycerin AdvReac Rapid Verified 12/13/23 12:28 Heart Rate peanut AdvReac headache Verified 12/13/23 12:28 Physical Exam Vitals: Vital Signs Temp Pulse Resp BP Pulse Ox 07/04/24 00:37 99.0 F 128 H 24 167/87 92 L Intake and Output 07/03/24 07/03/24 07/04/24 14:59 22:59 06:59 Other: Weight 163.293 kg Results CBC & Chem 7: 07/04/24 01:31 07/04/24 01:31 Labs: Abnormal Lab Results - Last 24 Hours (Table) 07/04/24 07/04/24 07/04/24 Range/Units 01:31 01:31 01:31 WBC 12.4 H (3.8-10.6) k/uL Hct 47.7 H (34.0-46.0) % MCHC 30.7 L (31.0-37.0) g/dL RDW 16.3 H (11.5-15.5) % Neutrophils # 10.3 H (1.3-7.7) k/uL D-Dimer 1.51 H (<0.60) mg/L FEU Chloride 96 L (98-107) mmol/L Carbon Dioxide 31 H (22-30) mmol/L Glucose 145 H (74-99) mg/dL AST 47 H (14-36) U/L Alkaline Phosphatase 233 H (38-126) U/L
--- NOTE | 2024-07-04 04:25 | XR ---
EXAM: XR Chest, 2 Views CLINICAL HISTORY: ITS.REASON XR Reason: shortness of breath TECHNIQUE: Frontal and lateral views of the chest. COMPARISON: No relevant prior studies available. FINDINGS: Lungs: Concern for consolidation seen within the left lower lobe. Moderate prominence of the pulmonary vasculature. Pleural space: Unremarkable. No pneumothorax. Heart: Moderate enlargement of the cardiac silhouette. Mediastinum: Unremarkable. Normal mediastinal contour. Bones/joints: Degenerative changes are seen within the spine and shoulders. No acute fracture. IMPRESSION: Moderate pulmonary edema and concern for a left lower lobe pneumonia.
[2024-07-04] MEDS: VANCOMYCIN 2,500 MG in SODIUM CHLORIDE 0.9% 500 ML 500 ML IVPB ONE (04:45)
[2024-07-04] MEDS ORDERED: ACETAMINOPHEN TAB 325 MG TAB PO PRN (06:22)
[2024-07-04] MEDS: NICOTINE 14MG/24HR PATCH TRANSDERM SCH (06:29)
[2024-07-04] MEDS: HYDROcodone/APAP 5-325MG 1 EACH TAB PO PRN (07:18)
[2024-07-04] MEDS: ENOXAPARIN 40 MG/0.4 ML SYRINGE SQ SCH (08:48)
--- NOTE | 2024-07-04 09:15 | P.GSCN ---
History of Present Illness Consult date: 07/04/24 Reason for Consult: Left lower extremity cellulitis. History of present illness: Patient is a 54-year-old female who presented with a chief complaint of erythema of the the left lower extremity extending from the distal calf level to the thigh area, mostly along the anterior medial aspect of her leg. Patient was subsequently admitted for IV antibiotics. Patient has no known history of deep venous thrombosis. She does not utilize compression hose. Past Medical History Past Medical History: Hypertension Additional Past Medical History / Comment(s): pas hx. kidney stones, RUQ pain, MIGRANES, covid X3 infection and the last infection was in 2021 and this was associated with questionable PE and she was given ASA.Morbid obesity. Chronic leg edema, hypertension. History of Any Multi-Drug Resistant Organisms: None Reported Past Surgical History: Cholecystectomy, Orthopedic Surgery, Tubal Ligation Additional Past Surgical History / Comment(s): wrist surg. Past Anesthesia/Blood Transfusion Reactions: Motion Sickness, Postoperative Nausea & Vomiting (PONV) Additional Past Anesthesia/Blood Transfusion Reaction / Comm: severe PONV Past Psychological History: No Psychological Hx Reported Smoking Status: Current every day smoker Past Alcohol Use History: None Reported Past Drug Use History: None Reported - Past Family History Mother Family Medical History: Hypertension Medications and Allergies Home Medications Medication Instructions Recorded Confirmed Type Albuterol Nebulized [Ventolin 2.5 mg INHALATION RT-Q4H PRN 12/08/23 07/04/24 History Nebulized] Albuterol Inhaler [Ventolin Hfa 2 puff INHALATION RT-QID PRN 12/13/23 07/04/24 History Inhaler] Allergies Allergy/AdvReac Type Severity Reaction Status Date / Time amoxicillin Allergy Rash/Hives Verified 07/04/24 07:46 azithromycin Allergy Rash/Hives Verified 07/04/24 07:46 cephalexin [From Keflex] Allergy Rash/Hives Verified 07/04/24 07:46 Penicillins Allergy Rash/Hives Verified 07/04/24 07:46 strawberry Allergy Rash/Hives Verified 07/04/24 07:46 Sulfa (Sulfonamide Allergy Skin Verified 07/04/24 07:46 Antibiotics) peeling nitroglycerin AdvReac Rapid Verified 07/04/24 07:46 Heart Rate peanut AdvReac headache Verified 07/04/24 07:46 Surgical - Exam Osteopathic Statement: *. No significant issues noted on an osteopathic structural exam other than those noted in the History and Physical/Consult. Vital Signs Temp Pulse Resp BP Pulse Ox 99.0 F 128 H 24 167/87 92 L 07/04/24 00:37 07/04/24 00:37 07/04/24 00:37 07/04/24 00:37 07/04/24 00:37 Patient Seen Date: 07/04/24 Patient Seen Time: 08:30 Patient is awake, alert, cooperative no apparent distress. Heart: Regular rate and rhythm Lungs: Clear to auscultation bilaterally. Abdomen: Soft/nontender. Extremities: Evidence of chronic venous insufficiency is demonstrated bilaterally with stasis dermatitic changes, more pronounced on the left than on the right. The patient is draining a small amount of serous fluid from the medial/anterior aspect of her mid calf on the left. Cellulitic reaction is identified at the calf and thigh level, more pronounced anteriorly and medially. Palpation of pulses was attempted however due to the patient's leg edema pulses could not be palpated although I do not have significant clinical suspicion of arterial insufficiency. Webspaces are unremarkable. Results - Labs 07/04/24 01:31 07/04/24 01:31 Abnormal Lab Results - Last 24 Hours (Table) 07/04/24 07/04/24 07/04/24 Range/Units 01:31 01:31 01:31 WBC 12.4 H (3.8-10.6) k/uL Hct 47.7 H (34.0-46.0) % MCHC 30.7 L (31.0-37.0) g/dL RDW 16.3 H (11.5-15.5) % Neutrophils # 10.3 H (1.3-7.7) k/uL D-Dimer 1.51 H (<0.60) mg/L FEU Chloride 96 L (98-107) mmol/L Carbon Dioxide 31 H (22-30) mmol/L Glucose 145 H (74-99) mg/dL AST 47 H (14-36) U/L Alkaline Phosphatase 233 H (38-126) U/L Diabetes panel 07/04/24 Range/Units 01:31 Sodium 137 (137-145) mmol/L Potassium 4.4 (3.5-5.1) mmol/L Chloride 96 L (98-107) mmol/L Carbon Dioxide 31 H (22-30) mmol/L BUN 13 (7-17) mg/dL Creatinine 0.57 (0.52-1.04) mg/dL Glucose 145 H (74-99) mg/dL Calcium 9.2 (8.4-10.2) mg/dL AST 47 H (14-36) U/L ALT 32 (4-34) U/L Alkaline Phosphatase 233 H (38-126) U/L Total Protein 7.4 (6.3-8.2) g/dL Albumin 3.9 (3.5-5.0) g/dL Calcium panel 07/04/24 Range/Units 01:31 Calcium 9.2 (8.4-10.2) mg/dL Albumin 3.9 (3.5-5.0) g/dL Pituitary panel 07/04/24 Range/Units 01:31 Sodium 137 (137-145) mmol/L Potassium 4.4 (3.5-5.1) mmol/L Chloride 96 L (98-107) mmol/L Carbon Dioxide 31 H (22-30) mmol/L BUN 13 (7-17) mg/dL Creatinine 0.57 (0.52-1.04) mg/dL Glucose 145 H (74-99) mg/dL Calcium 9.2 (8.4-10.2) mg/dL Adrenal panel 07/04/24 Range/Units 01:31 Sodium 137 (137-145) mmol/L Potassium 4.4 (3.5-5.1) mmol/L Chloride 96 L (98-107) mmol/L Carbon Dioxide 31 H (22-30) mmol/L BUN 13 (7-17) mg/dL Creatinine 0.57 (0.52-1.04) mg/dL Glucose 145 H (74-99) mg/dL Calcium 9.2 (8.4-10.2) mg/dL Total Bilirubin 1.0 (0.2-1.3) mg/dL AST 47 H (14-36) U/L ALT 32 (4-34) U/L Alkaline Phosphatase 233 H (38-126) U/L Total Protein 7.4 (6.3-8.2) g/dL Albumin 3.9 (3.5-5.0) g/dL - Imaging Chest x-ray: report reviewed Assessment and Plan Assessment: 1: Cellulitis of the left lower extremity. 2: Chronic venous insufficiency bilateral lower extremities. 3: Morbid obesity 4: History of tobacco use with the patient now smoking only 2 cigarettes daily with goal of complete tobacco cessation. 5: Leukocytosis. 6: Possible left lower lobe pneumonia per chest x-ray report. Plan: 1: Agree with currently instituted therapy of IV antibiotics. 2: Discussed with patient the need for leg elevation when not ambulatory, eating or using the restroom. 3: Patient will benefit by compression therapy. The patient may not be able to utilize compression hose however device such as a Farrow compression wrap would be helpful. This would need to be utilized daily. 4: The patient's obesity is playing a major role in her current leg issues. I discussed with the patient need for weight loss. Will consult dietary to begin dietary counseling. 5: Will be happy to follow with the patient in the outpatient setting. Time with Patient: Greater than 30
[2024-07-04] MEDS ORDERED: ALBUTEROL NEBULIZED 2.5 MG/3 ML INHALATION PRN (12:07)
[2024-07-04] MEDS: VANCOMYCIN 2,250 MG in SODIUM CHLORIDE 0.9% 500 ML 500 ML IVPB SCH (13:22)
[2024-07-04 13:35] VITALS: BMI 63.8
[2024-07-05] MEDS: HYDROmorphone 1 MG/ML 1 ML SYRINGE IVP PRN (02:16)
[2024-07-05 03:17] LABS: ABG Base Excess 4.2 mmol/L; ABG HCO3 33 mmol/L (21-25); ABG Oxygen Saturation 82.3 % (94-97); ABG PCO2 70 mmHg (35-45); ABG PH 7.29 (7.35-7.45); ABG TCO2 35 mmol/L (19-24); Allen Test Performed? Yes
[2024-07-05 03:21] LABS: ABG PO2 51 mmHg (83-108)
[2024-07-05 04:15] LABS: ALT 30 U/L (4-34); AST 29 U/L (14-36); African American GFR (CKD) >90 (>60 ml/min/1.73 sqM); Albumin 3.5 g/dL (3.5-5.0); Albumin/Globulin Ratio 1.1; Alkaline Phosphatase 225 U/L (38-126); Anion Gap 6 mmol/L; Blood Urea Nitrogen 10 mg/dL (7-17); Calcium 8.9 mg/dL (8.4-10.2); Carbon Dioxide 32 mmol/L (22-30); Chloride 99 mmol/L (98-107); Globulin 3.1 g/dL; Glucose 130 mg/dL (74-99); Non-African American GFR(CKD) >90 (>60 ml/min/1.73 sqM); Potassium 4.3 mmol/L (3.5-5.1); Sodium 137 mmol/L (137-145); Total Bilirubin 0.7 mg/dL (0.2-1.3); Total Protein 6.6 g/dL (6.3-8.2)
--- NOTE | 2024-07-05 08:01 | P.CONS ---
History of Present Illness - Reason for Consult Consult date: 07/04/24 Cellulitis/sepsis Requesting physician: Krystle Villanueva - Chief Complaint Increasing pain swelling redness to the left leg x 2 days - History of Present Illness Patient is a 54-year-old female with a past medical history significant for hypertension morbid obesity chronic bilateral lower extremity swelling presenting to the hospital for evaluation of left leg pain and swelling redness apparently has been getting worse for the last 2 days before the patient presented to the hospital patient also have 2 wounds to the left calf that apparently has been draining over the last 2 days patient described the pain to be sharp moderate to severe intensity without radiation patient denies high- grade fever or chills at home on presentation to the hospital patient did have a low-grade fever of 99 degrees for night patient was tachycardic but not hypotensive mildly hypoxic requiring a BiPAP and supplemental oxygen complaining of some shortness of breath no chest pain no nausea vomiting no abdominal pain no vomiting diarrhea on presentation to the hospital patient did have a white count of 12.4 creatinine 0.57 electrolyte has been normal liver enzymes normal influenza RSV COVID testing has been negative local culture. She currently pending patient did have CT angiogram of the chest that was negative for PE patient was started on vancomycin because of her cephalexin and penicillin allergy infectious disease was consulted today regarding cellulitis/sepsis Review of Systems Positive point and negatives has been mentioned in the HPI, complete review of systems was performed and all other systems are negative Past Medical History Past Medical History: Hypertension Additional Past Medical History / Comment(s): pas hx. kidney stones, RUQ pain, MIGRANES, covid X3 infection and the last infection was in 2021 and this was associated with questionable PE and she was given ASA.Morbid obesity. Chronic leg edema, hypertension. History of Any Multi-Drug Resistant Organisms: None Reported Past Surgical History: Cholecystectomy, Orthopedic Surgery, Tubal Ligation Additional Past Surgical History / Comment(s): wrist surg. Past Anesthesia/Blood Transfusion Reactions: Motion Sickness, Postoperative Nausea & Vomiting (PONV) Additional Past Anesthesia/Blood Transfusion Reaction / Comm: severe PONV Past Psychological History: No Psychological Hx Reported Smoking Status: Current every day smoker Past Alcohol Use History: None Reported Past Drug Use History: None Reported - Past Family History Mother Family Medical History: Hypertension Medications and Allergies Home Medications Medication Instructions Recorded Confirmed Type Albuterol Nebulized [Ventolin 2.5 mg INHALATION RT-Q4H PRN 12/08/23 07/04/24 History Nebulized] Albuterol Inhaler [Ventolin Hfa 2 puff INHALATION RT-QID PRN 12/13/23 07/04/24 History Inhaler] Allergies Allergy/AdvReac Type Severity Reaction Status Date / Time amoxicillin Allergy Rash/Hives Verified 07/04/24 07:46 azithromycin Allergy Rash/Hives Verified 07/04/24 07:46 cephalexin [From Keflex] Allergy Rash/Hives Verified 07/04/24 07:46 Penicillins Allergy Rash/Hives Verified 07/04/24 07:46 strawberry Allergy Rash/Hives Verified 07/04/24 07:46 Sulfa (Sulfonamide Allergy Skin Verified 07/04/24 07:46 Antibiotics) peeling nitroglycerin AdvReac Rapid Verified 07/04/24 07:46 Heart Rate peanut AdvReac headache Verified 07/04/24 07:46 Physical Exam Vitals: Vital Signs Temp Pulse Pulse Resp BP BP Pulse Ox 07/04/24 08:00 98.7 F 97 17 159/94 92 L 07/04/24 06:30 97 20 92 L 07/04/24 04:53 85 24 164/100 92 L 07/04/24 00:37 99.0 F 128 H 24 167/87 92 L Intake and Output 07/03/24 07/04/24 07/04/24 22:59 06:59 14:59 Intake Total 237 Balance 237 Intake: Oral 237 Other: Weight 163.293 kg GENERAL DESCRIPTION: Middle-aged female lying in bed, no distress. No tachypnea or accessory muscle of respiration use. HEENT: Shows Pallor , no scleral icterus. Oral mucous membrane is dry. No pharyngeal erythema or thrush NECK: Trachea central, no thyromegaly. LUNGS: Unlabored breathing. Clear to auscultation anteriorly. No wheeze or crackle. HEART: S1, S2, regular rate and rhythm. No loud murmur ABDOMEN: Soft, no tenderness , guarding or rigidity, no organomegaly EXTREMITIES: Diffuse swelling to bilateral extremity with more redness to the left leg some superficial ulceration no foul-smelling drainage SKIN: No rash, no masses palpable. NEUROLOGICAL: The patient is lethargic but arousable, mood and affect normal. Results CBC & Chem 7: 07/04/24 01:31 07/05/24 03:50 Labs: Abnormal Lab Results - Last 24 Hours (Table) 07/04/24 07/04/24 07/04/24 Range/Units 01:31 01: 01:31 WBC 12.4 H (3.8-10.6) k/uL Hct 47.7 H (34.0-46.0) % MCHC 30.7 L (31.0-37.0) g/dL RDW 16.3 H (11.5-15.5) % Neutrophils # 10.3 H (1.3-7.7) k/uL D-Dimer 1.51 H (<0.60) mg/L FEU Chloride 96 L (98-107) mmol/L Carbon Dioxide 31 H (22-30) mmol/L Glucose 145 H (74-99) mg/dL AST 47 H (14-36) U/L Alkaline Phosphatase 233 H (38-126) U/L Assessment and Plan (1) Sepsis Current Visit: Yes Status: Acute Code(s): A41.9 - SEPSIS, UNSPECIFIED ORGANISM SNOMED Code(s): 78769985 (2) Allergy to multiple antibiotics Current Visit: No Status: Acute Code(s): Z88.1 - ALLERGY STATUS TO OTHER ANTIBIOTIC AGENTS SNOMED Code(s): 249377637 (3) Left leg cellulitis Current Visit: No Status: Acute Code(s): L03.116 - CELLULITIS OF LEFT LOWER LIMB SNOMED Code(s): 68229103102735482 Plan: 1patient presented to hospital with sepsis in this patient who did have a low- grade fever tachycardia elevated white count meeting criteria for SIRS/sepsis source is left lower extremity cellulitis in this patient who did have diffuse swelling redness likely streptococcal infection MRSA not entirely excluded 2-patient with multiple antibiotic ALLERGIES that would limit the number of antibiotic safe to use 3-marked the area of the redness 4-check lower extremity Doppler if negative apply Mack wrap from just above the toe to below the knee 5-vancomycin pharmacy to dose target trough of 15 while watching kidney function and Vanco trough closely We will follow on clinical condition and cultures to further adjust medication if needed Thank you for this consultation we will follow the patient along with you Dictation was produced using [employer] software. please excuse any grammatical, word or spelling errors. Time with Patient: Greater than 30
[2024-07-05 09:03] LABS: Basophils # (A) 0.09 X 10*3/uL (0.00-0.10); Basophils % (A) 0.7 %; Eosinophils # (A) 0.09 X 10*3/uL (0.04-0.35); Eosinophils % (A) 0.7 %; HCT 48.6 % (37.2-46.3); HGB 13.7 g/dL (12.0-15.0); Lymphocytes # (A) 1.33 X 10*3/uL (0.90-5.00); Lymphocytes % (A) 10.9 %; MCH 27.2 pg (27.0-32.0); MCHC 28.2 g/dL (32.0-37.0); MCV 96.6 FL (80.0-97.0); Mean Platelet Volume 11.5 FL (9.5-12.2); Monocytes % (A) 9.9 %; NRBC Per 100 WBC 0 X 10*3/uL (0.00-0.01); Neutrophils # (A) 9.32 X 10*3/uL (1.80-7.70); Neutrophils % (A) 76.8 %; Platelet Count 209 X 10*3/uL (140-440); RBC 5.03 X 10*6/uL (4.10-5.20); WBC 12.15 X 10*3/uL (4.50-10.00)
[2024-07-05] MEDS: NYSTATIN 100,000 UNIT/GM POWD 15 GM TOPICAL SCH (09:44)
--- NOTE | 2024-07-05 12:31 | P.PN ---
Subjective Progress Note Date: 07/05/24 Hospital course: Patient is a 54-year-old female with a past medical history of interstitial lung disease, chronic hypoxic respiratory failure home oxygen dependent 2 L, chronic bilateral lower extremity lymphedema with venous stasis changes, hypertension, morbid obesity with BMI of 63.8 kg/m and nicotine dependence. Patient presented to our facility on 07/04/2023 with a chief complaint of lower extremity swelling, drainage, and pain. Patient reports that her symptoms started 2 days ago when she initially noticed some discharge at her distal left anterior leg close to the ankle. She then also reported quickly worsening redness and swelling of her entire left leg. Upon arrival to our facility, patient underwent evaluation in the emergency department. Vital signs upon arrival show blood pressure 167/87, heart rate 128, respiratory rate 24, temp 99.0 F, and SpO2 of 92% on room air. EKG was completed showing sinus tachycardia at 106 bpm with no significant T wave or ST abnormality showing no signs of acute ischemia upon personal review and interpretation. Chest x-ray completed showing moderate pulmonary edema. Labs completed and reviewed. CBC showing leukocytosis with WBC count of 12.4 and elevated hematocrit of 47.7. Coagulation profile showing elevated D-dimer of 1.51. BMP showing non-anion gap metabolic alkalosis with chloride of 96, bicarb of 31, and anion gap of 10. Blood glucose 145. Lactic acid 1.5. Liver profile showing elevated AST of 47 and alkaline phosphatase of 233. Troponin was negative at less than 0.012. Influenza A, influenza B, RSV, and COVID PCR were negative. Patient was admitted under services with consultation to infectious disease and vascular surgery secondary to lymphedema. CTA negative for pulmonary emboli however reported evaluation is limited due to suboptimal contrast bolus timing. Left lower extremity Doppler was completed also reported very limited examination of mid and distal femoral vein and popliteal vein not able to be evaluated however no reported obvious DVTs reported. Physical exam: Patient seen and fully evaluated at bedside this morning. Patient was walking back from bathroom with his walker. Patient tachypneic with labored respirations secondary to exertion with movement. She currently reports feeling much better than she did when she came in. Reports her breathing is better and states the pain in her left lower extremity has improved. Vital signs reviewed and stable. General: Nontoxic, no distress and appears stated age. Morbidly obese. Derm: Skin warm and dry, normal coloration for ethnicity. Significant bilateral lower extremity nonpitting edema with left distal lower extremity anterior mildly purulent discharge with venous stasis changes noted with erythema with extension up to proximal thigh Head: Atraumatic, normocephalic and symmetric. Eyes: EOM's intact, no lid lag, and anicteric sclera Mouth: no lip lesions, mucus membranes moist Cardiovascular: regular rate and rhythm with normal S1S2, no murmur, positive posterior tibial pulses bilaterally, and cap refill < 2 seconds. Lungs: Respirations even, regular, and unlabored on room air. Lungs CTA bilaterally, no rhonchi, no rales, no wheezing, and no accessory muscle usage. Abdominal: soft, nontender to palpation, no guarding, no appreciable organomegaly Ext: ROM intact. No gross muscle atrophy, no edema, no contractures Neuro: Speech clear, face symmetrical and CN II-XII grossly intact with no noted focal neuro deficits Psych: Alert and oriented to person, place, time, and situation. Appropriate and pleasant affect. Assessment and Plan of Care: Left lower extremity cellulitis in setting of chronic lymphedema Chronic bilateral lower extremity lymphedema -Infectious disease following, reviewed documentation in chart. -Continue IV antibiotics with vancomycin 2500 mg every 12 hours. Monitor renal function and vancomycin trough closely for any signs/symptoms of vancomycin associated renal toxicity. -Follow-up on wound culture and blood culture. -Vascular surgery following, appreciate recommendations. -Symptomatic care and pain management. -Wound care. Chronic hypoxic and hypercarbic respiratory failure Interstitial lung disease Pulmonary edema Obstructive sleep apnea CPAP dependent nightly Elevated D-dimer, CTA negative for PE -Oxygenation to be administered and titrated as needed to maintain SPO2 equal to or greater than 90% -Telemetry monitoring. -Monitor pulse-oximetry -Duonebs scheduled 4 times daily and as needed for SOB and/or wheezing -Incentive Spirometry -Continue CPAP nightly and while napping -Continue Lasix 40 mg twice daily. Morbid obesity with BMI of 63.8 kg/m -Recommend structured outpatient weight management program. Data and imaging reviewed: -CTA negative for pulmonary emboli however reported evaluation is limited due to suboptimal contrast bolus timing. -Left lower extremity Doppler was completed also reported very limited examination of mid and distal femoral vein and popliteal vein not able to be evaluated however no reported obvious DVTs reported. -Morning labs reviewed. CBC showing leukocytosis with WBC count of 12.15, hematocrit 48.6. BMP showing hypercarbia with bicarb of 32 otherwise normal findings. Blood glucose 130. Liver profile showing elevated alkaline phosphatase of 225 otherwise normal findings. -Vital signs reviewed. Blood pressure 159/94, heart rate 97, respiratory rate 17, temp 98.7 F, and SpO2 of 92% on 3 L. CODE STATUS: Full code DVT prophylaxis: Lovenox Anticipated discharge date: Pending clinical course Anticipated discharge place: Home Patient was seen independently by Nurse Pracitioner. This document was prepared using [employer] dictation software. Please allow for errors in gas technician, while rare they do occur. Shaw Claudio NP rendered care for this patient independently, reviewed the findings and plan as documented in the note above and agree with plan. I did not physically speak with or examine the patient on this date. Objective - Vital Signs Vital signs: Vital Signs Temp 98.2 F 07/05/24 07:30 Pulse 102 H 07/05/24 03:11 Resp 24 07/05/24 07:30 BP 132/82 07/05/24 07:30 Pulse Ox 91 L 07/05/24 03:11 FiO2 40 07/05/24 03:47 Intake & Output 07/04/24 07/05/24 07/05/24 18:59 06:59 18:59 Intake Total 1557 Balance 1557 Weight 163.293 kg Intake: Oral 1557 Other: # Voids 4 1 # Bowel Movements 1 - Labs CBC & Chem 7: 07/05/24 03:50 07/05/24 03:50 Labs: Abnormal Lab Results - Last 24 Hours (Table) 07/05/24 07/05/24 07/05/24 Range/Units 03:15 03:50 03:50 WBC 12.15 H (4.50-10.00) X 10*3/uL Hct 48.6 H (37.2-46.3) % MCHC 28.2 L (32.0-37.0) g/dL RDW 17.0 H (11.5-14.5) % Immature Gran # 0.12 H (0.00-0.04) X 10*3/uL Neutrophils # 9.32 H (1.80-7.70) X 10*3/uL Monocytes # 1.20 H (0.20-1.00) X 10*3/uL ABG pH 7.29 L (7.35-7.45) ABG pCO2 70 H (35-45) mmHg ABG pO2 51 L* (83-108) mmHg ABG HCO3 33 H (21-25) mmol/L ABG Total CO2 35 H (19-24) mmol/L ABG O2 Saturation 82.3 L (94-97) % Carbon Dioxide 32 H (22-30) mmol/L Glucose 130 H (74-99) mg/dL Alkaline Phosphatase 225 H (38-126) U/L Microbiology - Last 24 Hours (Table) 07/04/24 01:24 Gram Stain - Preliminary Leg - Left
--- NOTE | 2024-07-05 13:08 | US ---
EXAMINATION TYPE: US venous doppler duplex LE LT DATE OF EXAM: 07/05/2024 9:25 AM Exam done portable COMPARISON: US 2023 CLINICAL INDICATION: Female, 54 years old with history of Swelling; , Pain TECHNIQUE: The lower extremity deep venous system is examined utilizing real time linear array sonog brittny with graded compression, color doppler sonography, and spectral doppler. SIDE PERFORMED: Left FINDINGS: VESSELS IMAGED: Common Femoral Vein Deep Femoral Vein Greater Saphenous Vein * Femoral Vein Popliteal Vein Small Saphenous Vein * Proximal Calf Veins (* superficial vessels) EIV, GSV, mid and distal femoral vein and popliteal vein not seen due to patient body habitus and rehana ma, compression images not done - patient unable to tolerate probe pressure Left Leg: Color flow seen within CFV and proximal femoral vein IMPRESSION: 1. Very limited examination. Mid and distal femoral vein, popliteal vein not able to be evaluated. 2. No obvious deep venous thrombosis. [facility], , 07/05/2024 1:05 PM
--- NOTE | 2024-07-05 15:14 | P.PN ---
Subjective Progress Note Date: 07/05/24 Principal diagnosis: Reason for follow-up is left lower extremity cellulitis Patient is a 54-year-old female with a past medical history significant for hypertension morbid obesity chronic bilateral lower extremity swelling presenting to the hospital for evaluation of left leg pain and swelling redness has been diagnosed with a cellulitis. On today's evaluation that is 07/05/2024, the patient continues to be afebrile, the patient is on 5 L nasal cannula oxygen and breathing comfortably, the Pt denies having any chest pain or cough, the patient denies having any abdominal pain no vomiting or any diarrhea still complaining of pain to the left lower extremity. Patient white count is 12.15 creatinine 0.58 local cultures pending Objective - Vital Signs Vital signs: Vital Signs Temp 98.2 F 07/05/24 07:30 Pulse 102 H 07/05/24 03:11 Resp 24 07/05/24 07:30 BP 132/82 07/05/24 07:30 Pulse Ox 91 L 07/05/24 03:11 FiO2 40 07/05/24 10:00 Intake & Output 07/04/24 07/05/24 07/05/24 18:59 06:59 18:59 Intake Total 1557 480 Balance 1557 480 Weight 163.293 kg Intake: Oral 1557 480 Other: # Voids 4 1 # Bowel Movements 1 - Exam GENERAL DESCRIPTION: Middle-age female up in bed in no distress RESPIRATORY SYSTEM: Unlabored breathing , decreased breath sounds at bases HEART: S1 S2 regular rate and rhythm , ABDOMEN: Soft , no tenderness EXTREMITIES: Diffuse swelling bilateral lower extremity with left leg redness no worsening - Labs CBC & Chem 7: 07/05/24 03:50 07/05/24 03:50 Labs: Abnormal Lab Results - Last 24 Hours (Table) 07/05/24 07/05/24 07/05/24 Range/Units 03:15 03:50 03:50 WBC 12.15 H (4.50-10.00) X 10*3/uL Hct 48.6 H (37.2-46.3) % MCHC 28.2 L (32.0-37.0) g/dL RDW 17.0 H (11.5-14.5) % Immature Gran # 0.12 H (0.00-0.04) X 10*3/uL Neutrophils # 9.32 H (1.80-7.70) X 10*3/uL Monocytes # 1.20 H (0.20-1.00) X 10*3/uL ABG pH 7.29 L (7.35-7.45) ABG pCO2 70 H (35-45) mmHg ABG pO2 51 L* (83-108) mmHg ABG HCO3 33 H (21-25) mmol/L ABG Total CO2 35 H (19-24) mmol/L ABG O2 Saturation 82.3 L (94-97) % Carbon Dioxide 32 H (22-30) mmol/L Glucose 130 H (74-99) mg/dL Alkaline Phosphatase 225 H (38-126) U/L Microbiology - Last 24 Hours (Table) 07/04/24 01:24 Gram Stain - Preliminary Leg - Left Wound Culture - Preliminary Assessment and Plan (1) Sepsis Current Visit: Yes Status: Acute Code(s): A41.9 - SEPSIS, UNSPECIFIED ORGANISM SNOMED Code(s): 80350282 (2) Allergy to multiple antibiotics Current Visit: No Status: Acute Code(s): Z88.1 - ALLERGY STATUS TO OTHER ANTIBIOTIC AGENTS SNOMED Code(s): 898210690 (3) Left leg cellulitis Current Visit: No Status: Acute Code(s): L03.116 - CELLULITIS OF LEFT LOWER LIMB SNOMED Code(s): 51671319857711679 Plan: 1patient presented to hospital with sepsis in this patient who did have a low- grade fever tachycardia elevated white count meeting criteria for SIRS/sepsis source is left lower extremity cellulitis in this patient who did have diffuse swelling redness likely streptococcal infection MRSA not entirely excluded 2-patient with multiple antibiotic ALLERGIES that would limit the number of antibiotic safe to use 3- lower extremity Doppler will advise negative apply Mack wrap from just above the toe to below the knee 4patient to continue vancomycin pharmacy to dose target trough of 15 while waiting for the culture to finalize Dictation was produced using [employer] dictation software. please excuse any grammatical, word or spelling errors.
[2024-07-05] MEDS: FUROSEMIDE 40 MG TAB PO SCH (16:38)
[2024-07-05] MEDS ORDERED: ZINC OXIDE PASTE (Z-GUARD) 1 APPLIC TOPICAL PRN (16:41)
[2024-07-05] MEDS ORDERED: IPRATROPIUM-ALBUTEROL 3 ML NEB INHALATION PRN (18:11)
[2024-07-05] MEDS: IPRATROPIUM-ALBUTEROL 3 ML NEB INHALATION SCH (21:35)
[2024-07-06] MEDS: LORazepam 2 MG/ML INJ IV ONE (01:22)
[2024-07-06 09:44] LABS: HCT 43.5 % (37.2-46.3); HGB 12.7 g/dL (12.0-15.0); MCHC 29.2 g/dL (32.0-37.0); Mean Platelet Volume 12.3 FL (9.5-12.2); NRBC Per 100 WBC 0 X 10*3/uL (0.00-0.01); Platelet Count 223 X 10*3/uL (140-440); RBC 4.53 X 10*6/uL (4.10-5.20); RDW 16.8 % (11.5-14.5); WBC 9.72 X 10*3/uL (4.50-10.00)
[2024-07-06 10:11] LABS: BUN/Creat Ratio 15.17 Ratio (12.00-20.00); Blood Urea Nitrogen 9.1 mg/dL (9.0-27.0); Chloride 101 mmol/L (96-109); Glucose 160 mg/dL (70-110); Potassium 4.6 mmol/L (3.5-5.5); Sodium 140 mmol/L (135-145)
[2024-07-06 10:12] LABS: ALT 24 U/L (8-44); AST 26 U/L (13-35); Albumin 3.2 g/dL (3.8-4.9); Albumin/Globulin Ratio 1.23 Ratio (1.60-3.17); Alkaline Phosphatase 217 U/L (41-126); Calcium 8.5 mg/dL (8.7-10.3); Globulin 2.6 g/dL (1.6-3.3); Total Bilirubin 0.5 mg/dL (0.3-1.2); Total Protein 5.8 g/dL (6.2-8.2)
[2024-07-06] MEDS: VANCOMYCIN 2,500 MG in SODIUM CHLORIDE 0.9% 500 ML 500 ML IVPB SCH (14:05)
[2024-07-06] MEDS: VANCOMYCIN TROUGH DUE 1 EACH MISC MISCELLANE ONE (14:41)
--- NOTE | 2024-07-06 17:59 | P.PN ---
Subjective Progress Note Date: 07/06/24 Hospital course: Patient is a 54-year-old female with a past medical history of interstitial lung disease, chronic hypoxic respiratory failure home oxygen dependent 2 L, chronic bilateral lower extremity lymphedema with venous stasis changes, hypertension, morbid obesity with BMI of 63.8 kg/m and nicotine dependence. Patient presented to our facility on 07/04/2023 with a chief complaint of lower extremity swelling, drainage, and pain. Patient reports that her symptoms started 2 days ago when she initially noticed some discharge at her distal left anterior leg close to the ankle. She then also reported quickly worsening redness and swelling of her entire left leg. Upon arrival to our facility, patient underwent evaluation in the emergency department. Vital signs upon arrival show blood pressure 167/87, heart rate 128, respiratory rate 24, temp 99.0 F, and SpO2 of 92% on room air. EKG was completed showing sinus tachycardia at 106 bpm with no significant T wave or ST abnormality showing no signs of acute ischemia upon personal review and interpretation. Chest x-ray completed showing moderate pulmonary edema. Labs completed and reviewed. CBC showing leukocytosis with WBC count of 12.4 and elevated hematocrit of 47.7. Coagulation profile showing elevated D-dimer of 1.51. BMP showing non-anion gap metabolic alkalosis with chloride of 96, bicarb of 31, and anion gap of 10. Blood glucose 145. Lactic acid 1.5. Liver profile showing elevated AST of 47 and alkaline phosphatase of 233. Troponin was negative at less than 0.012. Influenza A, influenza B, RSV, and COVID PCR were negative. Patient was admitted under services with cons ultation to infectious disease and vascular surgery secondary to lymphedema. CTA negative for pulmonary emboli however reported evaluation is limited due to suboptimal contrast bolus timing. Left lower extremity Doppler was completed also reported very limited examination of mid and distal femoral vein and popliteal vein not able to be evaluated however no reported obvious DVTs reported. Physical exam: Patient seen and fully evaluated at bedside this morning. Patient tearful this morning and reports she pulled off oxygen after breathing treatment. Patient is walking to restroom without oxygen in place and was strongly educated on importance of wearing as patient already has exertional dyspnea which could lead to hypoxia without her baseline oxygen. Vital signs reviewed and stable. General: Nontoxic, no distress and appears stated age. Morbidly obese. Derm: Skin warm and dry, normal coloration for ethnicity. Significant bilateral lower extremity nonpitting edema with left distal lower extremity anterior mildly purulent discharge with venous stasis changes noted with erythema with extension up to proximal thigh Head: Atraumatic, normocephalic and symmetric. Eyes: EOM's intact, no lid lag, and anicteric sclera Mouth: no lip lesions, mucus membranes moist Cardiovascular: regular rate and rhythm with normal S1S2, no murmur, positive posterior tibial pulses bilaterally, and cap refill < 2 seconds. Lungs: Respirations even, regular, and unlabored on room air. Lungs CTA bilaterally, no rhonchi, no rales, no wheezing, and no accessory muscle usage. Abdominal: soft, nontender to palpation, no guarding, no appreciable organomeg too Ext: ROM intact. No gross muscle atrophy, no edema, no contractures Neuro: Speech clear, face symmetrical and CN II-XII grossly intact with no noted focal neuro deficits Psych: Alert and oriented to person, place, time, and situation. Appropriate and pleasant affect. Assessment and Plan of Care: Left lower extremity cellulitis in setting of chronic lymphedema Chronic bilateral lower extremity lymphedema -Infectious disease following, reviewed documentation in chart. -Continue IV antibiotics with vancomycin 2500 mg every 12 hours. Monitor renal function and vancomycin trough closely for any signs/symptoms of vancomycin associated renal toxicity. -Follow-up on wound culture and blood culture. -Vascular surgery following, reviewed documentation in chart. -Symptomatic care and pain management. -Wound care. Chronic hypoxic and hypercarbic respiratory failure Interstitial lung disease Pulmonary edema Obstructive sleep apnea CPAP dependent nightly Elevated D-dimer, CTA negative for PE -Oxygenation to be administered and titrated as needed to maintain SPO2 equal to or greater than 90% -Telemetry monitoring. -Monitor pulse-oximetry -Duonebs scheduled 4 times daily and as needed for SOB and/or wheezing -Incentive Spirometry -Continue CPAP nightly and while napping -Continue Lasix 40 mg twice daily. Morbid obesity with BMI of 63.8 kg/m -Recommend structured outpatient weight management program. Data and imaging reviewed: -Morning labs reviewed. CBC showing resolution of leukocytosis with WBC count decreasing from 12.15 down to 9.72 this morning. BMP unremarkable. Blood glucose 160. Magnesium 2.0. Liver profile showing continued improvement but elevation of alkaline phosphatase of 217. Vancomycin trough therapeutic at 11 .5. -Vital signs reviewed. Blood pressure 158/96, heart rate 110, respiratory rate 16, temp 97.8 F, and SpO2 of 96% on 5 L. CODE STATUS: Full code DVT prophylaxis: Lovenox Anticipated discharge date: Pending clinical course Anticipated discharge place: Home Patient was seen independently by Nurse Pracitioner. This document was prepared using [employer] dictation software. Please allow for errors in applications development analyst, while rare they do occur. Shaw Claudio [employer] GINNER HELPER rendered care for this patient independently, reviewed the findings and plan as documented in the note above and agree with plan. I did n ot physically speak with or examine the patient on this date. Objective - Vital Signs Vital signs: Vital Signs Temp 97.8 F 07/06/24 07:25 Pulse 98 07/06/24 08:55 Resp 16 07/06/24 07:25 BP 158/96 07/06/24 07:25 Pulse Ox 96 07/06/24 08:51 FiO2 40 07/06/24 03:30 Intake & Output 07/05/24 07/06/24 07/06/24 18:59 06:59 18:59 Intake Total 2337 480 Balance 2337 480 Intake: Oral 2337 480 Other: Voiding Method Toilet # Voids 5 2 # Bowel Movements 1 - Labs CBC & Chem 7: 07/06/24 03:11 07/06/24 03:11 Labs: Abnormal Lab Results - Last 24 Hours (Table) 07/06/24 Range/Units 03:11 MCHC 29.2 L (32.0-37.0) g/dL RDW 16.8 H (11.5-14.5) % MPV 12.3 H (9.5-12.2) FL Microbiology - Last 24 Hours (Table) 07/04/24 01:24 Gram Stain - Preliminary Leg - Left Wound Culture - Preliminary Presumptive MRSA 07/04/24 01:26 Blood Culture - Preliminary Blood
--- NOTE | 2024-07-06 22:28 | P.PN ---
Subjective Progress Note Date: 07/06/24 Principal diagnosis: Reason for follow-up is left lower extremity cellulitis Patient is a 54-year-old female with a past medical history significant for hypertension morbid obesity chronic bilateral lower extremity swelling presenting to the hospital for evaluation of left leg pain and swelling redness has been diagnosed with a cellulitis. On today's evaluation that is 07/06/2024, patient did not have any fever and denies any chills, patient is breathing slightly comfortably on 3 L nasal cannula oxygen patient with no chest pain or cough patient did not have any abdominal pain nausea vomiting or any loose stools, patient still complains significant pain to the left lower extremity and wants more pain medication. Patient white count normalized to 9.72 creatinine 0.6 Vanco trough is low at 11.5 culture positive for presumptive MRSA Objective - Vital Signs Vital signs: Vital Signs Temp 98.4 F 07/06/24 14:00 Pulse 96 07/06/24 16:06 Resp 17 07/06/24 14:00 BP 142/72 07/06/24 14:00 Pulse Ox 94 L 07/06/24 14:00 FiO2 40 07/06/24 03:30 Intake & Output 07/05/24 07/06/24 07/06/24 18:59 06:59 18:59 Intake Total 2337 2820 Balance 2337 2820 Intake: Oral 2337 2820 Other: Voiding Method Toilet Toilet # Voids 5 2 6 # Bowel Movements 1 1 - Exam GENERAL DESCRIPTION: Middle-age female up in bed in no distress RESPIRATORY SYSTEM: Unlabored breathing , decreased breath sounds at bases HEART: S1 S2 regular rate and rhythm , ABDOMEN: Soft , no tenderness EXTREMITIES: Patient did have diffuse swelling and redness to the left leg minimal improvement with some superficial ulceration on the santillan no purulent drainage - Labs CBC & Chem 7: 07/06/24 03:11 07/06/24 03:11 Labs: Abnormal Lab Results - Last 24 Hours (Table) 07/06/24 07/06/24 Range/Units 03:11 03:11 MCHC 29.2 L (32.0-37.0) g/dL RDW 16.8 H (11.5-14.5) % MPV 12.3 H (9.5-12.2) FL Glucose 160 H (70-110) mg/dL Calcium 8.5 L (8.7-10.3) mg/dL Alkaline Phosphatase 217 H (41-126) U/L Total Protein 5.8 L (6.2-8.2) g/dL Albumin 3.2 L (3.8-4.9) g/dL Albumin/Globulin Ratio 1.23 L (1.60-3.17) Ratio Microbiology - Last 24 Hours (Table) 07/04/24 01:26 Blood Culture - Preliminary Blood 07/04/24 01:24 Gram Stain - Preliminary Leg - Left Wound Culture - Preliminary Presumptive MRSA Assessment and Plan (1) Sepsis Current Visit: Yes Status: Acute Code(s): A41.9 - SEPSIS, UNSPECIFIED ORGANISM SNOMED Code(s): 97812522 (2) Allergy to multiple antibiotics Current Visit: No Status: Acute Code(s): Z88.1 - ALLERGY STATUS TO OTHER ANTIBIOTIC AGENTS SNOMED Code(s): 762090389 (3) Left leg cellulitis Current Visit: No Status: Acute Code(s): L03.116 - CELLULITIS OF LEFT LOWER LIMB SNOMED Code(s): 11458820039580211 Plan: 1patient presented to hospital with sepsis in this patient who did have a low- grade fever tachycardia elevated white count meeting criteria for SIRS/sepsis source is left lower extremity cellulitis in this patient who did have diffuse swelling redness local culture currently growing present MRSA 2-patient with multiple antibiotic ALLERGIES that would limit the number of antibiotic safe to use 3- lower extremity Doppler was negative we will apply dry Aquacel silver dressing to the anterior leg with superficial ulceration followed by Mack wrap 4patient to continue vancomycin pharmacy to dose dosing to be adjusted up to keep the trough around 15 await final sensitivity to determine discharge antibiotics Dictation was produced using [employer] dictation software. please excuse any grammatical, word or spelling errors. Time with Patient: Less than 30
[2024-07-07 06:06] LABS: African American GFR (CKD) >90 (>60 ml/min/1.73 sqM); Non-African American GFR(CKD) >90 (>60 ml/min/1.73 sqM)
[2024-07-07] MEDS: VANCOMYCIN 2,500 MG in SODIUM CHLORIDE 0.9% 500 ML 500 ML IVPB SCH (06:27)
--- NOTE | 2024-07-07 13:37 | P.PN ---
Subjective Progress Note Date: 07/07/24 Principal diagnosis: Reason for follow-up is left lower extremity cellulitis Patient is a 54-year-old female with a past medical history significant for hypertension morbid obesity chronic bilateral lower extremity swelling presenting to the hospital for evaluation of left leg pain and swelling redness has been diagnosed with a cellulitis. On today's evaluation that is 07/07/2024, Patient is afebrile patient is currently on 3 L nasal cannula oxygen breathing slightly comfortably, denies any chest pain or any worsening cough no nausea vomiting still complaining of pain and swelling to the left lower extremity. Patient did have a creatinine 0.55 Vanco trough was 11.5 local culture currently growing MRSA E. coli and Proteus Objective - Vital Signs Vital signs: Vital Signs Temp 98.2 F 07/07/24 12:23 Pulse 104 H 07/07/24 12:23 Resp 16 07/07/24 12:23 BP 168/77 07/07/24 12:23 Pulse Ox 92 L 07/07/24 12:23 FiO2 40 07/07/24 04:05 Intake & Output 07/06/24 07/07/24 07/07/24 18:59 06:59 18:59 Intake Total 2820 540 Balance 2820 540 Intake: Oral 2820 540 Other: Voiding Method Toilet Toilet # Voids 6 3 # Bowel Movements 1 - Exam GENERAL DESCRIPTION: Middle-age female up in bed in no distress RESPIRATORY SYSTEM: Unlabored breathing , decreased breath sounds at bases HEART: S1 S2 regular rate and rhythm , ABDOMEN: Soft , no tenderness EXTREMITIES: Patient did have diffuse swelling and redness to the left leg minimal improvement with some superficial ulceration on the santillan no purulent d rainage - Labs CBC & Chem 7: 07/06/24 03:11 07/07/24 05:14 Labs: Microbiology - Last 24 Hours (Table) 07/04/24 01:26 Blood Culture - Preliminary Blood 07/04/24 01:24 Gram Stain - Final Leg - Left Wound Culture - Final Methicillin resist S. aureus Escherichia coli Proteus mirabilis Providencia rettgeri Corynebacterium species Assessment and Plan (1) Sepsis Current Visit: Yes Status: Acute Code(s): A41.9 - SEPSIS, UNSPECIFIED ORGANISM SNOMED Code(s): 92001703 (2) Allergy to multiple antibiotics Current Visit: No Status: Acute Code(s): Z88.1 - ALLERGY STATUS TO OTHER ANTIBIOTIC AGENTS SNOMED Code(s): 684617781 (3) Left leg cellulitis Current Visit: No Status: Acute Code(s): L03.116 - CELLULITIS OF LEFT LOWER LIMB SNOMED Code(s): 19321647430673632 Plan: 1patient presented to hospital with sepsis in this patient who did have a low- grade fever tachycardia elevated white count meeting criteria for SIRS/sepsis source is left lower extremity cellulitis in this patient who did have diffuse swelling redness local culture currently growing present MRSA 2-patient with multiple antibiotic ALLERGIES that would limit the number of antibiotic safe to use 3- lower extremity Doppler was negative we will apply dry Aquacel silver dressing to the anterior leg with superficial ulceration followed by Mack wrap 4patient local culture growing MRSA Proteus E. coli still have extensive cellulitis we will continue vancomycin 8 Azactam to cover for the gram-negative because of her penicillin and cephalosporin allergy Dictation was produced using [employer] dictation software. please excuse any grammatical, word or spelling errors. Time with Patient: Less than 30
[2024-07-07] MEDS: AZTREONAM 2 GM in SODIUM CHLORIDE 0.9% 100 ML IVPB SCH (15:05)
--- NOTE | 2024-07-07 17:12 | P.PN ---
Subjective Progress Note Date: 07/07/24 Hospital course: Patient is a 54-year-old female with a past medical history of interstitial lung disease, chronic hypoxic respiratory failure home oxygen dependent 2 L, chronic bilateral lower extremity lymphedema with venous stasis changes, hypertension, morbid obesity with BMI of 63.8 kg/m and nicotine dependence. Patient presented to our facility on 07/04/2023 with a chief complaint of lower extremity swelling, drainage, and pain. Patient reports that her symptoms started 2 days ago when she initially noticed some discharge at her distal left anterior leg close to the ankle. She then also reported quickly worsening redness and swelling of her entire left leg. Upon arrival to our facility, patient underwent evaluation in the emergency department. Vital signs upon arrival show blood pressure 167/87, heart rate 128, respiratory rate 24, temp 99.0 F, and SpO2 of 92% on room air. EKG was completed showing sinus tachycardia at 106 bpm with no significant T wave or ST abnormality showing no signs of acute ischemia upon personal review and interpretation. Chest x-ray completed showing moderate pulmonary edema. Labs completed and reviewed. CBC showing leukocytosis with WBC count of 12.4 and elevated hematocrit of 47.7. Coagulation profile showing elevated D-dimer of 1.51. BMP showing non-anion gap metabolic alkalosis with chloride of 96, bicarb of 31, and anion gap of 10. Blood glucose 145. Lactic acid 1.5. Liver profile showing elevated AST of 47 and alkaline phosphatase of 233. Troponin was negative at less than 0.012. Influenza A, influenza B, RSV, and COVID PCR were negative. Patient was admitted under services with cons ultation to infectious disease and vascular surgery secondary to lymphedema. CTA negative for pulmonary emboli however reported evaluation is limited due to suboptimal contrast bolus timing. Left lower extremity Doppler was completed also reported very limited examination of mid and distal femoral vein and popliteal vein not able to be evaluated however no reported obvious DVTs reported. Physical exam: Patient seen and fully evaluated at bedside this morning. Patient appears to be in much better spirits this morning. She was updated on wound culture results and current plan of care. All questions answered. Patient reports moderate pain in her left lower extremity today but states she has been up and walking a little more than yesterday. Vital signs reviewed and stable. General: Nontoxic, no distress and appears stated age. Morbidly obese. Derm: Skin warm and dry, normal coloration for ethnicity. Significant bilateral lower extremity nonpitting edema with left distal lower extremity anterior mildly purulent discharge with venous stasis changes noted with erythema with extension up to proximal thigh Head: Atraumatic, normocephalic and symmetric. Eyes: EOM's intact, no lid lag, and anicteric sclera Mouth: no lip lesions, mucus membranes moist Cardiovascular: regular rate and rhythm with normal S1S2, no murmur, positive posterior tibial pulses bilaterally, and cap refill < 2 seconds. Lungs: Respirations even, regular, and unlabored on room air. Lungs CTA bilaterally, no rhonchi, no rales, no wheezing, and no accessory muscle usage. Abdominal: soft, nontender to palpation, no guarding, no appreciable organomegaly Ext: ROM intact. No gross muscle atrophy, no edema, no contractures Neuro: Speech clear, face symmetrical and CN II-XII grossly intact with no noted focal neuro deficits Psych: Alert and oriented to person, place, time, and situation. Appropriate and pleasant affect. Assessment and Plan of Care: Polymicrobial Infected chronic wounds, MRSA, E. coli, Proteus mirabillis, Providencia rettgeri, and Corynebacterium species Left lower extremity cellulitis in setting of chronic lymphedema Chronic bilateral lower extremity lymphedema -Infectious disease following, discussed plan of care with Dr. Munroe. -Continue IV antibiotics with vancomycin 2500 mg every 12 hours and aztreonam 2 g every 8 hours. Monitor renal function and vancomycin trough closely for any signs/symptoms of vancomycin associated renal toxicity. -Wound cultures positive for MRSA, E. coli, Proteus mirabillis, Providencia rettgeri, and Corynebacterium species -Blood cultures showing no growth to date. -Vascular surgery evaluated, reviewed documentation in chart. -Symptomatic care and pain management. -Wound care. Chronic hypoxic and hypercarbic respiratory failure Interstitial lung disease Pulmonary edema Obstructive sleep apnea CPAP dependent nightly Elevated D-dimer, CTA negative for PE -Oxygenation to be administered and titrated as needed to maintain SPO2 equal to or greater than 90% -Telemetry monitoring. -Monitor pulse-oximetry -Duonebs scheduled 4 times daily and as needed for SOB and/or wheezing -Incentive Spirometry -Continue CPAP nightly and while napping -Continue Lasix 40 mg twice daily. Morbid obesity with BMI of 63.8 kg/m -Recommend structured outpatient weight management program. Data and imaging reviewed: -Labs reviewed. Renal function remained stable with creatinine of 0.55 and GFR greater than 90. Vancomycin trough therapeutic at 11.5. -Vital signs reviewed. Blood pressure 152/87, heart rate 103, respiratory rate 17, temp 98.2 F, and SpO2 of 90% on 3 L.. CODE STATUS: Full code DVT prophylaxis: Lovenox Anticipated discharge date: Pending clinical course Anticipated discharge place: Home Patient was seen independently by Nurse Pracitioner. This document was prepared using [employer] dictation software. Please allow for errors in amusement ride operator, while rare they do occur. Shaw Claudio NP rendered care for this patient independently, reviewed the findings and plan as documented in the note above and agree with plan. I did not physically speak with or examine the patient on this date. Objective - Vital Signs Vital signs: Vital Signs Temp 98.2 F 07/07/24 08:00 Pulse 108 H 07/07/24 08:01 Resp 17 07/07/24 08:00 BP 152/87 07/07/24 08:00 Pulse Ox 90 L 07/07/24 08:00 FiO2 40 07/07/24 04:05 Intake & Output 07/06/24 07/07/24 07/07/24 18:59 06:59 18:59 Intake Total 2820 540 Balance 2820 540 Intake: Oral 2820 540 Other: Voiding Method Toilet Toilet # Voids 6 3 # Bowel Movements 1 - Labs CBC & Chem 7: 07/06/24 03:11 07/07/24 05:14 Labs: Abnormal Lab Results - Last 24 Hours (Table) 07/06/24 07/06/24 Range/Units 03:11 03:11 MCHC 29.2 L (32.0-37.0) g/dL RDW 16.8 H (11.5-14.5) % MPV 12.3 H (9.5-12.2) FL Glucose 160 H (70-110) mg/dL Calcium 8.5 L (8.7-10.3) mg/dL Alkaline Phosphatase 217 H (41-126) U/L Total Protein 5.8 L (6.2-8.2) g/dL Albumin 3.2 L (3.8-4.9) g/dL Albumin/Globulin Ratio 1.23 L (1.60-3.17) Ratio Microbiology - Last 24 Hours (Table) 07/04/24 01:26 Blood Culture - Preliminary Blood 07/04/24 01:24 Gram Stain - Preliminary Leg - Left Wound Culture - Preliminary Presumptive MRSA
[2024-07-08 08:41] LABS: ALT 24 U/L (8-44); AST 22 U/L (13-35); Albumin 3.4 g/dL (3.8-4.9); Albumin/Globulin Ratio 1.21 Ratio (1.60-3.17); Alkaline Phosphatase 222 U/L (41-126); BUN/Creat Ratio 14.83 Ratio (12.00-20.00); Blood Urea Nitrogen 8.9 mg/dL (9.0-27.0); Calcium 8.7 mg/dL (8.7-10.3); Chloride 96 mmol/L (96-109); Globulin 2.8 g/dL (1.6-3.3); Glucose 141 mg/dL (70-110); Magnesium 1.7 mg/dL (1.5-2.4); Potassium 4.7 mmol/L (3.5-5.5); Sodium 139 mmol/L (135-145); Total Bilirubin 0.5 mg/dL (0.3-1.2); Total Protein 6.2 g/dL (6.2-8.2)
[2024-07-08 09:27] LABS: HCT 45.5 % (37.2-46.3); MCH 27.8 pg (27.0-32.0); MCHC 28.6 g/dL (32.0-37.0); MCV 97.4 FL (80.0-97.0); Mean Platelet Volume 11.5 FL (9.5-12.2); NRBC Per 100 WBC 0 X 10*3/uL (0.00-0.01); Platelet Count 324 X 10*3/uL (140-440); RBC 4.67 X 10*6/uL (4.10-5.20); RDW 16.7 % (11.5-14.5); WBC 11.35 X 10*3/uL (4.50-10.00)
[2024-07-08] MEDS: MAGNESIUM SULFATE-D5W PMX 1 GM in DEXTROSE/WATER 1 100ML.BAG IVPB SCH (12:48)
[2024-07-08] MEDS ORDERED: FLUTICASONE NASAL 50MCG/SPRAY 16GM BTL EA NOSTRIL PRN (12:59)
[2024-07-08] MEDS: KETOROLAC 15 MG/ML 1 ML VIAL IVP STA (14:09)
[2024-07-08] MEDS: PROCHLORPERAZINE INJ 10 MG/2 ML VIAL IVP STA (14:10)
[2024-07-08] MEDS: diphenhydrAMINE 50 MG/ML 1 ML VIAL IVP STA (14:10)
--- NOTE | 2024-07-08 16:40 | P.PN ---
Subjective Progress Note Date: 07/08/24 Hospital course: Patient is a 54-year-old female with a past medical history of interstitial lung disease, chronic hypoxic respiratory failure home oxygen dependent 2 L, chronic bilateral lower extremity lymphedema with venous stasis changes, hypertension, morbid obesity with BMI of 63.8 kg/m and nicotine dependence. Patient presented to our facility on 07/04/2023 with a chief complaint of lower extremity swelling, drainage, and pain. Patient reports that her symptoms started 2 days ago when she initially noticed some discharge at her distal left anterior leg close to the ankle. She then also reported quickly worsening redness and swelling of her entire left leg. Upon arrival to our facility, patient underwent evaluation in the emergency department. Vital signs upon arrival show blood pressure 167/87, heart rate 128, respiratory rate 24, temp 99.0 F, and SpO2 of 92% on room air. EKG was completed showing sinus tachycardia at 106 bpm with no significant T wave or ST abnormality showing no signs of acute ischemia upon personal review and interpretation. Chest x-ray completed showing moderate pulmonary edema. Labs completed and reviewed. CBC showing leukocytosis with WBC count of 12.4 and elevated hematocrit of 47.7. Coagulation profile showing elevated D-dimer of 1.51. BMP showing non-anion gap metabolic alkalosis with chloride of 96, bicarb of 31, and anion gap of 10. Blood glucose 145. Lactic acid 1.5. Liver profile showing elevated AST of 47 and alkaline phosphatase of 233. Troponin was negative at less than 0.012. Influenza A, influenza B, RSV, and COVID PCR were negative. Patient was admitted under services with cons ultation to infectious disease and vascular surgery secondary to lymphedema. CTA negative for pulmonary emboli however reported evaluation is limited due to suboptimal contrast bolus timing. Left lower extremity Doppler was completed also reported very limited examination of mid and distal femoral vein and popliteal vein not able to be evaluated however no reported obvious DVTs reported. Physical exam: Patient seen and fully evaluated at bedside this morning. She was sitting up at bedside. Reports continued persistent pain in left lower extremity from swelling. Patient encouraged to keep legs elevated when not in use as she has been sitting on the edge of the bed with legs dependent on floor. Vital signs reviewed and stable. General: Nontoxic, no distress and appears stated age. Morbidly obese. Derm: Skin warm and dry, normal coloration for ethnicity. Significant bilateral lower extremity nonpitting edema with left distal lower extremity anterior mildly purulent discharge with venous stasis changes noted with erythema with extension up to proximal thigh Head: Atraumatic, normocephalic and symmetric. Eyes: EOM's intact, no lid lag, and anicteric sclera Mouth: no lip lesions, mucus membranes moist Cardiovascular: regular rate and rhythm with normal S1S2, no murmur, positive posterior tibial pulses bilaterally, and cap refill < 2 seconds. Lungs: Respirations even, regular, and unlabored on room air. Lungs CTA bilaterally, no rhonchi, no rales, no wheezing, and no accessory muscle usage. Abdominal: soft, nontender to palpation, no guarding, no appreciable organomegaly Ext: ROM intact. No gross muscle atrophy, no edema, no contractures Neuro: Speech clear, face symmetrical and CN II-XII grossly intact with no noted focal neuro deficits Psych: Alert and oriented to person, place, time, and situation. Appropriate and pleasant affect. Assessment and Plan of Care: Polymicrobial Infected chronic wounds, MRSA, E. coli, Proteus mirabillis, Providencia rettgeri, and Corynebacterium species Left lower extremity cellulitis in setting of chronic lymphedema Chronic bilateral lower extremity lymphedema -Infectious disease following, discussed plan of care with Dr. Munroe. -Continue IV antibiotics with vancomycin 2500 mg every 12 hours and aztreonam 2 g every 8 hours. Monitor renal function and vancomycin trough closely for any signs/symptoms of vancomycin associated renal toxicity. -Wound cultures positive for MRSA, E. coli, Proteus mirabillis, Providencia rettgeri, and Corynebacterium species -Blood cultures showing no growth to date. -Vascular surgery evaluated, reviewed documentation in chart. -Symptomatic care and pain management. -Wound care. -Midline or PICC line to be inserted pending length of antibiotic requirement r ecommended by infectious disease. Chronic hypoxic and hypercarbic respiratory failure Interstitial lung disease Pulmonary edema Obstructive sleep apnea CPAP dependent nightly Elevated D-dimer, CTA negative for PE -Oxygenation to be administered and titrated as needed to maintain SPO2 equal to or greater than 90% -Telemetry monitoring. -Monitor pulse-oximetry -Duonebs scheduled 4 times daily and as needed for SOB and/or wheezing -Incentive Spirometry -Continue CPAP nightly and while napping -Continue Lasix 40 mg twice daily. Morbid obesity with BMI of 63.8 kg/m -Recommend structured outpatient weight management program. Data and imaging reviewed: -Labs reviewed. CBC showing mild leukocytosis with WBC count of 11.35. BMP showing hypercarbia with bicarb of 35 otherwise normal findings. Blood glucose was 141. Magnesium slightly low at 1.7 and orders placed for magnesium sulfate 2 g IVPB. Liver profile showing elevated alkaline phosphatase of 222 and hypoa lbuminemia with albumin of 3.4. -Vital signs reviewed. Blood pressure 119/8066, heart rate 114, respiratory rate 20, temp 99.2 F, and SpO2 of 92% on 3 L. CODE STATUS: Full code DVT prophylaxis: Lovenox Anticipated discharge date: Pending clinical course Anticipated discharge place: Home Patient was seen independently by Nurse Pracitioner. This document was prepared using [employer] dictation software. Please allow for errors in rn intake, while rare they do occur. Shaw Claudio NP rendered care for this patient independently, reviewed the findings and plan as documented in the note above and agree with plan. I did not physically speak with or examine the patient on this date. Objective - Vital Signs Vital signs: Vital Signs Temp 99.2 F 07/08/24 07:28 Pulse 114 H 07/08/24 08:11 Resp 20 07/08/24 07:28 BP 119/66 07/08/24 08:11 Pulse Ox 92 L 07/08/24 07:28 FiO2 40 07/08/24 04:00 Intake & Output 07/07/24 07/08/24 07/08/24 18:59 06:59 18:59 Intake Total 3620 Balance 3620 Intake: Oral 3620 Other: Voiding Method Toilet Toilet # Voids 5 3 - Labs CBC & Chem 7: 07/08/24 05:36 07/08/24 05:36 Labs: Abnormal Lab Results - Last 24 Hours (Table) 07/08/24 07/08/24 Range/Units 05:36 05:36 WBC 11.35 H (4.50-10.00) X 10*3/uL MCV 97.4 H (80.0-97.0) FL MCHC 28.6 L (32.0-37.0) g/dL RDW 16.7 H (11.5-14.5) % Carbon Dioxide 35.0 H (21.6-31.8) mmol/L BUN 8.9 L (9.0-27.0) mg/dL Glucose 141 H (70-110) mg/dL Alkaline Phosphatase 222 H (41-126) U/L Albumin 3.4 L (3.8-4.9) g/dL Albumin/Globulin Ratio 1.21 L (1.60-3.17) Ratio Microbiology - Last 24 Hours (Table) 07/04/24 01:26 Blood Culture - Preliminary Blood 07/04/24 01:24 Gram Stain - Final Leg - Left Wound Culture - Final Methicillin resist S. aureus Escherichia coli Proteus mirabilis Providencia rettgeri Corynebacterium species
[2024-07-08 17:24] LABS: African American GFR (CKD) >90 (>60 ml/min/1.73 sqM); Non-African American GFR(CKD) >90 (>60 ml/min/1.73 sqM)
[2024-07-08] MEDS: VANCOMYCIN TROUGH DUE 1 EACH MISC MISCELLANE ONE (17:34)
[2024-07-09] MEDS ORDERED: VANCOMYCIN 2,250 MG in SODIUM CHLORIDE 0.9% 500 ML 500 ML IVPB SCH (04:00)
--- NOTE | 2024-07-09 05:47 | P.PN ---
Subjective Progress Note Date: 07/08/24 Principal diagnosis: Reason for follow-up is left lower extremity cellulitis Patient is a 54-year-old female with a past medical history significant for hypertension morbid obesity chronic bilateral lower extremity swelling presenting to the hospital for evaluation of left leg pain and swelling redness has been diagnosed with a cellulitis. On today's evaluation that is 07/08/2023, patient has been afebrile, patient is breathing comfortably and is currently on 3 L current oxygen, patient denies having any significant cough no chest pain, patient denies nausea vomiting or diarrhea and no abdominal pain still complaining of significant pain to the left lower extremity. The patient white count is 11.35 creatinine 0.6 blood culture negative Objective - Vital Signs Vital signs: Vital Signs Temp 99.2 F 07/08/24 07:28 Pulse 116 H 07/08/24 11:33 Resp 20 07/08/24 07:28 BP 119/66 07/08/24 08:11 Pulse Ox 92 L 07/08/24 07:28 FiO2 40 07/08/24 04:00 Intake & Output 07/07/24 07/08/24 07/08/24 18:59 06:59 18:59 Intake Total 3620 Balance 3620 Intake: Oral 3620 Other: Voiding Method Toilet Toilet Toilet # Voids 5 3 - Exam GENERAL DESCRIPTION: Middle-age female up in bed in no distress RESPIRATORY SYSTEM: Unlabored breathing , decreased breath sounds at bases HEART: S1 S2 regular rate and rhythm , ABDOMEN: Soft , no tenderness EXTREMITIES: Patient did have diffuse swelling and redness to the left leg minimal improvement with some superficial ulceration on the santillan no purulent drainage - Labs CBC & Chem 7: 07/08/24 05:36 07/08/24 16:42 Labs: Abnormal Lab Results - Last 24 Hours (Table) 07/08/24 07/08/24 Range/Units 05:36 05:36 WBC 11.35 H (4.50-10.00) X 10*3/uL MCV 97.4 H (80.0-97.0) FL MCHC 28.6 L (32.0-37.0) g/dL RDW 16.7 H (11.5-14.5) % Carbon Dioxide 35.0 H (21.6-31.8) mmol/L BUN 8.9 L (9.0-27.0) mg/dL Glucose 141 H (70-110) mg/dL Alkaline Phosphatase 222 H (41-126) U/L Albumin 3.4 L (3.8-4.9) g/dL Albumin/Globulin Ratio 1.21 L (1.60-3.17) Ratio Microbiology - Last 24 Hours (Table) 07/04/24 01:26 Blood Culture - Preliminary Blood 07/04/24 01:24 Gram Stain - Final Leg - Left Wound Culture - Final Methicillin resist S. aureus Escherichia coli Proteus mirabilis Providencia rettgeri Corynebacterium species Assessment and Plan (1) Sepsis Current Visit: Yes Status: Acute Code(s): A41.9 - SEPSIS, UNSPECIFIED ORGANISM SNOMED Code(s): 57719865 (2) Allergy to multiple antibiotics Current Visit: No Status: Acute Code(s): Z88.1 - ALLERGY STATUS TO OTHER ANTIBIOTIC AGENTS SNOMED Code(s): 383466745 (3) Left leg cellulitis Current Visit: No Status: Acute Code(s): L03.116 - CELLULITIS OF LEFT LOWER LIMB SNOMED Code(s): 13961938102004317 Plan: 1patient presented to hospital with sepsis in this patient who did have a low- grade fever tachycardia elevated white count meeting criteria for SIRS/sepsis source is left lower extremity cellulitis in this patient who did have diffuse swelling redness local culture currently growing present MRSA 2-patient with multiple antibiotic ALLERGIES that would limit the number of antibiotic safe to use 3- lower extremity Doppler was negative we will apply dry Aquacel silver dressing to the anterior leg with superficial ulceration followed by Mack wrap 4patient local culture growing MRSA Proteus E. coli with sensitivities pending, Azactam has been added yesterday to cover for the gram-negative empirically and continue vancomycin monitor clinical course closely Dictation was produced using [employer] dictation software. please excuse any grammatical, word or spelling errors. Time with Patient: Less than 30
[2024-07-09 08:02] LABS: African American GFR (CKD) >90 (>60 ml/min/1.73 sqM); Anion Gap 10 mmol/L; Blood Urea Nitrogen 10 mg/dL (7-17); Calcium 9.2 mg/dL (8.4-10.2); Carbon Dioxide 35 mmol/L (22-30); Chloride 95 mmol/L (98-107); Glucose 107 mg/dL (74-99); Non-African American GFR(CKD) >90 (>60 ml/min/1.73 sqM); Sodium 140 mmol/L (137-145)
[2024-07-09 08:06] LABS: Magnesium 2.1 mg/dL (1.6-2.3); Potassium 4.8 mmol/L (3.5-5.1)
[2024-07-09] MEDS: VANCOMYCIN 2,250 MG in SODIUM CHLORIDE 0.9% 500 ML 500 ML IVPB SCH (08:23)
[2024-07-09] MEDS: diphenhydrAMINE 50 MG/ML 1 ML VIAL IVP STA (10:33)
[2024-07-09] MEDS: KETOROLAC 15 MG/ML 1 ML VIAL IVP STA (10:33)
[2024-07-09] MEDS: PROCHLORPERAZINE INJ 10 MG/2 ML VIAL IVP STA (10:34)
[2024-07-09 10:45] LABS: HGB 13.8 g/dL (12.0-15.0); MCH 26.9 pg (27.0-32.0); MCHC 27.6 g/dL (32.0-37.0); MCV 97.5 FL (80.0-97.0); Mean Platelet Volume 11.3 FL (9.5-12.2); NRBC Per 100 WBC 0 X 10*3/uL (0.00-0.01); Platelet Count 353 X 10*3/uL (140-440); RBC 5.13 X 10*6/uL (4.10-5.20); RDW 16.5 % (11.5-14.5)
--- NOTE | 2024-07-09 15:05 | P.PN ---
Subjective Progress Note Date: 07/09/24 Principal diagnosis: Reason for follow-up is left lower extremity cellulitis Patient is a 54-year-old female with a past medical history significant for hypertension morbid obesity chronic bilateral lower extremity swelling presenting to the hospital for evaluation of left leg pain and swelling redness has been diagnosed with a cellulitis. On today's evaluation that is 07/09/2023, Patient is afebrile this morning patient denies having any chest pain or worsening shortness of breath or cough, the patient is currently on 3 L current oxygen, patient denies any abdominal pain no diarrhea no nausea no vomiting still complaining of pain to the left lower extremity though decreased in intensity after she remove the wrap. Patient white count normal at 8.60, creatinine 0.54 local culture currently growing MRSA, E. coli Proteus and procidenc with sensitivities pending ia Objective - Vital Signs Vital signs: Vital Signs Temp 98.6 F 07/09/24 07:18 Pulse 104 H 07/09/24 11:10 Resp 16 07/09/24 07:18 BP 108/69 07/09/24 07:18 Pulse Ox 93 L 07/09/24 07:18 FiO2 40 07/09/24 04:05 Intake & Output 07/08/24 07/09/24 07/09/24 18:59 06:59 18:59 Intake Total 1234 Balance 1234 Intake: Oral 1234 Other: Voiding Method Toilet Toilet # Voids 3 1 - Exam GENERAL DESCRIPTION: Middle-age female up in bed in no distress RESPIRATORY SYSTEM: Unlabored breathing , decreased breath sounds at bases HEART: S1 S2 regular rate and rhythm , ABDOMEN: Soft , no tenderness EXTREMITIES: Patient did have diffuse swelling and redness to the left leg minimal improvement with some superficial ulceration on the santillan no purulent drainage - Labs CBC & Chem 7: 07/09/24 06:49 07/09/24 06:49 Labs: Abnormal Lab Results - Last 24 Hours (Table) 07/09/24 07/09/24 Range/Units 06:49 06:49 Hct 50.0 H (37.2-46.3) % MCV 97.5 H (80.0-97.0) FL MCH 26.9 L (27.0-32.0) pg MCHC 27.6 L (32.0-37.0) g/dL RDW 16.5 H (11.5-14.5) % Chloride 95 L (98-107) mmol/L Carbon Dioxide 35 H (22-30) mmol/L Glucose 107 H (74-99) mg/dL Assessment and Plan (1) Sepsis Current Visit: Yes Status: Acute Code(s): A41.9 - SEPSIS, UNSPECIFIED ORGANISM SNOMED Code(s): 48856180 (2) Allergy to multiple antibiotics Current Visit: No Status: Acute Code(s): Z88.1 - ALLERGY STATUS TO OTHER ANTIBIOTIC AGENTS SNOMED Code(s): 355565603 (3) Left leg cellulitis Current Visit: No Status: Acute Code(s): L03.116 - CELLULITIS OF LEFT LOWER LIMB SNOMED Code(s): 83448281142491822 Plan: 1patient presented to hospital with sepsis in this patient who did have a low- grade fever tachycardia elevated white count meeting criteria for SIRS/sepsis source is left lower extremity cellulitis in this patient who did have diffuse swelling redness local culture currently growing present MRSA 2-patient with multiple antibiotic ALLERGIES that would limit the number of antibiotic safe to use 3- lower extremity Doppler was negative we will apply dry Aquacel silver dressing to the anterior leg with superficial ulceration followed by Mack wrap 4patient local culture growing MRSA Proteus E. coli with sensitivities still pending as of 07/09/2024 nursing staff to call micro lab to get the sensitivities so we can determine discharge antibiotic for the patient will continue with vancomycin and Azactam Dictation was produced using [employer] dictation software. please excuse any grammatical, word or spelling errors. Time with Patient: Less than 30
--- NOTE | 2024-07-09 18:30 | P.PN ---
Subjective Progress Note Date: 07/09/24 Hospital course: Patient is a 54-year-old female with a past medical history of interstitial lung disease, chronic hypoxic respiratory failure home oxygen dependent 2 L, chronic bilateral lower extremity lymphedema with venous stasis changes, hypertension, morbid obesity with BMI of 63.8 kg/m and nicotine dependence. Patient presented to our facility on 07/04/2023 with a chief complaint of lower extremity swelling, drainage, and pain. Patient reports that her symptoms started 2 days ago when she initially noticed some discharge at her distal left anterior leg close to the ankle. She then also reported quickly worsening redness and swelling of her entire left leg. Upon arrival to our facility, patient underwent evaluation in the emergency department. Vital signs upon arrival show blood pressure 167/87, heart rate 128, respiratory rate 24, temp 99.0 F, and SpO2 of 92% on room air. EKG was completed showing sinus tachycardia at 106 bpm with no significant T wave or ST abnormality showing no signs of acute ischemia upon personal review and interpretation. Chest x-ray completed showing moderate pulmonary edema. Labs completed and reviewed. CBC showing leukocytosis with WBC count of 12.4 and elevated hematocrit of 47.7. Coagulation profile showing elevated D-dimer of 1.51. BMP showing non-anion gap metabolic alkalosis with chloride of 96, bicarb of 31, and anion gap of 10. Blood glucose 145. Lactic acid 1.5. Liver profile showing elevated AST of 47 and alkaline phosphatase of 233. Troponin was negative at less than 0.012. Influenza A, influenza B, RSV, and COVID PCR were negative. Patient was admitted under services with cons ultation to infectious disease and vascular surgery secondary to lymphedema. CTA negative for pulmonary emboli however reported evaluation is limited due to suboptimal contrast bolus timing. Left lower extremity Doppler was completed also reported very limited examination of mid and distal femoral vein and popliteal vein not able to be evaluated however no reported obvious DVTs reported. Physical exam: Patient seen and fully evaluated at bedside this morning. Patient expressing frustration this morning stating she still has a headache. Patient requesting additional pain medications. Nursing staff at bedside report patient becomes "snowed" when medications are given. Stating patient has been found twice with oxygen pulled off lying across bed after receiving her pain medication. Will place an additional order for migraine cocktail. No further narcotics ordered at this time. Vital signs reviewed and stable. General: Nontoxic, no distress and appears stated age. Morbidly obese. Derm: Skin warm and dry, normal coloration for ethnicity. Significant bilateral lower extremity nonpitting edema with left distal lower extremity anterior mildly purulent discharge with venous stasis changes noted with erythema with extension up to proximal thigh Head: Atraumatic, normocephalic and symmetric. Eyes: EOM's intact, no lid lag, and anicteric sclera Mouth: no lip lesions, mucus membranes moist Cardiovascular: regular rate and rhythm with normal S1S2, no murmur, positive posterior tibial pulses bilaterally, and cap refill < 2 seconds. Lungs: Respirations even, regular, and unlabored on room air. Lungs CTA bilaterally, no rhonchi, no rales, no wheezing, and no accessory muscle usage. Abdominal: soft, nontender to palpation, no guarding, no appreciable organomegaly Ext: ROM intact. No gross muscle atrophy, no edema, no contractures Neuro: Speech clear, face symmetrical and CN II-XII grossly intact with no noted focal neuro deficits Psych: Alert and oriented to person, place, time, and situation. Appropriate and pleasant affect. Assessment and Plan of Care: Polymicrobial Infected chronic wounds, MRSA, E. coli, Proteus mirabillis, Providencia rettgeri, and Corynebacterium species Left lower extremity cellulitis in setting of chronic lymphedema Chronic bilateral lower extremity lymphedema -Infectious disease following, discussed plan of care with Dr. Munroe. -Continue IV antibiotics with vancomycin 2500 mg every 12 hours and aztreonam 2 g every 8 hours. Monitor renal function and vancomycin trough closely for any signs/symptoms of vancomycin associated renal toxicity. -Wound cultures positive for MRSA, E. coli, Proteus mirabillis, Providencia rettgeri, and Corynebacterium species. Awaiting sensitivity report to completely result.. -Blood cultures showing no growth to date. -Vascular surgery evaluated, reviewed documentation in chart. -Symptomatic care and pain management. -Wound care. -Midline has been placed and once sensitivity report is finalized, patient will be discharged home on IV antibiotics. Chronic hypoxic and hypercarbic respiratory failure Interstitial lung disease Pulmonary edema Obstructive sleep apnea CPAP dependent nightly Elevated D-dimer, CTA negative for PE -Oxygenation to be administered and titrated as needed to maintain SPO2 equal to or greater than 90% -Telemetry monitoring. -Monitor pulse-oximetry -Duonebs scheduled 4 times daily and as needed for SOB and/or wheezing -Incentive Spirometry -Continue CPAP nightly and while napping -Continue Lasix 40 mg twice daily. Morbid obesity with BMI of 63.8 kg/m -Recommend structured outpatient weight management program. Data and imaging reviewed: -Labs reviewed. CBC showing macrocytosis with MCV of 97.5. BMP showing non- anion gap metabolic alkalosis with chloride of 95, bicarb 35, and anion gap of 10. Blood glucose 107. Magnesium 2.1. -Vital signs reviewed. Blood pressure 108/69, heart rate 90, respiratory rate 16, temp 98.6 F, and SpO2 of 93% on 3 L. CODE STATUS: Full code DVT prophylaxis: Lovenox Anticipated discharge date: Pending final sensitivity report of wound cultures to completely result. Anticipated discharge place: Home with home care on IV antibiotics Patient was seen independently by Nurse Pracitioner. This document was prepared using [employer] dictation software. Please allow for errors in credit interviewer, while rare they do occur. Shaw Claudio NP rendered care for this patient independently, reviewed the findings and plan as documented in the note above and agree with plan. I did not physically speak with or examine the patient on this date. Objective - Vital Signs Vital signs: Vital Signs Temp 98.6 F 07/09/24 07:18 Pulse 96 07/09/24 07:57 Resp 16 07/09/24 07:18 BP 108/69 07/09/24 07:18 Pulse Ox 93 L 07/09/24 07:18 FiO2 40 07/09/24 04:05 Intake & Output 07/08/24 07/09/24 07/09/24 18:59 06:59 18:59 Intake Total 1234 Balance 1234 Intake: Oral 1234 Other: Voiding Method Toilet Toilet # Voids 3 1 - Labs CBC & Chem 7: 07/09/24 06:49 07/09/24 06:49 Labs: Abnormal Lab Results - Last 24 Hours (Table) 07/08/24 07/09/24 Range/Units 05:36 06:49 WBC 11.35 H (4.50-10.00) X 10*3/uL MCV 97.4 H (80.0-97.0) FL MCHC 28.6 L (32.0-37.0) g/dL RDW 16.7 H (11.5-14.5) % Chloride 95 L (98-107) mmol/L Carbon Dioxide 35 H (22-30) mmol/L Glucose 107 H (74-99) mg/dL
[2024-07-10] MEDS: LORazepam 1 MG TAB PO STA ×2 (01:33→01:40)
[2024-07-10] MEDS: KETOROLAC 15 MG/ML 1 ML VIAL IVP STA (03:52)
[2024-07-10 05:37] LABS: African American GFR (CKD) >90 (>60 ml/min/1.73 sqM); Non-African American GFR(CKD) >90 (>60 ml/min/1.73 sqM)
[2024-07-10] MEDS: VANCOMYCIN TROUGH DUE 1 EACH MISC MISCELLANE ONE (05:53)
--- NOTE | 2024-07-10 17:26 | P.PN ---
Subjective Progress Note Date: 07/10/24 Hospital course: Patient is a 54-year-old female with a past medical history of interstitial lung disease, chronic hypoxic respiratory failure home oxygen dependent 2 L, chronic bilateral lower extremity lymphedema with venous stasis changes, hypertension, morbid obesity with BMI of 63.8 kg/m and nicotine dependence. Patient presented to our facility on 07/04/2023 with a chief complaint of lower extremity swelling, drainage, and pain. Patient reports that her symptoms started 2 days ago when she initially noticed some discharge at her distal left anterior leg close to the ankle. She then also reported quickly worsening redness and swelling of her entire left leg. Upon arrival to our facility, patient underwent evaluation in the emergency department. Vital signs upon arrival show blood pressure 167/87, heart rate 128, respiratory rate 24, temp 99.0 F, and SpO2 of 92% on room air. EKG was completed showing sinus tachycardia at 106 bpm with no significant T wave or ST abnormality showing no signs of acute ischemia upon personal review and interpretation. Chest x-ray completed showing moderate pulmonary edema. Labs completed and reviewed. CBC showing leukocytosis with WBC count of 12.4 and elevated hematocrit of 47.7. Coagulation profile showing elevated D-dimer of 1.51. BMP showing non-anion gap metabolic alkalosis with chloride of 96, bicarb of 31, and anion gap of 10. Blood glucose 145. Lactic acid 1.5. Liver profile showing elevated AST of 47 and alkaline phosphatase of 233. Troponin was negative at less than 0.012. Influenza A, influenza B, RSV, and COVID PCR were negative. Patient was admitted under services with cons ultation to infectious disease and vascular surgery secondary to lymphedema. CTA negative for pulmonary emboli however reported evaluation is limited due to suboptimal contrast bolus timing. Left lower extremity Doppler was completed also reported very limited examination of mid and distal femoral vein and popliteal vein not able to be evaluated however no reported obvious DVTs reported. Physical exam: Patient seen and fully evaluated at bedside this morning. Patient updated on continued weight for wound cultures to completely result on organisms 2 through 5 and plans for discharge home on IV antibiotics once fully resulting. Continues to report pain in left lower extremity but does report she feels it is getting slightly better today compared to yesterday. She denied having any other complaints or concerns at this time. Vital signs reviewed and stable. General: Nontoxic, no distress and appears stated age. Morbidly obese. Derm: Skin warm and dry, normal coloration for ethnicity. Significant bilateral lower extremity nonpitting edema with left distal lower extremity anterior mildly purulent discharge with venous stasis changes noted with erythema with extension up to proximal thigh Head: Atraumatic, normocephalic and symmetric. Eyes: EOM's intact, no lid lag, and anicteric sclera Mouth: no lip lesions, mucus membranes moist Cardiovascular: regular rate and rhythm with normal S1S2, no murmur, positive posterior tibial pulses bilaterally, and cap refill < 2 seconds. Lungs: Respirations even, regular, and unlabored on room air. Lungs CTA bilaterally, no rhonchi, no rales, no wheezing, and no accessory muscle usage. Abdominal: soft, nontender to palpation, no guarding, no appreciable organomegaly Ext: ROM intact. No gross muscle atrophy, no edema, no contractures Neuro: Speech clear, face symmetrical and CN II-XII grossly intact with no noted focal neuro deficits Psych: Alert and oriented to person, place, time, and situation. Appropriate and pleasant affect. Assessment and Plan of Care: Polymicrobial Infected chronic wounds, MRSA, E. coli, Proteus mirabillis, Providencia rettgeri, and Corynebacterium species Left lower extremity cellulitis in setting of chronic lymphedema Chronic bilateral lower extremity lymphedema -Infectious disease following, discussed plan of care with Dr. Munroe. -Continue IV antibiotics with vancomycin 2500 mg every 12 hours and aztreonam 2 g every 8 hours. Monitor renal function and vancomycin trough closely for any signs/symptoms of vancomycin associated renal toxicity. Vancomycin trough currently therapeutic at 19.7. -Wound cultures positive for MRSA, E. coli, Proteus mirabillis, Providencia rettgeri, and Corynebacterium species. Awaiting sensitivity report to completely result on organisms 2 through 5 -Blood cultures showing no growth to date. -Vascular surgery evaluated, reviewed documentation in chart recommending structured outpatient weight management program. -Symptomatic care and pain management. -Wound care. -Midline has been placed and once sensitivity report is completely finalized, patient will be discharged home on IV antibiotics. Chronic hypoxic and hypercarbic respiratory failure Interstitial lung disease Pulmonary edema Obstructive sleep apnea CPAP dependent nightly Elevated D-dimer, CTA negative for PE -Oxygenation to be administered and titrated as needed to maintain SPO2 equal to or greater than 90% -Telemetry monitoring. -Monitor pulse-oximetry -Duonebs scheduled 4 times daily and as needed for SOB and/or wheezing -Incentive Spirometry -Continue CPAP nightly and while napping -Continue Lasix 40 mg twice daily. Morbid obesity with BMI of 63.8 kg/m -Recommend structured outpatient weight management program. Data and imaging reviewed: -Labs reviewed. Creatinine 0.49 and GFR greater than 90. Vancomycin trough therapeutic at 19.7 -Vital signs reviewed. Blood pressure 152/92, heart rate 112, respiratory rate 22, temp 98.3 F, and SpO2 of 90% on 3 L. CODE STATUS: Full code DVT prophylaxis: Lovenox Anticipated discharge date: Pending final wound culture sensitivity report to completely result on organisms 2-5. Antic[address] discharge place: Home with home care on IV antibiotics Patient was seen independently by Nurse Pracitioner. This document was prepared using [employer] dictation software. Please allow for errors in delivery tech, while rare they do occur. Shaw Claudio NP rendered care for this patient independently, reviewed the findings and plan as documented in the note above and agree with plan. I did not physically speak with or examine the patient on this date. Objective - Vital Signs Vital signs: Vital Signs Temp 98.3 F 07/10/24 07:15 Pulse 100 07/10/24 07:45 Resp 22 07/10/24 07:15 BP 152/92 07/10/24 07:15 Pulse Ox 90 L 07/10/24 07:15 FiO2 40 07/09/24 23:20 Intake & Output 07/09/24 07/10/24 07/10/24 18:59 06:59 18:59 Intake Total 1206 600 Balance 1206 600 Intake: Intake, IV Titration 600 Amount Aztreonam 2 gm In Sodium 100 Chloride 0.9% 100 ml @ 33 .3 mls/hr IVPB Q8HR JESSICA Rx#:[id number] Vancomycin 2,250 mg In 500 Sodium Chloride 0.9% 500 ml 500 ml @ 167 mls/hr IVPB Q8H JESSICA Rx#: [id number] Oral 1206 Other: Voiding Method Toilet Toilet # Voids 3 1 - Labs CBC & Chem 7: 07/09/24 06:49 07/10/24 05:08 Labs: Abnormal Lab Results - Last 24 Hours (Table) 07/09/24 07/10/24 Range/Units 06:49 05:08 Hct 50.0 H (37.2-46.3) % MCV 97.5 H (80.0-97.0) FL MCH 26.9 L (27.0-32.0) pg MCHC 27.6 L (32.0-37.0) g/dL RDW 16.5 H (11.5-14.5) % Creatinine 0.49 L (0.52-1.04) mg/dL Microbiology - Last 24 Hours (Table) 07/04/24 01:26 Blood Culture - Final Blood
[2024-07-11] MEDS: ONDANSETRON 4 MG/2 ML VIAL IVP PRN (03:41)
[2024-07-11 07:33] VITALS: TEMP 98.1
--- NOTE | 2024-07-11 09:00 | P.PN ---
Subjective Progress Note Date: 07/10/24 Principal diagnosis: Reason for follow-up is left lower extremity cellulitis Patient is a 54-year-old female with a past medical history significant for hypertension morbid obesity chronic bilateral lower extremity swelling presenting to the hospital for evaluation of left leg pain and swelling redness has been diagnosed with a cellulitis. On today's evaluation that is 07/10/2024,the patient denies any fever or any chills, patient is breathing comfortably on 3 L, oxygen, the patient denies chest pain shortness of breath and no significant cough, patient denies a bdominal pain, no nausea vomiting or diarrhea. Pain to the left lower extremity slightly decreased in intensity. Patient did have a creatinine 0.49 white count normal yesterday sensitivity of the gram-negative still pending on the leg Objective - Vital Signs Vital signs: Vital Signs Temp 98.3 F 07/10/24 07:15 Pulse 100 07/10/24 07:45 Resp 22 07/10/24 07:15 BP 152/92 07/10/24 07:15 Pulse Ox 90 L 07/10/24 07:15 FiO2 40 07/09/24 23:20 Intake & Output 07/09/24 07/10/24 07/10/24 18:59 06:59 18:59 Intake Total 1206 600 Balance 1206 600 Intake: Intake, IV Titration 600 Amount Aztreonam 2 gm In Sodium 100 Chloride 0.9% 100 ml @ 33 .3 mls/hr IVPB Q8HR JESSICA Rx#:[id number] Vancomycin 2,250 mg In 500 Sodium Chloride 0.9% 500 ml 500 ml @ 167 mls/hr IVPB Q8H JESSICA Rx#: [id number] Oral 1206 Other: Voiding Method Toilet Toilet Toilet # Voids 3 1 - Exam GENERAL DESCRIPTION: Middle-age female up in bed in no distress RESPIRATORY SYSTEM: Unlabored breathing , decreased breath sounds at bases HEART: S1 S2 regular rate and rhythm , ABDOMEN: Soft , no tenderness EXTREMITIES: Patient did have diffuse swelling and redness to the left leg minimal improvement with some superficial ulceration on the santillan no purulent drainage - Labs CBC & Chem 7: 07/09/24 06:49 07/10/24 05:08 Labs: Abnormal Lab Results - Last 24 Hours (Table) 07/10/24 Range/Units 05:08 Creatinine 0.49 L (0.52-1.04) mg/dL Microbiology - Last 24 Hours (Table) 07/04/24 01:24 Gram Stain - Final Leg - Left Wound Culture - Final Methicillin resist S. aureus Escherichia coli Proteus mirabilis Providencia rettgeri Corynebacterium striatum group 07/04/24 01:26 Blood Culture - Final Blood Assessment and Plan (1) Sepsis Current Visit: Yes Status: Acute Code(s): A41.9 - SEPSIS, UNSPECIFIED ORGANISM SNOMED Code(s): 25832446 (2) Allergy to multiple antibiotics Current Visit: No Status: Acute Code(s): Z88.1 - ALLERGY STATUS TO OTHER ANTIBIOTIC AGENTS SNOMED Code(s): 890297159 (3) Left leg cellulitis Current Visit: No Status: Acute Code(s): L03.116 - CELLULITIS OF LEFT LOWER LIMB SNOMED Code(s): 93319096334842588 Plan: 1patient presented to hospital with sepsis in this patient who did have a low- grade fever tachycardia elevated white count meeting criteria for SIRS/sepsis source is left lower extremity cellulitis in this patient who did have diffuse swelling redness local culture currently growing present MRSA 2-patient with multiple antibiotic ALLERGIES that would limit the number of antibiotic safe to use 3- lower extremity Doppler was negative we will apply dry Aquacel silver dressing to the anterior leg with superficial ulceration followed by Mack wrap 4patient local culture growing MRSA Proteus E. coli with sensitivities still pending as of 07/10/2024 that is holding her discharge for now we will treat harshil teofilo with vancomycin and Azactam while waiting for the culture finalized to determine discharge antibiotics Dictation was produced using [employer] dictation software. please excuse any grammatical, word or spelling errors. Time with Patient: Less than 30
[2024-07-11 12:08] VITALS: BP 128/73; PULSE 110; RESP 16
--- NOTE | 2024-07-11 15:29 | P.PN ---
Subjective Progress Note Date: 07/11/24 Principal diagnosis: Reason for follow-up is left lower extremity cellulitis Patient is a 54-year-old female with a past medical history significant for hypertension morbid obesity chronic bilateral lower extremity swelling presenting to the hospital for evaluation of left leg pain and swelling redness has been diagnosed with a cellulitis. On today's evaluation that is 07/11/2024,the patient remains to be afebrile, patient is on 3 L nasal cannula supplemental oxygen and denies any worsening shortness of breath no chest pain or any worsening cough.Patient denies having any nausea or vomiting, no abdominal pain and no diarrhea left lower extremity swelling and pain has decreased in intensity. Patient did have a creatinine 0.49 local culture with MRSA Proteus sensitive to Levaquin Objective - Vital Signs Vital signs: Vital Signs Temp 98.1 F 07/11/24 12:07 Pulse 110 H 07/11/24 12:07 Resp 16 07/11/24 12:07 BP 128/73 07/11/24 12:07 Pulse Ox 92 L 07/11/24 12:07 FiO2 40 07/10/24 23:28 Intake & Output 07/10/24 07/11/24 07/11/24 18:59 06:59 18:59 Intake Total 600 2560 Balance 600 2560 Intake: Intake, IV Titration 600 Amount Aztreonam 2 gm In Sodium 100 Chloride 0.9% 100 ml @ 33 .3 mls/hr IVPB Q8HR JESSICA Rx#:[id number] Vancomycin 2,250 mg In 500 Sodium Chloride 0.9% 500 ml 500 ml @ 167 mls/hr IVPB Q8H JESSICA Rx#: [id number] Oral 2560 Other: Voiding Method Toilet Toilet Toilet # Voids 3 1 5 # Bowel Movements 1 - Exam GENERAL DESCRIPTION: Middle-age female up in bed in no distress RESPIRATORY SYSTEM: Unlabored breathing , decreased breath sounds at bases HEART: S1 S2 regular rate and rhythm , ABDOMEN: Soft , no tenderness EXTREMITIES: Patient did have diffuse swelling and redness to the left leg mini mal improvement with some superficial ulceration on the santillan no purulent drainage - Labs CBC & Chem 7: 07/09/24 06:49 07/10/24 05:08 Labs: Microbiology - Last 24 Hours (Table) 07/04/24 01:24 Gram Stain - Final Leg - Left Wound Culture - Final Methicillin resist S. aureus Escherichia coli Proteus mirabilis Providencia rettgeri Corynebacterium striatum group Assessment and Plan (1) Sepsis Status: Acute Code(s): A41.9 - SEPSIS, UNSPECIFIED ORGANISM SNOMED Code(s): 33520776 (2) Allergy to multiple antibiotics Status: Acute Code(s): Z88.1 - ALLERGY STATUS TO OTHER ANTIBIOTIC AGENTS SNOMED Code(s): 587922231 (3) Left leg cellulitis Status: Acute Code(s): L03.116 - CELLULITIS OF LEFT LOWER LIMB SNOMED Cod e(s): 37647725488071047 Plan: 1patient presented to hospital with sepsis in this patient who did have a low- grade fever tachycardia elevated white count meeting criteria for SIRS/sepsis source is left lower extremity cellulitis in this patient who did have diffuse swelling redness local culture currently growing present MRSA 2-patient with multiple antibiotic ALLERGIES that would limit the number of antibiotic safe to use 3- lower extremity Doppler was negative we will apply dry Aquacel silver dressing to the anterior leg with superficial ulceration followed by Mack wrap 4patient local culture growing MRSA Proteus E. coli patient has received adequ ate Diabetamide therapy during the hospital stay will finish therapy with oral Zyvox and Levaquin prescription provided to the patient I discussed with the admitting physician on the floor Dictation was produced using [employer] dictation software. please excuse any grammatical, word or spelling errors. Time with Patient: Less than 30
--- NOTE | 2024-07-11 16:16 | P.DS ---
Providers Date of admission: 07/04/24 04:13 Attending physician: Marianne Khan MD Consults: 07/04/24 03:25 Consult Physician Urgent Consulting Provider: Viv Munroe Consult Reason/Comments: cellulitis/sepsis Do you want consulting provider notified?: Yes, Notify in am Primary care physician: Stated None Hospital Course: Discharge Diagnosis: Polymicrobial Infected chronic wounds, MRSA, E. coli, Proteus mirabillis, Providencia rettgeri, and Corynebacterium species Left lower extremity cellulitis in setting of chronic lymphedema Chronic bilateral lower extremity lymphedema Chronic hypoxic and hypercarbic respiratory failure Interstitial lung disease Pulmonary edema Obstructive sleep apnea CPAP dependent nightly Elevated D-dimer, CTA negative for PE Morbid obesity with BMI of 63.8 kg/m Hospital Course: Patient is a 54-year-old female with a past medical history of interstitial lung disease, chronic hypoxic respiratory failure home oxygen dependent 2 L, chronic bilateral lower extremity lymphedema with venous stasis changes, hypertension, morbid obesity with BMI of 63.8 kg/m and nicotine dependence. Patient presented to our facility on 07/04/2023 with a chief complaint of lower extremity swelling, drainage, and pain. Patient reports that her symptoms started 2 days ago when she initially noticed some discharge at her distal left anterior leg close to the ankle. She then also reported quickly worsening redness and swelling of her entire left leg. Upon arrival to our facility, patient underwent evaluation in the emergency department. Vital signs upon arrival show blood pressure 167/87, heart rate 128, respiratory rate 24, temp 99.0 F, and SpO2 of 92% on room air. EKG was completed showing sinus tachycardia at 106 bpm with no significant T wave or ST abnormality showing no signs of acute ischemia upon personal review and interpretation. Chest x-ray completed showing moderate pulmonary edema. Labs completed and reviewed. CBC showing leukocytosis with WBC count of 12.4 and elevated hematocrit of 47.7. Coagulation profile showing elevated D-dimer of 1.51. BMP showing non-anion gap metabolic alkalosis with chloride of 96, bicarb of 31, and anion gap of 10. Blood glucose 145. Lactic acid 1.5. Liver profile showing elevated AST of 47 and alkaline phosphatase of 233. Troponin was negative at less than 0.012. Influenza A, influenza B, RSV, and COVID PCR were negative. Patient was admitted under services with consultation to infectious disease and vascular surgery secondary to lymphedema. CTA negative for pulmonary emboli however reported evaluation is limited due to suboptimal contrast bolus timing. Left lower extremity Doppler was completed also reported very limited examination of mid and distal femoral vein and popliteal vein not able to be evaluated however no reported obvious DVTs reported. Patient was started on vancomycin and aztreonam, ID consulted. Wound cultures positive for MRSA, E. coli, Proteus mirabillis, Providencia rettg alex, and Corynebacterium species. Patient has multiple antibiotics allergy limiting our options to treat safely. Per ID recommendations, patient will finish therapy with oral Zyvox and Levaquin for 10 more days. Patient to follow-up with wound clinic Patient was continued on supplemental oxygen for chronic hypoxic and hypercapnic respiratory failure in the settings of interstitial lung disease, PE, HAZEL on CPAP, morbid obesity, smoking. Patient will continue using home oxygen at discharge. Vascular surgery evaluated, reviewed documentation in chart recommending structured outpatient weight management program Patient seen and examined at bedside General: Nontoxic, no distress and appears stated age. Morbidly obese. Derm: Skin warm and dry, normal coloration for ethnicity. Significant bilateral lower extremity nonpitting edema with left distal lower extremity anterior mildly purulent discharge with venous stasis changes noted with erythema with extension up to proximal thigh Head: Atraumatic, normocephalic and symmetric. Eyes: EOM's intact, no lid lag, and anicteric sclera Mouth: no lip lesions, mucus membranes moist Cardiovascular: regular rate and rhythm with normal S1S2, no murmur, positive posterior tibial pulses bilaterally, and cap refill < 2 seconds. Lungs: Respirations even, regular, and unlabored on room air. Lungs CTA bilaterally, no rhonchi, no rales, no wheezing, and no accessory muscle usage. Abdominal: soft, nontender to palpation, no guarding, no appreciable organomegaly Ext: ROM intact. No gross muscle atrophy, no edema, no contractures Neuro: Speech clear, face symmetrical and CN II-XII grossly intact with no noted focal neuro deficits Psych: Alert and oriented to person, place, time, and situation. Appropriate and pleasant affect. A total of 40 minutes of time were spent preparing this complex discharge summary. Patient was discharged on 07/11/2024. Patient Condition at Discharge: Stable Plan - Discharge Summary Discharge Rx Participant: Yes New Discharge Prescriptions: Continue Albuterol Inhaler [Ventolin Hfa Inhaler] 2 puff INHALATION RT-QID PRN PRN Reason: Shortness Of Breath Albuterol Nebulized [Ventolin Nebulized] 2.5 mg INHALATION RT-Q4H PRN PRN Reason: Shortness Of Breath Furosemide [Lasix] 40 mg PO BID Discharge Medication List Albuterol Nebulized [Ventolin Nebulized] 2.5 mg INHALATION RT-Q4H PRN 12/08/23 [History] Albuterol Inhaler [Ventolin Hfa Inhaler] 2 puff INHALATION RT-QID PRN 12/13/23 [History] Furosemide [Lasix] 40 mg PO BID 07/05/24 [History] Follow up Appointment(s)/Referral(s): None,Stated [Primary Care Provider] - 1-2 days (@ [facility] with Traci 07/24/24 @ 11:15) [facility], [REFERRING] - As Needed () W[facility] Center,[facility] [NON-STAFF] - 07/24/24 2:00 pm Patient Instructions/Handouts: How to Stop Smoking (DC), MRSA (Methicillin- Resistant Staphylococcus Aureus) (DC), Cellulitis (GEN), Hypoxia (GEN) Activity/Diet/Wound Care/Special Instructions: Please, see your PCP and wound center Discharge Disposition: HOME WITH HOME HEALTH SERVICES
== END 2024-07-11 14:00 | disposition home health service (06) | DRG 872 ==
LOC: EC 00:33 → 5NMEDONC 04:13
PROVIDERS: ADMIT Internal Medicine; ATTEND Internal Medicine
PROC: 05H933Z Insertion of Infusion Device into Right Brachial Vein, Percutaneous Approach (ICD-10-PCS; principal; 2024-07-04)
DX: A41.02 Sepsis due to Methicillin resistant Staphylococcus aureus (principal); E87.3 Alkalosis; J81.1 Chronic pulmonary edema; J96.11 Chronic respiratory failure with hypoxia; J96.12 Chronic respiratory failure with hypercapnia; L03.116 Cellulitis of left lower limb; Z68.44 Body mass index [BMI] 60.0-69.9, adult; J84.9 Interstitial pulmonary disease, unspecified; A41.59 Other Gram-negative sepsis; Z86.16 Personal history of COVID-19; E66.01 Morbid (severe) obesity due to excess calories; F17.210 Nicotine dependence, cigarettes, uncomplicated; Z71.6 Tobacco abuse counseling; I87.2 Venous insufficiency (chronic) (peripheral); G47.33 Obstructive sleep apnea (adult) (pediatric); I10 Essential (primary) hypertension; I87.8 Other specified disorders of veins; I89.0 Lymphedema, not elsewhere classified; Z82.49 Family history of ischemic heart disease and other diseases of the circulatory system; Z86.711 Personal history of pulmonary embolism; Z87.442 Personal history of urinary calculi; Z88.0 Allergy status to penicillin; Z99.81 Dependence on supplemental oxygen; Z88.1 Allergy status to other antibiotic agents; Z91.010 Allergy to peanuts; Z88.2 Allergy status to sulfonamides; Z91.018 Allergy to other foods; Z71.3 Dietary counseling and surveillance; Z90.49 Acquired absence of other specified parts of digestive tract; Z98.51 Tubal ligation status
CPT/HCPCS: 36410; 36415; 36600; 71046; 71275; 76937; 80048; 80053; 80202; 82565; 82805; 83605; 83735; 84484; 85025; 85027; 85379; 85610; 85730; 87040; 87070; 87077; 87186; 87205; 87636; 93005; 94640; 94660; 94760; 96361; 96365; 96366; 96375; 99285

== ENCOUNTER → 2024-07-24 | Outpatient (CLI) | payer BC ==
[2024-07-24 19:25] LABS: ALT 16 U/L (8-44); AST 22 U/L (13-35); Albumin 3.9 g/dL (3.8-4.9); Albumin/Globulin Ratio 1.15 Ratio (1.60-3.17); Alkaline Phosphatase 179 U/L (41-126); BUN/Creat Ratio 16.67 Ratio (12.00-20.00); Calcium 9.3 mg/dL (8.7-10.3); Carbon Dioxide 31.3 mmol/L (21.6-31.8); Chloride 98 mmol/L (96-109); Globulin 3.4 g/dL (1.6-3.3); Glucose 90 mg/dL (70-110); LDL Cholesterol,Calculated 106.2 mg/dL (0.0-131.0); Potassium 4.6 mmol/L (3.5-5.5); Sodium 140 mmol/L (135-145); Total Bilirubin 0.6 mg/dL (0.3-1.2); Total Protein 7.3 g/dL (6.2-8.2)
[2024-07-24 19:54] LABS: HCT 47.1 % (37.2-46.3); HGB 13.8 g/dL (12.0-15.0); MCH 27.5 pg (27.0-32.0); MCHC 29.3 g/dL (32.0-37.0); Mean Platelet Volume 11.8 FL (9.5-12.2); NRBC Per 100 WBC 0 X 10*3/uL (0.00-0.01); Platelet Count 187 X 10*3/uL (140-440); RBC 5.01 X 10*6/uL (4.10-5.20); RDW 18.4 % (11.5-14.5); WBC 5.82 X 10*3/uL (4.50-10.00)
== END | disposition home or self-care (01) ==
LOC: LABWHC1 14:57
PROVIDERS: ATTEND Family Medicine
DX: Z13.220 Encounter for screening for lipoid disorders (principal); Z76.89 Persons encountering health services in other specified circumstances; I10 Essential (primary) hypertension; G47.33 Obstructive sleep apnea (adult) (pediatric); E66.01 Morbid (severe) obesity due to excess calories; R73.01 Impaired fasting glucose
CPT/HCPCS: 36415; 80053; 80061; 83036; 84443; 85027

== ENCOUNTER 2024-09-12 19:45 | Outpatient (CLI) | payer BC ==
--- NOTE | 2024-10-08 23:30 | P.PCN ---
Date of Procedure: 09/12/24 Operative Findings: Polysomnography report History This is a 54-year-old female patient with typical features of obstructive sleep apnea. The patient has snoring, sleep fragmentation chronic hypersomnia and sleepiness. The patient was also found to have pulm hypertension with dilated RV, attributed to chronic hypoxemia and sleep breathing disorder was also entertained. Based on that, the patient was asked to come into the sleep center to undergo a polysomnography. The patient is known to have COPD. Patient is a chronic smoker. FEV1 is in the order of 53% of predicted. The patient has chronic lower extremity edema. The patient is obese and she is a smoker. Physical findings Weight is 360 pounds with a BMI of 63.8 Technical description The patient was studied using a standard complex polysomnography protocol that included recording of the Lead II EKG, Central, occipital and frontal EEG, right and left outer canthus EOG, submental EMG, right and left anterior tibialis EMG, respiratory airflow by thermocouple and or pressure/flow transducer, respiratory efforts by abdominal and thoracic PVDF belts, oxygen saturation by cable oximetry. Position by observation synchronized the PSG. Equipment used: [employer]. Sleep architecture The total recording duration was 394.0 minutes. The total sleep time was 298.0 minutes. The wake after sleep onset time was 54 minutes. The overall sleep efficiency was 75.6%. The latency to sleep onset was 20.5 minutes. The latency to REM sleep was 364.0 minutes. The sleep architecture was characterized by 40.9% stage I, 56.5% stage II, 0% stage III and a total of 2.5% of sleep. The total arousal index was 57 Respiratory analysis His sleep study showed a total of 167 obstructive events of which 0 were obstructive apneas, 0 were mixed apneas and 167 were obstructive hypopneas. The resulting AHI was 30.2. AHI during REM sleep was 80. Oxygenation analysis The baseline pulse ox while awake was 95%. Lowest oxygen saturation was 72% during sleep. The patient spent approximately 10 minutes of sleep time at a pulse ox of below 89% and this accounted for 2.8% of the overall sleep time. Note that this study was done while the patient was in oxygen at 3 L nasal cannula. Cardiac summary. Rhythm was sinus. The patient was having episodes of tachycardia. The average heart rate during sleep was 102. Limb movement summary No significant periodic limb movement activity Arousal events The patient had a total of 283 arousals with an index of 57. The respiratory arousal index was 19.3 Assessment Severe obstructive sleep apnea with an AHI of 30.2, worse during REM sleep. 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 The patient will undergo a CPAP/BiPAP titration and O2 will be added if needed. Encourage weight loss Optimize COPD Optimize CHF Maintain regular sleep schedule and good sleep hygiene measures Will follow-up
== END 2024-09-13 05:30 | disposition home or self-care (01) ==
LOC: 3 N SLEEP 19:45
PROVIDERS: ATTEND Internal Medicine Critical Care Medicine
DX: G47.33 Obstructive sleep apnea (adult) (pediatric) (principal); J44.9 Chronic obstructive pulmonary disease, unspecified; I11.0 Hypertensive heart disease with heart failure; I50.812 Chronic right heart failure; E66.01 Morbid (severe) obesity due to excess calories; Z68.44 Body mass index [BMI] 60.0-69.9, adult; F17.210 Nicotine dependence, cigarettes, uncomplicated; Z88.0 Allergy status to penicillin; Z88.1 Allergy status to other antibiotic agents; Z88.2 Allergy status to sulfonamides; Z88.8 Allergy status to other drugs, medicaments and biological substances; Z91.018 Allergy to other foods; Z91.010 Allergy to peanuts
CPT/HCPCS: 95810

== ENCOUNTER → 2024-10-03 | Outpatient (CLI) | payer BC, OTHER ==
--- NOTE | 2024-10-03 08:44 | MM ---
Reason for Exam: Screening (asymptomatic). Last mammogram was performed 23 year(s) and 1 month(s) ago. Patient History: Menarche at age 12. First Full-Term at age 22. Postmenopausal. Risk Values: Paris 5 year model risk: 1.0%. NCI Lifetime model risk: 8.5%. Prior Study Comparison: 09/21/2001 Bilateral Special View Mammogram, [facility]. 10/05/2001 Right Special View Mammogram, [facility]. Tissue Density: There are scattered areas of fibroglandular density. Findings: Analyzed By CAD. There is no suspicious group of microcalcifications or new suspicious mass in either breast. Overall Assessment: Negative, BI-RAD 1 Management: Screening Mammogram of both breasts in 1 year. . Patient should continue monthly self-breast exams. A clinical breast exam by your physician is recommended on an annual basis. This exam should not preclude additional follow-up of suspicious palpable abnormalities. Note on Paris scores and lifetime risk: 1. A Paris score greater than 3% is considered moderate risk. If this is the case, consider specialist referral to assess eligibility for a risk reducing agent. 2. If overall lifetime risk for the development of breast cancer is 20% or higher, the patient may qualify for future screening with alternating mammogram and breast MRI. [facility], , 10/03/2024 8:41 AM. Electronically signed and approved by: Karel Field M.D. [facility]
== END | disposition home or self-care (01) ==
LOC: RADMAMWWP 08:15
PROVIDERS: ATTEND Family Medicine
DX: Z12.31 Encounter for screening mammogram for malignant neoplasm of breast (principal); R92.323 Mammographic fibroglandular density, bilateral breasts; Z78.0 Asymptomatic menopausal state
CPT/HCPCS: 77067

== ENCOUNTER 2024-10-27 19:32 | Outpatient (CLI) | payer OTHER ==
--- NOTE | 2024-11-04 22:56 | P.PCN ---
Date of Procedure: 10/27/24 Operative Findings: CPAP titration study History This is a 54-year-old female patient with typical features of obstructive sleep apnea. The patient has snoring, sleep fragmentation chronic hypersomnia and sleepiness. The patient was also found to have pulm hypertension with dilated RV, attributed to chronic hypoxemia and sleep breathing disorder was also entertained. Based on that, the patient was asked to come into the sleep center to undergo a polysomnography. The patient is known to have COPD. Patient is a chronic smoker. FEV1 is in the order of 53% of predicted. The patient has chronic lower extremity edema. The patient is obese and she is a smoker. The patient underwent a sleep study and the patient was found to have severe HAZEL with an AHI of 30 worse during REM sleep. Based on that, the patient was asked to come into the sleep center to undergo a CPAP titration. Physical findings Weight is 360 pounds with a BMI of 63.8 Technical description The patient was studied using a standard complex polysomnography protocol that included recording of the Lead II EKG, Central, occipital and frontal EEG, right and left outer canthus EOG, submental EMG, right and left anterior tibialis EMG, respiratory airflow by thermocouple and or pressure/flow transducer, respiratory efforts by abdominal and thoracic PVDF belts, oxygen saturation by cable oximetry. Position by observation synchronized the PSG. Equipment used: [id number]. Stepwise CPAP titration was done to eliminate all obstructive respiratory events. Sleep architecture The total recording duration was 393.5 minutes. The total sleep time was 363.0 minutes. The wake after sleep onset time was 10.5 minutes. The overall sleep efficiency was 92.2%. Latency to sleep onset was 12 minutes. Latency to REM sleep was 49.5 minutes. Sleep architecture was characterized by 2.5% stage I, 65.8% stage II, 9.5% stage III, and a total of 21.3% REM sleep. The total arousal index was 5.1 Respiratory analysis The CPAP titration was started initially at a pressure of 5 cm of water and the pressure was gradually increased by treatments of 1 cm to reach a maximum CPAP pressure of 9 cm of water. I carefully reviewed the CPAP titration taking, the patient's sleep stage and body position. Noted the patient was essentially studied in the nonsupine body position. However, he did encounter REM and non- REM sleep. At the pressure of 9 cm of water, the patient had no significant oxygen saturations and there was adequate elimination of the obstructive respiratory events without any significant residual obstructive apneas or hypopneas. Oxygen at 3 L was also added to dominate obstructive apnea related oxygen desaturations. Cardiac analysis The average heart rate was 90 with a minimum heart rate of 86 and a maximum heart of 93 Limb movement activity No significant PLM with activity was noted Arousal events A total of 31 arousals were counted with an index of 5.1. Respiratory arousal index was 2.1 Assessment Severe obstructive sleep apnea with an AHI of 30.2, worse during REM sleep. The patient underwent a successful CPAP titration and there was adequate initial obstructive respiratory events during this current titration. Chronic hypoxic respiratory failure along with nocturnal oxygen desaturation secondary to HAZEL COPD, based on FEV1 of 53% of predicted Right-sided heart failure with chronic pulm hypertension and chronic lower extremity edema Morbid obesity with a body mass index of 63.8 Hypertension Chronic smoker Chronic hypersomnia, [place] score of 23 Plan The patient will be treated with CPAP therapy pressure of 9 cm of water in conjunction with O2 at 3 L to eliminate all obstructive respiratory events and maintain oxygen saturation above 90%. The patient was offered a small size Simplus full facemask. Encourage weight loss Optimize COPD Optimize CHF Maintain regular sleep schedule and good sleep hygiene measures Will follow-up. The patient was seen back in the office in 30 to 90 days to assess clinical response and compliancy.
== END 2024-10-28 06:05 | disposition home or self-care (01) ==
LOC: 3 N SLEEP 19:32
PROVIDERS: ATTEND Internal Medicine Critical Care Medicine
DX: G47.33 Obstructive sleep apnea (adult) (pediatric) (principal); I11.0 Hypertensive heart disease with heart failure; I50.812 Chronic right heart failure; J44.9 Chronic obstructive pulmonary disease, unspecified; J96.11 Chronic respiratory failure with hypoxia; I27.29 Other secondary pulmonary hypertension; E66.01 Morbid (severe) obesity due to excess calories; F17.200 Nicotine dependence, unspecified, uncomplicated; Z68.44 Body mass index [BMI] 60.0-69.9, adult; Z99.89 Dependence on other enabling machines and devices; Z88.0 Allergy status to penicillin; Z88.2 Allergy status to sulfonamides; Z91.010 Allergy to peanuts; Z91.018 Allergy to other foods; Z88.1 Allergy status to other antibiotic agents; Z88.8 Allergy status to other drugs, medicaments and biological substances
CPT/HCPCS: 95811

== ENCOUNTER → 2024-11-14 | Outpatient (CLI) | payer OTHER ==
[2024-11-14 15:16] LABS: HCT 49.3 % (37.2-46.3); HGB 15.4 g/dL (12.0-15.0); MCH 30.6 pg (27.0-32.0); MCHC 31.2 g/dL (32.0-37.0); MCV 97.8 FL (80.0-97.0); Mean Platelet Volume 10.4 FL (9.5-12.2); NRBC Per 100 WBC 0 X 10*3/uL (0.00-0.01); Platelet Count 246 X 10*3/uL (140-440); RBC 5.04 X 10*6/uL (4.10-5.20); RDW 16.3 % (11.5-14.5); WBC 7.05 X 10*3/uL (4.50-10.00)
[2024-11-14 15:58] LABS: ALT 22 U/L (8-44); AST 25 U/L (13-35); Albumin 4.1 g/dL (3.8-4.9); Albumin/Globulin Ratio 1.28 Ratio (1.60-3.17); Alkaline Phosphatase 164 U/L (41-126); BUN/Creat Ratio 8.83 Ratio (12.00-20.00); Blood Urea Nitrogen 5.3 mg/dL (9.0-27.0); Calcium 9.4 mg/dL (8.7-10.3); Carbon Dioxide 29.3 mmol/L (21.6-31.8); Chloride 100 mmol/L (96-109); Chol/HDL Ratio 4.69 Ratio; Globulin 3.2 g/dL (1.6-3.3); Glucose 99 mg/dL (70-110); LDL Cholesterol,Calculated 119.4 mg/dL (0.0-131.0); Potassium 4.6 mmol/L (3.5-5.5); Sodium 141 mmol/L (135-145); Total Bilirubin 0.3 mg/dL (0.3-1.2); Total Protein 7.3 g/dL (6.2-8.2)
== END | disposition home or self-care (01) ==
LOC: LABWHC1 11:17
PROVIDERS: ATTEND Family Medicine
DX: I10 Essential (primary) hypertension (principal); E11.9 Type 2 diabetes mellitus without complications; E66.813 Obesity, class 3; G47.33 Obstructive sleep apnea (adult) (pediatric); Z68.44 Body mass index [BMI] 60.0-69.9, adult
CPT/HCPCS: 36415; 80053; 80061; 83036; 84443; 85027